=== PATIENT | male | born 1950 | race Caucasian/White ===

== ENCOUNTER 2016-09-03 14:03 | Emergency (ER) | payer MEDICARE, BC ==
[2016-09-03 14:11] VITALS: BP 148/100
--- NOTE | 2016-09-03 16:39 | ED ---
Skin Complaint - HPI Summary HPI Summary: Patient presents with a wound on the lateral aspect of his left ankle that began after he struck the ankle on the part of his other wheelchair. He suffered from cauda equina years ago and since then has had decreased sensation and blood flow to his bilateral extremities, left greater than right. He has a history of unhealing wounds as a result of this, and believes this is contributing to his current situation. He went to the wound clinic the last time this happened. Today he notice some serosanguinous drainage from the wound and thought he should have it looked at before thing got worse. His PCP could not see him for weeks. He denies fever, chills, pus or warmth at the wound. He notices some mild erythema and pain to the touch. - History of Current Complaint Chief Complaint: EDExtreAbbie Stated Complaint: POSSIBLE INFECTION IN LEFT FOOT Hx Obtained From: Patient, Family/Director Social Onset/Duration: Started Days Ago - 2 Timing: Constant Onset Severity: Mild Current Severity: Moderate Pain Intensity: 0 Skin Location: Foot - left lateral ankle Character: Redness - mild, Painful Aggravating Symptom(s): Touch Alleviating Symptom(s): Nothing Associated Signs & Symptoms: Drainage - serosanguinous, Tenderness Related History: Trauma Similar Episode/Dx as: two years ago he had an unhealing wound - Additional Pertinent History Primary Care Physician: MYNOR - Allergy/Home Medications Allergies/Adverse Reactions: Allergies Allergy/AdvReac Type Severity Reaction Status Date / Time Fentanyl AdvReac Intermediate Blisters Verified 09/03/16 14:04 PMH/Surg Hx/FS Hx/Imm Hx Endocrine/Hematology History: Reports: Hx Anticoagulant Therapy, Hx Diabetes, Hx Anemia, Hx Unexplained Bleeding Cardiovascular History: Reports: Hx Coronary Artery Disease, Hx Hypertension, Hx Pacemaker/ICD, Hx Peripheral Vascular Disease, Hx Valvular Heart Disease, Other Cardiovascular Problems/Disorders - Sick sinus syndrome Denies: Hx Angina, Hx Congestive Heart Failure, Hx Hypercholesterolemia, Hx Myocardial Infarction Respiratory History: Reports: Hx Pneumonia, Hx Pulmonary Embolism, Other Respiratory Problems/Disorders - RESP FAILURE Denies: Hx Asthma, Hx Chronic Obstructive Pulmonary Disease (COPD) GI History: Reports: Hx Gastroesophageal Reflux Disease, Hx Gastrointestinal Bleed, Hx Hiatal Hernia, Other GI Disorders - DIARRHEA- SINCE HAS BEEN ON [employer] IF IN SOUND SLEEP History: Reports: Other Problems/Disorders - straight caths Musculoskeletal History: Reports: Hx Arthritis, Hx Back Problems, Other Musculoskeletal History - WHEELCHAIR Sensory History: Reports: Hx Contacts or Glasses - for reading Denies: Hx Hearing Aid Opthamlomology History: Reports: Hx Contacts or Glasses - for reading Neurological History: Reports: Hx Spinal Cord Injury - spinal stenosis, Other Neuro Impairments/Disorders - Cauda equina syndrome Psychiatric History: Denies: Hx Anxiety - Cancer History Cancer Type, Location and Year: Skin cancer left healed. Also left forehead, ear and ruiz Hx Chemotherapy: No Hx Radiation Therapy: No - Surgical History Surgery Procedure, Year, and Place: Inguinal hernia repair. Cervical spine fusion. Lumbar spine fusion. CABG, 11/2013. Pacemaker implantation Hx Anesthesia Reactions: No Infectious Disease History: No Infectious Disease History: Reports: Hx Shingles - Mid 2013 Denies: Hx of Known/Suspected MRSA, Hx Tuberculosis, Traveled Outside the in Last 30 Days - Family History Known Family History: Positive: None Family History: R & n/C - Social History Occupation: Unemployed Lives: With Family Alcohol Use: None Hx Substance Use: No Substance Use Type: Reports: None Hx Tobacco Use: Yes Smoking Status (MU): Former Smoker Type: Cigarettes Amount Used/How Often: 1 PPD X 10 YEARS Length of Time of Smoking/Using Tobacco: 10 years Have You Smoked in the Last Year: No Review of Systems Negative: Fever, Chills Negative: Edema Positive: Other - quarter size wound to lateral left ankle All Other Systems Reviewed And Are Negative: Yes Physical Exam Triage Information Reviewed: Yes Vital Signs On Initial Exam: Initial Vitals Temp Pulse Resp BP Pulse Ox 98.8 F 72 18 148/100 100 09/03/16 14:05 09/03/16 14:05 09/03/16 14:05 09/03/16 14:05 09/03/16 14:05 Vital Signs Reviewed: Yes Appearance: Positive: Well-Appearing, No Pain Distress, Thin Skin: Positive: Warm, Dry. Negative: Skin Color Reflects Adequate Perfusion - chronic venous status appearance in the left lower extremity from the knee distally; quarter size wound with granulation appearance centrally with scant serosanguinous drainage noted. No pus noted. Mild enduration circumfrentially without erythema, edema or warmth. Head/Face: Positive: Normal Head/Face Inspection Eyes: Positive: EOMI, MAURIZIO, Conjunctiva Clear ENT: Positive: Hearing grossly normal Respiratory/Lung Sounds: Positive: Breath Sounds Present Cardiovascular: Positive: RRR Musculoskeletal: Negative: Edema Left Neurological: Positive: Alert, Oriented to Person Place, Time, Unable to Assess Gait Psychiatric: Positive: Affect/Mood Appropriate AVPU Assessment: Alert Diagnostics - Vital Signs Vital Signs Temp Pulse Resp BP Pulse Ox 09/03/16 14:05 98.8 F 72 18 148/100 100 - Laboratory Lab Statement: Any lab studies that have been ordered have been reviewed, and results considered in the medical decision making process. Course/Dx - Course Course Of Treatment: The patient is afebrile and although there is a wound, it appears relatively benign and the wound clinic would best manage this. He will be referred to the clinic and his PCP for close follow-up. - Differential Diagnoses - Skin Complaint Differential Diagnoses: Abscess, Cellulitis, Contact Dermatitis, Eczema, Foreign Body, Local Allergic Reaction, MRSA, Urticaria - Diagnoses Provider Diagnoses: Wound of left ankle Discharge - Discharge Plan Condition: Stable Disposition: HOME Patient Education Materials: Chronic Wound Care (ED) Referrals: Hany Valera DO [Primary Care Provider] - Paramjit Saravia MD [Medical Doctor] - Additional Instructions: Please contact the wound clinic for an appointment for evaluation of your wound. In the mean time keep the area clean and dressed. Follow-up with your primary care provider in 1-3 days for evaluation if you can not get in with the wound clinic. Return to the emergency department if your symptoms worsen.
== END 2016-09-03 17:02 | disposition home or self-care (01) ==
LOC: ED 14:03
DX: S91.002A Unspecified open wound, left ankle, initial encounter (principal); W22.8XXA Striking against or struck by other objects, initial encounter; Y92.9 Unspecified place or not applicable; G83.4 Cauda equina syndrome; Z88.5 Allergy status to narcotic agent; I25.10 Atherosclerotic heart disease of native coronary artery without angina pectoris; Z95.810 Presence of automatic (implantable) cardiac defibrillator; E11.9 Type 2 diabetes mellitus without complications; I10 Essential (primary) hypertension; I73.9 Peripheral vascular disease, unspecified; Z86.711 Personal history of pulmonary embolism; Z79.01 Long term (current) use of anticoagulants; Z87.891 Personal history of nicotine dependence
CPT/HCPCS: 99282

== ENCOUNTER 2016-09-25 18:43 | Inpatient (IN) | payer MEDICARE, BC ==
[2016-09-25] MEDS ORDERED: NS 0.9% 1000 ML* 2,000 ML IV ONE (19:01)
[2016-09-25] MEDS ORDERED: Metoclopramide IV* 5 MG/ML 2 ML VIAL IV ONE (19:25)
--- NOTE | 2016-09-25 19:27 | RAD ---
HISTORY: Weakness, general illness COMPARISONS: March 31, 2016 VIEWS:1: Single frontal portable view of the chest at 7:13 PM FINDINGS: LINES AND TUBES: None. CARDIOMEDIASTINAL SILHOUETTE: The cardiomediastinal silhouette is normal for portable technique. PLEURA: The costophrenic angles are sharp. No pleural abnormalities are noted. LUNG PARENCHYMA: There is confluent alveolar opacification of left lung base ABDOMEN: There is large vernell hernia BONES AND SOFT TISSUES: The patient is status post median sternotomy. The patient is status post spinal fusion. A left-sided pacemaker is noted IMPRESSION: 1. LARGE VERNELL HERNIA. 2. LEFT LOWER LUNG ATELECTASIS VERSUS CONSOLIDATION
[2016-09-25 20:13] LABS: Hematocrit 20 % (42-52); Mean Corpuscular HGB Conc 27 g/dl (31-36); Mean Corpuscular Hemoglobin 19 pg (27-31); Mean Corpuscular Volume 70 fL (80-94); Mean Platelet Volume 8 um3 (7.4-10.4); Red Blood Count 2.78 10^6/ul (4.0-5.4); Red Cell Distribution Width 18 % (10.5-15); White Blood Count 20.3 10^3/ul (3.5-10.8)
[2016-09-25 20:17] LABS: Comments Flag Yes
[2016-09-25 20:18] LABS: Add Diff/Slide Review? Slide Review Added; Hemoglobin 5.2 g/dl (14.0-18.0)
[2016-09-25 20:29] LABS: BUN/Creatinine Ratio 60.2 (8-20); C Reactive Protein 202.24 mg/L (< 5.00); Calcium 8.6 mg/dL (8.6-10.3); EGFR African American 97.8 (>60); EGFR Non-African American 76.1 (>60); Globulin 3.1 g/dL (2-4); Magnesium 1.4 mg/dL (1.9-2.7); Potassium 5.1 mmol/L (3.5-5.0); Total Bilirubin 0.6 mg/dL (0.2-1.0); Total Protein 6.1 g/dL (6.4-8.9)
[2016-09-25 20:36] LABS: Macrocytosis 1+; Microcytosis 1+; Neutrophil % 71 % (38-83); Reactive Lymph % 1 % (0-6)
[2016-09-25 20:38] LABS: Hypochromasia 2+; Polychromasia 1+
[2016-09-25] MEDS ORDERED: Magnesium Sulfate IV* 3 GM in NS 0.9% 100 ML* 100 ML IVPB ONE (20:54)
[2016-09-25 21:12] LABS: Urine Bacteria 3+ (Absent); Urine Bilirubin Negative (Negative); Urine Glucose Negative (Negative); Urine Nitrite Negative (Negative)
[2016-09-25] MEDS ORDERED: Hydrocortisone INJ* 100 MG VIAL IV ONE (21:16)
[2016-09-25] MEDS ORDERED: Cefepime(*) 1 GM in NS 0.9% 50 ML* 50 ML IVPB ONE (21:19)
[2016-09-25] MEDS ORDERED: Al Hydrox/Mg Hydrox/Simet LIQ* 30 ML UDC PO PRN (21:25)
[2016-09-25] MEDS ORDERED: Morphine INJ* 2 MG/ML 1 ML CARPUJECT IV PRN (21:25)
[2016-09-25] MEDS ORDERED: Senna TAB PO PRN (21:25)
[2016-09-25] MEDS ORDERED: Docusate CAP* 100 MG PO PRN (21:25)
[2016-09-25] MEDS ORDERED: Ondansetron INJ* 2 MG/ML VIAL IV PRN (21:25)
[2016-09-25 21:28] LABS: TSH (Thyroid Stimulating Horm) 3.22 mcIU/mL (0.34-5.60)
[2016-09-25] MEDS ORDERED: NS 0.9% 1000 ML* 1,000 ML IV ONE (21:33)
[2016-09-25 22:00] LABS: Troponin I 0.04 ng/mL (<0.04)
--- NOTE | 2016-09-25 22:03 | RAD ---
HISTORY: Abdominal pain COMPARISONS: None relevant VIEWS: Frontal views of the abdomen. FINDINGS: BOWEL: There is a nonspecific bowel gas pattern, with nondilated small bowel gas noted. There is a very large amount of stool throughout the colon CALCULI: There are no abnormal calculi. BONES AND SOFT TISSUES: The patient is status post laminectomy and spinal fusion. Degenerative changes are noted OTHER FINDINGS: The patient is status post median sternotomy. There is no subphrenic gas. IMPRESSION: NONSPECIFIC BOWEL GAS PATTERN. VERY LARGE AMOUNT OF STOOL THROUGHOUT THE COLON.
--- NOTE | 2016-09-25 22:32 | ED ---
Paige Kruse Anna, scribed for Kishore Whitaker MD on 09/25/16 at 1903 . GI/ HPI - HPI Summary HPI Summary: Patient is a 66 y/o male coming to [facility] presenting with nausea that began one week ago. His additionally reports he has had a fever and has experienced weakness. Denies emesis, current pain, CP, SOB. Presents as diaphoretic in the ED with an initial HR of 180. His history is significant for cauda equina syndrome, spinal stenosis, and CAD. Last BM was five days ago. - History of Current Complaint Chief Complaint: EDDysrhythmPalp Hx Obtained From: Patient Onset/Duration: Started Days Ago, Still Present Severity: Moderate Current Severity: Moderate Associated Signs and Symptoms: Positive: Nausea, Fever - Additional Pertinent History Primary Care Physician: MYNOR - Allergy/Home Medications Allergies/Adverse Reactions: Allergies Allergy/AdvReac Type Severity Reaction Status Date / Time Fentanyl AdvReac Intermediate Blisters Verified 09/03/16 14:04 PMH/Surg Hx/FS Hx/Imm Hx Previously Healthy: No Endocrine/Hematology History: Reports: Hx Anticoagulant Therapy, Hx Diabetes, Hx Anemia, Hx Unexplained Bleeding Cardiovascular History: Reports: Hx Coronary Artery Disease, Hx Hypertension, Hx Pacemaker/ICD, Hx Peripheral Vascular Disease, Hx Valvular Heart Disease, Other Cardiovascular Problems/Disorders - Sick sinus syndrome Denies: Hx Angina, Hx Congestive Heart Failure, Hx Hypercholesterolemia, Hx Myocardial Infarction Respiratory History: Reports: Hx Pneumonia, Hx Pulmonary Embolism, Other Respiratory Problems/Disorders - RESP FAILURE Denies: Hx Asthma, Hx Chronic Obstructive Pulmonary Disease (COPD) GI History: Reports: Hx Gastroesophageal Reflux Disease, Hx Gastrointestinal Bleed, Hx Hiatal Hernia, Other GI Disorders - DIARRHEA- SINCE HAS BEEN ON [employer] IF IN SOUND SLEEP History: Reports: Other Problems/Disorders - straight caths Musculoskeletal History: Reports: Hx Arthritis, Hx Back Problems, Other Musculoskeletal History - WHEELCHAIR Sensory History: Reports: Hx Contacts or Glasses - for reading Denies: Hx Hearing Aid Opthamlomology History: Reports: Hx Contacts or Glasses - for reading Neurological History: Reports: Hx Spinal Cord Injury - spinal stenosis, Other Neuro Impairments/Disorders - Cauda equina syndrome Psychiatric History: Denies: Hx Anxiety - Cancer History Cancer Type, Location and Year: Skin cancer left healed. Also left forehead, ear and ruiz Hx Chemotherapy: No Hx Radiation Therapy: No - Surgical History Surgery Procedure, Year, and Place: Inguinal hernia repair. Cervical spine fusion. Lumbar spine fusion. CABG, 11/2013. Pacemaker implantation Hx Anesthesia Reactions: No Infectious Disease History: Unable to Obtain/Confirm Infectious Disease History: Reports: Hx Shingles - Mid 2013 Denies: Hx of Known/Suspected MRSA, Hx Tuberculosis, Traveled Outside the [place] in Last 30 Days - Family History Known Family History: Positive: Cardiac Disease - Social History Occupation: Retired Lives: With Family Alcohol Use: None Hx Substance Use: No Substance Use Type: Reports: None Hx Tobacco Use: Yes Smoking Status (MU): Former Smoker Type: Cigarettes Amount Used/How Often: 1 PPD X 10 YEARS Length of Time of Smoking/Using Tobacco: 10 years Have You Smoked in the Last Year: No Review of Systems Positive: Fever, Skin Diaphoresis Positive: Nausea Positive: Weakness All Other Systems Reviewed And Are Negative: Yes Physical Exam - Summary Physical Exam Summary: VITAL SIGNS: Reviewed. GENERAL: Patient is a weak, fragile male who seems tyred and fatigued. Patient is not in any acute respiratory distress. HEAD AND FACE: No signs of trauma. No ecchymosis, hematomas or skull depressions. EYES: PERRLA, EOMI x 2, EARS: Hearing grossly intact. MOUTH: Dry nasal and oral mucosa NECK: Supple, trachea is midline, no adenopathy, no JVD, CHEST: Symmetric, no tenderness at palpation LUNGS: Clear to auscultation bilaterally. No wheezing or crackles. CVS: Irregular rate and rhythm, S1 and S2 present, no murmurs or gallops appreciated. ABDOMEN: Soft, non-tender. No signs of distention. No rebound no guarding, and no masses palpated. Bowel sounds are normal. EXTREMITIES: no edema, no cyanosis or clubbing. NEURO: Alert and oriented x chroninc paralyses from the waist down. SKIN: Dry and warm Triage Information Reviewed: Yes Vital Signs On Initial Exam: Initial Vitals Temp Pulse Resp BP Pulse Ox 96.4 F 182 34 96/72 96 09/25/16 18:51 09/25/16 18:51 09/25/16 18:51 09/25/16 18:51 09/25/16 18:51 Vital Signs Reviewed: Yes Diagnostics - Vital Signs Vital Signs Temp Pulse Resp BP Pulse Ox 02/07/17 18:51 96.4 F 182 34 96/72 96 - Laboratory Result Diagrams: 09/25/16 20:02 09/25/16 20:02 Lab Statement: Any lab studies that have been ordered have been reviewed, and results considered in the medical decision making process. - Radiology CXR Xray Interpretation: Positive (See Comments) Radiology Interpretation Completed By: Radiologist - IMPRESSION: 1. LARGE VERNELL HERNIA. 2. LEFT LOWER LUNG ATELECTASIS VERSUS CONSOLIDATION Abd XR Xray Interpretation: Positive (See Comments) Radiology Interpretation Completed By: Radiologist - IMPRESSION: NONSPECIFIC BOWEL GAS PATTERN. VERY LARGE AMOUNT OF STOOL THROUGHOUT THE COLON. - EKG 1843 Cardiac Rate: Tachycardia - 147 bpm EKG Rhythm: Atrial Fibrillation EKG Interpretation: RVR GIGU Course/Dx - Course Assessment/Plan: Patient is a 66 y/o male coming to [facility] presenting with nausea that began one week ago. His additionally reports he has had a fever and has experienced weakness. Denies emesis, current pain, CP, SOB. Presents as diaphoretic in the ED with an initial HR of 180. His history is significant for cauda equina syndrome, spinal stenosis, and CAD. Last BM was five days ago. Bloodwork shows WBC of 20.3, Hbg of 5.2, Hct of 20, and Plt count of 472. It also shows potassium of 5.1, carbon dioxide of 13, and BUN of 59. Glucose is 118, Lactic acid is 9.3, troponin is 0.04. BNP is 279. UA is contaminated. CXR shows a large hiatal hernia and left lower lung atelectasis versus consolidation. Abd XR shows nonspecific bowel gas pattern and very large amount of stool throughout the colon. EKG shows a fib with RVR of 147 bpm. However, at this time BP is 70/30. We obtained 3 IV accesses and the pt was given 2 L IV fluids. BP is now 101/63. Will report to Dr. Reyez the low H&H numbers. I did a rectal exam and I did not notice any fresh blood or melena. Still waiting for result of occult stool sample. I also ordered 2 units of blood for transfusion. The pt was also given Cefepmine for possible PNA. I discussed the PE findings with Dr. Reyez, who accepted the pt for admission. At this time, I do not think that the pt needs a central line, since the BP significantly improved only with IV fluids. I believe the pt will improve even further with blood. In re-evaluation, patient is alert and oriented x 3. He is not somnolent. Therefore, the pt is improving. Therefore, at this time the pt will be admitted to the hospitalist services. The patients vital signs are improving; however the pts condition is still guarded. - Diagnoses Provider Diagnoses: Atrial fibrillation, rapid, Symptomatic anemia, Pneumonia, Elevated troponin, Hypotension - Physician Notifications Discussed Care Of Patient With: Dr. Reyez (hospitalist) at 2042. Agrees to accept pt for admission. Discharge - Discharge Plan Condition: Stable Disposition: ADMITTED TO [facility] The documentation as recorded by the Paige garcia Anna accurately reflects the service I personally performed and the decisions made by me, Kishore Whitaker MD.
[2016-09-25] MEDS: Pantoprazole IV* 80 MG in NS 0.9% 250 ML* 250 ML IV SCH (23:25)
[2016-09-25] MEDS ORDERED: Metoprolol Tartrate IV* 1 MG/ML 5 ML VIAL IV ONE (23:55)
[2016-09-25] MEDS ORDERED: Metoprolol Tartrate IV* 1 MG/ML 5 ML VIAL ONE (23:56)
--- NOTE | 2016-09-26 00:34 | HP ---
HISTORY AND PHYSICAL: DATE OF ADMISSION: 09/25/16 PRIMARY CARE PHYSICIAN: Dr. Hany Valera. TIME OF EVALUATION: 2100 hours. CHIEF COMPLAINT: Lethargy and weakness. HISTORY OF PRESENT ILLNESS: This is a 66-year-old male with a complicated past medical history including upper GI bleed in March 2016 on anticoagulation at that time, found to have a large hiatal hernia with Dilan erosions as well as HSV esophagitis. The patient continues to be on prednisone for his rheumatoid arthritis. He denies any anticoagulation. No aspirin or NSAIDs. His noted that he had decreased appetite with a wet cough today and was feeling nauseated. She was concerned, he became more lethargic and brought him to the emergency room for further evaluation. The patient normally does straight cath for himself for his neurogenic bladder every 5 hours and he was so lethargic, he was unable to do this. The patient denies any diarrhea. No vomiting, no abdominal pain, no chest pain, no shortness of breath. Otherwise, he denies any melena, no bright red blood per rectum. According to the , he had a blood work done a week ago and everything was perfect according to her. She did state that he was on iron from his last GI bleed that was started in March , but stopped it about 6 months ago, because it was causing him diarrhea. Otherwise, remaining review of systems is negative. Also, of note, the patient has not had a bowel movement in the past 5 days. In the emergency room, the patient had labs drawn. He was found to have a hemoglobin of 5.2. He was given 2 L of normal saline, 2 units of blood have been ordered, and he was referred to the hospitalist service for further evaluation. PAST MEDICAL HISTORY: 1. Admission in March 2016 for an upper GI bleed secondary to Dilan ulcers from large hiatal hernia. 2. History of HSV esophagitis. 3. Coronary artery disease, status post bypass. 4. Sick sinus syndrome, status post pacemaker. 5. History of atrial fibrillation. 6. Hypertension. 7. Hyperlipidemia. 8. Rheumatoid arthritis, on prednisone. 9. 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 10. Chronic left heel wound with daily dressing changes. 11. Diabetes. 12. History of cauda equina syndrome, complicated by paraplegia with a neurogenic bladder. 13. History of skin cancer, status post excision on his scalp. 14. History of osteomyelitis. 15. History of multiple spinal surgeries. 16. History of foot surgery and skin grafting. MEDICATIONS: We are not aware of what medications he takes at this time. The list has been lost in transit. I do know that he is on chronic prednisone 10 mg daily. ALLERGIES: FENTANYL, blisters. FAMILY HISTORY: His mother from breast cancer. Father from lung cancer. SOCIAL HISTORY: The patient lives at home with his , Becky, who is his healthcare proxy, has been for 43 years. He is wheelchair bound. He has two grown children, one is a nurse at [employer]. He quit smoking 32 years ago. No alcohol use. I did discuss MOLST form with him and he wants to be a do not resuscitate, do not intubate. The MOLST form will be completed this evening. REVIEW OF SYSTEMS: As mentioned in the HPI. PHYSICAL EXAMINATION GENERAL: Pale, ill-appearing male with his sitting at the bedside. VITAL SIGNS: Temp 96.4, pulse rate 154, respiratory rate 23, oxygen saturation 83% on room air, blood pressure 94/68. HEENT: Oropharynx: His mucous membranes are dry. No lesions visualized in his oropharynx. Pupils are equal, reactive, and anicteric. Pale conjunctivae. Head: The patient has scarring and some significant excision on his left scalp. NECK: Supple. No lymphadenopathy. RESPIRATORY: Poor respiratory effort. Rhonchorous breath sounds bilaterally with a wet cough. CARDIAC: Irregularly irregular rate and rhythm, rapid. ABDOMEN: Positive bowel sounds. Soft. Some mild firmness and discomfort in his lower abdomen mainly on the left side. EXTREMITIES: The patient with significant lower extremity atrophy, +1 DPs. NEUROLOGIC: Alert and oriented x3. Mildly somnolent, but awakes easily. Symmetric and equal upper extremity strength. Limited lower extremity movement. DIAGNOSTIC STUDIES/LAB DATA: White count 20.3, hemoglobin 5.2, hematocrit 20, MCV of 70, platelets 472. Sodium 140, potassium 5.1, chloride 107, bicarb 13, BUN 59, creatinine 0.98, glucose 118, lactic acid 9.3, magnesium 1.4. CRP 202. BNP 279. Radiographic data: Chest x-ray shows large hiatal hernia. Left lower lung atelectasis versus consolidation. EKG shows rapid atrial fibrillation. ASSESSMENT AND PLAN: This is a 66-year-old male with a complicated past medical history including history of upper gastrointestinal bleed with large hiatal hernia and Dilan erosions, on chronic prednisone for his rheumatoid arthritis with history of atrial fibrillation, who presents to the emergency room with a cough, nausea, lethargy, found to be profoundly anemic, and hemorrhagic shock. 1. Hemorrhagic shock. Assessment: The patient had a H and H done on September 18 that showed his hemoglobin had been dropping down 7.7. This is likely from his Dilan erosion. He is on prednisone. He has been seen by GI in the past. He is a poor surgical candidate to correct his hernia due to his cardiac history. He does have some abdominal discomfort. I suspect this is secondary to constipation as he has not had a bowel movement in 5 days. Plan: Will admit him to the ICU. I did contact Dr. Landers and Dr. Her regarding his admission. We will get an abdominal flat plate to rule out any significant process. We will start him on stress-dose steroids. He is getting 2 units now in the emergency room. I am starting him on a PPI drip as well and IV fluids and we will follow his H and H closely throughout the evening and we will trend his lactate. 2. Leukocytosis. Assessment: The patient likely with sepsis as well secondary to community- acquired pneumonia, although he is also immunosuppressed. He does have a poor respiratory effort at this time. He does wish to be a DNI/DNR. We will readdress this if he does continue to deteriorate. Plan: We are going to put him on Vapotherm right now and start him on cefepime and obtain blood cultures and continue IV fluids and follow up on his cultures and check a flu swab. 3. Rapid atrial fibrillation. Assessment: The patient with a history of atrial fibrillation, off anticoagulation due to his recurrent gastrointestinal bleeding. Plan: We will continue to fluid resuscitate and hope this will slow his rate down. May give him some digoxin or amiodarone if he persists in his rapid rate. CHRONIC MEDICAL PROBLEMS: 1. I do not have his med rec here as his med list has been lost, so the pharmacy needs to be contacted first thing in the morning to complete his med rec. 2. For his diabetes, we will place him on lispro sliding scale. 3. For his left wound, we will put in for a daily dressing change with fentanyl ointment that he has been using at home. 4. FEN. We will replete his magnesium, IV fluids, and blood. We will keep him n.p.o. on the setting of his lethargy and compromised respiratory state. 5. DVT prophylaxis. The patient scores high risk. We will place him on SCDs. 6. Code status. DNR/DNI has been filled out this evening. PATIENT TIME: Greater than 60 minutes was spent doing the history and physical , more than half the time was spent in direct patient contact plus critical care time with the patient's family, speaking with the ER Dr. Landers and Dr. Her. CC: Dr. Hany Valera* [id number]/CPS #: [id number] MTDD
[2016-09-26] MEDS: NS 0.9% 1000 ML* 1,000 ML IV SCH ×3 (00:46→17:05)
[2016-09-26] MEDS ORDERED: Digoxin IV* 0.5 MG/2 ML AMP (0.25 MG/ML) IV SLOW PU ONE ×2 (01:20→08:00)
[2016-09-26 01:25] LABS: Hematocrit 17 % (42-52)
[2016-09-26 01:33] LABS: Comments Flag Yes
[2016-09-26 01:34] LABS: Hemoglobin 4.8 g/dl (14.0-18.0)
[2016-09-26] MEDS: Insulin REGULAR(*) 1 UNITS UNIT SUBCUT SCH ×5 (04:51→23:28)
[2016-09-26] MEDS: Hydrocortisone INJ* 100 MG VIAL IV SCH ×3 (05:53→22:25)
[2016-09-26 06:53] LABS: Comments Flag Yes; Hematocrit 23 % (42-52); Hemoglobin 7.1 g/dl (14.0-18.0); Mean Corpuscular HGB Conc 31 g/dl (31-36); Mean Corpuscular Hemoglobin 23 pg (27-31); Mean Corpuscular Volume 74 fL (80-94); Mean Platelet Volume 8 um3 (7.4-10.4); Red Blood Count 3.15 10^6/ul (4.0-5.4); Red Cell Distribution Width 22 % (10.5-15); White Blood Count 11.2 10^3/ul (3.5-10.8)
[2016-09-26 06:55] LABS: Albumin 2.5 g/dL (3.2-5.2); BUN/Creatinine Ratio 76.3 (8-20); Calcium 7.3 mg/dL (8.6-10.3); EGFR African American 131.2 (>60); Globulin 2.4 g/dL (2-4); Potassium 4.4 mmol/L (3.5-5.0); Total Bilirubin 0.9 mg/dL (0.2-1.0); Total Protein 4.9 g/dL (6.4-8.9)
[2016-09-26] MEDS ORDERED: Insulin REGULAR(*) 1 UNITS UNIT SUBCUT SCH (08:00)
[2016-09-26] MEDS: Cefepime(*) 1 GM in NS 0.9% 50 ML* 50 ML IVPB SCH ×2 (10:42→23:00)
--- NOTE | 2016-09-26 11:16 | PN ---
Subjective Date of Service: 09/26/16 Interval History: Patient seen and examined at bedside. Pt states that he is feeling better this morning. Denies fever, chills, shortness of breath, chest discomfort, N/V/D. Pt denies signs of bleeding. Awaiting medication list from home. Cardiac Monitoring: Sinus rhythm, A paced. Rate 60-70's. Family History: Unchanged from Admission Social History: Unchanged from Admission Past Medical History: Unchanged from Admission Objective Active Medications: Acetaminophen (Tylenol Tab*) 650 mg PO Q4H PRN Reason: FEVER/PAIN Al Hydrox/Mg Hydrox/Simethicone (Maalox Plus*) 30 ml PO Q6H PRN Reason: INDIGESTION Docusate Sodium (Colace Cap*) 100 mg PO BID PRN Reason: CONSTIPATION Hydrocortisone Sodium Succinate (Solu-Cortef*) 50 mg IV Q8H [facility] Cefepime HCl 1 gm/ Sodium (Chloride) 50 mls @ 100 mls/hr IVPB Q12H [facility] Pantoprazole Sodium 80 mg/ (Sodium Chloride) 250 mls @ 25 mls/hr IV Q10H [facility] Sodium Chloride (Ns 0.9% 1000 Ml*) 1,000 mls @ 125 mls/hr IV PER RATE [facility] Insulin Human Regular (Insulin Regular(*)) 0 units SUBCUT FS Q4 ICU [facility] Morphine Sulfate (Morphine Inj (Syringe)*) 2 mg IV Q4H PRN Reason: PAIN Ondansetron HCl (Zofran Inj*) 4 mg IV Q4H PRN Reason: NAUSEA/VOMITING Senna (Senokot Tab*) 1 tab PO BID PRN Reason: CONSTIPATION Vital Signs 09/25/16 09/25/16 09/25/16 21:26 21:45 22:00 Temperature 98 F Pulse Rate 155 28 Respiratory 25 22 20 Rate Blood Pressure 90/60 112/89 111/63 (mmHg) O2 Sat by Pulse 92 85 Oximetry 09/25/16 09/25/16 09/25/16 22:16 22:30 22:45 Temperature Pulse Rate Respiratory 28 22 20 Rate Blood Pressure 125/92 98/66 129/84 (mmHg) O2 Sat by Pulse Oximetry 09/25/16 09/25/16 09/25/16 23:00 23:07 23:13 Temperature Pulse Rate 82 Respiratory 19 27 24 Rate Blood Pressure 123/87 (mmHg) O2 Sat by Pulse 93 Oximetry 09/25/16 09/25/16 09/25/16 23:15 23:17 23:24 Temperature 99.8 F Pulse Rate 166 Respiratory 17 21 Rate Blood Pressure 137/119 116/83 144/114 (mmHg) O2 Sat by Pulse 94 Oximetry 09/25/16 09/25/16 09/26/16 23:30 23:45 00:00 Temperature 97.4 F Pulse Rate 153 185 155 Respiratory 20 20 21 Rate Blood Pressure 158/141 116/83 122/89 (mmHg) O2 Sat by Pulse 92 94 100 Oximetry 09/26/16 09/26/16 09/26/16 00:15 00:29 00:33 Temperature 90.3 F Pulse Rate 161 Respiratory 21 17 Rate Blood Pressure 122/89 116/90 (mmHg) O2 Sat by Pulse 86 Oximetry 09/26/16 09/26/16 09/26/16 01:00 01:17 01:30 Temperature 99.8 F 100.1 F 100.1 F Pulse Rate 148 141 Respiratory 19 16 19 Rate Blood Pressure 97/70 100/80 (mmHg) O2 Sat by Pulse 100 100 Oximetry 09/26/16 09/26/16 09/26/16 01:37 01:45 01:57 Temperature 100.2 F 100.3 F Pulse Rate 148 147 141 Respiratory 22 27 Rate Blood Pressure 120/100 126/88 (mmHg) O2 Sat by Pulse 100 98 Oximetry 09/26/16 09/26/16 09/26/16 02:00 02:15 02:30 Temperature 100.3 F 100.3 F Pulse Rate 139 134 Respiratory 22 18 Rate Blood Pressure 137/94 127/91 139/84 (mmHg) O2 Sat by Pulse 92 100 Oximetry 09/26/16 09/26/16 09/26/16 03:00 03:05 03:15 Temperature 100.4 F Pulse Rate 123 Respiratory 19 17 20 Rate Blood Pressure 139/100 131/85 (mmHg) O2 Sat by Pulse 100 Oximetry 09/26/16 09/26/16 09/26/16 03:30 03:38 03:45 Temperature 100.4 F 100.4 F 100.2 F Pulse Rate 119 122 124 Respiratory 21 21 20 Rate Blood Pressure 151/105 150/86 155/103 (mmHg) O2 Sat by Pulse 100 100 100 Oximetry 09/26/16 09/26/16 09/26/16 03:46 04:00 04:15 Temperature 100.2 F 100.1 F 100.1 F Pulse Rate 124 120 122 Respiratory 20 20 21 Rate Blood Pressure 154/94 136/81 138/97 (mmHg) O2 Sat by Pulse 100 100 100 Oximetry 09/26/16 09/26/16 09/26/16 04:30 04:45 04:51 Temperature 100.0 F 99.8 F 99.7 F Pulse Rate 71 68 67 Respiratory 21 19 20 Rate Blood Pressure 147/78 132/73 142/76 (mmHg) O2 Sat by Pulse 100 100 100 Oximetry 09/26/16 09/26/16 09/26/16 05:00 05:15 05:30 Temperature 99.6 F 99.5 F 99.5 F Pulse Rate 69 70 69 Respiratory 19 21 20 Rate Blood Pressure 138/82 140/79 137/73 (mmHg) O2 Sat by Pulse 100 100 100 Oximetry 09/26/16 09/26/16 09/26/16 05:45 06:00 06:15 Temperature 99.5 F 99.5 F 95.8 F Pulse Rate 70 68 67 Respiratory 17 20 19 Rate Blood Pressure 142/74 137/71 139/64 (mmHg) O2 Sat by Pulse 100 100 100 Oximetry 09/26/16 09/26/16 09/26/16 06:30 06:34 06:45 Temperature 68.2 F Pulse Rate 68 Respiratory 16 19 Rate Blood Pressure 132/69 129/72 (mmHg) O2 Sat by Pulse 100 Oximetry 09/26/16 09/26/16 09/26/16 07:00 07:15 07:30 Temperature 94.7 F 98.9 F Pulse Rate 67 65 Respiratory 19 19 Rate Blood Pressure 126/64 119/65 136/67 (mmHg) O2 Sat by Pulse 100 100 Oximetry 09/26/16 09/26/16 09/26/16 07:45 08:00 08:15 Temperature 99.1 F 99.1 F 99.1 F Pulse Rate 65 65 67 Respiratory 20 21 21 Rate Blood Pressure 120/58 133/62 119/72 (mmHg) O2 Sat by Pulse 100 100 100 Oximetry 09/26/16 09/26/16 08:36 09:00 Temperature 94.1 F Pulse Rate 68 67 Respiratory 20 Rate Blood Pressure 127/61 (mmHg) O2 Sat by Pulse 100 Oximetry Oxygen Devices in Use Now: Nasal Cannula Appearance: NAD, laying in bed. Eyes: No Scleral Icterus, PERRLA Ears/Nose/Mouth/Throat: NL Teeth, Lips, Gums, Mucous Membranes Moist Neck: NL Appearance and Movements; NL JVP, Trachea Midline Respiratory: Symmetrical Chest Expansion and Respiratory Effort, - - Lung sounds clear but diminished with few rhonchi Cardiovascular: NL Sounds; No Murmurs; No JVD, RRR Abdominal: NL Sounds; No Tenderness; No Distention - Bowel sounds present Skin: - - Multiples dressing clean, dry and intact. +1 bilateral LE edema Neurological: Alert and Oriented x 3, NL Muscle Strength and Tone Lines/Tubes/Other Access: Clean, Dry and Intact Beckman - patent, draining clear urine, Clean, Dry and Intact Peripheral IV - site benign Result Diagrams: 09/26/16 19:20 09/26/16 05:47 Microbiology and Other Data: Microbiology 09/26/16 00:10 Nasal Screen MRSA (PCR)([facility]) - Final Nasal Mrsa Negative 09/26/16 00:10 Influenza Types A,B Antigen ([facility]) - Final Nasal Specimen received for Influenza A/B Molecular testing Assess/Plan/Problems-Billing Assessment: Mr. Rangel is a 66 yo male with PMH significant for upper GI bleed, Dilan erosions, RA on chronic prednisone, and afib who presented to the emergency room with cough, nausea, lethargy, found to have profound anemia and hemorrhagic shock. - Patient Problems (1) Hemorrhagic shock Code(s): ANR5591 - SNOMED Code(s): 119662 Comment: - Resolved - H/H stable, no additional bleeding - Will continue to monitor HH (2) GI bleed Code(s): K92.2 - GASTROINTESTINAL HEMORRHAGE, UNSPECIFIED SNOMED Code(s): 61864417 Comment: - BUN elevated from baseline - Pt is on prednisone chronically - GI consult pending - Continue PPI (3) Leukocytosis Code(s): D72.829 - ELEVATED WHITE BLOOD CELL COUNT, UNSPECIFIED SNOMED Code(s) : 292649009 Comment: - ? community aquired PNA, Pt is immunosuppressed - Flu swab negative - Low grade fevers - Continue cefepime for now (4) Afib Code(s): I48.91 - UNSPECIFIED ATRIAL FIBRILLATION SNOMED Code(s): 16884091 Comment: - Now rate controlled - Pt received IV digoxin and lopressor overnight - Will resume home medications, once medication list is confirmed (5) Diabetes Code(s): E11.9 - TYPE 2 DIABETES MELLITUS WITHOUT COMPLICATIONS SNOMED Code(s) : 38632196 Comment: - Glucose 170-230's - Hold metformin. - Continue FS and cover with Lispro SS. (6) Chronic wound of extremity Code(s): QLA5999 - SNOMED Code(s): 520454662 Comment: - Pt follow with the wound clinic - Continue santyl daily dressing changes (7) DVT prophylaxis Code(s): QVG0340 - SNOMED Code(s): 179390899 Comment: SCDs (8) DNR (do not resuscitate) Status and Disposition: Inpatient. Estimated LOS > 2 days. Discharge to home when medically stable.
[2016-09-26 12:00] LABS: Hematocrit 22 % (42-52)
[2016-09-26 12:08] LABS: Comments Flag Yes
[2016-09-26] MEDS: Pantoprazole IV* 80 MG in NS 0.9% 250 ML* 250 ML IV SCH ×3 (13:04→22:25)
[2016-09-26 19:52] LABS: Comments Flag Yes; Hematocrit 20 % (42-52)
[2016-09-26 19:53] LABS: Hemoglobin 6.3 g/dl (14.0-18.0)
--- NOTE | 2016-09-26 21:09 | CONS ---
CONSULTATION: DATE OF CONSULT: 09/26/16 REASON FOR CONSULTATION: Anemia, probable recurrent GI bleeding from Dilan erosions. NARRATIVE: Mr. Rangel is a pamela 66-year-old gentleman who has a history of coronary artery disease, atrial fibrillation, rheumatoid arthritis, cauda equina syndrome, and paraplegia. He was hospitalized twice in 2016 for GI bleeding, at which time upper endoscopy demonstrated a large hiatal hernia with Dilan erosions. Additionally, at one point, he had herpetic esophagitis, which was treated. He was placed on a proton pump inhibitor and given oral iron , but unfortunately, he has been unable to tolerate the iron due to diarrhea. He is therefore not been on any iron in the last few months. His believes he had blood work done including a blood count a few weeks ago and everything was reported as normal, although we are not in possession of those records. 24 hours prior to admission, the patient described a sense of weakness and a sense of nausea. He was short of breath and therefore came to the emergency room where he was found to have a hemoglobin of 5.2. Additional data include a stool Hemoccult, which was positive. The patient denies any report of rectal bleeding or melena. He has been transfused and feels significantly better today. PAST MEDICAL HISTORY: Again includes Dilan erosions with large hiatal hernia diagnosed last year at the time of an upper endoscopy, history of coronary artery disease, sick sinus syndrome with pacemaker, atrial fibrillation, rheumatoid arthritis, history of PE and DVT with IVC filter, cauda equina syndrome. MEDICATIONS: His outpatient medicines, we believe and we are waiting verifications include: 1. Methotrexate. 2. OxyContin as needed. 3. Lipitor. 4. Vitamin D. 5. Plaquenil. 6. Zestril. 7. Omeprazole. 8. Metformin. 9. Betapace. 10. Prednisone. REVIEW OF SYSTEMS: He has had problems with diarrhea in the past, he believes related to iron supplementation. He more recently has had issues with constipation, but it is found that with fiber supplementation this has improved. He does describe occasional heartburn. PHYSICAL EXAM: He is a very pleasant, somewhat pale gentleman in the ICU, appearing comfortable in no acute distress. Blood pressure is 128/55, heart rate is 73 and irregular. Lungs are generally clear. Cardiac exam reveals an irregular rhythm. Abdomen is soft without distention or tenderness and bowel sounds are normoactive. There is no organomegaly. DIAGNOSTIC STUDIES/LAB DATA: Data include an admission hemoglobin of 5.2 which after 2 units has gone to 7. Platelet count of 271,000. BUN of 58, creatinine of 0.76. IMPRESSION: A 66-year-old gentleman with known GI bleeding from Dilan erosions presenting with evidence of anemia and guaiac-positive stools. This is almost certainly from recurrence of the Dilan erosions. Certainly, definitive therapy would require surgical repair, although given his other comorbidity, I think that would be quite risky and I will discuss with the family. I think our best option would be to stay on top of the anemia, follow CBC closely, and reinstitute iron. It might be best to use intravenous iron and that was discussed with the family due to his inability to handle oral iron. At this point, I would also continue PPI therapy twice a day. I do not see the need for repeat endoscopy at this time. I will certainly follow the patient during this admission stay. CC: Dr. Hany Valera* [id number]/[facility] #: [id number] LEA
[2016-09-26] MEDS: oxyCODONE TAB* 5 MG TAB PO PRN (22:22)
[2016-09-26] MEDS: Acetaminophen TAB* 325 MG PO PRN (22:23)
[2016-09-26] MEDS: Sotalol TAB* 80 MG PO SCH (22:23)
[2016-09-26 23:50] LABS: Hematocrit 22 % (42-52); Hemoglobin 7.1 g/dl (14.0-18.0)
[2016-09-26 23:51] LABS: Comments Flag Yes
[2016-09-27] MEDS: Pantoprazole IV* 80 MG in NS 0.9% 250 ML* 250 ML IV SCH ×3 (04:02→13:31)
[2016-09-27] MEDS: Hydrocortisone INJ* 100 MG VIAL IV SCH ×3 (05:46→22:22)
[2016-09-27] MEDS: oxyCODONE TAB* 5 MG TAB PO PRN ×3 (05:47→22:22)
[2016-09-27] MEDS: Acetaminophen TAB* 325 MG PO PRN (05:47)
[2016-09-27 05:54] LABS: Add Diff/Slide Review? Slide Review Added; Comments Flag Yes; Hematocrit 22 % (42-52); Mean Corpuscular HGB Conc 32 g/dl (31-36); Mean Corpuscular Hemoglobin 24 pg (27-31); Mean Corpuscular Volume 74 fL (80-94); Mean Platelet Volume 7 um3 (7.4-10.4); Red Blood Count 2.95 10^6/ul (4.0-5.4); Red Cell Distribution Width 21 % (10.5-15); White Blood Count 8.4 10^3/ul (3.5-10.8)
[2016-09-27 06:12] LABS: BUN/Creatinine Ratio 47.7 (8-20); Calcium 7.7 mg/dL (8.6-10.3); EGFR African American 157.1 (>60); EGFR Non-African American 122.2 (>60); Potassium 3.2 mmol/L (3.5-5.0)
[2016-09-27] MEDS: Insulin REGULAR(*) 1 UNITS UNIT SUBCUT SCH ×3 (07:09→16:34)
[2016-09-27 07:41] LABS: Magnesium 1.6 mg/dL (1.9-2.7)
[2016-09-27] MEDS: Sotalol TAB* 80 MG PO SCH ×2 (07:51→20:39)
[2016-09-27] MEDS ORDERED: Iron Sucrose* 200 MG in NS 0.9% 250 ML* 250 ML IVPB ONE (08:00)
[2016-09-27] MEDS: KCL 20 MEQ/100 ML IVPREMIX* 20 MEQ/100 ML BAG IV SCH ×2 (08:06→10:02)
[2016-09-27] MEDS ORDERED: Magnesium Sulfate IV* 3 GM in NS 0.9% 100 ML* 100 ML IVPB ONE (08:38)
[2016-09-27] MEDS ORDERED: Influenza VAC *QUAD* 2016-17* 0.5 ML SYRINGE IM ONE (09:00)
[2016-09-27] MEDS ORDERED: Pneumococcal *Vac Polyvalent 0.5 ML VIAL IM ONE (09:00)
[2016-09-27] MEDS: Potassium Chloride LIQUID* 20 MEQ PACKET PO SCH ×2 (09:43→11:59)
--- NOTE | 2016-09-27 10:29 | PN ---
Subjective Date of Service: 09/27/16 Interval History: Patient seen and examined at bedside. Pt states that he is feeling better. Denies fever, chills, shortness of breath, chest discomfort, N/V/D or urinary symptoms. Pt states that he straight caths multiple times a day at home, he would like to keep an indwelling Beckman. Pt reports an occasional productive cough and that he brings up sputum, but has not seen it as he swallows it. 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 Rate 60's. Family History: Unchanged from Admission Social History: Unchanged from Admission Past Medical History: Unchanged from Admission Objective Active Medications: Acetaminophen (Tylenol Tab*) 650 mg PO Q4H PRN Reason: FEVER/PAIN Al Hydrox/Mg Hydrox/Simethicone (Maalox Plus*) 30 ml PO Q6H PRN Reason: INDIGESTION Collagenase (Santyl 250 Mg/Gm Oint*) 1 applic TOPICAL DAILY ARGENIS Docusate Sodium (Colace Cap*) 100 mg PO BID PRN Reason: CONSTIPATION Hydrocortisone Sodium Succinate (Solu-Cortef*) 50 mg IV Q8H [facility]GENIS Cefepime HCl 1 gm/ Sodium (Chloride) 50 mls @ 100 mls/hr IVPB Q12H [facility] Pantoprazole Sodium 80 mg/ (Sodium Chloride) 250 mls @ 25 mls/hr IV Q10H [facility] Sodium Chloride (Ns 0.9% 1000 Ml*) 1,000 mls @ 100 mls/hr IV PER RATE [facility] Potassium Chloride (Potassium Chloride 20 Meq/100 Ml Ivpremix*) 20 meq in 100 mls @ 50 mls/hr IV Q2H [facility] Stop: 09/27/16 11:59 Magnesium Sulfate 3 gm/ Sodium (Chloride) 106 mls @ 53 mls/hr IVPB ONCE ONE Stop: 09/27/16 10:37 Insulin Human Regular (Insulin Regular(*)) 0 units SUBCUT AC ARGENIS Morphine Sulfate (Morphine Inj (Syringe)*) 2 mg IV Q4H PRN Reason: PAIN Ondansetron HCl (Zofran Inj*) 4 mg IV Q4H PRN Reason: NAUSEA/VOMITING Oxycodone HCl (Roxycodone Tab*) 5 mg PO Q4H PRN Reason: PAIN Potassium Chloride (Klor-Con Liquid*) 20 meq PO Q4H [facility] Stop: 09/27/16 12:01 Senna (Senokot Tab*) 1 tab PO BID PRN Reason: CONSTIPATION Sotalol HCl (Betapace Tab*) 80 mg PO BID ARGENIS Vital Signs 09/26/16 09/26/16 09/26/16 11:00 12:00 13:00 Temperature 98.9 F 99.1 F 98.9 F Pulse Rate 70 68 74 Respiratory 19 15 17 Rate Blood Pressure 130/57 (mmHg) O2 Sat by Pulse 94 100 95 Oximetry 09/26/16 09/26/16 09/26/16 14:00 15:00 16:00 Temperature 99.0 F 99.4 F 99.4 F Pulse Rate 69 69 69 Respiratory 17 21 20 Rate Blood Pressure 128/55 132/62 139/63 (mmHg) O2 Sat by Pulse 96 96 98 Oximetry 09/26/16 09/26/16 09/26/16 17:00 18:00 19:00 Temperature 99.4 F 99.5 F 99.6 F Pulse Rate 68 71 71 Respiratory 19 21 19 Rate Blood Pressure 135/68 142/115 133/62 (mmHg) O2 Sat by Pulse 98 99 99 Oximetry 09/26/16 09/26/16 09/26/16 19:49 20:00 20:57 Temperature 99.3 F 99.3 F 99.3 F Pulse Rate Respiratory 22 21 Rate Blood Pressure 125/58 120/55 (mmHg) O2 Sat by Pulse 99 97 Oximetry 09/26/16 09/26/16 09/26/16 21:00 22:00 22:20 Temperature 99.3 F 99.4 F Pulse Rate Respiratory 20 24 17 Rate Blood Pressure 124/53 134/63 (mmHg) O2 Sat by Pulse 97 98 Oximetry 09/26/16 09/26/16 09/26/16 22:30 23:00 23:21 Temperature 99.3 F 99.2 F 99.1 F Pulse Rate 65 Respiratory 23 22 22 Rate Blood Pressure 135/66 134/64 (mmHg) O2 Sat by Pulse 98 98 98 Oximetry 09/26/16 09/27/16 09/27/16 23:44 00:00 00:01 Temperature 98.9 F 98.9 F 98.9 F Pulse Rate Respiratory 19 21 Rate Blood Pressure 132/68 (mmHg) O2 Sat by Pulse 96 96 Oximetry 09/27/16 09/27/16 09/27/16 01:00 02:00 02:42 Temperature 98.6 F 98.3 F Pulse Rate Respiratory 21 20 22 Rate Blood Pressure 136/65 138/66 (mmHg) O2 Sat by Pulse 96 97 Oximetry 09/27/16 09/27/16 09/27/16 03:00 04:00 05:00 Temperature 97.9 F 97.6 F 97.5 F Pulse Rate Respiratory 21 22 17 Rate Blood Pressure 144/73 148/72 139/74 (mmHg) O2 Sat by Pulse 97 97 97 Oximetry 09/27/16 09/27/16 09/27/16 05:52 06:00 07:00 Temperature 97.5 F 97.5 F Pulse Rate 65 Respiratory 19 18 18 Rate Blood Pressure 146/75 157/77 (mmHg) O2 Sat by Pulse 97 98 Oximetry 09/27/16 09/27/16 09/27/16 07:08 08:00 09:00 Temperature 97.6 F 97.5 F Pulse Rate 66 65 Respiratory 20 15 20 Rate Blood Pressure 146/74 144/66 (mmHg) O2 Sat by Pulse 98 97 Oximetry 09/27/16 09/27/16 09/27/16 09:32 10:00 10:08 Temperature 97.9 F Pulse Rate 65 Respiratory 21 18 22 Rate Blood Pressure 125/73 (mmHg) O2 Sat by Pulse 98 Oximetry Oxygen Devices in Use Now: None Appearance: NAD, sitting up in bed. Eyes: No Scleral Icterus, PERRLA Ears/Nose/Mouth/Throat: NL Teeth, Lips, Gums, Mucous Membranes Moist Neck: NL Appearance and Movements; NL JVP, Trachea Midline Respiratory: Symmetrical Chest Expansion and Respiratory Effort, Clear to Auscultation - diminished Cardiovascular: NL Sounds; No Murmurs; No JVD, RRR Abdominal: NL Sounds; No Tenderness; No Distention - Bowel sounds present Extremities: - - Trace edema to bilateral LE Skin: - - Dressings to lower extremity chronic wounds Neurological: Alert and Oriented x 3 Lines/Tubes/Other Access: Clean, Dry and Intact PICC Line - site benign Nutrition: Taking PO's Result Diagrams: 09/27/16 05:45 09/27/16 05:45 Microbiology and Other Data: Microbiology 09/26/16 00:10 Nasal Screen MRSA (PCR)([facility]) - Final Nasal Mrsa Negative 02/08/17 00:10 Influenza Types A,B Antigen ([facility]) - Final Nasal Specimen received for Influenza A/B Molecular testing Assess/Plan/Problems-Billing Assessment: Mr. Rangel is a 66 yo male with PMH significant for upper GI bleed, Dilan erosions, RA on chronic prednisone, and afib who presented to the emergency room with cough, nausea, lethargy, found to have profound anemia and hemorrhagic shock. - Patient Problems (1) Hemorrhagic shock Code(s): NCC8840 - SNOMED Code(s): 403585 Comment: - Resolved - Pt with drop in HH last evening and received 1 unit RBCs, no additional bleeding noted - Will continue to monitor HH (2) GI bleed Code(s): K92.2 - GASTROINTESTINAL HEMORRHAGE, UNSPECIFIED SNOMED Code(s): 05343792 Comment: - BUN elevated from baseline - Pt is on prednisone chronically - GI consult, feel that this is caused by Dilan erosions. Would like to avoid EGD if possible, Pt would need surgery for treatment, but is not a surgical candidate - Continue PPI (3) Leukocytosis Code(s): D72.829 - ELEVATED WHITE BLOOD CELL COUNT, UNSPECIFIED SNOMED Code(s) : 207926133 Comment: - Resolved - ? community aquired PNA vs UTI, Pt is immunosuppressed. Supect this is UTI - Flu swab negative - Afebrile - Continue cefepime for now (4) Urinary tract infection Comment: - Neurogenic bladder, straight caths at home - Klebsiella Pneumoniae - Continue Cefepime (5) Electrolyte abnormality Code(s): E87.8 - OTH DISORDERS OF ELECTROLYTE AND FLUID BALANCE, NEC SNOMED Code(s): 518890840 Comment: - Hypokalemia and Hypomagnesium - Will give replacement today and recheck labs in the AM (6) Afib Code(s): I48.91 - UNSPECIFIED ATRIAL FIBRILLATION SNOMED Code(s): 99868358 Comment: - Now rate controlled - Continue Sotalol (7) Diabetes Code(s): E11.9 - TYPE 2 DIABETES MELLITUS WITHOUT COMPLICATIONS SNOMED Code(s) : 37408960 Comment: - Glucose 130-190's - Hold metformin. - Continue FS and cover with Lispro SS. (8) Chronic wound of extremity Code(s): WNY0685 - SNOMED Code(s): 942487792 Comment: - Pt follows with the wound clinic - Continue santyl daily dressing changes (9) DVT prophylaxis Code(s): IXQ1308 - SNOMED Code(s): 580018120 Comment: SCDs (10) DNR (do not resuscitate) Status and Disposition: Inpatient. Estimated LOS > 2 days. Discharge to home when medically stable.
[2016-09-27] MEDS: Cefepime(*) 1 GM in NS 0.9% 50 ML* 50 ML IVPB SCH ×2 (11:38→22:22)
[2016-09-27] MEDS: Collagenase 250 MG/GM OINT* 30 GM TOPICAL SCH (11:50)
[2016-09-27 12:00] LABS: Hematocrit 21 % (42-52); Hemoglobin 6.6 g/dl (14.0-18.0)
[2016-09-27 12:02] LABS: Comments Flag Yes
[2016-09-27] MEDS: NS 0.9% 1000 ML* 1,000 ML IV SCH (13:46)
[2016-09-27] MEDS ORDERED: NS 0.9% 1000 ML* 1,000 ML IV SCH (16:27)
[2016-09-27] MEDS: oxyCODONE/Acetamin 5/325 MG* TAB PO PRN ×2 (17:12→22:23)
[2016-09-27 17:50] LABS: Hematocrit 26 % (42-52); Hemoglobin 8.3 g/dl (14.0-18.0)
[2016-09-27 17:52] LABS: Comments Flag Yes
[2016-09-27] MEDS: Pantoprazole IV* 40 MG IV SCH (20:39)
[2016-09-28 01:43] LABS: Hematocrit 27 % (42-52); Hemoglobin 8.4 g/dl (14.0-18.0)
[2016-09-28 01:44] LABS: Comments Flag Yes
[2016-09-28] MEDS: oxyCODONE/Acetamin 5/325 MG* TAB PO PRN ×5 (02:35→22:59)
[2016-09-28] MEDS: oxyCODONE TAB* 5 MG TAB PO PRN ×5 (02:35→23:00)
[2016-09-28] MEDS: Hydrocortisone INJ* 100 MG VIAL IV SCH ×3 (05:52→22:04)
[2016-09-28 06:23] LABS: Hematocrit 26 % (42-52); Hemoglobin 8.3 g/dl (14.0-18.0)
[2016-09-28 06:24] LABS: Comments Flag Yes
[2016-09-28 06:34] LABS: BUN/Creatinine Ratio 25.7 (8-20); Calcium 7.8 mg/dL (8.6-10.3); EGFR African American 144.2 (>60); EGFR Non-African American 112.1 (>60); Magnesium 1.7 mg/dL (1.9-2.7); Potassium 3.6 mmol/L (3.5-5.0)
[2016-09-28] MEDS ORDERED: Potassium Chlor TAB* 20 MEQ TAB.ER PO ONE (07:39)
[2016-09-28] MEDS ORDERED: Magnesium Sulfate IV* 3 GM in NS 0.9% 100 ML* 100 ML IVPB ONE (08:00)
[2016-09-28] MEDS ORDERED: NS 0.9% 100 ML* 100 ML ONE (08:14)
[2016-09-28] MEDS: Insulin REGULAR(*) 1 UNITS UNIT SUBCUT SCH ×3 (08:47→17:41)
[2016-09-28] MEDS: Sotalol TAB* 80 MG PO SCH ×2 (08:47→22:04)
[2016-09-28] MEDS: Pantoprazole IV* 40 MG IV SCH ×2 (08:47→22:04)
[2016-09-28] MEDS: Collagenase 250 MG/GM OINT* 30 GM TOPICAL SCH (10:11)
[2016-09-28] MEDS: Cefepime(*) 1 GM in NS 0.9% 50 ML* 50 ML IVPB SCH ×2 (11:40→22:04)
--- NOTE | 2016-09-28 14:47 | PN ---
Subjective Date of Service: 09/28/16 Interval History: Patient seen and examined at bedside. Pt denies fever, chills, shortness of breath, chest discomfort, N/V/D, signs of bleeding. Pt concerned that he has a UTI when he st caths at home using sterile technique. Pt is requesting to be discharged to home with a urinary catheter, he feels that having to st. cath himself is affecting his quality of life. Discussed this issue with Pt's Urologist and he is ok with Pt being discharged to home with an indwelling urinary catheter. Pt will need to follow-up with Urology in 1 month for a catheter exchange. Family History: Unchanged from Admission Social History: Unchanged from Admission Past Medical History: Unchanged from Admission Objective Active Medications: Acetaminophen (Tylenol Tab*) 650 mg PO Q4H PRN Reason: FEVER/PAIN Al Hydrox/Mg Hydrox/Simethicone (Maalox Plus*) 30 ml PO Q6H PRN Reason: INDIGESTION Collagenase (Santyl 250 Mg/Gm Oint*) 1 applic TOPICAL DAILY [facility] Docusate Sodium (Colace Cap*) 100 mg PO BID PRN Reason: CONSTIPATION Hydrocortisone Sodium Succinate (Solu-Cortef*) 50 mg IV Q8H [facility] Cefepime HCl 1 gm/ Sodium (Chloride) 50 mls @ 100 mls/hr IVPB Q12H [facility] Sodium Chloride (Ns 0.9% 1000 Ml*) 1,000 mls @ 50 mls/hr IV PER RATE [facility] Insulin Human Regular (Insulin Regular(*)) 0 units SUBCUT AC [facility] Reason: Protocol Morphine Sulfate (Morphine Inj (Syringe)*) 2 mg IV Q4H PRN Reason: PAIN Ondansetron HCl (Zofran Inj*) 4 mg IV Q4H PRN Reason: NAUSEA/VOMITING Oxycodone HCl (Roxycodone Tab*) 5 mg PO Q4H PRN Reason: PAIN Oxycodone/Acetaminophen (Percocet 5/325 Tab*) 1 tab PO Q4H PRN Reason: PAIN Pantoprazole Sodium (Protonix Iv*) 40 mg IV Q12HR [facility] Senna (Senokot Tab*) 1 tab PO BID PRN Reason: CONSTIPATION Sotalol HCl (Betapace Tab*) 80 mg PO BID [facility] Vital Signs 09/27/16 09/27/16 09/27/16 14:48 14:58 15:00 Temperature 98.2 F 98.2 F Pulse Rate 65 65 Respiratory 25 20 17 Rate Blood Pressure 161/77 152/82 (mmHg) O2 Sat by Pulse 98 98 Oximetry 09/27/16 09/27/16 09/27/16 16:00 16:26 17:00 Temperature 98.3 F 98.4 F Pulse Rate 65 65 Respiratory 20 20 21 Rate Blood Pressure 157/80 (mmHg) O2 Sat by Pulse 98 96 Oximetry 09/27/16 09/27/16 09/27/16 17:13 17:24 17:42 Temperature 98.5 F Pulse Rate 65 Respiratory 19 23 17 Rate Blood Pressure 166/83 (mmHg) O2 Sat by Pulse 96 Oximetry 09/27/16 09/27/16 09/27/16 18:00 18:17 19:00 Temperature 98.5 F 98.6 F Pulse Rate 65 65 Respiratory 23 14 19 Rate Blood Pressure 171/82 143/77 (mmHg) O2 Sat by Pulse 96 97 Oximetry 09/27/16 09/27/16 09/27/16 19:06 19:48 20:00 Temperature 98.5 F Pulse Rate 65 Respiratory 20 22 21 Rate Blood Pressure 134/73 (mmHg) O2 Sat by Pulse 97 Oximetry 09/27/16 09/27/16 09/27/16 21:00 22:08 23:34 Temperature 98.3 F 98.2 F 98.1 F Pulse Rate 65 65 65 Respiratory 21 18 16 Rate Blood Pressure 138/68 145/79 152/82 (mmHg) O2 Sat by Pulse 98 99 98 Oximetry 09/28/16 09/28/16 09/28/16 05:09 07:25 08:00 Temperature 97.7 F 97.9 F Pulse Rate 67 65 Respiratory 16 16 16 Rate Blood Pressure 154/83 188/96 (mmHg) O2 Sat by Pulse 98 98 Oximetry 09/28/16 09/28/16 12:09 12:23 Temperature 97.3 F Pulse Rate 63 Respiratory 14 16 Rate Blood Pressure 147/75 (mmHg) O2 Sat by Pulse 97 Oximetry Oxygen Devices in Use Now: None Appearance: NAD, laying in bed Eyes: No Scleral Icterus, PERRLA Ears/Nose/Mouth/Throat: NL Teeth, Lips, Gums, Mucous Membranes Moist Neck: NL Appearance and Movements; NL JVP, Trachea Midline Respiratory: Symmetrical Chest Expansion and Respiratory Effort, Clear to Auscultation Cardiovascular: NL Sounds; No Murmurs; No JVD, RRR Abdominal: NL Sounds; No Tenderness; No Distention - Bowel sounds present Extremities: - - Trace to 1+ bilateral LE edema Neurological: Alert and Oriented x 3 Lines/Tubes/Other Access: Clean, Dry and Intact PICC Line - Midline, site benign , Clean, Dry and Intact Other Access - EJ left neck, site benign Nutrition: Taking PO's Result Diagrams: 09/28/16 05:59 09/28/16 05:59 Microbiology and Other Data: Microbiology 09/26/16 00:10 Nasal Screen MRSA (PCR)([facility]) - Final Nasal Mrsa Negative 09/26/16 00:10 Influenza Types A,B Antigen ([facility]) - Final Nasal Specimen received for Influenza A/B Molecular testing Microbiology 09/25/16 20:25 Urine Urine Culture - Final Klebsiella Pneumoniae Assess/Plan/Problems-Billing Assessment: Mr. Rangel is a 66 yo male with PMH significant for upper GI bleed, Dilan erosions, RA on chronic prednisone, and afib who presented to the emergency room with cough, nausea, lethargy, found to have profound anemia and hemorrhagic shock. - Patient Problems (1) Hemorrhagic shock Code(s): CHC1406 - SNOMED Code(s): 104760 Comment: - Resolved (2) GI bleed Code(s): K92.2 - GASTROINTESTINAL HEMORRHAGE, UNSPECIFIED SNOMED Code(s): 58636996 Comment: - BUN at baseline - Pt is on prednisone chronically, will resume home steroid dose (has been on stress dose) - GI consult, feel that this is caused by Dilan erosions. Would like to avoid EGD if possible, Pt would need surgery for treatment, but is not a surgical candidate - Continue PPI, will consider changing to PO in the AM, if HH remains stable - Tolerating a regular diet (3) Leukocytosis Code(s): D72.829 - ELEVATED WHITE BLOOD CELL COUNT, UNSPECIFIED SNOMED Code(s) : 664063668 Comment: - Resolved - Pt meeting sepsis criteria on admission, this is now resolved - ? community aquired PNA vs UTI, Pt is immunosuppressed. Supect this is related to a UTI - Flu swab negative - Afebrile - Continue cefepime for now (4) Urinary tract infection Comment: - Neurogenic bladder, straight caths at home - UTI doesn't appear to be device related, Pt uses sterile technique to st. cath - Klebsiella Pneumoniae - Continue Cefepime (5) Electrolyte abnormality Code(s): E87.8 - OTH DISORDERS OF ELECTROLYTE AND FLUID BALANCE, NEC SNOMED Code(s): 475197842 Comment: - Hypokalemia resolved - Hypomagnesium, will give replacement today and recheck labs in the AM (6) Afib Code(s): I48.91 - UNSPECIFIED ATRIAL FIBRILLATION SNOMED Code(s): 13138206 Comment: - Now rate controlled - Continue Sotalol (7) Diabetes Code(s): E11.9 - TYPE 2 DIABETES MELLITUS WITHOUT COMPLICATIONS SNOMED Code(s) : 43127606 Comment: - Glucose 170-240's - Hold metformin. - Continue FS and cover with Lispro SS. (8) Chronic wound of extremity Code(s): YPX8207 - SNOMED Code(s): 799914076 Comment: - Pt follows with the wound clinic - Continue santyl daily dressing changes (9) DVT prophylaxis Code(s): DOZ1586 - SNOMED Code(s): 686903814 Comment: SCDs (10) DNR (do not resuscitate) Status and Disposition: Inpatient. Estimated LOS > 2 days. Discharge to home when medically stable.
[2016-09-29] MEDS: oxyCODONE TAB* 5 MG TAB PO PRN ×2 (04:06→10:22)
[2016-09-29] MEDS: oxyCODONE/Acetamin 5/325 MG* TAB PO PRN ×2 (04:07→10:21)
[2016-09-29 07:02] LABS: Hematocrit 28 % (42-52); Hemoglobin 8.9 g/dl (14.0-18.0); Mean Corpuscular HGB Conc 32 g/dl (31-36); Mean Corpuscular Hemoglobin 25 pg (27-31); Mean Corpuscular Volume 78 fL (80-94); Mean Platelet Volume 7 um3 (7.4-10.4); Red Blood Count 3.58 10^6/ul (4.0-5.4); Red Cell Distribution Width 23 % (10.5-15); White Blood Count 8.3 10^3/ul (3.5-10.8)
[2016-09-29 07:13] LABS: Add Diff/Slide Review? Slide Review Added; Comments Flag Yes
[2016-09-29 07:16] LABS: BUN/Creatinine Ratio 19.7 (8-20); Calcium 8.1 mg/dL (8.6-10.3); EGFR African American 141.9 (>60); EGFR Non-African American 110.3 (>60); Magnesium 1.9 mg/dL (1.9-2.7); Potassium 3.2 mmol/L (3.5-5.0)
[2016-09-29 07:51] VITALS: BP 154/82
[2016-09-29] MEDS: Pantoprazole IV* 40 MG IV SCH (08:07)
[2016-09-29] MEDS: Sotalol TAB* 80 MG PO SCH (08:07)
[2016-09-29] MEDS: Insulin REGULAR(*) 1 UNITS UNIT SUBCUT SCH ×2 (08:07→11:12)
[2016-09-29] MEDS: Cefepime(*) 1 GM in NS 0.9% 50 ML* 50 ML IVPB SCH (11:10)
[2016-09-29] MEDS ORDERED: Potassium Chlor TAB* 20 MEQ TAB.ER PO ONE (12:10)
--- NOTE | 2016-09-29 13:32 | DCNOTE ---
Subjective Date of Service: 09/29/16 Interval History: patient reports he is at his baseline and would like to go home. He feels much better than when he presented to the hospital stating all of his symptoms have resolved after the blood transfusions. Denies SOB or CP. No abdominal pain. No dizziness. Family History: Unchanged from Admission Social History: Unchanged from Admission Past Medical History: Unchanged from Admission Objective Active Medications: Acetaminophen (Tylenol Tab*) 650 mg PO Q4H PRN PRN Reason: FEVER/PAIN Last Admin: 09/27/16 05:47 Dose: 650 mg Al Hydrox/Mg Hydrox/Simethicone (Maalox Plus*) 30 ml PO Q6H PRN PRN Reason: INDIGESTION Collagenase (Santyl 250 Mg/Gm Oint*) 1 applic TOPICAL DAILY [facility] Last Admin: 09/28/16 10:11 Dose: 1 applic Docusate Sodium (Colace Cap*) 100 mg PO BID PRN PRN Reason: CONSTIPATION Cefepime HCl 1 gm/ Sodium (Chloride) 50 mls @ 100 mls/hr IVPB Q12H [facility] Last Admin: 09/29/16 11:10 Dose: 100 mls/hr Insulin Human Regular (Insulin Regular(*)) 0 units SUBCUT AC [facility] PRN Reason: Protocol Last Admin: 09/29/16 11:12 Dose: Not Given Morphine Sulfate (Morphine Inj (Syringe)*) 2 mg IV Q4H PRN PRN Reason: PAIN Last Admin: 09/26/16 00:29 Dose: 2 mg Ondansetron HCl (Zofran Inj*) 4 mg IV Q4H PRN PRN Reason: NAUSEA/VOMITING Oxycodone HCl (Roxycodone Tab*) 5 mg PO Q4H PRN PRN Reason: PAIN Last Admin: 09/29/16 10:22 Dose: 5 mg Oxycodone/Acetaminophen (Percocet 5/325 Tab*) 1 tab PO Q4H PRN PRN Reason: PAIN Last Admin: 09/29/16 10:21 Dose: 1 tab Pantoprazole Sodium (Protonix Iv*) 40 mg IV Q12HR [facility] Last Admin: 09/29/16 08:07 Dose: 40 mg Prednisone (Deltasone Tab*) 10 mg PO BEDTIME [facility] Senna (Senokot Tab*) 1 tab PO BID PRN PRN Reason: CONSTIPATION Sotalol HCl (Betapace Tab*) 80 mg PO BID [facility] Last Admin: 09/29/16 08:07 Dose: 80 mg Vital Signs 09/28/16 09/28/16 09/28/16 15:49 18:54 18:55 Temperature 97.6 F Pulse Rate 65 Respiratory 20 14 14 Rate Blood Pressure 143/73 (mmHg) O2 Sat by Pulse 98 Oximetry 09/28/16 09/28/16 09/28/16 20:00 20:19 20:54 Temperature 97.5 F Pulse Rate 65 Respiratory 18 20 18 Rate Blood Pressure 147/73 (mmHg) O2 Sat by Pulse 97 Oximetry 09/28/16 09/28/16 09/28/16 20:55 22:59 23:00 Temperature Pulse Rate Respiratory 18 16 16 Rate Blood Pressure (mmHg) O2 Sat by Pulse Oximetry 09/29/16 09/29/16 09/29/16 00:59 01:00 04:06 Temperature Pulse Rate Respiratory 16 16 16 Rate Blood Pressure (mmHg) O2 Sat by Pulse Oximetry 09/29/16 09/29/16 09/29/16 04:07 06:06 06:07 Temperature Pulse Rate Respiratory 16 16 16 Rate Blood Pressure (mmHg) O2 Sat by Pulse Oximetry 09/29/16 09/29/16 09/29/16 07:44 07:52 10:21 Temperature 97.9 F Pulse Rate 62 Respiratory 17 16 Rate Blood Pressure 154/82 (mmHg) O2 Sat by Pulse 99 Oximetry 09/29/16 09/29/16 09/29/16 10:22 12:21 12:22 Temperature Pulse Rate Respiratory 16 14 14 Rate Blood Pressure (mmHg) O2 Sat by Pulse Oximetry Oxygen Devices in Use Now: None Appearance: 66 yo chronically ill appearing male laying in bed in [facility]. A+O x3 Eyes: No Scleral Icterus, PERRLA Ears/Nose/Mouth/Throat: NL Teeth, Lips, Gums, Mucous Membranes Moist Neck: NL Appearance and Movements; NL JVP Respiratory: Symmetrical Chest Expansion and Respiratory Effort, Clear to Auscultation Cardiovascular: NL Sounds; No Murmurs; No JVD, RRR, No Edema Abdominal: NL Sounds; No Tenderness; No Distention Extremities: No Edema Skin: No Rash or Ulcers Neurological: Alert and Oriented x 3, NL Sensation, - Lines/Tubes/Other Access: Clean, Dry and Intact Peripheral IV Nutrition: Taking PO's Result Diagrams: 09/29/16 06:29 09/29/16 06:29 Microbiology and Other Data: Microbiology 09/26/16 00:10 Nasal Screen MRSA (PCR)([facility]) - Final Nasal Mrsa Negative 09/26/16 00:10 Influenza Types A,B Antigen ([facility]) - Final Nasal Specimen received for Influenza A/B Molecular testing Microbiology 09/25/16 20:25 Urine Urine Culture - Final Klebsiella Pneumoniae Assess/Plan/Problems-Billing Assessment: Mr. Rangel is a 66 yo male with PMH significant for upper GI bleed, Dilan erosions, RA on chronic prednisone, and afib who presented to the emergency room with cough, nausea, lethargy, found to have profound anemia and hemorrhagic shock. - Patient Problems (1) GI bleed Comment: - HH stable after blood transfusions and IV Iron. - Pt is on prednisone chronically, will resume home steroid dose (has been on stress dose) - GI consult, feel that this is caused by "oozing" Dilan erosions. Would like to avoid EGD if possible, he has had 2 endoscopys within the last year. Pt would need surgery for treatment of hernia, but is not a surgical candidate - Continue PPI - Tolerating a regular diet, symptoms resoved. - Plan to have pt f/u closely with pcp, will need CBC and iron monitored closely and possible outpt iron infusions. (2) Hemorrhagic shock Comment: - Resolved (3) Urinary tract infection Comment: - Neurogenic bladder, straight caths at home - UTI doesn't appear to be device related, Pt uses sterile technique to st. cath - Plan to DC patient home with idwelling catheter; it was cleard by pts urologist - pt will danny to f/u with urologist Dr. Zhou in one month for exchange. - urine cx grew - Klebsiella Pneumoniae - Continue Cefepime switch to oral cipro at DC (4) Electrolyte abnormality Comment: - will give replacement of K+ today and recheck labs as outpt (5) Afib Comment: - Now rate controlled - Continue Sotalol (6) GERD (gastroesophageal reflux disease) (7) Rheumatoid arthritis Comment: Patient encouraged to see a synchro assembler again. Meanwhile no change prednisone 10 mg daily suggested. (8) Chronic wound of extremity Comment: - Pt follows with the wound clinic - Continue santyl daily dressing changes (9) Diabetes Comment: - Glucose improving - restart metformin on DC (10) DVT prophylaxis Comment: SCDs (11) DNR (do not resuscitate) Status and Disposition: Inpatient. Discharge to home today
[2016-09-29] MEDS: Collagenase 250 MG/GM OINT* 30 GM TOPICAL SCH (16:00)
[2016-09-29] MEDS ORDERED: predniSONE TAB* 10 MG PO SCH (21:00)
--- NOTE | 2016-09-30 07:39 | DS ---
DISCHARGE SUMMARY: DATE OF ADMISSION: 09/25/16 DATE OF DISCHARGE: 09/29/16 PROVIDER: Yakelin Mata NP. ATTENDING PHYSICIAN: Dr. Tunde Ortiz *(report dictated by Yakelin Mata NP). PRIMARY CARE PROVIDER: Dr. Hany Valera. PRIMARY DIAGNOSES: 1. Hemorrhagic shock secondary to upper gastrointestinal bleed thought to be secondary to Dilan lesions. 2. Urinary tract infection, Klebsiella pneumoniae. 3. Electrolyte abnormality. 4 Neurogenic bladder, now status post indwelling Beckman catheter placed 09/25/16. SECONDARY DIAGNOSES: 1. History of HSV esophagitis. 2. Coronary artery disease, status post bypass. 3. Sick sinus syndrome, status post pacemaker. 4. History of atrial fibrillation. 5. Hypertension. 6. Hyperlipidemia. 7. Rheumatoid arthritis. 8. History of pulmonary embolism and deep venous thrombosis with IVC filter. 9. Chronic left heel wound. 10. Type 2 diabetes. 11. History of cauda equina syndrome complicated by paraplegia with neurogenic bladder. 12. History of skin cancer, status post excision of the scalp. 13. History of osteomyelitis. 14. Multiple spinal surgeries. 15. History of foot surgery with skin grafting. DISCHARGE MEDICATIONS: 1. Metformin 1500 mg p.o. q.a.m. 2. Metformin 2000 mg p.o. at bedtime. 3. Centrum Silver one tab p.o. daily. 4. Calcium 600 mg p.o. daily. 5. Santyl 250 mg/g ointment one application topical daily. 6. Plaquenil 200 mg p.o. b.i.d. 7. Vitamin D 6000 units p.o. weekly. 8. Prilosec 40 mg p.o. daily. 9. Sotalol 80 mg p.o. b.i.d. 10. Valium 5 mg p.o. at bedtime. 11. Percocet 10/325 two tab p.o. q.6 hours p.r.n. 12. Prednisone 10 mg p.o. at bedtime. 13. Cefpodoxime 200 mg p.o. q.12 hours times 4 to 5 days for urinary tract infection. HISTORY OF PRESENT ILLNESS AND HOSPITAL COURSE: Please see history and physical by Dr. Imani Reyez for full admission details, but in summary, this is a 66-year-old male with complicated past medical history, which includes an upper GI bleed in March 2016 and anticoagulation, at that time found to have a large hiatal hernia with Dilan lesions as well as HSV esophagitis as well as continues to be on prednisone for his rheumatoid arthritis, who presented to the emergency department with lethargy and weakness on 09/25/16, found to have hemoglobin of 5.2. His noted he had a decreased appetite with wet cough, on the day of admission was feeling nauseated and became more lethargic and brought him to the emergency department for further evaluation. The patient normally straight caths himself for neurogenic bladder every 5 hours and was so lethargic, he was unable to do this. He denied any melena or bright red blood per rectum. He was noted to have a positive Hemoccult stool. Blood was initiated in the emergency department. On admission, he was noted to be in hemorrhagic shock with tachycardia in the 150s to 180s with systolic pressures in the 80s to 90s. The patient was initiated on blood and IV fluids and was admitted to the ICU under the hospitalist service. The patient was initiated on stress dose steroids as well as a Protonix drip. The patient was gram- positive for sepsis thought initially due to community-acquired pneumonia, although later in this hospitalization, this was thought to be secondary to urinary tract infection. His chest x-ray on admission did show left lower lobe atelectasis versus consolidation. However, the patient's respiratory symptoms resolved quickly and the next day after admission was on room air back to his baseline. He was given a total of 6 units of packed red blood cells. He was seen in consultation by Dr. Strickland, who believes that he most likely has been oozing over the Dilan erosions. Per Dr. Strickland' note, he reports "certainly definitive therapy would require surgical repair, although given his other comorbidities, I think it would be quite risky." I spoke to Dr. Strickland myself who does not recommend surgery for this patient and recommends following the patient's CBC and iron levels closely as an outpatient. The patient cannot tolerate oral iron and stopped this at home recently. The patient was given IV iron during his hospitalization. Today, the patient has done well throughout his hospitalization. Today on discharge, his hemoglobin is 8.9 and 28. The patient reports that he feels that he is back to baseline and would like to go home. The patient's is at the bedside and also reports the patient is at his baseline and feels that she is ready to go home. The patient's urine culture grew Klebsiella pneumoniae. Negative for Influenza A and B. The patient had potassium and magnesium replacement throughout hospitalization and is recommended to have an outpatient followup this week of magnesium and potassium. The patient had a Beckman catheter placed on admission and prior nurse practitioner, who was caring for the patient, Kenna Wick, did speak to the patient's primary care urologist who said due to his history of neurogenic bladder it is okay to leave the indwelling Beckman catheter in as per request of patient. The patient is to follow up with the urologist in one month for Beckman exchange. DISCHARGE PLAN: The patient was instructed to follow up with Dr. Marbin Valera within 5 days. Follow up with Dr. Rasheed in one month for Beckman exchange. Follow up CBC and BMP in 2 to 3 days with the results to Dr. Valera. Recommendation to follow CBC and iron levels every 2 weeks initially and schedule the patient for outpatient IV iron infusions as recommended by Dr. Strickland. CONDITION ON DISCHARGE: Stable. TIME SPENT: Approximately 60 minutes was spent on this discharge. YAKELIN MATA NP CC: Dr. Hany Valera* [id number]/CPS #: [id number] MTDD
--- NOTE | 2016-10-01 10:56 | PN ---
Hospitalist Progress Note 10/01/2016 - Call Dr. Valera office and he nows has a f/u appointment for SaturdayOct 05 at 10 am in [place]. The patient was called and notified.
== END 2016-09-29 16:50 | disposition home or self-care (01) | DRG 377 ==
LOC: ED 18:43 → ICU 21:25 → MED 09-27 21:45
PROVIDERS: ADMIT Pediatrics; ATTEND Internal Medicine
PROC: 30233N1 Transfusion of Nonautologous Red Blood Cells into Peripheral Vein, Percutaneous Approach (ICD-10-PCS; principal; 2016-09-25)
PROC: 02HV33Z Insertion of Infusion Device into Superior Vena Cava, Percutaneous Approach (ICD-10-PCS; 2016-09-26)
DX: K25.0 Acute gastric ulcer with hemorrhage (principal); A41.89 Other specified sepsis; R57.1 Hypovolemic shock; G82.20 Paraplegia, unspecified; E11.621 Type 2 diabetes mellitus with foot ulcer; I11.9 Hypertensive heart disease without heart failure; I48.91 Unspecified atrial fibrillation; L97.429 Non-pressure chronic ulcer of left heel and midfoot with unspecified severity; I49.5 Sick sinus syndrome; G83.4 Cauda equina syndrome; D62 Acute posthemorrhagic anemia; N39.0 Urinary tract infection, site not specified; I25.810 Atherosclerosis of coronary artery bypass graft(s) without angina pectoris; K44.9 Diaphragmatic hernia without obstruction or gangrene; B96.1 Klebsiella pneumoniae [K. pneumoniae] as the cause of diseases classified elsewhere; M06.9 Rheumatoid arthritis, unspecified; Z66 Do not resuscitate; E78.5 Hyperlipidemia, unspecified; Z85.828 Personal history of other malignant neoplasm of skin; Z79.52 Long term (current) use of systemic steroids; Z88.8 Allergy status to other drugs, medicaments and biological substances; Z80.3 Family history of malignant neoplasm of breast; Z80.1 Family history of malignant neoplasm of trachea, bronchus and lung; Z95.1 Presence of aortocoronary bypass graft; Z99.3 Dependence on wheelchair; Z87.891 Personal history of nicotine dependence; Z79.891 Long term (current) use of opiate analgesic; Z79.899 Other long term (current) drug therapy; Z95.810 Presence of automatic (implantable) cardiac defibrillator
CPT/HCPCS: 36415; 71010; 74000; 80048; 80053; 81003; 81015; 82150; 82272; 82330; 82550; 83605; 83690; 83735; 83880; 84443; 84484; 85014; 85018; 85025; 85730; 86140; 86850; 86900; 86901; 86922; 87077; 87086; 87186; 87502; 87641; 90686; 93005; A9270-GY; J0692; J1160; J1720; J1756; J2270; J2765; J3475; J3480; J3490; P9016; P9040

== ENCOUNTER 2017-01-06 11:00 | Inpatient (IN) | payer MEDICARE, BC ==
[2017-01-06] MEDS ORDERED: NS 0.9% 1000 ML* 1,000 ML IV ONE (11:07)
[2017-01-06] MEDS ORDERED: Acetaminophen SUPP* 650 MG SUPP PR ONE (11:48)
--- NOTE | 2017-01-06 11:49 | RAD ---
INDICATION: Altered mental status COMPARISON: September 25, 2016 TECHNIQUE: An AP portable view obtained at 1125 hours is submitted. FINDINGS: Bones/Soft Tissues: There are no acute bony findings. There is kyphosis. There are sternotomy and there is left-sided cardiac pacemaker Cardiomediastinal: The heart is normal in size. Lungs: There are coarse interstitial changes perhaps with a small amount of interstitial edema. Pleura: Small bilateral effusions. Other: None IMPRESSION: CHRONIC LUNG FINDINGS WITH SUSPECTED SUPERIMPOSED MILD INTERSTITIAL CONGESTION.
[2017-01-06 11:55] LABS: Hematocrit 29 % (42-52); Hemoglobin 8.8 g/dl (14.0-18.0); Mean Corpuscular HGB Conc 30 g/dl (31-36); Mean Corpuscular Hemoglobin 22 pg (27-31); Mean Platelet Volume 7 um3 (7.4-10.4); Red Blood Count 3.97 10^6/ul (4.0-5.4); Red Cell Distribution Width 16 % (10.5-15); White Blood Count 14.1 10^3/ul (3.5-10.8)
[2017-01-06 12:08] LABS: Comments Flag Yes; Mean Corpuscular Volume 73 fL (80-94)
[2017-01-06 12:10] LABS: Albumin 2.9 g/dL (3.2-5.2); BUN/Creatinine Ratio 19.7 (8-20); C Reactive Protein 123.27 mg/L (< 5.00); Calcium 8.3 mg/dL (8.6-10.3); EGFR African American 141.9 (>60); EGFR Non-African American 110.3 (>60); Globulin 3.4 g/dL (2-4); Potassium 3.6 mmol/L (3.5-5.0); Total Bilirubin 0.4 mg/dL (0.2-1.0); Total Protein 6.3 g/dL (6.4-8.9)
[2017-01-06 12:21] LABS: Troponin I 9.86 ng/mL (<0.04)
[2017-01-06] MEDS ORDERED: Aspirin SUPP* 300 MG PR ONE (12:35)
--- NOTE | 2017-01-06 12:56 | RAD ---
INDICATION: Unresponsive COMPARISON: None TECHNIQUE: Noncontrast axial source images were acquired from the skull base to the vertex. FINDINGS: Ventricles/sulci: There is cortical atrophy with compensatory dilatation of the CSF spaces. Brain parenchyma: There is no focal parenchymal finding, evidence of intracranial mass, or intracranial mass effect. Intracranial hemorrhage:None. Extra-axial spaces: There are no abnormal extra axial fluid collections or evidence of extra-axial mass. Calvarium: There is no calvarial fracture or other calvarial abnormality. Scalp: There is no evidence of scalp or extracalvarial soft tissue abnormality. Paranasal sinuses/mastoid: The paranasal sinuses and mastoid air cells are clear. Other: None. IMPRESSION: No acute intracranial findings
[2017-01-06 13:06] LABS: Erythrocyte Sed Rate 54 mm/Hr (0-40)
[2017-01-06] MEDS ORDERED: NS 0.9% 1000 ML* 1,000 ML IV SCH (14:15)
[2017-01-06] MEDS: Acyclovir IV(*) 750 MG in NS 0.9% 250 ML* 250 ML IVPB SCH ×3 (15:30→23:33)
[2017-01-06] MEDS ORDERED: Vancomycin(*) 1,500 MG in NS 0.9% 250 ML* 250 ML IVPB ONE (15:30)
[2017-01-06] MEDS: Metoprolol Tartrate IV* 1 MG/ML 5 ML VIAL IV SCH ×2 (15:48→21:15)
--- NOTE | 2017-01-06 16:13 | ED ---
Doroteo Kruse Billy, scribed for Kishore Whitaker MD on 01/06/17 at 1217 . Altered Mental Status - HPI Summary HPI Summary: Patient is a 66 year-old male BIBA to [facility] for evaluation of decreased responsiveness today. Per EMS, he complained of abdominal pain, but was otherwise in his normal state of health. EMS states that he will not follow commands and is frequently yawning. Full history not obtainable from the patient. - History Of Current Complaint Chief Complaint: EDAltMentalStatus Stated Complaint: UNRESPONSIVE Time Seen by Provider: 01/06/17 11:07 Hx Obtained From: Patient Hx From Patient Unobtainable Due To: Altered Mental Status Timing: Constant Severity Initially: Severe Severity Currently: Severe Character: Responsiveness Aggravating Factor(s): Unknown Alleviating Factor(s): Unknown - Allergies/Home Medications Allergies/Adverse Reactions: Allergies Allergy/AdvReac Type Severity Reaction Status Date / Time Fentanyl AdvReac Intermediate Blisters Verified 09/03/16 14:04 Home Medications: Home Medications Diazepam TAB(*) [Valium TAB(*)] 5 mg PO TID PRN 01/06/17 [History Confirmed ] Iron Polysaccharide Complex- [Poly-Iron 150 Forte 150-25-1 mg-Mcg-mg] 1 tab PO DAILY 01/06/17 [History Confirmed 01/06/17] PMH/Surg Hx/FS Hx/Imm Hx Endocrine/Hematology History: Reports: Hx Blood Transfusions, Hx Diabetes, Hx Anemia, Hx Unexplained Bleeding Denies: Hx Anticoagulant Therapy, Hx Bone Marrow Disease, Hx Systemic Lupus Erythematosus, Hx Sickle Cell Disease, Hx Thyroid Disease, Other Endocrine/ Hematological Disorders Cardiovascular History: Reports: Hx Coronary Artery Disease, Hx Hypertension, Hx Pacemaker/ICD, Hx Peripheral Vascular Disease, Hx Valvular Heart Disease, Other Cardiovascular Problems/Disorders - Sick sinus syndrome Denies: Hx Angina, Hx Congestive Heart Failure, Hx Hypercholesterolemia, Hx Myocardial Infarction Respiratory History: Reports: Hx Pneumonia, Hx Pulmonary Embolism, Other Respiratory Problems/Disorders - RESP FAILURE Denies: Hx Asthma, Hx Chronic Obstructive Pulmonary Disease (COPD) GI History: Reports: Hx Gastroesophageal Reflux Disease, Hx Gastrointestinal Bleed, Hx Hiatal Hernia, Other GI Disorders - DIARRHEA- SINCE HAS BEEN ON [employer] IF IN SOUND SLEEP History: Reports: Other Problems/Disorders - straight caths Denies: Hx Acute Renal Failure, Hx Benign Prostatic Hyperplasia, Hx Chronic Renal Failure, Hx Dialysis, Hx Kidney Infection, Hx Kidney Stones Musculoskeletal History: Reports: Hx Arthritis, Hx Back Problems, Other Musculoskeletal History - WHEELCHAIR Sensory History: Reports: Hx Contacts or Glasses - for reading Denies: Hx Hearing Aid Opthamlomology History: Reports: Hx Contacts or Glasses - for reading Neurological History: Reports: Hx Spinal Cord Injury - spinal stenosis, Other Neuro Impairments/Disorders - Cauda equina syndrome Psychiatric History: Denies: Hx Anxiety - Cancer History Cancer Type, Location and Year: Skin cancer left healed. Also left forehead, ear and ruiz Hx Chemotherapy: No Hx Radiation Therapy: No - Surgical History Surgery Procedure, Year, and Place: Inguinal hernia repair. Cervical spine fusion. Lumbar spine fusion. CABG, 11/2013. Pacemaker implantation Hx Anesthesia Reactions: No Infectious Disease History: No Infectious Disease History: Reports: Hx Shingles - Mid 2013 Denies: Hx of Known/Suspected MRSA, Hx Tuberculosis, Traveled Outside the [place] in Last 30 Days - Family History Known Family History: Positive: Cardiac Disease - Social History Alcohol Use: None Hx Substance Use: No Substance Use Type: Reports: None Hx Tobacco Use: Yes Smoking Status (MU): Former Smoker Type: Cigarettes Amount Used/How Often: 1 PPD X 10 YEARS Length of Time of Smoking/Using Tobacco: 10 years Have You Smoked in the Last Year: No Review of Systems Positive: Abdominal Pain - last night Neurological: Other - AMS All Other Systems Reviewed And Are Negative: No - Comments Additional Review of Systems Comments: Patient is unresponsive and not able to provide a full ROS at this time. Physical Exam - Summary Physical Exam Summary: VITAL SIGNS: Reviewed. GENERAL: Patient is a elderly obtunded male who is lying comfortable in the stretcher. Patient is not in any acute respiratory distress. HEAD AND FACE: No signs of trauma. No ecchymosis, hematomas or skull depressions. EYES: PERRLA MOUTH: DRy nasal and oral mucosa NECK: Supple, trachea is midline, no adenopathy, no JVD, no carotid bruit CHEST: Symmetric LUNGS: Clear to auscultation bilaterally. No wheezing or crackles. CVS: Irregular rate and rhythm, S1 and S2 present, no murmurs or gallops appreciated. ABDOMEN: Soft, no distation, Bowel sounds are decreased. EXTREMITIES: No edema. NEURO: Obtunded. SKIN: Dry and warm, Rash in his right leg. Triage Information Reviewed: Yes Vital Signs On Initial Exam: Initial Vitals Temp Pulse Resp BP Pulse Ox 100.5 F 78 30 99/58 95 01/06/17 11:00 01/06/17 11:00 01/06/17 11:00 01/06/17 11:00 01/06/17 11:00 Vital Signs Reviewed: Yes Completion Of Physical Exam Limited Due To: Altered Mental Status Diagnostics - Vital Signs Vital Signs Temp Pulse Resp BP Pulse Ox 01/06/17 12:04 95 01/06/17 11:00 100.5 F 78 30 99/58 95 - Laboratory Lab Results: Lab Results 01/06/17 01/06/17 01/06/17 Range/Units 11:46 11:46 11:46 WBC 14.1 H (3.5-10.8) 10^3/ul RBC 3.97 L (4.0-5.4) 10^6/ul Hgb 8.8 L (14.0-18.0) g/dl Hct 29 L (42-52) % MCV 73 L (80-94) fL MCH 22 L (27-31) pg MCHC 30 L (31-36) g/dl RDW 16 H (10.5-15) % Plt Count 371 (150-450) 10^3/ul MPV 7 L (7.4-10.4) um3 Neut % (Auto) 80.7 (38-83) % Lymph % (Auto) 10.8 L (25-47) % [place] % (Auto) 7.0 (1-9) % Eos % (Auto) 0.8 (0-6) % Baso % (Auto) 0.7 (0-2) % Absolute Neuts (auto) 11.4 H (1.5-7.7) 10^3/ul Absolute Lymphs (auto) 1.5 (1.0-4.8) 10^3/ul Absolute Monos (auto) 1.0 H (0-0.8) 10^3/ul Absolute Eos (auto) 0.1 (0-0.6) 10^3/ul Absolute Basos (auto) 0.1 (0-0.2) 10^3/ul Absolute Nucleated RBC 0.01 10^3/ul Nucleated RBC % 0 ESR Pending Sodium 134 (133-145) mmol/L Potassium 3.6 (3.5-5.0) mmol/L Chloride 101 (101-111) mmol/L Carbon Dioxide 24 (22-32) mmol/L Anion Gap 9 (2-11) mmol/L BUN 14 (6-24) mg/dL Creatinine 0.71 (0.67-1.17) mg/dL Est GFR ( Amer) 141.9 (>60) Est GFR (Non-Af Amer) 110.3 (>60) BUN/Creatinine Ratio 19.7 (8-20) Glucose 115 H (70-100) mg/dL Lactic Acid 1.4 (0.5-2.0) mmol/L Calcium 8.3 L (8.6-10.3) mg/dL Total Bilirubin 0.40 (0.2-1.0) mg/dL AST 54 H (13-39) U/L ALT 14 (7-52) U/L Alkaline Phosphatase 54 (34-104) U/L Total Creatine Kinase 263 H (10-223) U/L Troponin I Pending C-Reactive Protein 123.27 H (< 5.00) mg/L Total Protein 6.3 L (6.4-8.9) g/dL Albumin 2.9 L (3.2-5.2) g/dL Globulin 3.4 (2-4) g/dL Albumin/Globulin Ratio 0.9 L (1-3) Result Diagrams: 01/06/17 11:46 01/06/17 11:46 Lab Statement: Any lab studies that have been ordered have been reviewed, and results considered in the medical decision making process. - Radiology CXR Radiology Interpretation Completed By: Radiologist - Chronic lung findings with suspected superimposed mild interstitial congestion. - CT Brain CT Interpretation: No Acute Changes CT Interpretation Completed By: Radiologist - EKG 1203 EKG Interpretation: afib 80 bpm, no STEMI, ST depression in V4 V5 V6 Altered Mental Statu Course/Dx - Course Assessment/Plan: Patient is a 66 year-old male BIBA to [facility] for evaluation of decreased responsiveness today. Per EMS, he complained of abdominal pain, but was otherwise in his normal state of health. EMS states that he will not follow commands and is frequently yawning. Full history not obtainable from the patient. Test results show WBC of 14.1, acute on chronic anemia, fibrinogen 471 , glucose 115, total creatinine kinase of 263, troponin of 9.86, CRP of 123 and BNP of 480. EKG shows no STEMI. CT brain shows no acute intracranial pathology. CXR shows no acute intrathoracic pathology. In the ED course, he had a low grade fever, so he was given Tylenol per rectum, and since the patient had an increased troponin, I gave the patient ASA per rectum. The patient continues to be obtunded, however the patient is DNR/DNI, therefore I will not intubate this patient. The patient is keeping his airway patent and saturation is 96-98% on room air. The patient is unable to state that he is in any pain, so therefore I do not know if he is having any chest pain. I discussed the case with Dr. Melo (cardiology) and he will consult for this patient. He recommends at this point medical management. I also discussed the case with Dr. Dunham who accepted the patient for admission. The patient is critical and obtunded. - Diagnoses Differential Diagnosis/HQI/PQRI: CVA, Sepsis, Seizure, TIA Discharge Diagnoses: NSTEMI (non-ST elevated myocardial infarction), Mental status alteration - Provider Notifications Discussed Care Of Patient With: Dr. Dunham (hospitalist) at 1300: accepts admission, recommends cardiology consult. Dr. Melo (cardiology) at 1305: medical management. Discharge - Discharge Plan Condition: Critical Disposition: ADMITTED TO [facility] The documentation as recorded by the Doroteo garcia Billy accurately reflects the service I personally performed and the decisions made by me, Kishore Whitaker MD.
--- NOTE | 2017-01-06 16:43 | HP ---
HISTORY AND PHYSICAL: DATE OF ADMISSION: 01/06/17 PRIMARY CARE PHYSICIAN: Dr. Hayn Valera. CHIEF COMPLAINT: Unresponsiveness. HISTORY OF PRESENT ILLNESS: Mr. Rangel is a 66-year-old male with significant medical history including hypertension, hyperlipidemia, CAD, status post CABG, sick sinus syndrome, status post pacemaker placement, AFib, history of PE and DVT, status post IVC filter with numerous GI bleeds while on anticoagulation, rheumatoid arthritis, on prednisone, paraplegia secondary to cauda equina syndrome with subsequent neurogenic bladder and chronic Connelly placement, HSV esophagitis, and iron deficiency anemia and recent admission in September of this year for hemorrhagic shock secondary to GI bleed, who presents to the hospital with an unresponsive episode this morning. History is obtained from the medical chart and the patient's family, including his who is at the bedside. She states that the patient was in his usual state of health until yesterday. She states he was more fatigued towards the end of the day and last night was complaining of some abdominal pain and some neck pain. The abdominal pain started after dinner. The patient went to sleep early; however, that is not unusual for him. This morning the patient's woke and heard her moaning, she went to check on him and she could not get him to respond. He is usually alert and oriented x3, very talkative. He gets around in the power chair at home and they recently went to the movies together. She called EMS and he was brought to the hospital for further evaluation. She reports he has not been complaining of any chest pain or shortness of breath recently. No nausea or vomiting. He has had good p.o. intake. Occasionally he has bouts of diarrhea and constipation. No fever or chills reported prior to admission. She did note a new rash on his right lower extremity that she just noticed today and she checks his legs daily. PAST MEDICAL HISTORY: Hypertension, hyperlipidemia, rheumatoid arthritis, on prednisone and Plaquenil, history of PE and DVT, status post IVC filter, chronic left lower extremity wound seen in the wound clinic, diabetes, cauda equina syndrome with resolving paraplegia and neurogenic bladder with chronic Connelly placement, CAD, status post CABG, sick sinus syndrome, status post pacemaker placement, AFib, iron deficiency anemia, HSV esophagitis, and recent GI bleed secondary to Dilan lesions. PAST SURGICAL HISTORY: CABG, skin cancer excision on the scalp, spinal surgeries including a lumbar fusion, foot surgery, cervical spine surgery. HOME MEDICATIONS: 1. Metformin 1000 mg by mouth daily and 1500 mg by mouth at bedtime. 2. Sotalol 80 mg by mouth 3 times daily. 3. Omeprazole 40 by mouth daily. 4. Prednisone 10 mg by mouth at bedtime. 5. Valium 5 mg by mouth 3 times daily as needed for anxiety. 6. Percocet 10/325 one to two tablets by mouth every 6 hours as needed for pain. 7. Calcium 600 mg by mouth daily. 8. Centrum Silver one tablet by mouth daily. 9. Vitamin D3 10,000 units by mouth weekly. 10. Plaquenil 200 mg by mouth two times daily. 11. Iron polysaccharide complex one tablet by mouth daily. ALLERGIES: To FENTANYL. FAMILY HISTORY: Significant for mother with breast cancer and father with lung cancer. SOCIAL HISTORY: The patient is a former smoker, quit at 30 years of age. Denies any alcohol or illicit drug use. The patient lives at home with his . As noted above, he gets around with a power chair. He is alert and oriented x3 at baseline. REVIEW OF SYSTEMS: A 12-point review of systems reviewed with the , unable to obtain from the patient. PHYSICAL EXAMINATION GENERAL: The patient is an elderly, frail, chronically ill-appearing man appears much older than stated age, lying in bed in no apparent distress. VITAL SIGNS: On admission, temperature 100.5, respiratory rate of 30, heart rate of 78, O2 saturation 95% on room air, blood pressure 99/58. HEENT: Head is normocephalic. The patient with significant scars and lesions on the scalp. Eyes: Pupils are equal, round, and reactive to light and accommodation. Anicteric sclerae. ENT: The patient unable to follow directions to open his mouth. Mucous membranes appear dry. LUNGS: With diffuse coarse breath sounds throughout in anterior and lateral squires, seem likely transmitted from the upper airways. CARDIOVASCULAR: Regular rate and rhythm. S1 and S2 present. No murmurs, gallops, or rubs. ABDOMEN: Soft, nontender, and nondistended. Bowel sounds are positive. EXTREMITIES: The patient with mild pitting edema in bilateral lower extremities at mid shins. NEUROLOGIC: The patient is lethargic, moaning in bed. Eyes are open; however, he is not tracking. He does respond somewhat to pain stimulus. He seems to be protecting his airway and coughing intermittently. Did not appreciate any focal neurological deficits. SKIN: The patient has a vesicular rash on the medial aspect of his right thigh that tracks down inferiorly. The patient has chronic necrotic wounds on the left lower extremity on the lateral aspect that did not appear acutely infected. L thigh with scar from skin graft LABS AND DIAGNOSTICS: White blood cell count of 14.1, hemoglobin of 8.8, platelets of 371, ESR 54, INR 1.09, fibrinogen of 471. Sodium 134, potassium 3.6, chloride 101, CO2 24, BUN 14, creatinine 0.71, glucose of 115. Lactic acid of 1.4, calcium 8.3, AST of 54, ALT of 14, CK of 263. Troponin of 9.86. CRP of 123. B- natriuretic peptide of 480. CT of the head done shows no acute disease. I noticed a bright area on the CT scan. I spoke with the radiologist, who felt this is just a calcification in the brainstem. Chest x-ray personally reviewed shows no significant consolidations. EKG personally reviewed shows atrial paced rhythm, occasional PVCs, no acute ST changes. ASSESSMENT AND PLAN: Fever, lethargy, concerning for possible MACHINE LACER infection, NSTEMI in a 66-year-old man with a past medical history of hypertension, hyperlipidemia, CAD, status post CABG, sick sinus syndrome, status post pacemaker, RA, on prednisone and Plaquenil, history of PE and DVT, status post IVC filter, diabetes, paraplegia secondary to cauda equina syndrome with chronic Connelly, HSV esophagitis, and numerous GI bleeds. 1. Fever and altered mental status. It is certainly concerning for possible MACHINE LACER infection such as meningitis or encephalitis especially with the patient's vesicular rash which seems new. He also has a history of HSV esophagitis. Unfortunately, due to the patient's spinal fusion surgery, I do not feel comfortable attempting an LP at this time. Tomorrow could consider contacting anesthesia to possibly do an LP under fluoroscopy. For now, we will treat the patient broadly with acyclovir for possible HSV encephalitis as well as with vancomycin, ceftriaxone, and ampicillin to cover for bacterial meningitis. We will place the patient in the ICU for close monitoring. He seems to be protecting his airway at this time. The patient is DNR/DNI. He does still have urine pending, which could alternatively be the source of his infection. Blood pressures seem to be stable at the time. He will be n.p.o. If he becomes hypotensive, we can consider stress dose steroids as he has been on chronic prednisone, albeit at a relatively low dose. 2. Non-ST elevation myocardial infarction. The patient's troponin was 9.86 on admission. There was no report of chest pain prior to coming to the hospital. May be demand-mediated from infection. No significant EKG changes concerning for an ST elevation OR. Dr. Melo was contacted and will evaluate the patient either later today or tomorrow. For now, we will continue to trend troponins and order an echocardiogram. Patient received 300 mg ASA SD in ED, would discuss further with cardiology tomorrow whether to continue with daily ASA with patient's GIB history, he has never been on ASA before as per and has had 3 episodes of hemorrhagic shock from GIB. 3. Hypertension. Holding home medications. 4. Atrial fibrillation. The patient's rate is controlled currently. We will continue the patient on scheduled IV metoprolol with holding parameters. To monitor on telemetry. 5. Rheumatoid arthritis. Holding prednisone and Plaquenil with possible infection and while keeping the patient n.p.o. 6. Diabetes. Regular insulin sliding scale while the patient is n.p.o. Check BGs every 6 hours. Holding home metformin. 7. Iron deficiency anemia. Holding home iron supplement for now. 8. Cauda equina s/p paraplegia with urinary retention and chronic connelly 9. DVT prophylaxis. SCDs. 10. Code status. The patient is DNR/DNI. Confirm with the family. TIME SPENT: Total time spent on this admission, 65 minutes, with over half the time spent [id number] with the patient in counseling and coordinating care. CC: Dr. Hany Valera * [id number]/[facility] #: [id number] LEA
[2017-01-06] MEDS ORDERED: Vancomycin per Pharmacy* NOTE FOLLOW UP PRN (17:01)
[2017-01-06 17:02] LABS: Urine Bacteria 3+ (Absent); Urine Bilirubin Negative (Negative); Urine Glucose Negative (Negative); Urine Nitrite Negative (Negative)
[2017-01-06] MEDS: Insulin REGULAR(*) 1 UNITS UNIT SUBCUT SCH (18:29)
--- NOTE | 2017-01-06 21:28 | PN ---
Progress Note - Progress Note Note: Follow up troponin up to 10.86. Will start heparin drip while awaiting cardiology recommendations. If any signs of bleeding this can be discontinued. Will get follow up trop and EKG at 2345.
[2017-01-06] MEDS ORDERED: Heparin DRIP 25,000 UNITS(*) 25,000 UNITS/500 ML BAG IV SCH (21:30)
[2017-01-06 21:57] LABS: Hematocrit 27 % (42-52); Hemoglobin 8.2 g/dl (14.0-18.0); Mean Corpuscular HGB Conc 31 g/dl (31-36); Mean Corpuscular Hemoglobin 22 pg (27-31); Mean Platelet Volume 7 um3 (7.4-10.4); Red Blood Count 3.65 10^6/ul (4.0-5.4); Red Cell Distribution Width 16 % (10.5-15); White Blood Count 13.1 10^3/ul (3.5-10.8)
[2017-01-06] MEDS ORDERED: Heparin VIAL(*) 5000 UNITS/ML VIAL (FIVE THOUSAND) IV SCH (22:00)
[2017-01-06 22:03] LABS: Comments Flag Yes; Mean Corpuscular Volume 73 fL (80-94)
[2017-01-07] MEDS: Insulin REGULAR(*) 1 UNITS UNIT SUBCUT SCH ×3 (00:04→10:47)
[2017-01-07] MEDS: Vancomycin(*) 1,000 MG in NS 0.9% 250 ML* 250 ML IVPB SCH ×2 (01:51→09:37)
[2017-01-07] MEDS: Metoprolol Tartrate IV* 1 MG/ML 5 ML VIAL IV SCH ×2 (03:44→09:37)
[2017-01-07 04:52] LABS: BUN/Creatinine Ratio 20.9 (8-20); Calcium 7.6 mg/dL (8.6-10.3); EGFR African American 151.7 (>60); Hematocrit 24 % (42-52); Hemoglobin 7.2 g/dl (14.0-18.0); Mean Corpuscular HGB Conc 30 g/dl (31-36); Mean Corpuscular Hemoglobin 22 pg (27-31); Mean Platelet Volume 7 um3 (7.4-10.4); Potassium 3.6 mmol/L (3.5-5.0); Red Blood Count 3.26 10^6/ul (4.0-5.4); Red Cell Distribution Width 17 % (10.5-15); White Blood Count 13.6 10^3/ul (3.5-10.8)
[2017-01-07 04:53] LABS: Comments Flag Yes; Mean Corpuscular Volume 73 fL (80-94)
[2017-01-07 05:09] LABS: Troponin I 11.1 ng/mL (<0.04)
[2017-01-07] MEDS: Acyclovir IV(*) 750 MG in NS 0.9% 250 ML* 250 ML IVPB SCH ×2 (08:13→19:39)
[2017-01-07] MEDS ORDERED: Diazepam TAB(*) 5 MG PO PRN (10:15)
[2017-01-07] MEDS ORDERED: oxyCODONE/Acetamin 10/325(NF) TAB PO PRN (10:15)
[2017-01-07] MEDS ORDERED: Dextrose 50% Syringe 50 ML* 25 GM/50 ML SYRINGE IV PUSH PRN (10:18)
--- NOTE | 2017-01-07 10:32 | ECHO ---
Patient: SUZANNE SERRA Rec#: [id number] : 1950 Date: 01/07/2017 Age: 66y Height: 177.8 cm / 70.0 in Weight: 74.84 kg / 164.9 lbs Sex: M BSA: 1.92 Room#: ICU 11 Admit Date#: 01/06/2017 Type: Inpatient Referring: JEROMY LEVI MD Reading: Everett Melo MD Ink Grinder: Fina Allen,RDCS,RDMS CC: Hany Valera DO Transthoracic Echocardiogram Indication: Fever BP: 113/60 HR: 73 Rhythm: NSR with PACs Indications Fever Findings History: CAD, CABG, SSS, pacemaker, HTN, HLD, PE, DVT, DM, AFIB Technical Comments: The study quality is good. Completed 0955 Left Ventricle: The left ventricular chamber size is normal. Mild to moderate concentric left ventricular hypertrophy is observed. Left ventricular systolic function is at the lower limits of normal. The estimated ejection fraction is 55-60%. There is abnormal ventricular septal wall motion consistent with right ventricular pacemaker. There is no consistent Doppler evidence of clinically significant diastolic dysfunction. The basal inferior, and mid inferior wall segments are hypokinetic (score 2). Overall wallmotion score index is 2.00 Left Atrium: The left atrium is mild to moderately dilated. Right Ventricle: The right ventricle is mildly dilated. The right ventricular global systolic function is normal. Right Atrium: The right atrium is slightly dilated. Aortic Valve: The aortic valve is trileaflet. There is a trace of aortic regurgitation. There is no evidence of aortic stenosis. Mitral Valve: The mitral valve leaflets appear normal. There is a trace of mitral regurgitation. There is no evidence of mitral stenosis. Tricuspid Valve: The tricuspid valve leaflets are normal. There is trace to mild tricuspid regurgitation. No pulmonary hypertension is noted. Pulmonic Valve: The pulmonic valve appears normal. There is a trace pulmonic regurgitation. Pericardium: There is no significant pericardial effusion. A left pleural effusion is present. Aorta: There is mild dilatation of the ascending aorta.3.8 cm There is mild dilatation of the aortic arch. There is mild dilatation of the aortic root. Pulmonary Artery: The main pulmonary artery appears normal. Venous: The inferior vena cava is not visualized. Conclusions Mild to moderate concentric left ventricular hypertrophy is observed. The estimated ejection fraction is 55-60%. Left ventricular systolic function is at the lower limits of normal. There is abnormal ventricular septal wall motion consistent with right ventricular pacemaker. The basal inferior, and mid inferior wall segments are hypokinetic (score 2). The right ventricular global systolic function is normal. There is a trace of aortic regurgitation. There is a trace of mitral regurgitation. There is trace to mild tricuspid regurgitation. No pulmonary hypertension is noted. There is no significant pericardial effusion. There is mild dilatation of the ascending aorta.3.8 cm Compared to study of 07/05/16, The LV function is the same. The wallmotion abnormalities are new Measurements Name Value Normal Range RVIDd (AP) 2D 3.2 cm (0.9 - 2.6) RVDdMajor (2D) 5.2 cm (2.2 - 4.4) RAd ISD 4CH 4.9 cm (3.4 - 4.9) RA (A4C)W 5.3 cm (2.9 - 4.6) IVSd (2D) 1.4 cm (0.6 - 1) LVPWd (2D) 1.4 cm (0.6 - 1) LVIDd (2D) 3.8 cm (3.6 - 5.4) LVIDs (2D) 3.1 cm - LV FS (2D) 18 % (25 - 45) Aortic Annulus 2.2 cm (1.4 - 2.6) Ao root diameter (2D) 3.6 cm (2.1 - 3.5) Ascending Ao 3.8 cm (2.1 - 3.4) Aortic arch 3.5 cm (1.8 - 3.4) LA dimension (AP) 2D 3.4 cm (2.3 - 3.8) LAd ISD 4CH 5.7 cm (2.9 - 5.3) LA ISD 4CH W 4.5 cm (2.5 - 4.5) Name Value Normal Range LA ESV SP 4CH (A/L) 108.46 ml - LA ESV SP 2CH (A/L) 59.78 ml - LA ESV BP (A/L) 84.78 ml - LA ESV BP (A/L) index 44 ml/m2 - LA ESV SP 4CH (MOD) 100.37 ml - LA ESV SP 2CH (MOD) 56.12 ml - Name Value Normal Range MV E-wave Vmax 0.7 m/sec - MV deceleration time 265 msec - MV A-wave Vmax 0.5 m/sec - MV E:A ratio 1.4 ratio - P. vein S-wave Vmax 0.7 m/sec - P. vein D-wave Vmax 0.4 m/sec - P. vein S:D Vmax ratio 1.5 ratio - P. vein A-wave duration 104 msec - LV septal e' Vmax 0.05 m/sec - LV lateral e' Vmax 0.06 m/sec - LV E:e' septal ratio 14 ratio - LV E:e' lateral ratio 11.7 ratio - Name Value Normal Range AV Vmax 1.4 m/sec - AV VTI 21.7 cm - AV peak gradient 8 mmHg - AV mean gradient 4.3 mmHg - LVOT Vmax 1.2 m/sec - LVOT VTI 20.3 cm - LVOT peak gradient 6 mmHg - LVOT mean gradient 2.4 mmHg - SURY Vmax 0.8 m/sec - Name Value Normal Range TR Vmax 2.3 m/sec - TR peak gradient 21 mmHg - RAP 8 mmHg - RVSP 29 mmHg - Name Value Normal Range PV Vmax 0.9 m/sec - PV peak gradient 3.2 mmHg - Wallmotion BAS Not Seen BA Not Seen BAL Not Seen JENNIFFER Not Seen BI Hypokinetic BIS Not Seen MAS Not Seen MA Not Seen MAL Not Seen MIL Not Seen AZ Hypokinetic MIS Not Seen Not Seen AA Not Seen AL Not Seen AI Not Seen APEX Not Seen
--- NOTE | 2017-01-07 10:35 | PN ---
Subjective Date of Service: 01/07/17 Interval History: This is a 66 yo gentleman with a very complicated medical history including h/o hemorrhagic shock secondary to GI bleeds who was admitted yesterday unresponsive with a fever and elevated troponin. Initial concern for encephalitis/meningitis. Patient also has a new rash noted on his R leg which his reported was new. Patient is alert now this am and denies FULLER or neck pain/stiffness. He denies CP , but does recall that he may have had chest pain yesterday or the day prior. Denies SOB. He does have a semi-productive cough, initial CXR was suggestive of some interstitial edema but no focal infiltrate. UA positive for 3+ LE and 3 + WBC with a chronic indwelling Beckman catheter. Patient quite clearly refuses continuation of his heparin drip. He is able to verbalize the consequences of refusing anticoagulation in the setting of ACS including . He states, "he would rather than feel terrible", as he has with prior GI bleeds. He also refuses a lumbar puncture. He would consider cardiac cath if indicated, but would need to discuss it with his . Objective Active Medications: Aspirin (Aspirin Ec Low Dose*) 81 mg PO DAILY [facility] Atorvastatin Calcium (Lipitor*) 40 mg PO 2100 [facility] Dextrose (D50w Syringe 50 Ml*) 12.5 gm IV PUSH .FOR FS < 60 - SS PRN PRN Reason: FS < 60 Diazepam (Valium Tab(*)) 5 mg PO TID PRN PRN Reason: ANXIETY Heparin Sodium (Porcine) (Heparin Vial(*)) 0 units IV .PER PROTOCOL [facility] PRN Reason: Protocol Ampicillin Sodium 2 gm/ Sodium (Chloride) 100 mls @ 200 mls/hr IVPB Q4H [facility] Last Admin: 01/07/17 04:23 Dose: 200 mls/hr Ceftriaxone Sodium 2 gm/ (Sodium Chloride) 100 mls @ 200 mls/hr IVPB Q12H [facility] Last Admin: 01/07/17 03:44 Dose: 200 mls/hr Acyclovir Sodium 750 mg/ (Sodium Chloride) 265 mls @ 250 mls/hr IVPB Q8H [facility] Last Admin: 01/07/17 08:13 Dose: 250 mls/hr Vancomycin HCl 1,000 mg/ (Sodium Chloride) 250 mls @ 166.667 mls/hr IVPB Q8H [facility] Last Admin: 01/07/17 09:37 Dose: 166.667 mls/hr Insulin Human Lispro (Humalog*) 0 units SUBCUT ACHS [facility] PRN Reason: Protocol Insulin Human Regular (Insulin Regular(*)) 0 - 5 units SUBCUT Q6HR [facility] PRN Reason: Protocol Last Admin: 01/07/17 06:24 Dose: Not Given Metoprolol Tartrate (Lopressor Iv*) 5 mg IV Q6H [facility] Last Admin: 01/07/17 09:37 Dose: 5 mg Omeprazole (Prilosec Cap*) 40 mg PO DAILY [facility] Oxycodone/Acetaminophen (Percocet 10/325 (Nf)) 1 tab PO Q6H PRN PRN Reason: PAIN Pharmacy Consult (Vancomycin Per Pharmacy*) 1 note FOLLOW UP . PRN PRN Reason: PER PROTOCOL Pharmacy Profile Note (Vancomycin Trough Check) 1 note FOLLOW UP .ENTER TIME ONE Stop: 01/07/17 17:01 Prednisone (Deltasone Tab*) 10 mg PO BEDTIME [facility] Sotalol HCl (Betapace Tab*) 80 mg PO BID [facility] Vital Signs: Temp Pulse Resp BP Pulse Ox 98.6 F 82 25 122/64 93 01/07/17 07:32 01/07/17 09:00 01/07/17 09:00 01/07/17 09:00 01/07/17 09:00 Appearance: Patient is easily awakened upon entering the room, appears lethargic otherwise Neck: NL Appearance and Movements; NL JVP Respiratory: - - occ productive cough, some course crackles appreciated Cardiovascular: NL Sounds; No Murmurs; No JVD, RRR Extremities: - - trace - 1+ edema bilaterally at the foot/ankles Skin: - - patient has multiple healed ulcers and old skin graft site at L prox thigh with some flaking skin, R proximal leg has a erythematous vesicular rash in a linear pattern extending the length of his thigh, limited to the anterior aspect Neurological: Alert and Oriented x 3 Result Diagrams: 01/07/17 04:26 01/07/17 04:26 Additional Lab and Data: Vital Signs: Temp Pulse Resp BP Pulse Ox 98.6 F 82 25 122/64 93 01/07/17 07:32 01/07/17 09:00 01/07/17 09:00 01/07/17 09:00 01/07/17 09:00 Microbiology and Other Data: Microbiology 01/06/17 18:30 Nasal Screen MRSA (PCR)([facility]) - Final Nasal Mrsa Negative Diagnostic Imaging: CT brain - NAD CXR - mild interstitial edema EKG - sinus, no ST seg changes Echo - pend Assess/Plan/Problems-Billing Assessment: This is a 66 yo male with a complicated medical history including CAD s/p CABG, HTN, HLD, sick sinus syndrome with pacer in place, paroxysmal afib, 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 - Patient Problems (1) Encephalopathy Comment: Resolved Patient now alert Likely related to sepsis Initial concern for encephalitis/meningitis but initial LP was deferred due to technical difficulty with h/o prior lumbar fusion Patient now refuses LP No meningeal signs including c/o FULLER, neck pain or stiffness, making [employer] infection less likely (2) Sepsis Comment: Likely a urinary origin, but c/o cough, initial CXR of poor quality with repeat pending Encephalopathy is clearing Blood/urine cultures are pending Cont broad spectrum coverage with Zosyn for respiratory/urinary coverage Stop ampicillin and vanco at this time (3) NSTEMI (non-ST elevated myocardial infarction) Comment: No complaints of CP at this time ?Demand related secondary to sepsis Patient clearly refuses heparin drip or alternate anticoagulation Troponin appears to have reached peak at ~12 Will treat with ASA, BB, statin Echo pending Appreciate cardiology input (4) Shingles rash Comment: Rash on R thigh is concerning for herpes zoster infection Will unroof vesicle to perform HSV PCR for confirmation Will cont IV acyclovir as he is immunocompromised (5) Rheumatoid arthritis Comment: On chronic steroid therapy of 10mg prednisone daily No stress dose given No hemodynamic compromise Cont home steroid dose (6) Neurogenic bladder Comment: With chronic indwelling Beckman catheter (7) Anemia Comment: Chronic Fe deficiency H/o GI bleed Briefly anticoagulated with Heparin overnight which patient is now receiving Note H/H drifting down this am Cont q4h monitoring to ensure stability, no indication for transfusion at this time Check stool for occult blood Cont oral PPI at this time (8) Afib Comment: Sinus at admission Resume sotalol now that he is alert Not anticoagulated d/t h/o severe GI bleeding (9) HTN (hypertension) Comment: Currently normotensive (10) Non-insulin dependent type 2 diabetes mellitus Comment: Metformin held Cover with SS Humalog now that he is alert and eating (11) S/P CABG x 2 Comment: Followed by Dr. Wren. (12) Sick sinus syndrome Comment: With pacer in place (13) Paraplegia Comment: Secondary to h/o cauda equina Evidence of old ulcers, all of which appear healed (14) GERD (gastroesophageal reflux disease) Comment: Cont PPI (15) HLD (hyperlipidemia) (16) DVT prophylaxis Comment: SCDs (17) DNR (do not resuscitate) Comment: Confirmed with patient and family at admission Status and Disposition: Inpatient, continue ICU level care Counseling and/or Coordination of Care Minutes: 75 min
[2017-01-07] MEDS: Insulin LISPRO* 1 UNITS UNIT SUBCUT SCH ×3 (10:46→21:55)
[2017-01-07] MEDS: Aspirin EC Low Dose* 81 MG TAB.EC PO SCH (10:47)
--- NOTE | 2017-01-07 10:50 | RAD ---
HISTORY: Altered mental status, question pneumonia COMPARISONS: January 06, 2017 at 10:31 AM, September 25, 2016 VIEWS:1: Single frontal portable view of the chest at 10:20 AM FINDINGS: LINES AND TUBES: A left-sided pacemaker is noted CARDIOMEDIASTINAL SILHOUETTE: The cardiomediastinal silhouette is normal for portable technique. PLEURA: The costophrenic angles are sharp. No pleural abnormalities are noted. LUNG PARENCHYMA: The lungs are clear. ABDOMEN: The large hiatal hernia is noted BONES AND SOFT TISSUES: There is post surgical change to the spine IMPRESSION: HIATAL HERNIA. NO ACTIVE CARDIOPULMONARY DISEASE.
[2017-01-07 10:52] LABS: HDL Cholesterol 23.7 mg/dL
[2017-01-07] MEDS ORDERED: Piperac/Tazob 3.375 gm in NS* 3.375 GM/100 ML BAG IVPB ONE (11:00)
[2017-01-07 11:10] LABS: Hematocrit 24 % (42-52); Hemoglobin 7.2 g/dl (14.0-18.0)
[2017-01-07 11:17] LABS: Comments Flag Yes
[2017-01-07] MEDS: Metoprolol Succinate XL TAB* 25 MG PO SCH ×2 (11:49→19:49)
[2017-01-07] MEDS: Acetaminophen TAB* 325 MG PO PRN (13:09)
[2017-01-07] MEDS: oxyCODONE TAB* 5 MG TAB PO PRN ×2 (13:09→20:00)
--- NOTE | 2017-01-07 13:20 | CONS ---
CARDIOLOGY CONSULTATION: DATE OF CONSULT: 01/07/17 INDICATION FOR CONSULTATION: Coronary artery disease, acute coronary syndrome. HISTORY OF PRESENT ILLNESS: The patient is a 66-year-old gentleman with multiple medical problems, who was brought to the emergency room because of change in mental status. The patient was recently in the hospital for a GI bleed and was discharged home without any anticoagulation. The patient was brought back to the emergency room because his found him unresponsive. The patient states he has been fatigued for the past couple of days. The patient did have abdominal pain starting with dinner last night. The patient's saw him in the morning and was difficult to arouse. The patient was brought to the emergency room via ambulance. On arrival of the ambulance, the patient was somnolent, but had no specific complaints. The patient's troponin level was found to be elevated at 9. The patient's hemoglobin and hematocrit were also found to be low. The patient was admitted to the hospital overnight. Overnight, the patient became slightly more aware of his surroundings. He denied any chest pain. He denied any shortness of breath. He denied any orthopnea. PAST MEDICAL HISTORY: Significant for hypertension; rheumatoid arthritis, on chronic steroids, he is on Plaquenil; history of coronary artery disease; coronary artery bypass surgery; history of paroxysmal atrial fibrillation; history of pacemaker implantation; HSV esophagitis. PAST SURGICAL HISTORY: Coronary artery bypass surgery, permanent pacemaker implantation in 2007, multiple spinal fusions. OUTPATIENT MEDICATIONS: 1. Omeprazole 40 mg a day. 2. Plaquenil 200 mg b.i.d. 3. Prednisone as directed. 4. Sotalol 80 mg b.i.d. 5. Metformin 500 mg 2 tablets in the morning, 3 tablets in the evening. 6. Valium as directed. 7. Percocet as needed. 8. Multivitamin a day. ALLERGIES: To FENTANYL and CODEINE. SOCIAL HISTORY: He is . He lives with his . He is currently disabled. He is a previous smoker, but currently denies tobacco. No alcohol use. Does not exercise regularly because of his disabilities. FAMILY HISTORY: No family history of early coronary artery disease or cardiac arrhythmias. PHYSICAL EXAM: Height is 5 feet 10 inches, weight is 158 pounds, temperature 100, blood pressure 124/69, respiratory rate is 22, heart rate is 75, oxygen saturation 98% on 2 L. Sclerae anicteric. Oropharynx is pink without erythema. Carotids are 2+ without bruits. JVD is normal. Thyroid is normal. Cardiac Exam: S1, S2 without any murmurs, rubs, or gallops. Abdomen: Soft, nontender, nondistended, with normoactive bowel sounds. Extremities: Showed no edema. He has 2+ pulses throughout. The patient is awake, is difficult to assess his orientation. LABORATORY DATA: White count 13.6, hemoglobin 12, hematocrit 24, platelet count 344. His baseline hemoglobin back in March 2016 was 10.5. Chemistries within normal limits. BUN 14, creatinine 0.67. Peak troponin level of 12. Total cholesterol 109. HDL of 23, LDL of 60. EKG demonstrates normal sinus rhythm, occasionally atrial paced with PACs. His corrected QT interval is 480. IMPRESSION: This is a 66-year-old gentleman who was brought to the hospital because of change in mental status and confusion. The patient was admitted to the intensive care unit because of an elevated troponin level this morning. The patient is awake but is not oriented. He denies any chest pain or shortness of breath. The patient did have an echocardiogram today, which showed normal LV size and systolic function. He does have some mild inferior wall hyperkinesis. He also has septal asynchrony secondary to his paced rhythm. This is a 66-year-old gentleman with a history of coronary artery disease, rheumatoid arthritis, on chronic steroids, who was admitted to the hospital with change in mental status. The patient was found to have a troponin level of 9, which is consistent with acute coronary syndrome with new focal wall motion abnormalities to his inferior wall. The patient is currently not have any chest pain. Because of the patient's recent GI bleed and low hemoglobin and hematocrit, I do not think an invasive strategy is appropriate. The patient will be continued on aspirin. His heparin will be stopped. The patient is on sotalol for suppression of his atrial fibrillation; however, given his recent ischemia, I think it is dangerous to continue on sotalol. Sotalol will be stopped, beta-blockers will be initiated. Further recommendations pending this hospital course. CC: Dr. Wren; Dr. Hany Valera, [facility]* [id number]/[facility] #: [id number] [facility]
[2017-01-07 13:34] LABS: Hematocrit 24 % (42-52); Hemoglobin 7.4 g/dl (14.0-18.0)
[2017-01-07 13:43] LABS: Comments Flag Yes
[2017-01-07] MEDS: Piperac/Tazob 3.375 gm in NS* 3.375 GM/100 ML BAG IVPB SCH ×2 (15:52→22:38)
[2017-01-07 16:51] LABS: Hematocrit 22 % (42-52); Hemoglobin 6.7 g/dl (14.0-18.0)
[2017-01-07 16:59] LABS: Comments Flag Yes
[2017-01-07] MEDS ORDERED: Vancomycin Trough Check NOTE FOLLOW UP ONE (17:00)
[2017-01-07] MEDS ORDERED: Hydrocortisone INJ* 100 MG VIAL IV ONE (17:10)
[2017-01-07] MEDS: Pantoprazole IV* 40 MG IV SCH (17:47)
--- NOTE | 2017-01-07 17:48 | PN ---
Hospitalist Progress Note Hgb dropped to 6.7 g/dl and sBP hovered in the mid 90s for several hours. Will transfuse 2U PRBCs and empirically treat for GI bleed with IV Protonix. Will also stress dose steroids with 100 mg hydrocortisone.
[2017-01-07] MEDS: Atorvastatin* 40 MG TAB PO SCH (20:00)
[2017-01-07] MEDS: predniSONE TAB* 10 MG PO SCH (20:00)
[2017-01-07] MEDS ORDERED: Sotalol TAB* 80 MG PO SCH (21:00)
[2017-01-08] MEDS: Acyclovir IV(*) 750 MG in NS 0.9% 250 ML* 250 ML IVPB SCH ×3 (02:53→19:25)
[2017-01-08 03:21] LABS: Hematocrit 27 % (42-52); Hemoglobin 8.7 g/dl (14.0-18.0); Mean Corpuscular HGB Conc 32 g/dl (31-36); Mean Corpuscular Hemoglobin 24 pg (27-31); Mean Corpuscular Volume 76 fL (80-94); Mean Platelet Volume 7 um3 (7.4-10.4); Red Cell Distribution Width 18 % (10.5-15); White Blood Count 9.4 10^3/ul (3.5-10.8)
[2017-01-08] MEDS: Piperac/Tazob 3.375 gm in NS* 3.375 GM/100 ML BAG IVPB SCH (06:28)
[2017-01-08] MEDS: Insulin LISPRO* 1 UNITS UNIT SUBCUT SCH ×4 (07:57→22:26)
[2017-01-08 08:43] LABS: BUN/Creatinine Ratio 18.3 (8-20); Calcium 7.2 mg/dL (8.6-10.3); EGFR African American 141.9 (>60); EGFR Non-African American 110.3 (>60); Potassium 3.5 mmol/L (3.5-5.0)
[2017-01-08] MEDS ORDERED: Omeprazole CAP* 20 MG PO SCH (09:00)
[2017-01-08] MEDS: Pantoprazole IV* 40 MG IV SCH (09:53)
[2017-01-08] MEDS: Aspirin EC Low Dose* 81 MG TAB.EC PO SCH (09:53)
[2017-01-08] MEDS: Metoprolol Succinate XL TAB* 25 MG PO SCH ×2 (09:53→22:25)
--- NOTE | 2017-01-08 10:54 | PN ---
Subjective Date of Service: 01/08/17 Interval History: Patient reports feeling quite well this am. He is having trouble recalling details of yesterday. Denies CP, SOB, abd pain, n/v. No FULLER or neck stiffness. Objective Active Medications: Acetaminophen (Tylenol Tab*) 650 mg PO Q6H PRN PRN Reason: pain/fever Last Admin: 01/07/17 13:09 Dose: 650 mg Aspirin (Aspirin Ec Low Dose*) 81 mg PO DAILY [facility] Last Admin: 01/08/17 09:53 Dose: Not Given Atorvastatin Calcium (Lipitor*) 40 mg PO 2100 [facility] Last Admin: 01/07/17 20:00 Dose: 40 mg Dextrose (D50w Syringe 50 Ml*) 12.5 gm IV PUSH .FOR FS < 60 - SS PRN PRN Reason: FS < 60 Diazepam (Valium Tab(*)) 5 mg PO TID PRN PRN Reason: ANXIETY Heparin Sodium (Porcine) (Heparin Vial(*)) 0 units IV .PER PROTOCOL [facility] PRN Reason: Protocol Piperacillin Sod/Tazobactam Sod (Zosyn 3.375 Gm In Ns Premix*) 3.375 gm in 100 mls @ 25 mls/hr IVPB Q8H [facility] Last Admin: 01/08/17 06:28 Dose: 25 mls/hr Acyclovir Sodium 750 mg/ (Sodium Chloride) 265 mls @ 100 mls/hr IVPB Q8H [facility] Last Admin: 01/08/17 02:53 Dose: 100 mls/hr Insulin Human Lispro (Humalog*) 0 units SUBCUT ACHS [facility] PRN Reason: Protocol Last Admin: 01/08/17 07:57 Dose: 2 units Metoprolol Succinate (Toprol Xl Tab*) 25 mg PO BID [facility] Last Admin: 01/08/17 09:53 Dose: 25 mg Oxycodone HCl (Roxycodone Tab*) 10 mg PO Q6H PRN PRN Reason: PAIN Last Admin: 01/07/17 20:00 Dose: 10 mg Pantoprazole Sodium (Protonix Iv*) 40 mg IV DAILY [facility] Last Admin: 01/08/17 09:53 Dose: 40 mg Prednisone (Deltasone Tab*) 10 mg PO BEDTIME [facility] Last Admin: 01/07/17 20:00 Dose: 10 mg Vital Signs: Temp Pulse Resp BP Pulse Ox 97.2 F 64 26 119/99 97 01/08/17 08:00 01/08/17 09:00 01/08/17 09:00 01/08/17 09:00 01/08/17 09:00 Appearance: Well appearing elderly gentleman in NAD Respiratory: Symmetrical Chest Expansion and Respiratory Effort, Clear to Auscultation Cardiovascular: NL Sounds; No Murmurs; No JVD, RRR Abdominal: NL Sounds; No Tenderness; No Distention Extremities: - - trace-1+ LE edema at the feet bilaterally Skin: - - erythematous vesicular rash along anterior R thigh Neurological: Alert and Oriented x 3 Result Diagrams: 01/08/17 03:00 01/08/17 08:00 Additional Lab and Data: Vital Signs: Temp Pulse Resp BP Pulse Ox 98.6 F 82 25 122/64 93 01/07/17 07:32 01/07/17 09:00 01/07/17 09:00 01/07/17 09:00 01/07/17 09:00 Microbiology and Other Data: Microbiology 01/06/17 18:30 Nasal Screen MRSA (PCR)([facility]) - Final Nasal Mrsa Negative Diagnostic Imaging: CT brain - NAD CXR - mild interstitial edema EKG - sinus, no ST seg changes Echo - pend Assess/Plan/Problems-Billing Assessment: This is a 66 yo male with a complicated medical history including CAD s/p CABG, HTN, HLD, sick sinus syndrome with pacer in place, paroxysmal afib, 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 - Patient Problems (1) Encephalopathy Comment: Resolved Patient now alert and oriented Likely related to sepsis Initial concern for encephalitis/meningitis but initial LP was deferred due to technical difficulty with h/o prior lumbar fusion Patient now refuses LP No meningeal signs including c/o FULLER, neck pain or stiffness, making [employer] infection less likely (2) Sepsis Comment: Likely a urinary origin Urine culture reported as mixed leighann, likely due to contamination, can submit another sample, but unlikely to yield a pathogen after nearly 48 hrs of IV abx Blood cultures are negative at 24 hours Cont broad spectrum coverage with Zosyn (3) NSTEMI (non-ST elevated myocardial infarction) Comment: No complaints of CP ?Demand related secondary to sepsis Echo demonstrates inferior wall motion changes, but EF remains intact Decision was made to manage without intervention due to concern for GI bleeding Troponin appears to have reached peak at ~12 Will treat with ASA, BB, statin Appreciate cardiology input (4) GI bleed Comment: With chronic Fe def anemia Transfused 2U PRBCs H/H appears stable Likely due to heparin use, he has a h/o of multiple GI bleeds with anticoagulation No plan for EGD as long as bleeding appears to have stopped Cont IV Protonix (5) Shingles rash Comment: Rash on R thigh is concerning for herpes zoster infection HSV PCR for confirmation is pending Will cont IV acyclovir as he is immunocompromised (6) Rheumatoid arthritis Comment: On chronic steroid therapy of 10mg prednisone daily Stress dose of hydrocortisone given last night Cont home steroid dose (7) Neurogenic bladder Comment: With chronic indwelling Beckman catheter (8) Afib Comment: Sinus at admission Sotalol replaced by metoprolol due to recent ischemia and prevalence for dysrhythmia Not anticoagulated d/t h/o severe GI bleeding (9) HTN (hypertension) Comment: Currently normotensive (10) Non-insulin dependent type 2 diabetes mellitus Comment: Metformin held Cover with SS Humalog now that he is alert and eating (11) S/P CABG x 2 Comment: Followed by Dr. Wren. (12) Sick sinus syndrome Comment: With pacer in place (13) Paraplegia Comment: Secondary to h/o cauda equina Evidence of old ulcers, all of which appear healed (14) GERD (gastroesophageal reflux disease) Comment: Cont PPI (15) HLD (hyperlipidemia) (16) DVT prophylaxis Comment: SCDs (17) DNR (do not resuscitate) Comment: Confirmed with patient and family at admission Status and Disposition: Inpatient. Transfer to floor
[2017-01-08 12:31] LABS: Hematocrit 29 % (42-52); Hemoglobin 9.2 g/dl (14.0-18.0)
[2017-01-08] MEDS: cefTRIAXone VIAL(*) 1,000 MG in NS 0.9% 50 ML* 50 ML IVPB SCH (15:23)
[2017-01-08] MEDS: oxyCODONE TAB* 5 MG TAB PO PRN (16:39)
[2017-01-08] MEDS: predniSONE TAB* 10 MG PO SCH (22:25)
[2017-01-08] MEDS: Atorvastatin* 40 MG TAB PO SCH (22:26)
[2017-01-09 00:57] LABS: HS/VZ Source RIGHT LEG RASH; Varicella Zoster Result Positive (Negative); Varicella Zoster Source RIGHT LEG RASH
[2017-01-09] MEDS: Acyclovir IV(*) 750 MG in NS 0.9% 250 ML* 250 ML IVPB SCH ×3 (04:04→21:08)
[2017-01-09 05:35] LABS: Hematocrit 28 % (42-52); Hemoglobin 8.9 g/dl (14.0-18.0); Mean Corpuscular HGB Conc 32 g/dl (31-36); Mean Corpuscular Hemoglobin 24 pg (27-31); Mean Corpuscular Volume 77 fL (80-94); Mean Platelet Volume 7 um3 (7.4-10.4); Red Blood Count 3.69 10^6/ul (4.0-5.4); Red Cell Distribution Width 18 % (10.5-15)
[2017-01-09 05:46] LABS: BUN/Creatinine Ratio 18.5 (8-20); Calcium 7.7 mg/dL (8.6-10.3); EGFR African American 157.1 (>60); EGFR Non-African American 122.2 (>60); Potassium 3.2 mmol/L (3.5-5.0)
[2017-01-09 08:14] LABS: Magnesium 1.1 mg/dL (1.9-2.7)
[2017-01-09] MEDS ORDERED: Magnesium Sulf 4 GM/100 ML IV* 4,000 MG/100 ML BAG IVPB ONE (08:20)
[2017-01-09] MEDS ORDERED: NS 0.9% 250 ML* 500 ML ONE (09:18)
[2017-01-09] MEDS: Potassium Chlor TAB* 20 MEQ TAB.ER PO SCH ×2 (09:39→21:09)
[2017-01-09] MEDS: Insulin LISPRO* 1 UNITS UNIT SUBCUT SCH ×4 (09:39→21:14)
[2017-01-09] MEDS: Metoprolol Succinate XL TAB* 25 MG PO SCH ×2 (09:39→21:10)
[2017-01-09] MEDS: Aspirin EC Low Dose* 81 MG TAB.EC PO SCH (09:39)
[2017-01-09] MEDS: Pantoprazole IV* 40 MG IV SCH (12:25)
[2017-01-09] MEDS: Omeprazole CAP* 20 MG PO SCH ×2 (12:40→21:10)
[2017-01-09] MEDS: Acetaminophen TAB* 325 MG PO PRN (13:35)
[2017-01-09] MEDS: oxyCODONE TAB* 5 MG TAB PO PRN ×2 (13:35→18:22)
[2017-01-09] MEDS ORDERED: oxyCODONE TAB* 5 MG TAB PO PRN (13:53)
--- NOTE | 2017-01-09 14:02 | PN ---
Subjective Date of Service: 01/09/17 Interval History: Patient reports he is struggling with pain control in his back today. Back pain is a chronic complaint and he takes Percocet on a scheduled basis at home and has not been receiving it as regularly here. Apart from his back pain he offers no additional complaints today Objective Active Medications: Acetaminophen (Tylenol Tab*) 650 mg PO Q6H PRN PRN Reason: pain/fever Last Admin: 01/09/17 13:35 Dose: 650 mg Acetaminophen (Tylenol Tab*) 650 mg PO 0700,1100,1500,1900 [facility] Aspirin (Aspirin Ec Low Dose*) 81 mg PO DAILY [facility] Last Admin: 01/09/17 09:39 Dose: 81 mg Atorvastatin Calcium (Lipitor*) 40 mg PO 2100 [facility] Last Admin: 01/08/17 22:26 Dose: 40 mg Dextrose (D50w Syringe 50 Ml*) 12.5 gm IV PUSH .FOR FS < 60 - SS PRN PRN Reason: FS < 60 Diazepam (Valium Tab(*)) 5 mg PO TID PRN PRN Reason: ANXIETY Acyclovir Sodium 750 mg/ (Sodium Chloride) 265 mls @ 100 mls/hr IVPB Q8H [facility] Last Admin: 01/09/17 11:03 Dose: 100 mls/hr Ceftriaxone Sodium 1,000 mg/ (Sodium Chloride) 50 mls @ 200 mls/hr IVPB Q24H [facility] Last Admin: 01/08/17 15:23 Dose: 200 mls/hr Insulin Human Lispro (Humalog*) 0 units SUBCUT ACHS [facility] PRN Reason: Protocol Last Admin: 01/09/17 13:34 Dose: Not Given Metoprolol Succinate (Toprol Xl Tab*) 25 mg PO BID [facility] Last Admin: 01/09/17 09:39 Dose: 25 mg Omeprazole (Prilosec Cap*) 40 mg PO BID [facility] Last Admin: 01/09/17 12:40 Dose: 40 mg Oxycodone HCl (Roxycodone Tab*) 10 mg PO 0700,1100,1500,1900 PRN PRN Reason: PAIN Oxycodone HCl (Roxycodone Tab*) 10 mg PO Q6H PRN PRN Reason: PAIN Potassium Chloride (Klor Con Er Tab*) 20 meq PO BID [facility] Stop: 01/09/17 21:01 Last Admin: 01/09/17 09:39 Dose: 20 meq Prednisone (Deltasone Tab*) 10 mg PO BEDTIME ARGENIS Last Admin: 01/08/17 22:25 Dose: 10 mg Vital Signs: Temp Pulse Resp BP Pulse Ox 98.4 F 68 16 134/73 94 01/09/17 07:32 01/09/17 07:32 01/09/17 13:35 01/09/17 07:32 01/09/17 07:32 Appearance: Well appearing elderly gentleman accompanied by his in NAD Neck: NL Appearance and Movements; NL JVP Respiratory: Symmetrical Chest Expansion and Respiratory Effort, Clear to Auscultation Cardiovascular: NL Sounds; No Murmurs; No JVD, RRR Abdominal: NL Sounds; No Tenderness; No Distention Extremities: - - trace LE edema Skin: No Rash or Ulcers Neurological: Alert and Oriented x 3 Result Diagrams: 01/09/17 04:54 01/09/17 04:54 Additional Lab and Data: Vital Signs: Temp Pulse Resp BP Pulse Ox 98.6 F 82 25 122/64 93 01/07/17 07:32 01/07/17 09:00 01/07/17 09:00 01/07/17 09:00 01/07/17 09:00 Microbiology and Other Data: Microbiology 01/06/17 18:30 Nasal Screen MRSA (PCR)(ALEKSEY) - Final Nasal Mrsa Negative Diagnostic Imaging: CT brain - NAD CXR - mild interstitial edema EKG - sinus, no ST seg changes Echo - pend Assess/Plan/Problems-Billing Assessment: This is a 66 yo male with a complicated medical history including CAD s/p CABG, HTN, HLD, sick sinus syndrome with pacer in place, paroxysmal afib, 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 (2) Sepsis Comment: Likely a urinary origin Urine culture reported as mixed leighann, likely due to contamination, can submit another sample, but unlikely to yield a pathogen after nearly 48 hrs of IV abx Blood cultures are negative at 48 hours Narrowed abx coverage to Ceftriaxone (3) NSTEMI (non-ST elevated myocardial infarction) Comment: No complaints of CP ?Demand related secondary to sepsis Echo demonstrates inferior wall motion changes, but EF remains intact Decision was made to manage without intervention due to concern for GI bleeding Troponin appears to have reached peak at ~12 Will treat with ASA, BB, statin Appreciate cardiology input (4) GI bleed Comment: With chronic Fe def anemia Transfused 2U PRBCs H/H appears stable Likely due to heparin use, he has a h/o of multiple GI bleeds with anticoagulation No plan for EGD as long as bleeding appears to have stopped Transition to oral PPI (5) Shingles rash Comment: Rash on R thigh appears consistent with herpes zoster infection HSV PCR is positive Will cont IV acyclovir as he is immunocompromised (6) Rheumatoid arthritis Comment: On chronic steroid therapy of 10mg prednisone daily Stress dose of hydrocortisone given Cont home steroid dose (7) Neurogenic bladder Comment: With chronic indwelling Beckman catheter, changed at admission (8) Afib Comment: Sinus at admission Sotalol replaced by metoprolol due to recent ischemia and prevalence for dysrhythmia Not anticoagulated d/t h/o severe GI bleeding (9) HTN (hypertension) Comment: Currently normotensive (10) Non-insulin dependent type 2 diabetes mellitus Comment: Metformin held Cover with SS Humalog now that he is alert and eating (11) S/P CABG x 2 Comment: Followed by Dr. Wren. (12) Sick sinus syndrome Comment: With pacer in place (13) Paraplegia Comment: Secondary to h/o cauda equina Evidence of old pressure ulcers, all of which appear healed (14) GERD (gastroesophageal reflux disease) Comment: Cont PPI (15) HLD (hyperlipidemia) (16) DVT prophylaxis Comment: SCDs (17) DNR (do not resuscitate) Comment: Confirmed with patient and family at admission Status and Disposition: Inpatient. Possible discharge tomorrow
[2017-01-09] MEDS: cefTRIAXone VIAL(*) 1,000 MG in NS 0.9% 50 ML* 50 ML IVPB SCH (16:10)
[2017-01-09 17:13] LABS: Hematocrit 28 % (42-52)
[2017-01-09] MEDS: Acetaminophen TAB* 325 MG PO SCH ×2 (18:20→18:22)
[2017-01-09] MEDS ORDERED: Senna TAB PO SCH (21:00)
[2017-01-09] MEDS: predniSONE TAB* 10 MG PO SCH (21:09)
[2017-01-09] MEDS: Atorvastatin* 40 MG TAB PO SCH (21:09)
[2017-01-09] MEDS: Docusate CAP* 100 MG PO SCH (21:14)
[2017-01-09 21:51] LABS: Hematocrit 32 % (42-52); Mean Corpuscular HGB Conc 31 g/dl (31-36); Mean Corpuscular Hemoglobin 24 pg (27-31); Mean Corpuscular Volume 76 fL (80-94); Mean Platelet Volume 7 um3 (7.4-10.4); Red Blood Count 4.23 10^6/ul (4.0-5.4); Red Cell Distribution Width 18 % (10.5-15); White Blood Count 8.9 10^3/ul (3.5-10.8)
[2017-01-10] MEDS ORDERED: oxyCODONE TAB* 5 MG TAB PO PRN (01:30)
[2017-01-10] MEDS: guaiFENesin ER TAB 600 MG PO SCH ×2 (02:00→08:32)
[2017-01-10] MEDS: Acyclovir IV(*) 750 MG in NS 0.9% 250 ML* 250 ML IVPB SCH ×2 (03:00→11:30)
[2017-01-10 06:18] LABS: BUN/Creatinine Ratio 11.5 (8-20); Calcium 7.4 mg/dL (8.6-10.3); EGFR African American 169.1 (>60); EGFR Non-African American 131.5 (>60); Magnesium 1.6 mg/dL (1.9-2.7)
[2017-01-10] MEDS: Aspirin EC Low Dose* 81 MG TAB.EC PO SCH (08:31)
[2017-01-10] MEDS: Insulin LISPRO* 1 UNITS UNIT SUBCUT SCH ×2 (08:31→12:39)
[2017-01-10] MEDS: Acetaminophen TAB* 325 MG PO SCH ×2 (08:31→12:39)
[2017-01-10] MEDS: Metoprolol Succinate XL TAB* 25 MG PO SCH (08:32)
[2017-01-10] MEDS: Omeprazole CAP* 20 MG PO SCH (08:32)
[2017-01-10] MEDS: oxyCODONE TAB* 5 MG TAB PO PRN ×2 (08:32→12:39)
[2017-01-10] MEDS: Docusate CAP* 100 MG PO SCH (08:32)
[2017-01-10] MEDS ORDERED: Magnesium Sulf 4 GM/100 ML IV* 4,000 MG/100 ML BAG IVPB ONE (08:38)
[2017-01-10 15:50] VITALS: BP 131/81
--- NOTE | 2017-01-10 23:49 | DS ---
DISCHARGE SUMMARY: DATE OF ADMISSION: 01/06/17 DATE OF DISCHARGE: 01/10/17 PRIMARY CARE PROVIDER: Dr. Hany Valera. CONSULTING ADZING AND BORING MACHINE HELPER: Everett Melo MD. PRIMARY ADZING AND BORING MACHINE HELPER: Dr. Wren. DISCHARGING PROVIDER: KRISTI Donis. SUPERVISING PHYSICIAN: Quynh Copeland MD* (dictated by KRISTI Donis). PRIMARY DISCHARGE DIAGNOSES: 1. Encephalopathy secondary to sepsis - resolved. 2. Sepsis of a urinary origin. 3. Non-ST elevation myocardial infarction. 4. Gastrointestinal bleed. 5. Herpes zoster affecting his right proximal leg. SECONDARY DISCHARGE DIAGNOSES: 1. Rheumatoid arthritis, on chronic steroid therapy. 2. Neurogenic bladder with chronic indwelling Beckman catheter changed at admission. 3. Atrial fibrillation, not anticoagulated due to history of severe gastrointestinal bleeding. 4. Hypertension. 5. Non-insulin dependent diabetes. 6. History of CABG, followed by Dr. Wren for cardiology care. 7. Paraplegia secondary to cauda equina syndrome. 8. Sick sinus syndrome with pacemaker in place. 9. Gastroesophageal reflux disease. 10. Hyperlipidemia. DISCHARGE MEDICATIONS: 1. Aspirin 81 mg p.o. daily. 2. Atorvastatin 40 mg p.o. daily. 3. Cefdinir 300 mg p.o. twice daily. 4. Vitamin D3 10,000 units p.o. weekly. 5. Valium 5 mg p.o. t.i.d. as needed. 6. Plaquenil 200 mg p.o. twice daily. 7. Iron polysaccharide complex 1 tablet p.o. daily. 8. Metformin 1500 mg p.o. at bedtime. 9. Metoprolol tartrate 25 mg p.o. twice daily. 10. Omeprazole 40 mg p.o. daily. 11. Percocet 10/325 mg 1 to 2 tablets p.o. q.6 hours as needed for pain. 12. Prednisone 10 mg p.o. daily. MEDICATION CHANGES: 1. Cefdinir x5 days. 2. Stop sotalol. 3. Start aspirin. 4. Start atorvastatin. 5. Start metoprolol. HOSPITAL IMAGIN. CT of the brain shows no acute findings. 2. Chest x-ray, 01/06/17, demonstrates some chronic lung disease with superimposed mild interstitial congestion. 3. Chest x-ray, 01/07/17, shows a hiatal hernia without active disease. 4. EKG demonstrates sinus rhythm with occasional PVCs. 5. Transthoracic echocardiogram demonstrates [id number] LVH with estimated EF of 55% to 60% with basilar inferior and mild inferior wall segments , which are hypokinetic, normal right ventricular function and no significant valvular disease. HOSPITAL COURSE: This is a 66-year-old gentleman with an extensive medical history including paraplegia secondary to cauda equina syndrome, coronary artery disease status post CABG, atrial fibrillation, history of PEs and DVTs with history of multiple severe GI bleeds as well as rheumatoid arthritis on chronic steroid therapy, hypertension, hyperlipidemia, chronic indwelling Beckman catheter due to neurogenic bladder as well as sick sinus syndrome with a pacemaker in place, who presented to the emergency department unresponsive. The patient's states that he was in his usual state of health the day prior to admission and then that morning, his was unable to wake him. He subsequently was transferred to the emergency department via ambulance. He was initially febrile and unresponsive in the emergency department with white blood cell count of 14,000 with an elevated CRP to 123 and elevated sed rate. His electrolytes were within normal limits, but his troponin was significantly elevated at 9.8. With his initial presentation being fever and altered mental status, there was initial concern for meningitis or encephalitis. He does have a history of cauda equina syndrome and subsequent decompressive surgery complicating a lumbar puncture, so initial lumbar puncture was deferred, but the patient was empirically treated with ampicillin, ceftriaxone, and acyclovir. The following morning, the patient's mental status began to improve. He remained somewhat confused, but his level of alertness improved significantly. The patient's troponin increased from 9.8 on admission, peaking at 12.8. The patient was unable to provide a history of chest pain and he was empirically started on a heparin drip. The patient does have a history of severe GI hemorrhage and when his level of alertness allowed him to participate in his care, he adamantly refused continuation of his heparin drip due to his prior history of hemorrhage. He clearly stated that he would rather than feel as poorly as he has with his prior GI bleeds. The patient was evaluated by Dr. Melo, instructor physical, underwent echocardiogram, which did demonstrate inferior wall hypokinesis consistent with a non-ST elevation [place]. He had no ischemic changes appreciated on EKG and the patient never complained of chest pain. The patient was previously treated with sotalol as an antiarrhythmic with his history of atrial fibrillation, which was discontinued in the setting of ischemia to decrease his risk of significant dysrhythmia and he was instead started on metoprolol. Aspirin and statin therapy were also initiated. Blood cultures remains negative and his initial urine culture grew mixed leighann likely representing contamination. This was resulted after he had been on 48 hours of antibiotics, so a pathogen was not specifically isolated. The patient' s antibiotic therapy was eventually narrowed to ceftriaxone and he continued to improve being afebrile and his mental status returning back to baseline. The patient is anemic at baseline with an iron-deficiency anemia. His hemoglobin began to drift down after he had a brief period of anticoagulation with heparin. Hemoglobin reached as low as 6.7 and in combination with his recent cardiac event, decision was made to transfuse 2 units of packed red blood cells and his hemoglobin is 10 at the time of discharge. Of note, the patient did refuse lumbar puncture and did not demonstrate any meningeal signs after his mental status began to improve. DISPOSITION AND FOLLOWUP PLAN: The patient is being discharged to home, where he lives with his . He requires followup with his instructor physical as well as his primary care provider. Recommend medication changes as outlined above. Specifically he requires an additional 5 days of antibiotics and his sotalol has been discontinued and he has been started on metoprolol in addition to aspirin or Lipitor. KRISTI DONIS CC: Dr. Hany Valera; Dr. Wren* [id number]/[facility] #: [id number] [facility]
== END 2017-01-10 16:18 | disposition home or self-care (01) | DRG 871 ==
LOC: ED 11:00 → ICU 13:48 → MEDTELE 01-08 14:05
PROVIDERS: ADMIT Hospitalist; ATTEND Internal Medicine
PROC: 0T2BX0Z Change Drainage Device in Bladder, External Approach (ICD-10-PCS; 2017-01-06)
PROC: 30233N1 Transfusion of Nonautologous Red Blood Cells into Peripheral Vein, Percutaneous Approach (ICD-10-PCS; principal; 2017-01-10)
DX: A41.9 Sepsis, unspecified organism (principal); G93.40 Encephalopathy, unspecified; I21.4 Non-ST elevation (NSTEMI) myocardial infarction; G82.20 Paraplegia, unspecified; I48.0 Paroxysmal atrial fibrillation; E11.51 Type 2 diabetes mellitus with diabetic peripheral angiopathy without gangrene; N31.9 Neuromuscular dysfunction of bladder, unspecified; K92.2 Gastrointestinal hemorrhage, unspecified; I10 Essential (primary) hypertension; G83.4 Cauda equina syndrome; I25.10 Atherosclerotic heart disease of native coronary artery without angina pectoris; Z95.0 Presence of cardiac pacemaker; Z87.01 Personal history of pneumonia (recurrent); Z86.711 Personal history of pulmonary embolism; K21.9 Gastro-esophageal reflux disease without esophagitis; M19.90 Unspecified osteoarthritis, unspecified site; Z85.828 Personal history of other malignant neoplasm of skin; Z98.1 Arthrodesis status; Z95.1 Presence of aortocoronary bypass graft; Z82.49 Family history of ischemic heart disease and other diseases of the circulatory system; Z87.891 Personal history of nicotine dependence; Z66 Do not resuscitate; E78.5 Hyperlipidemia, unspecified; Z86.718 Personal history of other venous thrombosis and embolism; M06.9 Rheumatoid arthritis, unspecified; Z88.8 Allergy status to other drugs, medicaments and biological substances; Z80.3 Family history of malignant neoplasm of breast; Z80.1 Family history of malignant neoplasm of trachea, bronchus and lung; R54 Age-related physical debility; R33.9 Retention of urine, unspecified; B02.9 Zoster without complications; D50.8 Other iron deficiency anemias; Z88.5 Allergy status to narcotic agent; Z79.82 Long term (current) use of aspirin; Z79.84 Long term (current) use of oral hypoglycemic drugs; Z79.52 Long term (current) use of systemic steroids; J98.4 Other disorders of lung; K44.9 Diaphragmatic hernia without obstruction or gangrene
CPT/HCPCS: 36415; 70450; 71010; 80048; 80053; 80061; 81003; 81015; 82550; 83605; 83735; 83880; 84145; 84484; 84520; 85014; 85018; 85025; 85384; 85610; 85652; 85730; 86140; 86850; 86900; 86901; 86922; 87040; 87086; 87529; 87641; 87798; 93005; 93306; 94760; A9270-GY; J0133; J0290; J0696; J1720; J2543; J3370; J7512; P9016

== ENCOUNTER 2017-03-07 12:12 | Emergency (ER) | payer MEDICARE, BC ==
--- NOTE | 2017-03-07 13:32 | ED ---
Skin Complaint - HPI Summary HPI Summary: 67 male presents with complaints of a wound that has been going on for the past week and worsened/opened up over the past 3 days. Patient states he follows up at the wound clinic for these wounds however they were unable to get him in until next week. Patient states the wound has been worsening and opened up a few days ago. Was given medication topically to apply however it did not seem to be helping anymore. Patient has had cauda equina syndrome also history of osteomyelitis. Sees Dr Saravia. Denies lethargy, nausea, vomiting, fever or feeling ill. Wound has been draining. No other wounds or complaints at this time. - History of Current Complaint Chief Complaint: EDRashSkinAbscess Time Seen by Provider: 03/07/17 12:38 Stated Complaint: LT LEG WOUND Hx Obtained From: Patient, Family/Shingles Roofer - Onset/Duration: Started Weeks Ago - 1 Pain Intensity: 5 - Additional Pertinent History Primary Care Physician: MYNOR - Allergy/Home Medications Allergies/Adverse Reactions: Allergies Allergy/AdvReac Type Severity Reaction Status Date / Time Fentanyl AdvReac Intermediate Blisters Verified 09/03/16 14:04 Home Medications: Home Medications Calcium Carbonate [Calcium 600] 600 mg PO DAILY 03/07/17 [History Confirmed ] Cholecalciferol [Vitamin D3] 50,000 unit PO WEEKLY 03/07/17 [History Confirmed 03/07/17] Cyanocobalamin TAB* [Vitamin B12 TAB*] 1,000 mcg PO DAILY 03/07/17 [History Confirmed 03/07/17] Multiple Vitamins W/ Minerals [Centrum Silver 50+Men] 1 tab PO DAILY 03/07/17 [ History Confirmed 03/07/17] metFORMIN* [Glucophage 1000 MG TAB *] 1,000 mg PO QAM 03/07/17 [History Confirmed 03/07/17] metFORMIN* [Glucophage 1000 MG TAB *] 1,500 mg PO BEDTIME 03/07/17 [History Confirmed 03/07/17] PMH/Surg Hx/FS Hx/Imm Hx Endocrine/Hematology History: Reports: Hx Blood Transfusions, Hx Diabetes, Hx Anemia, Hx Unexplained Bleeding Denies: Hx Anticoagulant Therapy, Hx Bone Marrow Disease, Hx Systemic Lupus Erythematosus, Hx Sickle Cell Disease, Hx Thyroid Disease, Other Endocrine/ Hematological Disorders Cardiovascular History: Reports: Hx Coronary Artery Disease, Hx Hypertension, Hx Pacemaker/ICD, Hx Peripheral Vascular Disease, Hx Valvular Heart Disease, Other Cardiovascular Problems/Disorders - Sick sinus syndrome Denies: Hx Angina, Hx Congestive Heart Failure, Hx Hypercholesterolemia, Hx Myocardial Infarction Respiratory History: Reports: Hx Pneumonia, Hx Pulmonary Embolism, Other Respiratory Problems/Disorders - RESP FAILURE Denies: Hx Asthma, Hx Chronic Obstructive Pulmonary Disease (COPD) GI History: Reports: Hx Gastroesophageal Reflux Disease, Hx Gastrointestinal Bleed, Hx Hiatal Hernia, Other GI Disorders - DIARRHEA- SINCE HAS BEEN ON [employer] IF IN SOUND SLEEP History: Reports: Other Problems/Disorders - straight caths Denies: Hx Acute Renal Failure, Hx Benign Prostatic Hyperplasia, Hx Chronic Renal Failure, Hx Dialysis, Hx Kidney Infection, Hx Kidney Stones Musculoskeletal History: Reports: Hx Arthritis, Hx Back Problems, Other Musculoskeletal History - WHEELCHAIR Sensory History: Reports: Hx Contacts or Glasses - for reading Denies: Hx Hearing Aid Opthamlomology History: Reports: Hx Contacts or Glasses - for reading Neurological History: Reports: Hx Spinal Cord Injury - spinal stenosis, Other Neuro Impairments/Disorders - Cauda equina syndrome Psychiatric History: Denies: Hx Anxiety - Cancer History Cancer Type, Location and Year: Skin cancer left healed. Also left forehead, ear and ruiz Hx Chemotherapy: No Hx Radiation Therapy: No - Surgical History Surgery Procedure, Year, and Place: Inguinal hernia repair. Cervical spine fusion. Lumbar spine fusion. CABG, 11/2013. Pacemaker implantation Hx Anesthesia Reactions: No - Immunization History Immunizations Up to Date: Yes Infectious Disease History: No Infectious Disease History: Reports: Hx Shingles - Mid 2013 Denies: Hx Clostridium Difficile, Hx Hepatitis, Hx Human Immunodeficiency Virus (HIV), Hx of Known/Suspected MRSA, Hx Tuberculosis, Traveled Outside the [place] in Last 30 Days - Family History Known Family History: Positive: None, Cardiac Disease Family History: R & n/C - Social History Alcohol Use: None Hx Substance Use: No Substance Use Type: Reports: Prescribed Hx Tobacco Use: Yes Smoking Status (MU): Former Smoker Type: Cigarettes Amount Used/How Often: 1 PPD X 10 YEARS Length of Time of Smoking/Using Tobacco: 10 years Have You Smoked in the Last Year: No Review of Systems Constitutional: Negative Cardiovascular: Negative Respiratory: Negative Gastrointestinal: Negative Positive: Other - wound/ulcer left LE All Other Systems Reviewed And Are Negative: Yes Physical Exam Triage Information Reviewed: Yes Vital Signs On Initial Exam: Initial Vitals Temp Pulse Resp BP Pulse Ox 99.1 F 70 20 143/89 98 03/07/17 12:13 03/07/17 12:13 03/07/17 12:13 03/07/17 12:13 03/07/17 12:13 Vital Signs Reviewed: Yes Appearance: Positive: Well-Appearing, No Pain Distress, Well-Nourished Skin: Positive: Warm, Skin Color Reflects Adequate Perfusion, Dry, Weeping Skin/ Lesions - ulcer approximately 2.5 cm in size and 1.5cm in width noted on back of calf/LE with on surrounding cellulitis or necrosis noted. no purulent drainage. does have an odor. superficial layers. patient has chronic wounds due to lack of blood flow from cauda equina and previous osteomyelitis.. Negative: Numb, Diaphoretic Head/Face: Positive: Normal Head/Face Inspection Eyes: Positive: Normal, Conjunctiva Clear ENT: Positive: Hearing grossly normal Neck: Positive: Supple, Nontender, No Lymphadenopathy Respiratory/Lung Sounds: Positive: Clear to Auscultation, Breath Sounds Present. Negative: Rales, Rhonchi, Wheezes Cardiovascular: Positive: Normal, RRR - pacemaker present, Pulses are Symmetrical in both Upper and Lower Extremities. Negative: Murmur, Rub Bowel Sounds: Positive: Present Neurological: Positive: Normal, Sensory/Motor Intact - for his norm- has cauda equina deficits, nothing new. limited sensation and motor skills of b/l LE, Alert, Oriented to Person Place, Time, Abnormal Gait - wheelchair bound Psychiatric: Positive: Affect/Mood Appropriate AVPU Assessment: Alert - [place] Coma Scale Coma Scale Total: 15 Diagnostics - Vital Signs Vital Signs Temp Pulse Resp BP Pulse Ox 03/07/17 12:34 99.1 F 70 20 143/89 98 03/07/17 12:13 99.1 F 70 20 143/89 98 - Laboratory Result Diagrams: 03/07/17 13:43 03/07/17 13:43 Lab Statement: Any lab studies that have been ordered have been reviewed, and results considered in the medical decision making process. Course/Dx - Course Course Of Treatment: CBC CMP ordered just to ensure it was not sepsis or severe infection. Patient's WBC was elevated but nothing of concern. H&H is low however that is patient's normal range per patient and . No concern for sepsis or worsening infection requiring admission at this time due to PE findings, lab work and normal vitals. Spoke with Dr Glass and wound clinic who stated to follow up in wound clinic office tomorrow at 8am. Wound was dressed. Aware of worsening signs and symptoms. Follow up. - Differential Diagnoses - Skin Complaint Differential Diagnoses: Allergic Reaction, Contact Dermatitis, Local Allergic Reaction, Other - ulcer, wound - Diagnoses Provider Diagnoses: Ulcer of lower extremity, Wound of left lower extremity - Physician Notifications Discussed Care Of Patient With: Dr Glass and [facility] wound clinic Time Discussed With Above Provider: 13:10 Instructed by Provider To: Have Pt Call For Appt. - tomorrow 03/08/17 at 8:00am Discharge - Discharge Plan Condition: Stable Disposition: HOME Patient Education Materials: Acute Wounds (ED) Referrals: Hany Valera DO [Primary Care Provider] - Additional Instructions: Please make sure you go to your appointment on tomorrow at 8:00am. IF you develop worsening signs and symptoms such as lethargy, weakness, fever/ chills, worsening discharge, cellulitis or pain please return to ED>=.
[2017-03-07 13:56] LABS: Hematocrit 34 % (42-52); Hemoglobin 10.5 g/dl (14.0-18.0); Mean Corpuscular HGB Conc 31 g/dl (31-36); Mean Corpuscular Hemoglobin 24 pg (27-31); Mean Corpuscular Volume 79 fL (80-94); Mean Platelet Volume 8 um3 (7.4-10.4); Red Blood Count 4.31 10^6/ul (4.0-5.4); Red Cell Distribution Width 21 % (10.5-15); White Blood Count 11.9 10^3/ul (3.5-10.8)
[2017-03-07 14:13] VITALS: BP 139/76
[2017-03-07 14:32] LABS: Albumin 3.2 g/dL (3.2-5.2); BUN/Creatinine Ratio 18.2 (8-20); Calcium 8.7 mg/dL (8.6-10.3); EGFR African American 153.9 (>60); EGFR Non-African American 119.7 (>60); Globulin 3.5 g/dL (2-4); Potassium 4.1 mmol/L (3.5-5.0); Total Bilirubin 0.3 mg/dL (0.2-1.0); Total Protein 6.7 g/dL (6.4-8.9)
== END 2017-03-07 14:12 | disposition home or self-care (01) ==
LOC: ED 12:12
DX: L97.929 Non-pressure chronic ulcer of unspecified part of left lower leg with unspecified severity (principal); Z87.891 Personal history of nicotine dependence; E11.9 Type 2 diabetes mellitus without complications; D64.9 Anemia, unspecified; K21.9 Gastro-esophageal reflux disease without esophagitis; Z95.0 Presence of cardiac pacemaker
CPT/HCPCS: 36415; 80053; 85025; 99282

== ENCOUNTER 2017-07-25 16:21 | Inpatient (IN) | payer MEDICARE, BC ==
[2017-07-25] MEDS ORDERED: NS 0.9% 1000 ML* 2,000 ML IV ONE (17:10)
[2017-07-25] MEDS ORDERED: Diltiazem IV* 5 MG/ML 5 ML VIAL (for loading dose/IV Push) (25 MG) IV SLOW PU ONE (17:15)
[2017-07-25 17:31] LABS: Hematocrit 32 % (42-52); Hemoglobin 9.7 g/dl (14.0-18.0); Mean Corpuscular HGB Conc 31 g/dl (31-36); Mean Corpuscular Hemoglobin 22 pg (27-31); Mean Platelet Volume 7 um3 (7.4-10.4); Red Cell Distribution Width 18 % (10.5-15); White Blood Count 16.9 10^3/ul (3.5-10.8)
[2017-07-25 17:32] LABS: Comments Flag Yes
[2017-07-25 17:33] LABS: Mean Corpuscular Volume 72 fL (80-94)
[2017-07-25 17:36] LABS: Troponin I 0.02 ng/mL (<0.04)
[2017-07-25 17:38] LABS: BUN/Creatinine Ratio 19.1 (8-20); C Reactive Protein 80.07 mg/L (< 5.00); Calcium 9.2 mg/dL (8.6-10.3); EGFR Non-African American 84.8 (>60); Globulin 3.9 g/dL (2-4); Magnesium 1.1 mg/dL (1.9-2.7); Potassium 4.1 mmol/L (3.5-5.0); Total Bilirubin 0.4 mg/dL (0.2-1.0); Total Protein 6.9 g/dL (6.4-8.9)
[2017-07-25] MEDS ORDERED: Magnesium Sulfate 2 GM IV* 2 GM/50 ML BAG IVPB ONE ×3 (17:41→19:40)
[2017-07-25] MEDS ORDERED: Diltiazem DRIP* 100 MG/100 ML ADDV.BAG IVPB ONE (17:57)
[2017-07-25] MEDS ORDERED: Azithromycin IV(*) 500 MG in NS 0.9% 250 ML* 250 ML IVPB ONE (17:58)
[2017-07-25] MEDS ORDERED: cefTRIAXone(*) 1 GM in NS 0.9% 50 ML* 50 ML IVPB ONE (17:58)
--- NOTE | 2017-07-25 17:59 | RAD ---
Indication: Shortness of breath, tachycardia. Single frontal view of the chest performed at 1738 hours was reviewed. Comparison is made with previous exam dated January 07, 2017. Increasing left pleural effusion is noted. Mild interstitial edema is noted. Patient is status post tracer thoracotomy. Pacemaker leads are in place. IMPRESSION: Increasing left pleural effusion.
[2017-07-25 18:10] LABS: TSH (Thyroid Stimulating Horm) 2.62 mcIU/mL (0.34-5.60)
[2017-07-25] MEDS ORDERED: Iodixanol* (CONTRAST) 320 MG/ML 100 ML SDV IV ONE (18:37)
[2017-07-25] MEDS: Diltiazem DRIP* 100 MG/100 ML ADDV.BAG IVPB SCH (19:15)
[2017-07-25] MEDS ORDERED: Digoxin IV* 0.5 MG/2 ML AMP (0.25 MG/ML) IV SLOW PU ONE (19:26)
[2017-07-25] MEDS ORDERED: Acetaminophen TAB* 325 MG PO PRN (19:26)
[2017-07-25] MEDS ORDERED: Ondansetron INJ* 2 MG/ML VIAL IV PRN (19:26)
[2017-07-25] MEDS ORDERED: Diazepam TAB(*) 5 MG PO PRN (19:33)
[2017-07-25] MEDS ORDERED: Dextrose 50% Syringe 50 ML* 25 GM/50 ML SYRINGE IV PUSH PRN (19:35)
[2017-07-25] MEDS: oxyCODONE/Acetamin 5/325 MG* TAB PO PRN (19:51)
--- NOTE | 2017-07-25 19:59 | RAD ---
Indication: Shortness of breath, positive d-dimer. Contrast: Administered 72.1 ml of Contrast -- mg/ml CTA of the chest was performed after IV contrast administration. Coronal and sagittal reconstructed images were obtained. Pulmonary arterial tree is well opacified. No definite filling defects are present to suggest pulmonary embolus. The aorta demonstrates no evidence of aneurysmal dilatation or aortic dissection. There is a large left pleural effusion with complete atelectasis of left lower lobe. Compressive atelectasis of the lingula is also present. Moderate right-sided pleural effusions are noted. Pretracheal lymph nodes are noted measuring up to 12 mm, AP window lymph nodes are measuring up to 10 mm. Right hilar adenopathy measuring up to 11 mm is noted. Subcarinal lymph node measures up to 15 mm. A central left hilar mass is not excluded causing the left lower lobe atelectasis. A large hiatal hernia is noted. The heart demonstrates no pericardial effusion. The visualized abdominal organs are otherwise unremarkable. IMPRESSION: Moderate-sized mediastinal adenopathy is noted. There is a large left pleural effusion with complete atelectasis of left lower lobe and compressive atelectasis of the lingula. Moderate-sized right pleural effusion is present. Large hiatal hernia is noted.
[2017-07-25 20:41] LABS: EGFR African American 123.3 (>60); EGFR Non-African American 95.8 (>60)
[2017-07-25] MEDS ORDERED: Metoprolol Tartrate TAB* 25 MG PO SCH (21:00)
--- NOTE | 2017-07-25 21:02 | ED ---
Stephane Kruse Gabriel, scribed for Nacho Dee MD on 07/25/17 at 1715 . Palpitations / Dysrhythmia - HPI Summary HPI Summary: This patient is a 67 year old M presenting to [facility] accompanied by with a chief complaint of palpitations since earlier today. Patient reports fatigue and productive cough for 11 days. Patient denies fever. Patient says all his vitals were normal yesterday and that a recent CXR showed fluid in his lungs. - History of Current Complaint Chief Complaint: EDDysrhythmPalp Time Seen by Provider: 07/25/17 16:52 Hx Obtained From: Patient Onset/Duration: Sudden Onset, Still Present Timing: Constant Severity Initially: Moderate - Allergy/Home Medications Allergies/Adverse Reactions: Allergies Allergy/AdvReac Type Severity Reaction Status Date / Time Fentanyl AdvReac Intermediate Blisters Verified 07/25/17 10:47 PMH/Surg Hx/FS Hx/Imm Hx Previously Healthy: No Endocrine/Hematology History: Reports: Hx Blood Transfusions, Hx Diabetes, Hx Anemia, Hx Unexplained Bleeding Denies: Hx Anticoagulant Therapy, Hx Bone Marrow Disease, Hx Systemic Lupus Erythematosus, Hx Sickle Cell Disease, Hx Thyroid Disease, Other Endocrine/ Hematological Disorders Cardiovascular History: Reports: Hx Coronary Artery Disease, Hx Hypertension, Hx Pacemaker/ICD, Hx Peripheral Vascular Disease, Hx Valvular Heart Disease, Other Cardiovascular Problems/Disorders - Sick sinus syndrome Denies: Hx Angina, Hx Congestive Heart Failure, Hx Hypercholesterolemia, Hx Myocardial Infarction Respiratory History: Reports: Hx Pneumonia, Hx Pulmonary Embolism, Other Respiratory Problems/Disorders - RESP FAILURE Denies: Hx Asthma, Hx Chronic Obstructive Pulmonary Disease (COPD) GI History: Reports: Hx Gastroesophageal Reflux Disease, Hx Gastrointestinal Bleed, Hx Hiatal Hernia, Other GI Disorders - DIARRHEA- SINCE HAS BEEN ON [employer] IF IN SOUND SLEEP History: Reports: Other Problems/Disorders - straight caths Denies: Hx Acute Renal Failure, Hx Benign Prostatic Hyperplasia, Hx Chronic Renal Failure, Hx Dialysis, Hx Kidney Infection, Hx Kidney Stones, Hx Renal Disease Musculoskeletal History: Reports: Hx Arthritis, Hx Back Problems, Other Musculoskeletal History - WHEELCHAIR Sensory History: Reports: Hx Contacts or Glasses - for reading Denies: Hx Hearing Aid Opthamlomology History: Reports: Hx Contacts or Glasses - for reading Neurological History: Reports: Hx Spinal Cord Injury - spinal stenosis, Other Neuro Impairments/Disorders - Cauda equina syndrome Psychiatric History: Denies: Hx Anxiety - Cancer History Cancer Type, Location and Year: Skin cancer left healed. Also left forehead, ear and ruiz Hx Chemotherapy: No Hx Radiation Therapy: No - Surgical History Surgery Procedure, Year, and Place: Inguinal hernia repair. Cervical spine fusion. Lumbar spine fusion. CABG, 11/2013. Pacemaker implantation Hx Anesthesia Reactions: No Infectious Disease History: No Infectious Disease History: Reports: Hx Shingles - Mid 2013 Denies: Hx Clostridium Difficile, Hx Hepatitis, Hx Human Immunodeficiency Virus (HIV), Hx of Known/Suspected MRSA, Hx Tuberculosis, Traveled Outside the [place] in Last 30 Days - Family History Known Family History: Positive: Cardiac Disease Family History: R & n/C - Social History Lives: With Family Alcohol Use: None Hx Substance Use: No Substance Use Type: Reports: Prescribed Hx Tobacco Use: Yes Smoking Status (MU): Former Smoker Type: Cigarettes Amount Used/How Often: 1 PPD X 10 YEARS Length of Time of Smoking/Using Tobacco: 10 years Have You Smoked in the Last Year: No Review of Systems Positive: Fatigue. Negative: Fever Positive: Palpitations Positive: Cough All Other Systems Reviewed And Are Negative: Yes Physical Exam - Summary Physical Exam Summary: General: patient appears pale, no pain distress Skin: warm, color reflects adequate perfusion, dry Head: normal Eyes: EOMI, MAURIZIO ENT: normal Neck: supple, nontender Respiratory: CTA, breath sounds present Cardiovascular: tachycardia, irregularly regular rate Abdomen: soft, nontender Bowel: present Musculoskeletal: normal, strength/ROM intact, no pedal edema Neurological: normal, sensory/motor intact, A&O x3 Psychological: affect/mood appropriate Triage Information Reviewed: Yes Vital Signs On Initial Exam: Initial Vitals Temp Pulse Resp BP Pulse Ox 97.6 F 111 18 87/68 90 07/25/17 16:36 07/25/17 16:36 07/25/17 16:36 07/25/17 16:36 07/25/17 16:36 Vital Signs Reviewed: Yes Diagnostics - Vital Signs Vital Signs Temp Pulse Resp BP Pulse Ox 07/25/17 17:13 92 07/25/17 17:01 112 27 93 07/25/17 17:00 117/90 07/25/17 16:58 111/66 07/25/17 16:36 97.6 F 111 18 87/68 90 - Laboratory Lab Results: Lab Results 07/25/17 07/25/17 07/25/17 Range/Units 17:08 17:08 17:08 WBC 16.9 H (3.5-10.8) 10^3/ul RBC 4.40 (4.0-5.4) 10^6/ul Hgb 9.7 L (14.0-18.0) g/dl Hct 32 L (42-52) % MCV 72 L (80-94) fL MCH 22 L (27-31) pg MCHC 31 (31-36) g/dl RDW 18 H (10.5-15) % Plt Count 618 H (150-450) 10^3/ul MPV 7 L (7.4-10.4) um3 Neut % (Auto) 64.4 (38-83) % Lymph % (Auto) 25.5 (25-47) % Wells % (Auto) 8.0 (1-9) % Eos % (Auto) 1.2 (0-6) % Baso % (Auto) 0.9 (0-2) % Absolute Neuts (auto) 10.9 H (1.5-7.7) 10^3/ul Absolute Lymphs (auto) 4.3 (1.0-4.8) 10^3/ul Absolute Monos (auto) 1.3 H (0-0.8) 10^3/ul Absolute Eos (auto) 0.2 (0-0.6) 10^3/ul Absolute Basos (auto) 0.1 (0-0.2) 10^3/ul Absolute Nucleated RBC 0.01 10^3/ul Nucleated RBC % 0.1 INR (Anticoag Therapy) 1.02 (0.77-1.02) APTT 27.3 (26.0-36.3) seconds D-Dimer, Quantitative 866 H (Less Than 230) ng/mL Sodium 133 (133-145) mmol/L Potassium 4.1 (3.5-5.0) mmol/L Chloride 100 L (101-111) mmol/L Carbon Dioxide 22 (22-32) mmol/L Anion Gap 11 (2-11) mmol/L BUN 17 (6-24) mg/dL Creatinine 0.89 (0.67-1.17) mg/dL Est GFR ( Amer) 109.0 (>60) Est GFR (Non-Af Amer) 84.8 (>60) BUN/Creatinine Ratio 19.1 (8-20) Glucose 152 H (70-100) mg/dL Lactic Acid (0.5-2.0) mmol/L Calcium 9.2 (8.6-10.3) mg/dL Magnesium 1.1 L (1.9-2.7) mg/dL Total Bilirubin 0.40 (0.2-1.0) mg/dL AST 15 (13-39) U/L ALT 7 (7-52) U/L Alkaline Phosphatase 152 H (34-104) U/L Total Creatine Kinase 16 (10-223) U/L CK-MB (CK-2) 1.5 (0.6-6.3) ng/mL Troponin I 0.02 (<0.04) ng/mL C-Reactive Protein 80.07 H (< 5.00) mg/L B-Natriuretic Peptide ( - 100) pg/mL Total Protein 6.9 (6.4-8.9) g/dL Albumin 3.0 L (3.2-5.2) g/dL Globulin 3.9 (2-4) g/dL Albumin/Globulin Ratio 0.8 L (1-3) Lipase 18 (11.0-82.0) U/L TSH 2.62 (0.34-5.60) mcIU/mL 07/25/17 07/25/17 Range/Units 17:08 17:08 WBC (3.5-10.8) 10^3/ul RBC (4.0-5.4) 10^6/ul Hgb (14.0-18.0) g/dl Hct (42-52) % MCV (80-94) fL MCH (27-31) pg MCHC (31-36) g/dl RDW (10.5-15) % Plt Count (150-450) 10^3/ul MPV (7.4-10.4) um3 Neut % (Auto) (38-83) % Lymph % (Auto) (25-47) % Wells % (Auto) (1-9) % Eos % (Auto) (0-6) % Baso % (Auto) (0-2) % Absolute Neuts (auto) (1.5-7.7) 10^3/ul Absolute Lymphs (auto) (1.0-4.8) 10^3/ul Absolute Monos (auto) (0-0.8) 10^3/ul Absolute Eos (auto) (0-0.6) 10^3/ul Absolute Basos (auto) (0-0.2) 10^3/ul Absolute Nucleated RBC 10^3/ul Nucleated RBC % INR (Anticoag Therapy) (0.77-1.02) APTT (26.0-36.3) seconds D-Dimer, Quantitative (Less Than 230) ng/mL Sodium (133-145) mmol/L Potassium (3.5-5.0) mmol/L Chloride (101-111) mmol/L Carbon Dioxide (22-32) mmol/L Anion Gap (2-11) mmol/L BUN (6-24) mg/dL Creatinine (0.67-1.17) mg/dL Est GFR ( Amer) (>60) Est GFR (Non-Af Amer) (>60) BUN/Creatinine Ratio (8-20) Glucose (70-100) mg/dL Lactic Acid 4.2 H* (0.5-2.0) mmol/L Calcium (8.6-10.3) mg/dL Magnesium (1.9-2.7) mg/dL Total Bilirubin (0.2-1.0) mg/dL AST (13-39) U/L ALT (7-52) U/L Alkaline Phosphatase (34-104) U/L Total Creatine Kinase (10-223) U/L CK-MB (CK-2) (0.6-6.3) ng/mL Troponin I (<0.04) ng/mL C-Reactive Protein (< 5.00) mg/L B-Natriuretic Peptide 121 H ( - 100) pg/mL Total Protein (6.4-8.9) g/dL Albumin (3.2-5.2) g/dL Globulin (2-4) g/dL Albumin/Globulin Ratio (1-3) Lipase (11.0-82.0) U/L TSH (0.34-5.60) mcIU/mL Result Diagrams: 07/25/17 17:08 12/07/17 20:05 Lab Statement: Any lab studies that have been ordered have been reviewed, and results considered in the medical decision making process. - Radiology CXR Radiology Interpretation Completed By: Radiologist - Increasing left pleural effusion. ED physician has reviewed this radiology report and agrees - EKG 17:08 Cardiac Rate: Tachycardia EKG Rhythm: Atrial Fibrillation - at 160 BPM Course/Dx - Course Course Of Treatment: DILTIAZEM DRIP STARTED IN ED. INITIALLY 2L NS GIVEN WITH AN ADDITIONAL 1 LITER (TOTAL 3L) IN THE ED. ABX STARTED IN ED. ADMIT HOSPITALIST. - Diagnoses Provider Diagnoses: Atrial fibrillation, rapid, Pneumonia, Sepsis - Physician Notifications Discussed Care Of Patient With: Jean-Paul Fischer Time Discussed With Above Provider: 18:03 Instructed by Provider To: Other - We discussed patient care with Dr. Webber, oncology and they recommended to contact the hospitalist for admittance. 19:21 Discussed patient care with Dr. Copeland who agreed to admitt the patient. - Critical Care Time Critical Care Time: 75-104 min Discharge - Discharge Plan Condition: Guarded Disposition: ADMITTED TO [facility] The documentation as recorded by the Stephane garcia Gabriel accurately reflects the service I personally performed and the decisions made by me, Nacho Dee MD.
[2017-07-25] MEDS: Atorvastatin* 40 MG TAB PO SCH (21:40)
[2017-07-25] MEDS: Metoprolol Tartrate TAB* 25 MG PO SCH (21:40)
[2017-07-25] MEDS: Aspirin EC Low Dose* 81 MG TAB.EC PO SCH (21:40)
[2017-07-25] MEDS: Hydrocortisone INJ* 100 MG VIAL IV SCH (21:40)
[2017-07-25] MEDS ORDERED: Heparin VIAL(*) 5000 UNITS/ML VIAL (FIVE THOUSAND) SUBCUT SCH (22:00)
[2017-07-25] MEDS: NS 0.9% 1000 ML* 1,000 ML IV SCH (22:01)
--- NOTE | 2017-07-25 23:56 | HP ---
CC: Dr. Valera * HISTORY AND PHYSICAL: DATE OF ADMISSION: 07/25/17 PRIMARY CARE PROVIDER: Dr. Valera. ATTENDING PHYSICIANS WHILE IN HOSPITAL: Dr. Landers and Dr. Villafana * ( dictated by Rasheed Del Cid NP) CHIEF COMPLAINT: 1. Cough. 2. Weakness. 3. Not feeling well. HISTORY OF PRESENT ILLNESS: Ms. Rangel is a complex 67-year-old male patient. He has a history of hypertension, hyperlipidemia, history of rheumatoid arthritis, PE, DVT who has had reactions to blood thinners in the past and had hemorrhagic shock, rheumatoid arthritis, history of chronic wounds, HSV, esophagitis, anemia, diabetes, cauda equina with paraplegia, neurogenic bladder , CAD, AFib, history of NSTEMI, GI bleed, history of recent bone mass that is being worked up outpatient, hiatal hernia, and squamous cell cancer. He comes in to our ER today stating that for the last 11 days, he has been congested, he has not been feeling well, he has been coughing, bringing up mostly a clear sputum. He states today he was just not feeling today. He started developing shortness of breath. At one point, he does not remember when, but think he had a fever of 101. He was feeling short of breath today. They checked his pulse and it was noted he was really tachycardic and fast and he was having shallow breath. The family was concerned and they brought him to the ER to be evaluated. He denies any nausea, vomiting. No dysuria. No chest pain. It was noted when he came in here, he had a lactic acid of 4.2. His white count was almost 17,000. His chest x-ray showed a pretty significant fluid collection , possible pneumonia on that left lung. So, because of these findings, we were asked to evaluate for admission. He was also noted to be in AFib with RVR. PAST MEDICAL HISTORY: Significant for: 1. Hypertension. 2. Hyperlipidemia. 3. Rheumatoid arthritis. 4. Anemia. 5. History of PE. 6. History of DVT. 7. History of hemorrhagic shock thought secondary to being on blood thinner. 8. Status post IVC filter. 9. Chronic lower extremity wounds. 10. HSV esophagitis. 11. Diabetes. 12. Cauda equina. 13. Paraplegia. 14. Neurogenic bladder. 15. History of GI bleed. 16. CAD, status post CABG. 17. AFib. 18. AL. 19. History of a bone masses, which is being worked up with Dr. Olguin. 20. Hiatal hernia. 21. Dilan lesions. 22. Squamous cell cancer. PAST SURGICAL HISTORY: 1. He has had CABG. 2. Pacemaker. 3. IVC filter placement. 4. Skin excision to the scalp. 5. Spinal surgery. 6. He has had a lumbar fusion. 7. He has had cervical spine surgery. 8. He has had inguinal hernia repair. HOME MEDICATIONS: Include: 1. Calcium carbonate 600 mg daily. 2. Lipitor 40 mg daily. 3. Aspirin 81 mg. He is taking that every other day. 4. Plaquenil 200 mg p.o. b.i.d. 5. Valium 5 mg p.o. t.i.d. as needed. 6. B12 1000 mcg daily. 7. Collagenase 1 application topically daily to wounds. 8. Vitamin D3 50,000 units p.o. weekly. 9. Multivitamin 1 tablet daily. 10. Metoprolol 25 mg p.o. b.i.d. 11. Iron 1 capsule p.o. daily. 12. Prednisone 10 mg p.o. at bedtime. 13. Percocet 1 to 2 tabs every 6 hours as needed. 14. Glucophage 1000 mg in the morning, 1500 mg at bedtime. 15. Omeprazole 40 mg daily. ALLERGIES TO MEDICATIONS: Include FENTANYL and he does state that he is intolerant to BLOOD THINNERS. FAMILY HISTORY: Father had a history of rheumatoid arthritis. Mother had a history of breast cancer. SOCIAL HISTORY: The patient is a former smoker. He does not drink alcohol. Surrogate decision maker is his . He does have children. REVIEW OF SYSTEMS: There is a documented fever. He denied any significant weight change. There was no double vision. No ear discharge. No rhinorrhea. There was no sore throat. There has been cough. There has been shortness of breath, none today. There has been no chest pain. No orthopnea. No nocturnal dyspnea. No swelling of the lower extremities. No abdominal pain. No nausea. No vomiting. No dysuria. No frequency. There was no seizure. No loss of consciousness. No pruritus and no skin ulcerations with the exception he has chronic bilateral lower extremity wounds, which remained fairly stable. PHYSICAL EXAMINATION GENERAL: At this time, Mr. Rangel is a 67-year-old male patient. He is chronically ill-appearing. He is sitting in the ER stretcher. He does not appear to be in any acute respiratory distress. VITAL SIGNS: Blood pressure 106/66, pulse 148, respirations 22, O2 sat 96%, temperature 97.6. HEENT: Head: Atraumatic. Eyes: EOMs are intact. Sclerae anicteric and not pale. Throat: Oral mucosa appears to be dry. No oropharyngeal erythema. NECK: Supple. LUNGS: Diminished on the left side. He had no wheezes, rales, or rhonchi. HEART: Sounds S1, S2. Irregularly irregular rate. He is tachycardic. ABDOMEN: Soft. It was flat. It was nontender. Bowel sounds are present. EXTREMITIES: Pulses were 2+ throughout. He is not moving the lower extremities. He again is paraplegic. He moves the upper extremities with 5/5 strength. NEUROLOGIC: The patient is awake. He is alert. He is oriented x3. Television Newscast Director were equal. Tongue is midline. No gross focal deficits. SKIN: Intact with the exception he has chronic lower wounds, one to the left lower extremity to the posterior mid calf region, which appears to be well healed at this point. Also has another one to the right lower extremity, which again does have some eschar tissue noted, but no surrounding erythema to both of these wounds. LABORATORY DATA/DIAGNOSTIC STUDIES: His labs today, WBC is 16.9, RBC of 4.40, hemoglobin 9.7, hematocrit 32, platelet count of 618. INR 1.02, PTT of 27.3. D - dimer 866. His sodium is 133, potassium 4.1, chloride 100, bicarb 22, BUN 17 , creatinine 0.89, glucose 152. Lactate 4.2. Calcium 9.2. Mag 1.1. Total bili 0.4, AST 15, ALT 7, alk phos 152. CK 16. CK-MB 1.5. Troponin 0.02. CRP of 80. BNP of 121. His albumin was 3.0. Lipase 18. TSH was 2.62. He had a chest x-ray obtained today. To my review, it does appear that he has a significant left-sided pleural effusion. EKG obtained today, shows atrial fibrillation, rate of [address] depression, it is probably rate related. I reviewed to his previous EKG. He did have ST depression. He was in AFib, but the rate was controlled at 81 and he appeared to have LVH. Old medical records were reviewed. He does have an echo that showed EF of 55% to 60% that was done in December of this year. ASSESSMENT AND PLAN: Ms. Rangel is a 67-year-old male patient with multiple medical problems coming in to our ED today with complaints of cough for the last 11 days, now found to be in atrial fibrillation with RVR and he came in because he was having shortness of breath. He will be admitted under inpatient status for: 1. Severe sepsis as evidenced by he has got a lactic acid of 4.2. In addition of this, he appears to have some end organ dysfunction. Again, he appears to be in atrial fibrillation and he does have some respiratory failure going on. He has a significant left-sided pleural effusion and possibly underlying pneumonia. He does have white count of 16,000 and there is a reported fever at home. He has got 2 L of fluid bolus here in the ED. We will check him for flu. We will get the Legionella antigen, Strep pneumo antigen. We will try to get the sputum cultures. I will give him stress dose steroids as he has been on chronic steroids for the rheumatic arthritis. I will go ahead and again get flu swab as well. I touched base with our emission specialist. He is not tachypneic, but he is taking shallow breaths. I think that giving him a little bit more flow , will help us keep ahead with the infectious process and him working to breathe to the acid low, so I am going to go ahead and put him on Vapotherm and see if this helps him and we will continue to follow him closely in our unit. I did put him on Rocephin and azithromycin to start. 2. Hypertension. At this point, I am going to continue his beta-morales given the heart rate being 110 but I think it has mostly been driven by the infectious process, but I would like to continue it if possible. We will hold his other medications. 3. Hyperlipidemia. Continue statins. 4. Rheumatoid arthritis. Again, he was on Plaquenil. I am holding this, holding his steroid. I am going to put him on stress dosed steroids and continue to follow. 5. Anemia. We will follow with H and H closely. 6. History of deep vein thrombosis and pulmonary embolism. He has an IVC filter because of the history of hemorrhagic shock. I am going hold off on subcu heparin and just put him on SCDs. 7. Chronic wounds. I did put a wound care consult in. 8. Herpes simplex virus esophagitis. We will continue his PPI. 9. Diabetes. Lispro sliding scale. 10. History of cauda equina with paraplegia, neurogenic bladder. We will get urine cultures. We will continue with supportive care. 11. History of GI bleed. Follow the H and H. Not an active issue currently. 12. Coronary artery disease. Again, I would like to continue the aspirin, statin, and if possible the beta-morales. If he can tolerate the beta-morales, we will hold it in the setting of illness. 13. History of myocardial infarction. Again, continue aspirin, statin, beta- morales. 14. History of bone mass. Follow with Dr. Olguin. 15. Hiatal hernia. Continue PPI. 16. Squamous cell cancer. Continue meds as prescribed. 17. DVT prophylaxis. He is high risk but because of the history of hemorrhagic shock in the setting of blood thinners, I am weary of putting him on subcu heparin. So at this point, I am going to hold off and just go ahead and keep him on SCDs. 18. Code status. He wishes to be DNR. I am going to try to track down his MOLST if he has one. If not, we will need to fill out a new one. 19. Fluid, electrolytes, and nutrition. He can have a clear liquid diet. TIME SPENT: Time spent on the admission, critical care time 70 minutes, greater than half the time was spent [id number] with the patient obtaining my history and physical, other half time was spent going over the plan of care with the patient and implementing plan of care. I did discuss the plan of care with my attending, Dr. Villafana, who is here tonight I did discuss with Dr. Landers. RASHEED DEL CID, SCOOTER [id number]/[facility] #: [id number] [facility]
[2017-07-26] MEDS: oxyCODONE/Acetamin 5/325 MG* TAB PO PRN ×2 (03:59→14:46)
[2017-07-26] MEDS: Hydrocortisone INJ* 100 MG VIAL IV SCH ×2 (03:59→16:20)
[2017-07-26 04:22] LABS: Hematocrit 29 % (42-52); Mean Corpuscular HGB Conc 31 g/dl (31-36); Mean Corpuscular Hemoglobin 22 pg (27-31); Mean Platelet Volume 7 um3 (7.4-10.4); Red Blood Count 4.01 10^6/ul (4.0-5.4); Red Cell Distribution Width 18 % (10.5-15); White Blood Count 11.1 10^3/ul (3.5-10.8)
[2017-07-26 04:27] LABS: Comments Flag Yes; Mean Corpuscular Volume 72 fL (80-94)
[2017-07-26 04:35] LABS: BUN/Creatinine Ratio 21.6 (8-20); Calcium 9.1 mg/dL (8.6-10.3); EGFR African American 134.9 (>60); EGFR Non-African American 104.9 (>60); Potassium 4.5 mmol/L (3.5-5.0)
[2017-07-26] MEDS: Diltiazem DRIP* 100 MG/100 ML ADDV.BAG IVPB SCH (04:50)
[2017-07-26] MEDS ORDERED: Diltiazem TAB* 30 MG PO ONE (06:00)
[2017-07-26] MEDS: NS 0.9% 1000 ML* 1,000 ML IV SCH (06:14)
[2017-07-26] MEDS: Insulin LISPRO* 1 UNITS UNIT SUBCUT SCH ×3 (08:50→16:03)
[2017-07-26] MEDS: Omeprazole CAP* 20 MG PO SCH (09:48)
[2017-07-26] MEDS: Metoprolol Tartrate TAB* 25 MG PO SCH ×2 (09:48→21:05)
[2017-07-26] MEDS ORDERED: Lidocaine 1% INJ* 10 MG/ML 30 ML SDV ONE (13:48)
[2017-07-26] MEDS ORDERED: oxyCODONE/Acetamin 10/325(NF) TAB PO PRN (14:48)
--- NOTE | 2017-07-26 14:57 | PN ---
Progress Note - Progress Note Date of Service: 07/26/17 Note: CRITICAL CARE MEDICINE Date: 07/26/17 Time: 1200 SUBJECTIVE: Patient seen and examined. remembers me. ok night. PHYSICAL EXAM: Vital Signs: Reviewed. Neurologic: communicates well. baseline HEENT: pupils equal. Sclera anicteric. Trachea midline. multiple head scars post sq cell Cardiovascular: S1 S2 Respiratory: markedly dec on left Abdomen: Soft, nt. Extremities: Warm. dep edema Access: piv LABS: Reviewed. IMAGING: Reviewed. CT reviewed with pt MEDICATIONS: Reviewed. ASSESSMENT: 67 M Acute hypoxic resp failure Severe sepsis sec to CAP Lactic acidosis on admission - resolved Afib rvr bl effusion: L>>R PLAN: Neurologic: well Cardiovascular: perfusing. vol stable and up interstitial. off fluid today. off cardizem gtt. po bb rx Respiratory: tolerating on NC. declined and didn't end up needing HFO2 just O2. Large effusion on left and ask surgery to place ct as will need off slowly given size and also diagnostics from it. Gastrointestinal: po diet advanced post ct Renal/Metabolic: stable. Infectious Disease: CAP tx Hematology: stable. Endocrine: received pulse steroids and can dc back to outpt meds. Musculoskeletal: baseline; f/u to avoid deconditioning Psych/Social: pt in good spirits Supportive and preventative care as ordered. SUP: po VTE prophylaxis: ivcf Disposition: ICU today; potential floor later or tomorrow. Code Status: DNR Critical Care Time: 35min Halley Landers DO
[2017-07-26] MEDS ORDERED: oxyCODONE/Acetamin 5/325 MG* TAB PO PRN (16:00)
[2017-07-26 16:02] LABS: Body Fluid WBC 114 /mcL
[2017-07-26 16:04] LABS: Body Fluid Appearance Clear
[2017-07-26] MEDS ORDERED: D5W 50 ML BAG* 50 ML ONE (16:54)
[2017-07-26] MEDS: oxyCODONE TAB* 5 MG TAB PO PRN ×2 (16:57→23:55)
[2017-07-26] MEDS: cefTRIAXone(*) 1 GM in D5W 50 ML BAG* 50 ML IVPB SCH (16:59)
[2017-07-26 17:25] LABS: Body Fluid Total Cells Counted 100
[2017-07-26 18:06] LABS: Urine Bacteria 1+ (Absent); Urine Bilirubin Negative (Negative); Urine Glucose Negative (Negative); Urine Nitrite Positive (Negative)
--- NOTE | 2017-07-26 19:01 | RAD ---
Indication: Evaluate left pleural effusion. Single frontal view of the chest performed at 1814 hours was reviewed. Comparison is made with previous exam dated July 25, 2017. Interstitial edema with bilateral pleural effusions are noted. Left pleural effusion is decreased. Left chest tube is placed. IMPRESSION: Left chest tube placed. Decreasing left pleural effusion.
[2017-07-26] MEDS: Morphine INJ* 4 MG/ML 1 ML CARPUJECT IV PRN (19:32)
[2017-07-26] MEDS ORDERED: Azithromycin IV(*) 250 MG in NS 0.9% 250 ML* 250 ML IVPB SCH (21:00)
[2017-07-26] MEDS: Atorvastatin* 40 MG TAB PO SCH (21:05)
[2017-07-26] MEDS: Hydroxychloroquine TAB* 200 MG PO SCH (21:05)
[2017-07-26] MEDS: predniSONE TAB* 10 MG PO SCH (21:05)
--- NOTE | 2017-07-27 02:52 | OP ---
CC: Dr. Glass; [facility]; Dr. Tunde Ortiz OPERATIVE REPORT: DATE OF OPERATION: 07/26/17 DATE OF : 46 SURGEON: Bob Glass MD BARREL TURNER: None. ANESTHESIOLOGIST: None. PRE-OP DIAGNOSIS: Left pleural effusion. POST-OP DIAGNOSIS: Left pleural effusion. OPERATIVE PROCEDURE: Left thoracostomy tube. INDICATIONS: The patient is a 67-year-old male with metastatic squamous cell carcinoma, now found to have a large left pleural effusion with almost complete collapse of the left lower lobe. I reviewed his films and discussed the case with him and with his family and with Dr. Landers and we ultimately decided that a small caliber chest tube hooked to a Pleur-evac was the best option for this. Theref ore, the patient is understanding and agreeable to this approach. DESCRIPTION OF PROCEDURE: The area of the left chest was prepped with antiseptic, draped in a steril e fashion. Local infiltrative anesthesia and 1% plain lidocaine was administered and approximately t he 8th interspace was entered laterally. The skinny medical insurance collector needle identified as clear fluid and the n approximately 1 cm incision was created and a 20-Kazakh trocar cath is passed through the interspac e into the pleural space and clear yellow fluid is forthcoming. Specimen was taken for the laborator y for culture and additional studies and this catheter was sutured to the skin using 0 silk followed by a bulky gauze dressing is hooked to a Pleur- evac drainage. He tolerated this well and follow up chest x-ray will be obtained. He did start to have some chest pain after a liter and half was drained , so the tube was clamped for an hour and I discussed this with the nurses and we will do a gradual r elease of the fluid in the chest space. [id number]/[facility] #: [id number]
[2017-07-27] MEDS: oxyCODONE/Acetamin 5/325 MG* TAB PO PRN ×4 (03:28→21:22)
[2017-07-27 06:12] LABS: Hematocrit 26 % (42-52); Hemoglobin 8.1 g/dl (14.0-18.0); Mean Corpuscular HGB Conc 32 g/dl (31-36); Mean Corpuscular Hemoglobin 23 pg (27-31); Mean Platelet Volume 7 um3 (7.4-10.4); Red Blood Count 3.58 10^6/ul (4.0-5.4); Red Cell Distribution Width 18 % (10.5-15); White Blood Count 9.6 10^3/ul (3.5-10.8)
[2017-07-27 06:15] LABS: Comments Flag Yes; Mean Corpuscular Volume 72 fL (80-94)
[2017-07-27 06:29] LABS: BUN/Creatinine Ratio 18.8 (8-20); Calcium 8.4 mg/dL (8.6-10.3); EGFR African American 159.5 (>60); Magnesium 1.5 mg/dL (1.9-2.7); Phosphorus 2.9 mg/dL (2.5-5.0); Potassium 3.5 mmol/L (3.5-5.0)
--- NOTE | 2017-07-27 08:11 | PN ---
Progress Note - Progress Note Date of Service: 07/27/17 Note: Day 2 s/p left chest tube for large pleural effusion Couldn't tolerate draining chest all at once. With a staged approach, about 3 liters drained. Now comfortable breathing easy, feels much better than last night, aerates well. New pleurevac has 600ml, no air leak. OK to go to floor with pleurevac Await testing on fluid. Repeat CXR per hospitalist. Tube out when drainage <250ml/24hr.
[2017-07-27] MEDS: Hydroxychloroquine TAB* 200 MG PO SCH ×2 (08:35→21:22)
[2017-07-27] MEDS: Metoprolol Tartrate TAB* 25 MG PO SCH ×2 (08:35→21:24)
[2017-07-27] MEDS: Omeprazole CAP* 20 MG PO SCH (08:35)
[2017-07-27] MEDS ORDERED: Magnesium Sulfate 2 GM IV* 2 GM/50 ML BAG IVPB ONE (09:33)
[2017-07-27] MEDS ORDERED: Potassium Chlor TAB* 20 MEQ TAB.ER PO ONE (09:33)
[2017-07-27] MEDS: Insulin LISPRO* 1 UNITS UNIT SUBCUT SCH ×3 (10:23→18:52)
--- NOTE | 2017-07-27 10:50 | PN ---
Progress Note - Progress Note Date of Service: 07/27/17 Note: CRITICAL CARE MEDICINE Date: 07/27/17 Time: 900 SUBJECTIVE: Patient seen and examined. feels better. some discomfort at left chest post tube. PHYSICAL EXAM: Vital Signs: Reviewed. 2L Neurologic: communicates well. baseline HEENT: pupils equal. Sclera anicteric. Trachea midline. Cardiovascular: S1 S2 Respiratory: much better aeration. mild rhconchi Abdomen: Soft, nt. Extremities: Warm. dep edema Access: piv LABS: Reviewed. IMAGING: Reviewed. MEDICATIONS: Reviewed. ASSESSMENT: 67 M Acute hypoxic resp failure - recovering. Severe sepsis sec to uti tx for CAP intially, but cap r/o Lactic acidosis on admission - resolved Afib rvr bl effusion: L>>R : left transudative effusion s/p ct >3L removed PLAN: Neurologic: well Cardiovascular: perfusing. vol stable ok. allow him to mobilize. home bb. afib sec to sepsis resolved. Respiratory: tolerating on NC and can wean off. IS. has ct and allow drainage for another day. should likely be ok to dc tomorrow but maximize drainage while here. Repeat cxr not necessary at this time. Gastrointestinal: po diet Renal/Metabolic: stable. Infectious Disease: C3 for gram neg uti - f/u cx and sens for po regimen. Hematology: stable. Endocrine: oupt steroid dosing. Musculoskeletal: baseline; pt prn Psych/Social: pt in good spirits Supportive and preventative care as ordered. SUP: po VTE prophylaxis: ivcf Disposition: floor Code Status: DNR Critical Care Time: 25min Halley Landers DO
[2017-07-27] MEDS: oxyCODONE TAB* 5 MG TAB PO PRN (11:58)
[2017-07-27 17:58] LABS: Total Protein, BF 3.9 g/dL
[2017-07-27] MEDS: cefTRIAXone(*) 1 GM in D5W 50 ML BAG* 50 ML IVPB SCH (18:47)
[2017-07-27] MEDS: predniSONE TAB* 10 MG PO SCH (21:22)
[2017-07-27] MEDS: Aspirin EC Low Dose* 81 MG TAB.EC PO SCH (21:22)
[2017-07-27] MEDS: Atorvastatin* 40 MG TAB PO SCH (21:22)
[2017-07-28] MEDS: oxyCODONE/Acetamin 5/325 MG* TAB PO PRN ×4 (04:54→21:48)
[2017-07-28 05:21] LABS: Hematocrit 28 % (42-52); Hemoglobin 8.5 g/dl (14.0-18.0); Mean Corpuscular HGB Conc 31 g/dl (31-36); Mean Corpuscular Hemoglobin 22 pg (27-31); Mean Platelet Volume 7 um3 (7.4-10.4); Red Blood Count 3.84 10^6/ul (4.0-5.4); Red Cell Distribution Width 18 % (10.5-15); White Blood Count 9.4 10^3/ul (3.5-10.8)
[2017-07-28 05:23] LABS: Comments Flag Yes; Mean Corpuscular Volume 72 fL (80-94)
[2017-07-28 05:24] LABS: BUN/Creatinine Ratio 21.7 (8-20); EGFR African American 171.8 (>60); EGFR Non-African American 133.6 (>60); Potassium 4.4 mmol/L (3.5-5.0)
[2017-07-28] MEDS: Insulin LISPRO* 1 UNITS UNIT SUBCUT SCH ×3 (08:51→17:19)
[2017-07-28] MEDS: Metoprolol Tartrate TAB* 25 MG PO SCH ×2 (08:52→20:57)
[2017-07-28] MEDS: Omeprazole CAP* 20 MG PO SCH (08:53)
[2017-07-28] MEDS: Hydroxychloroquine TAB* 200 MG PO SCH ×2 (08:55→20:57)
--- NOTE | 2017-07-28 10:58 | PN ---
Subjective Date of Service: 07/28/17 Interval History: This is a 67 yo male with an extensive medical history including paraplegia secondary to cauda equina who presented with cough and weakness admitted with sepsis and acute respiratory failure with a large pleural effusion and UTI. Patient was initially admitted to ICU and transferred yesterday to the floor. Patient has a chest tube in place for drainage of pleural effusion. Today, patient reports no SOB or chest pain. No frequent cough. No abd pain, n /v. Objective Active Medications: Acetaminophen (Tylenol Tab*) 650 mg PO Q4H PRN PRN Reason: FEVER/PAIN Aspirin (Aspirin Ec Low Dose*) 81 mg PO Q48H [facility] Last Admin: 07/27/17 21:22 Dose: 81 mg Atorvastatin Calcium (Lipitor*) 40 mg PO 2100 [facility] Last Admin: 07/27/17 21:22 Dose: 40 mg Dextrose (D50w Syringe 50 Ml*) 12.5 gm IV PUSH .FOR FS < 60 - SS PRN PRN Reason: FS < 60 Diazepam (Valium Tab(*)) 5 mg PO TID PRN PRN Reason: ANXIETY Last Admin: 07/27/17 01:06 Dose: 5 mg Hydroxychloroquine Sulfate (Plaquenil Tab*) 200 mg PO BID [facility] Last Admin: 07/28/17 08:55 Dose: 200 mg Ceftriaxone Sodium 1 gm/ (Dextrose) 50 mls @ 200 mls/hr IVPB Q24H [facility] Last Admin: 07/27/17 18:47 Dose: 200 mls/hr Insulin Human Lispro (Humalog*) 0 units SUBCUT AC [facility] PRN Reason: Protocol Last Admin: 07/28/17 08:51 Dose: 1 unit Metoprolol Tartrate (Lopressor Tab*) 25 mg PO BID [facility] Last Admin: 07/28/17 08:52 Dose: 25 mg Morphine Sulfate (Morphine Inj (Syringe)*) 4 mg IV Q4H PRN PRN Reason: PAIN Last Admin: 07/26/17 19:32 Dose: 4 mg Omeprazole (Prilosec Cap*) 40 mg PO DAILY [facility] Last Admin: 07/28/17 08:53 Dose: 40 mg Ondansetron HCl (Zofran Inj*) 4 mg IV Q6H PRN PRN Reason: NAUSEA Oxycodone HCl (Roxycodone Tab*) 5 mg PO Q6H PRN PRN Reason: PAIN Last Admin: 07/27/17 11:58 Dose: 5 mg Oxycodone/Acetaminophen (Percocet 5/325 Tab*) 2 tab PO Q4H PRN PRN Reason: PAIN Last Admin: 07/28/17 09:01 Dose: 2 tab Oxycodone/Acetaminophen (Percocet 5/325 Tab*) 1 tab PO Q6H PRN PRN Reason: PAIN Last Admin: 07/26/17 17:49 Dose: 1 tab Prednisone (Deltasone Tab*) 10 mg PO BEDTIME [facility] Last Admin: 07/27/17 21:22 Dose: 10 mg Vital Signs: Temp Pulse Resp BP Pulse Ox 97.3 F 71 16 148/77 94 07/28/17 07:52 07/28/17 07:52 07/28/17 09:05 07/28/17 07:52 07/28/17 07:52 Oxygen Devices in Use Now: None Appearance: Chronically ill, but relatively well and bright appearing 67 yo male in NAD Respiratory: Symmetrical Chest Expansion and Respiratory Effort, Clear to Auscultation, - - chest tube in place in L hemithorax Cardiovascular: NL Sounds; No Murmurs; No JVD, RRR Abdominal: NL Sounds; No Tenderness; No Distention Extremities: No Edema Skin: No Rash or Ulcers Neurological: Alert and Oriented x 3 Result Diagrams: 07/28/17 04:52 07/28/17 04:52 Additional Lab and Data: . Microbiology and Other Data: Microbiology 07/25/17 21:32 Urine Culture - Final Urine Klebsiella Pneumoniae Enterococcus Faecalis Pseudomonas Aeruginosa Legionella Urinary Antigen - Final Negative Legionella Streptococcus pneumoniae Ag Screen - Final Negative S. pneumo Antigen 07/25/17 20:05 Aerobic Blood Culture - Preliminary Blood Venous No Growth Day 2 Anaerobic Blood Culture - Preliminary No Growth Day 2 07/25/17 20:10 Aerobic Blood Culture - Preliminary Blood Venous No Growth Day 2 Anaerobic Blood Culture - Preliminary No Growth Day 2 07/26/17 14:10 Sterile Body Fluid Culture - Preliminary Pleural Fluid No Growth Day 1 Sterile Body Fluid Culture - Preliminary No Growth Day 1 07/26/17 14:10 Gram Stain - Final Body Fluid - Pleura 07/25/17 22:25 Gram Stain - Final Sputum Expectorated 07/25/17 21:25 Nasal Screen MRSA (PCR)([facility]) - Final Nasal Mrsa Negative 07/25/17 20:25 Influenza Types A,B Antigen ([facility]) - Final Nasopharyngeal Specimen received for Influenza A/B Molecular testing Assess/Plan/Problems-Billing Assessment: This is a 67 yo male with paraplegia secondary to cauda equina, RA with steroid dependency, HTN, HLD, h/o DVT and PE as well as afib but with prior severe reactions to anticoagulation, DM and CAD who was admitted with acute respiratory failure with large pleural effusion now s/p chest tube placement and sepsis secondary to UTI. - Patient Problems (1) Acute respiratory failure Comment: Now resolved Secondary to large pleural effusion (2) Pleural effusion Comment: Now s/p CT placement with >3L drained Appears likely transudative, no evidence of infection of pleural fluid CT drainage has slowed significantly, may be ready for removal, but management will be deferred to surgical team (3) Sepsis Comment: Severe sepsis at admission Secondary to UTI (4) Urinary tract infection Comment: Polymicrobial - Klebsiella, Enterococcus and Pseudomonas grew on culture Improving with Ceftriaxone Neurogenic bladder Beckman catheter in place (5) Afib Comment: Initial rapid rate secondary to acute infection, now resolved Not anticoagulated d/t h/o severe GI bleeding (6) Diabetes Comment: Good glycemic control at this time Treat hyperglycemia with SS Humalog (7) CAD (coronary artery disease) Comment: Asx Cont med management (8) HLD (hyperlipidemia) Comment: Cont statin (9) HTN (hypertension) Comment: Currently normotensive Cont metoprolol (10) Rheumatoid arthritis Comment: Steroid dependent Stress dosed at admission Cont usual daily dose of steroid therapy Plaquenil held (11) Pacemaker (12) Neurogenic bladder Comment: Secondary to cauda equina syndrome With chronic indwelling Beckman catheter (13) Paraplegia Comment: Secondary to h/o cauda equina (14) DNR (do not resuscitate) (15) DVT prophylaxis Comment: SCDs Severe adverse reactions to anticoagulation products Status and Disposition: Inpatient. Anticipate likely dc tomorrow or the following day. Possible dc of CT tube today depending on surgery recommendations
--- NOTE | 2017-07-28 13:49 | PN ---
Progress Note - Progress Note Date of Service: 07/28/17 SOAP: Subjective: Pt seen adn examined. c/o chest pain. s/p chest tube placement for effusion, no growth, no cytology Pt known to me with B/l LE ulcers-- pt's is more concerned about the R calf ulcer Objective: Temp Pulse Resp BP Pulse Ox 98.2 F 66 16 152/82 95 07/28/17 11:22 07/28/17 11:22 07/28/17 11:22 07/28/17 11:22 07/28/17 11:22 Chest tube: straw colored output. no airleak, output decreasing RLE: 5cmx3 cm ulcer deep into muscle with loosely adhered necrotic tissue. positive purulent drainage, no fluctuence Assessment: s/p L tube thoracostomy for large pleural effusion chronic non-healing ulcers Plan: Continue Chest tube for 1 more day wound care with excisional debridement done today. I sharply debrided necrotic fascia and muscle, bleeding minimal, ulcer redressed. cytology from chest tube
[2017-07-28] MEDS: cefTRIAXone(*) 1 GM in D5W 50 ML BAG* 50 ML IVPB SCH (17:30)
[2017-07-28] MEDS: Morphine INJ* 4 MG/ML 1 ML CARPUJECT IV PRN ×2 (18:39→23:48)
[2017-07-28] MEDS: Atorvastatin* 40 MG TAB PO SCH (20:57)
[2017-07-28] MEDS: predniSONE TAB* 10 MG PO SCH (20:57)
[2017-07-28] MEDS: oxyCODONE TAB* 5 MG TAB PO PRN (20:57)
[2017-07-29] MEDS: oxyCODONE/Acetamin 5/325 MG* TAB PO PRN ×3 (02:08→13:46)
[2017-07-29] MEDS: oxyCODONE TAB* 5 MG TAB PO PRN (04:07)
[2017-07-29] MEDS: Insulin LISPRO* 1 UNITS UNIT SUBCUT SCH ×2 (08:08→12:21)
[2017-07-29] MEDS: Metoprolol Tartrate TAB* 25 MG PO SCH (09:27)
[2017-07-29] MEDS: Hydroxychloroquine TAB* 200 MG PO SCH (09:27)
[2017-07-29] MEDS: Omeprazole CAP* 20 MG PO SCH (09:27)
--- NOTE | 2017-07-29 09:29 | RAD ---
Single frontal view of the chest performed at 0825 hours was reviewed. Comparison is made with previous exam dated July 26 left chest tube in place. Interstitial edema with vascular congestion is noted. Patient is status post tracer thoracotomy.. No mediastinal shift is noted. Bilateral pleural effusions are present.. IMPRESSION: OVERALL NO CHANGES NOTED SINCE PREVIOUS EXAM OF JULY 26, 2017.
--- NOTE | 2017-07-29 12:11 | PN ---
Progress Note - Progress Note Date of Service: 07/29/17 SOAP: Subjective: Mr. Rangel is a pleasant 67 yo male with a history of HTN, hyperlipidemia, RA, PE and DVT, DM, cauda equina and paraplegia, GI bleed, CAD, Afib, IN, and SCC with possible mets to the bone. Patient presented to the ED on 07/25 complaining of congestion, a productive cough and fatigue for the past 11 days. Patient was found to have a large left pleural effusion which resulted in thoracostomy tube placement performed by Dr. Glass on 07/26 as well as a UTI which is being treated with Rocephin. Today patient is in good spirits and states he feels well. Patient denies CP, chest pressure or tightness, SOB, coughing, wheezing, abdominal pain, N/V. Objective: Vital Signs Temp Pulse Resp BP Pulse Ox 97.6 F 67 16 133/68 92 07/29/17 07:25 07/29/17 07:25 07/29/17 10:00 07/29/17 07:25 07/29/17 07:25 Laboratory Last Values WBC 9.4 10^3/ul (3.5-10.8) 07/28/17 04:52 RBC 3.84 10^6/ul (4.0-5.4) L 07/28/17 04:52 Hgb 8.5 g/dl (14.0-18.0) L 07/28/17 04:52 Hct 28 % (42-52) L 07/28/17 04:52 MCV 72 fL (80-94) L 07/28/17 04:52 MCH 22 pg (27-31) L 07/28/17 04:52 MCHC 31 g/dl (31-36) 07/28/17 04:52 RDW 18 % (10.5-15) H 07/28/17 04:52 Plt Count 429 10^3/ul (150-450) 07/28/17 04:52 MPV 7 um3 (7.4-10.4) L 07/28/17 04:52 Neut % (Auto) 86.9 % (38-83) H 07/28/17 04:52 Lymph % (Auto) 8.8 % (25-47) L 07/28/17 04:52 [place] % (Auto) 3.6 % (1-9) 07/28/17 04:52 Eos % (Auto) 0.5 % (0-6) 07/28/17 04:52 Baso % (Auto) 0.2 % (0-2) 07/28/17 04:52 Absolute Neuts (auto) 8.1 10^3/ul (1.5-7.7) H 07/28/17 04:52 Absolute Lymphs (auto) 0.8 10^3/ul (1.0-4.8) L 07/28/17 04:52 Absolute Monos (auto) 0.3 10^3/ul (0-0.8) 07/28/17 04:52 Absolute Eos (auto) 0 10^3/ul (0-0.6) 07/28/17 04:52 Absolute Basos (auto) 0 10^3/ul (0-0.2) 07/28/17 04:52 Absolute Nucleated RBC 0 10^3/ul 07/28/17 04:52 Nucleated RBC % 0 07/28/17 04:52 INR (Anticoag Therapy) 1.03 (0.77-1.02) H 07/26/17 04:10 APTT 27.3 seconds (26.0-36.3) 07/25/17 17:08 D-Dimer, Quantitative 866 ng/mL (Less Than 230) H 07/25/17 17:08 Sodium 136 mmol/L (133-145) 07/28/17 04:52 Potassium 4.4 mmol/L (3.5-5.0) 07/28/17 04:52 Chloride 108 mmol/L (101-111) 07/28/17 04:52 Carbon Dioxide 25 mmol/L (22-32) 07/28/17 04:52 Anion Gap 3 mmol/L (2-11) 07/28/17 04:52 BUN 13 mg/dL (6-24) 07/28/17 04:52 Creatinine 0.60 mg/dL (0.67-1.17) L 07/28/17 04:52 Est GFR ( Amer) 171.8 (>60) 07/28/17 04:52 Est GFR (Non-Af Amer) 133.6 (>60) 07/28/17 04:52 BUN/Creatinine Ratio 21.7 (8-20) H 07/28/17 04:52 Glucose 146 mg/dL (70-100) H 07/28/17 04:52 POC Glucose (mg/dL) 132 mg/dL (70-100) H 07/29/17 11:27 Lactic Acid 1.3 mmol/L (0.5-2.0) 07/26/17 04:10 Calcium 9.0 mg/dL (8.6-10.3) 07/28/17 04:52 Phosphorus 2.9 mg/dL (2.5-5.0) 07/27/17 06:00 Magnesium 1.5 mg/dL (1.9-2.7) L 07/27/17 06:00 Total Bilirubin 0.40 mg/dL (0.2-1.0) 07/25/17 17:08 AST 15 U/L (13-39) 07/25/17 17:08 ALT 7 U/L (7-52) 07/25/17 17:08 Alkaline Phosphatase 152 U/L (34-104) H 07/25/17 17:08 Lactate Dehydrogenase 109 U/L (140-271) L 07/27/17 06:00 Total Creatine Kinase 16 U/L (10-223) 07/25/17 17:08 CK-MB (CK-2) 1.5 ng/mL (0.6-6.3) 07/25/17 17:08 Troponin I 0.02 ng/mL (<0.04) 07/25/17 17:08 C-Reactive Protein 80.07 mg/L (< 5.00) H 07/25/17 17:08 B-Natriuretic Peptide 121 pg/mL (-100) H 07/25/17 17:08 Total Protein 6.9 g/dL (6.4-8.9) 07/25/17 17:08 Albumin 3.0 g/dL (3.2-5.2) L 07/25/17 17:08 Globulin 3.9 g/dL (2-4) 07/25/17 17:08 Albumin/Globulin Ratio 0.8 (1-3) L 07/25/17 17:08 Lipase 18 U/L (11.0-82.0) 07/25/17 17:08 TSH 2.62 mcIU/mL (0.34-5.60) 07/25/17 17:08 Urine Color Yellow 07/25/17 21:32 Urine Appearance Cloudy 07/25/17 21:32 Urine pH 5.0 (5-9) 07/25/17 21:32 Ur Specific Holly 1.036 (1.010-1.030) H 07/25/17 21:32 Urine Protein Negative (Negative) 07/25/17 21:32 Urine Ketones Negative (Negative) 07/25/17 21:32 Urine Blood 1+ (Negative) H 07/25/17 21:32 Urine Nitrate Positive (Negative) H 07/25/17 21:32 Urine Bilirubin Negative (Negative) 07/25/17 21:32 Urine Urobilinogen Negative (Negative) 07/25/17 21:32 Ur Leukocyte Esterase 3+ (Negative) H 07/25/17 21:32 Urine WBC (Auto) 3+(>20/hpf) (Absent) H 07/25/17 21:32 Urine RBC (Auto) 3+(>10/hpf) (Absent) H 07/25/17 21:32 Ur Squamous Epith Cells Present (Absent) H 07/25/17 21:32 Urine Bacteria 1+ (Absent) H 07/25/17 21:32 Hyaline Casts Present (Absent) H 07/25/17 21:32 Urine Glucose Negative (Negative) 07/25/17 21:32 Fluid Source Pleural fluid 07/26/17 14:10 Fluid Volume 120 mL 07/26/17 14:10 Fluid Color Alyson 07/26/17 14:10 Fluid Appearance Clear 07/26/17 14:10 Fluid WBC 114 /mcL (0-721044) 07/26/17 14:10 Fluid RBC 787 /mcL 07/26/17 14:10 Fluid Tot Cell Count 100 07/26/17 14:10 Fluid Neutrophils 11 % 07/26/17 14:10 Fluid Lymphocytes 71 % 07/26/17 14:10 Fluid Monocytes 18 % 07/26/17 14:10 Fluid Other Cells 27 07/26/17 14:10 Fluid Cell Count Rvw By 07/26/17 14:10 Fluid Total Protein 3.9 g/dL 07/26/17 14:10 Fluid LDH 83 U/L 07/26/17 14:10 Influenza A (Rapid) Negative (Negative) 07/25/17 20:34 Influenza B (Rapid) Negative (Negative) 07/25/17 20:34 Active Medications Acetaminophen (Tylenol Tab*) 650 mg PO Q4H PRN PRN Reason: FEVER/PAIN Aspirin (Aspirin Ec Low Dose*) 81 mg PO Q48H [facility] Last Admin: 07/27/17 21:22 Dose: 81 mg Atorvastatin Calcium (Lipitor*) 40 mg PO 2100 [facility] Last Admin: 07/28/17 20:57 Dose: 40 mg Dextrose (D50w Syringe 50 Ml*) 12.5 gm IV PUSH .FOR FS < 60 - SS PRN PRN Reason: FS < 60 Diazepam (Valium Tab(*)) 5 mg PO TID PRN PRN Reason: ANXIETY Last Admin: 07/27/17 01:06 Dose: 5 mg Hydroxychloroquine Sulfate (Plaquenil Tab*) 200 mg PO BID [facility] Last Admin: 07/29/17 09:27 Dose: 200 mg Ceftriaxone Sodium 1 gm/ (Dextrose) 50 mls @ 200 mls/hr IVPB Q24H [facility] Last Admin: 07/28/17 17:30 Dose: 200 mls/hr Insulin Human Lispro (Humalog*) 0 units SUBCUT AC [facility] PRN Reason: Protocol Last Admin: 07/29/17 08:08 Dose: Not Given Metoprolol Tartrate (Lopressor Tab*) 25 mg PO BID [facility] Last Admin: 07/29/17 09:27 Dose: 25 mg Morphine Sulfate (Morphine Inj (Syringe)*) 4 mg IV Q4H PRN PRN Reason: PAIN Last Admin: 07/28/17 23:48 Dose: 4 mg Omeprazole (Prilosec Cap*) 40 mg PO DAILY [facility] Last Admin: 07/29/17 09:27 Dose: 40 mg Ondansetron HCl (Zofran Inj*) 4 mg IV Q6H PRN PRN Reason: NAUSEA Oxycodone HCl (Roxycodone Tab*) 5 mg PO Q6H PRN PRN Reason: PAIN Last Admin: 07/29/17 04:07 Dose: 5 mg Oxycodone/Acetaminophen (Percocet 5/325 Tab*) 2 tab PO Q4H PRN PRN Reason: PAIN Last Admin: 07/29/17 07:48 Dose: 2 tab Oxycodone/Acetaminophen (Percocet 5/325 Tab*) 1 tab PO Q6H PRN PRN Reason: PAIN Last Admin: 07/26/17 17:49 Dose: 1 tab Prednisone (Deltasone Tab*) 10 mg PO BEDTIME [facility] Last Admin: 07/28/17 20:57 Dose: 10 mg General: WDWN male in NAD. CV: RRR w/o MRG Respiratory: CTA, although mild pleuritic rub appreciated on left lobe. GI: Abdomen is soft, non-distended and non-tender to palpation. Extremities: W/o edema Assessment: This is a 67 yo male with a history of several chronic medical illnesses, as noted above. Patient was found to have a large left pleural effusion and a UTI. Plan: 1. Left pleural effusion: SP thoracostomy tube placement with a significant amount of initial drainage. Drainage has decreased dramatically, with minimal drainage at this point. CXR on 07/26 after the procedure showed improvement and a decrease in size of the effusion. Removal of tube is per surgery group. 2. UTI: Sepsis has resolved, on Rocephin therapy. 3. Afib: Previously had RVR, but has since resolved. Not anticoagulated at this time d/t hx of GI bleed. 4. Hyperlipidemia: Continue statin therapy 5. HTN: Continue metoprolol 6. RA: Continue steroids with stress dose at time of admission. Plaquenil held. 7. DVT prophylaxis: SCDs in place.
[2017-07-29 12:21] VITALS: BP 156/86
[2017-07-29] MEDS: Morphine INJ* 4 MG/ML 1 ML CARPUJECT IV PRN (13:53)
--- NOTE | 2017-07-29 14:16 | PN ---
Progress Note - Progress Note Date of Service: 07/29/17 Note: Surgery Progress: S: seen this a.m. by Dr. Glass. Denies SOB. Current Medications Acetaminophen (Tylenol Tab*) 650 mg PO Q4H PRN PRN Reason: FEVER/PAIN Aspirin (Aspirin Ec Low Dose*) 81 mg PO Q48H [facility] Last Admin: 07/27/17 21:22 Dose: 81 mg Atorvastatin Calcium (Lipitor*) 40 mg PO 2100 [facility] Last Admin: 07/28/17 20:57 Dose: 40 mg Dextrose (D50w Syringe 50 Ml*) 12.5 gm IV PUSH .FOR FS < 60 - SS PRN PRN Reason: FS < 60 Diazepam (Valium Tab(*)) 5 mg PO TID PRN PRN Reason: ANXIETY Last Admin: 07/27/17 01:06 Dose: 5 mg Hydroxychloroquine Sulfate (Plaquenil Tab*) 200 mg PO BID [facility] Last Admin: 07/29/17 09:27 Dose: 200 mg Ceftriaxone Sodium 1 gm/ (Dextrose) 50 mls @ 200 mls/hr IVPB Q24H [facility] Last Admin: 07/28/17 17:30 Dose: 200 mls/hr Insulin Human Lispro (Humalog*) 0 units SUBCUT AC [facility] PRN Reason: Protocol Last Admin: 07/29/17 12:21 Dose: Not Given Metoprolol Tartrate (Lopressor Tab*) 25 mg PO BID [facility] Last Admin: 07/29/17 09:27 Dose: 25 mg Morphine Sulfate (Morphine Inj (Syringe)*) 4 mg IV Q4H PRN PRN Reason: PAIN Last Admin: 07/29/17 13:53 Dose: 4 mg Omeprazole (Prilosec Cap*) 40 mg PO DAILY [facility] Last Admin: 07/29/17 09:27 Dose: 40 mg Ondansetron HCl (Zofran Inj*) 4 mg IV Q6H PRN PRN Reason: NAUSEA Oxycodone HCl (Roxycodone Tab*) 5 mg PO Q6H PRN PRN Reason: PAIN Last Admin: 07/29/17 04:07 Dose: 5 mg Oxycodone/Acetaminophen (Percocet 5/325 Tab*) 2 tab PO Q4H PRN PRN Reason: PAIN Last Admin: 07/29/17 13:46 Dose: 2 tab Oxycodone/Acetaminophen (Percocet 5/325 Tab*) 1 tab PO Q6H PRN PRN Reason: PAIN Last Admin: 07/26/17 17:49 Dose: 1 tab Prednisone (Deltasone Tab*) 10 mg PO BEDTIME [facility] Last Admin: 07/28/17 20:57 Dose: 10 mg O: Vital Signs - 8 hr 07/29/17 07/29/17 07/29/17 07:25 07:48 08:00 Temperature 97.6 F Pulse Rate 67 Respiratory 16 16 16 Rate Blood Pressure 133/68 (mmHg) O2 Sat by Pulse 92 Oximetry 07/29/17 07/29/17 07/29/17 10:00 11:16 13:46 Temperature 98.9 F Pulse Rate 66 Respiratory 16 16 16 Rate Blood Pressure 156/86 (mmHg) O2 Sat by Pulse 97 Oximetry 07/29/17 13:53 Temperature Pulse Rate Respiratory 16 Rate Blood Pressure (mmHg) O2 Sat by Pulse Oximetry Intake and Output Last 24 Hours 07/27/17 07/28/17 07/29/17 07/30/17 06:59 06:59 06:59 06:59 Intake Total 2769 2095 1840 360 Output Total 4670 3662 2515 900 Balance -1901 -1567 -675 -540 Weight 154 lb 5.177 oz Intake: IV Fluids 1229 ABX - CEFTRIAXONE 50 NS (0.9%) 1179 IVPB 125 60 ABX - CEFTRIAXONE 125 60 Oral 1540 1970 1780 360 Output: Chest Tube #1 2720 1387 215 50 Urine 650 Beckman 1950 2275 1650 850 Other: # Bowel Movements 0 Heart: reg Lungs: clear; per Pleurevac container, output is ~ 200 ml/ past 24 hr; no airleak; clear light serous fluid cytology: no malignant cells; C&S no growth A: s/p Left chest tube for pleural effusion, improved P: chest tube removed w/o complication; occlusive dsg placed; instructions reviewed verbally and will be written in his d/c instructions; surgical f/u prn
--- NOTE | 2017-07-30 04:41 | DS ---
CC: Hany Valera DO * DISCHARGE SUMMARY: DATE OF ADMISSION: 07/25/17 DATE OF DISCHARGE: 07/29/17 PRIMARY CARE PROVIDER: Hany Valera DO CONSULTING SURGEON: Dr. Glass. DISCHARGING PROVIDER: KRISTI Donis SUPERVISING PHYSICIAN: Kath Charles MD * (DICTATED BY KRISTI DONIS) PRIMARY DISCHARGE DIAGNOSES: 1. Severe sepsis secondary to urinary tract infection and Klebsiella pneumoniae. 2. Acute respiratory failure secondary to large left pleural effusion. 3. Atrial fibrillation with rapid ventricular rate. SECONDARY DISCHARGE DIAGNOSES: 1. Diabetes - good control. 2. Coronary artery disease without acute coronary syndrome. 3. Rheumatoid arthritis - steroid dependent. 4. Hypertension. 5. Hyperlipidemia. 6. Pacemaker in place. 7. Neurogenic bladder secondary to cauda equina syndrome with Beckman catheter in place. 8. Paraplegia secondary to cauda equina. DISCHARGE MEDICATIONS: 1. Aspirin 81 mg p.o. daily. 2. Atorvastatin 40 mg p.o. daily. 3. Calcium supplement 600 mg p.o. daily. 4. Vitamin D3 50,000 units p.o. weekly. 5. Vitamin B12 1000 mcg p.o. daily. 6. Valium 5 mg p.o. 3 times daily as needed for anxiety. 7. Plaquenil 200 mg p.o. twice daily. 8. Iron polysaccharide complex 1 tablet p.o. daily. 9. Levaquin 750 mg p.o. daily x7 days. 10. Metformin 1500 mg p.o. at bedtime and 1000 mg each morning. 11. Metoprolol tartrate 25 mg p.o. twice daily. 12. Multivitamin 1 tablet p.o. daily. 13. Omeprazole 40 mg p.o. daily. 14. Oxycodone/acetaminophen 10/325 one to two tablets p.o. q.6 hours as needed for pain. 15. Prednisone 10 mg p.o. at bedtime. Medication changes: 1. Levaquin x7 days. HOSPITAL IMAGIN. Chest x-ray, 07/25/17, shows large left pleural effusion. 2. CTA of the chest shows a moderate mediastinal adenopathy with a large left pleural effusion and complete atelectasis of the left lower lobe with a moderate sized right pleural effusion as well. 3. Chest x-ray, 07/26/17, shows a left-sided chest tube in place with decreasing left pleural effusion. 4. Chest x-ray, 07/29/17, shows bilateral small pleural effusions present, no significant change from 07/26/17. 5. Cytology of pleural fluid is negative for malignancy. HOSPITAL COURSE: This is a 67-year-old gentleman with an extensive medical history including paraplegia secondary to cauda equina syndrome with an associated neurogenic bladder with a chronic indwelling Beckman catheter as well as history of PE and DVT as well as atrial fibrillation, but with a history of severe GI bleed and as a result is not chronically anticoagulated, also with coronary artery disease, hypertension, hyperlipidemia, and rheumatoid arthritis for which he is steroid dependent who presented to the emergency department with complaints of cough and weakness. The patient has been symptomatic for several days prior to admission. He was noted to be hypotensive with systolic pressures in the 80s when he reached the emergency department and tachycardic with rate as nearly 170 beats per minute and atrial fibrillation. His initial chest x-ray showed new full whiteout of the left lung field and small right- sided pleural effusion present as well. He had reported being febrile at home. Initial labs showed leukocytosis with a white blood cell count of 16,000. D- dimer was elevated at 866. Chemistries were remarkable only for a lactic acid of 4.2. CRP was moderately elevated to 80. Urinalysis was suggestive of urinary tract infection, which is positive for nitrites, blood, leuk esterase, white blood cells and 1+ bacteria. The patient was subsequently admitted to ICU. CTA of the chest was performed to evaluate for PE, which was not present, but confirmed the presence of large pleural effusion. Pleural effusion was drained via chest tube by Dr. Glass with significant symptomatic relief. The patient was initially treated for community-acquired pneumonia. Pleural fluid did not appear to be infected, however. Gram stain was negative and cultures were negative and cell counts were not suggestive of acute infection. Fluid appeared to be transudative by Light's criteria for protein, but LDH was high. His urine eventually grew Klebsiella, Enterococcus, and Pseudomonas. His sputum also grew Klebsiella, but his blood cultures remained negative. Following drainage of his pleural effusion, the patient's oxygen requirements quickly improved. The patient is rate controlled regarding his atrial fibrillation, improved with treatment of his infection. Chest tube was removed on the day of discharge on 07/29/17. The patient had been afebrile, comfortable, and without complaints of significant cough or shortness of breath for at least 2 days. Repeat chest x-ray showed some remaining atelectasis and small to moderate sized pleural effusions. DISPOSITION AND FOLLOWUP PLAN: The patient is being discharged to home where he lives with his . He has a motorized wheelchair with which he gets around the house easily. He requires an additional 7 days of oral antibiotics as described above. Recommend close followup with primary care provider. No specific surgical followup. The patient received wound care instructions on how to appropriately dress his chest tube site. KRISTI DONIS [id number]/[facility] #: [id number] LEA
== END 2017-07-29 16:10 | disposition home or self-care (01) | DRG 853 ==
LOC: ED 16:21 → ICU 19:13 → SSU 07-27 13:56
PROVIDERS: ADMIT Hospitalist; ATTEND Internal Medicine
PROC: 0W9B30Z Drainage of Left Pleural Cavity with Drainage Device, Percutaneous Approach (ICD-10-PCS; 2017-07-26)
PROC: 0KBS0ZZ Excision of Right Lower Leg Muscle, Open Approach (ICD-10-PCS; principal; 2017-07-28)
DX: A41.9 Sepsis, unspecified organism (principal); J96.01 Acute respiratory failure with hypoxia; J90 Pleural effusion, not elsewhere classified; I48.91 Unspecified atrial fibrillation; G82.20 Paraplegia, unspecified; E11.622 Type 2 diabetes mellitus with other skin ulcer; G83.4 Cauda equina syndrome; N39.0 Urinary tract infection, site not specified; L97.913 Non-pressure chronic ulcer of unspecified part of right lower leg with necrosis of muscle; I11.9 Hypertensive heart disease without heart failure; E78.5 Hyperlipidemia, unspecified; R65.20 Severe sepsis without septic shock; B96.1 Klebsiella pneumoniae [K. pneumoniae] as the cause of diseases classified elsewhere; I25.10 Atherosclerotic heart disease of native coronary artery without angina pectoris; M06.9 Rheumatoid arthritis, unspecified; K44.9 Diaphragmatic hernia without obstruction or gangrene; K20.8 Other esophagitis; Z66 Do not resuscitate; M89.9 Disorder of bone, unspecified; Z86.711 Personal history of pulmonary embolism; Z86.718 Personal history of other venous thrombosis and embolism; Z95.1 Presence of aortocoronary bypass graft; Z95.0 Presence of cardiac pacemaker; Z79.84 Long term (current) use of oral hypoglycemic drugs; Z79.82 Long term (current) use of aspirin; Z79.52 Long term (current) use of systemic steroids; Z79.899 Other long term (current) drug therapy; Z88.8 Allergy status to other drugs, medicaments and biological substances; Z87.891 Personal history of nicotine dependence; I25.2 Old myocardial infarction
CPT/HCPCS: 36415; 71010; 71275; 80048; 80053; 81003; 81015; 82550; 82553; 82565; 83605; 83615; 83690; 83735; 83880; 83986; 84100; 84157; 84443; 84484; 84520; 85025; 85379; 85610; 85730; 86140; 87040; 87070; 87077; 87086; 87186; 87205; 87502; 87641; 87899; 88112; 88305; 89051; 93005; 94760; A9270-GY; J0456; J0696; J1160; J1720; J2270; J3475; J7512; Q9967

== ENCOUNTER 2017-08-05 13:36 | Inpatient (IN) | payer MEDICARE, BC ==
[2017-08-05 15:23] LABS: ABS Basophils 0 10^3/ul (0-0.2); ABS Eosinophils 0.1 10^3/ul (0-0.6); ABS Lymphocytes 0.7 10^3/ul (1.0-4.8); ABS Monocytes 0.6 10^3/ul (0-0.8); ABS Neutrophils 12.1 10^3/ul (1.5-7.7); ABS Nucleated RBC 0 10^3/ul; Eosinophil % 0.7 % (0-6); Hematocrit 32 % (42-52); Hemoglobin 9.6 g/dl (14.0-18.0); Lymphocyte % 5.1 % (25-47); Mean Corpuscular HGB Conc 30 g/dl (31-36); Mean Corpuscular Hemoglobin 22 pg (27-31); Mean Platelet Volume 7 um3 (7.4-10.4); Nucleated Red Blood Cells % 0; Platelet Count 483 10^3/ul (150-450); Red Blood Count 4.43 10^6/ul (4.0-5.4); Red Cell Distribution Width 18 % (10.5-15); White Blood Count 13.5 10^3/ul (3.5-10.8)
[2017-08-05 15:25] LABS: Mean Corpuscular Volume 72 fL (80-94)
[2017-08-05 15:29] LABS: INR 1.12 (0.77-1.02)
[2017-08-05 15:41] LABS: EGFR Non-African American 80.6 (>60)
--- NOTE | 2017-08-05 16:00 | RAD ---
INDICATION: Shortness of breath. COMPARISON: Comparison is made with prior chest x-ray study from July 29, 2017. TECHNIQUE: A portable view of the chest was obtained. FINDINGS: The patient appears to be status post coronary artery bypass surgery. Note is made of multiple sternal sutures and mediastinal clips. The heart is mildly enlarged and unchanged. There is a multilead transvenous pacemaker present. There appears to been interval removal of a chest tube present on the left side. There is increased lucency at the left lung apex possibly representing a small pneumothorax. There is diffuse prominence of the interstitial markings and small bilateral pleural effusions most consistent with congestive heart failure. IMPRESSION: 1. FINDINGS MOST CONSISTENT WITH CONGESTIVE HEART FAILURE. 2. POSSIBLE SMALL LEFT APICAL PNEUMOTHORAX.
--- NOTE | 2017-08-05 18:48 | HP ---
H&P (Free Text) History and Physical: History and Physical - Critical Care Limitations in history/physical: none Date of admission: 08/05/2017 HPI: 67y M pmhx of DM, anemia, CAD s/p CABG 2013, PE/DVT, HLD, HTN, Sick Sinus s /p PPM/AICD, PVD, Afib, h/o GI bleed/GERD, neurogenic bladder s/p chronic connelly , wheelchair bound, spinal stenosis/cauda equina, b/l heel ulcers, ex-smoker; recent admission 05/2017 to [facility] for pneumonia, respiratory failure, severe sepsis, Afib, large left effusion s/p chest tube. At that time UTI vs pneumonia as source of sepsis with klebsiella in sputum and klebsiella/enterococcus/ pseudomonas in urine cultures. Suspected to be klebsiella UTI/Pneumonia. Effusion improved with chest tube. Noted that cxr 07/29 with effusion improved and left side infiltrates+ but small left apical ptx present. Discharged home. Patient comes to ER now for complaints of weakness for days, dec appetite, no diarrhea/sob/cp/n/v/abdpain/fever/chills. Chronic connelly in place. Cough is chronic with clear sputum. In ER, BP was 90s, when examining patient now, BP 120s systolic, HR 80s. sat 94 % on RA, rr 19. No resp distress noted. at bedside. ROS: negative except for pertinent positives mentioned above. PMHx: DM, anemia, CAD s/p CABG 2013, PE/DVT, HLD, HTN, Sick Sinus s/p PPM/AICD, PVD, Afib, h/o GI bleed/GERD, neurogenic bladder s/p chronic connelly, wheelchair bound, spinal stenosis/cauda equina, b/l heel ulcers, ex-smoker PSHx: CABG 2013, Inguinal hernia repair, Cervical spine fusion, Lumbar spine fusion, PPM implantation. Family History: cardiac disease Social History: Alcohol-none, Smoking- ex-smoker, 1ppd x10 years, Drug use-none Allergies: Allergies Allergy/AdvReac Type Severity Reaction Status Date / Time Fentanyl AdvReac Intermediate Blisters Verified 08/05/17 13:43 elequis Allergy See Comment Uncoded 08/05/17 13:44 Home Medications: Hydroxychloroquine TAB* [Plaquenil TAB*] 200 mg PO BID 02/19/14 [History Confirmed 08/05/17] oxyCODONE/Acetamin 10/325(NF) [Percocet 10/325 (NF)] 1 - 2 tab PO Q6H PRN [History Confirmed 08/05/17] predniSONE TAB* [Deltasone TAB*] 10 mg PO BEDTIME 02/19/14 [History Confirmed ] Omeprazole CAP* [Prilosec CAP* 20 MG] 40 mg PO DAILY 09/26/16 [History Confirmed 08/05/17] Diazepam TAB(*) [Valium TAB(*)] 5 mg PO TID PRN 01/06/17 [History Confirmed ] Iron Polysaccharide Complex- [Poly-Iron 150 Forte 150-25-1 mg-Mcg-mg] 1 tab PO DAILY 01/06/17 [History Confirmed 08/05/17] Atorvastatin* [Lipitor 40 MG*] 40 mg PO 2100 #30 tab 01/10/17 [Rx Confirmed ] Metoprolol Tartrate TAB* [Lopressor TAB*] 25 mg PO BID #60 tab 01/10/17 [Rx Confirmed 08/05/17] Cyanocobalamin TAB* [Vitamin B12 TAB*] 1,000 mcg PO DAILY 03/07/17 [History Confirmed 08/05/17] Multiple Vitamins W/ Minerals [Centrum Silver 50+Men] 1 tab PO DAILY 03/07/17 [ History Confirmed 08/05/17] metFORMIN* [Glucophage 1000 MG TAB *] 1,000 mg PO QAM 03/07/17 [History Confirmed 08/05/17] metFORMIN* [Glucophage 1000 MG TAB *] 1,500 mg PO BEDTIME 03/07/17 [History Confirmed 08/05/17] Collagenase 250 MG/GM OINT* [Santyl 250 mg/gm Oint*] 1 applic TOPICAL DAILY #1 tube 04/19/17 [Rx Confirmed 08/05/17] Aspirin EC Low Dose* [Ecotrin EC Low Dose 81 MG*] 81 mg PO EVERY OTHER DAY 08/05 [History Confirmed 08/05/17] Calcium Carbonate TAB* 600 mg PO DAILY 08/05/17 [History Confirmed 08/05/17] Cholecalciferol TAB* [Vitamin D TAB*] 50,000 unit PO WEEKLY 08/05/17 [History Confirmed 08/05/17] Tele: NSR Vitals: Vital Signs Temp 97.5 F 08/05/17 13:38 Pulse 74 08/05/17 13:38 Resp 26 08/05/17 13:38 BP 109/69 08/05/17 14:53 Pulse Ox 92 08/05/17 15:13 Intake & Output 08/04/17 08/05/17 08/05/17 18:59 06:59 18:59 Weight 160 lb O2/Vent: RA, sat 94%, rr19 Infusions: none Physical Exam: General: awake, alert, no distress, no diaphoresis Head: normocephalic, atraumatic HEENT: no pallor, no icterus, dry mucous membranes Neck: soft, supple, no jvd, no stridor CVS: normal rate, normal rhythm, no murmur Resp: bilateral air entry, scattered rhales on left only, no wheeze, no rhonchi , no acc muscle use Abdomen: soft, nontender, nondistended, bowel sounds present Ext: lower ext heel ulcers wrapped in bandage Skin: bilateral lower ext heel ulcers Neuro: awake, alert, orientedx3, moving all extremities, no gross focal deficit Labs: Laboratory Results - last 24 hr 08/05/17 08/05/17 08/05/17 15:10 15:10 15:10 WBC 13.5 H RBC 4.43 Hgb 9.6 L Hct 32 L MCV 72 L MCH 22 L MCHC 30 L RDW 18 H Plt Count 483 H D MPV 7 L Neut % (Auto) 89.7 H Lymph % (Auto) 5.1 L [place] % (Auto) 4.2 Eos % (Auto) 0.7 Baso % (Auto) 0.3 Absolute Neuts (auto) 12.1 H Absolute Lymphs (auto) 0.7 L Absolute Monos (auto) 0.6 Absolute Eos (auto) 0.1 Absolute Basos (auto) 0 Absolute Nucleated RBC 0 Nucleated RBC % 0 INR (Anticoag Therapy) 1.12 H Sodium 133 Potassium 4.3 Chloride 101 Carbon Dioxide 24 Anion Gap 8 BUN 21 Creatinine 0.93 Est GFR ( Amer) 103.6 Est GFR (Non-Af Amer) 80.6 BUN/Creatinine Ratio 22.6 H Glucose 107 H Lactic Acid Calcium 10.4 H Total Bilirubin 0.30 AST 14 ALT 7 Alkaline Phosphatase 131 H Troponin I 0.08 H* B-Natriuretic Peptide Total Protein 6.5 Albumin 2.8 L Globulin 3.7 Albumin/Globulin Ratio 0.8 L 08/05/17 08/05/17 15:10 15:10 WBC RBC Hgb Hct MCV MCH MCHC RDW Plt Count MPV Neut % (Auto) Lymph % (Auto) [place] % (Auto) Eos % (Auto) Baso % (Auto) Absolute Neuts (auto) Absolute Lymphs (auto) Absolute Monos (auto) Absolute Eos (auto) Absolute Basos (auto) Absolute Nucleated RBC Nucleated RBC % INR (Anticoag Therapy) Sodium Potassium Chloride Carbon Dioxide Anion Gap BUN Creatinine Est GFR ( Amer) Est GFR (Non-Af Amer) BUN/Creatinine Ratio Glucose Lactic Acid 3.6 H* Calcium Total Bilirubin AST ALT Alkaline Phosphatase Troponin I B-Natriuretic Peptide 171 H Total Protein Albumin Globulin Albumin/Globulin Ratio Imaging: cxr 08/05 - left sided infiltrates as prior 07/29 cxr, not much change; mild congestive changes noted +/-; left small apical ptx noted as prior 07/29 and films. minimal effusion Assessment: 67y M pmhx of DM, anemia, CAD s/p CABG 2013, PE/DVT, HLD, HTN, Sick Sinus s/p PPM/AICD, PVD, Afib, h/o GI bleed/GERD, neurogenic bladder s/p chronic connelly, wheelchair bound, spinal stenosis/cauda equina, b/l heel ulcers, ex-smoker; recent admission to [facility] for pneumonia/UTI, severe sepsis, left effusion s/p chest tube; comes to ER for weakness and fatigue for days. -Leukocytosis, r/o sepsis -Left sided infiltrates, possible resolving pneumonia -mild pulmonary congestion -left apical small pneumothorax, stable -weakness Plan: Neuro- neurologically stable. chronically in wheelchair. fall prec. asp prec. neurogenic bladder with chronic connelly. not lethargic at this time, alert, answers all questions. no focal findings noted. CVS- not tachycardic, no fevers. BP improving on its own. no IVF given. clinically doesnt appear overloaded. will give small trial of IVF for a few hours given LA was elevated. may have some low grade sepsis but he has colonization in urine. Empiric Abx. blood cultures. repeat LA. Resp- no resp distress. cxr with stable infitlrates. some congestion maybe? left apical ptx stable after reviewing prior films. repeat cxr in AM. discussed with patient about possible small apical pneumothorax chest tube vs heimlich valve placement. re-eval in AM. WIll have pulmonary followup in AM for ptx eval. NC as needed. Bronchodilators as needed. ID- afebrile. wbc 13. on steroids chronically also. BP stable now. LA elevated. may have source of sepsis somewhere. Empiric zosyn for 48 hours. Culture sputum and blood. Chronic connelly cath in place with colonization. GI- cardiac/diabetic diet. Renal- Cr normal. K okay. LA elevated. Repeat LA. doesnt appear overloaded. will give small trial of IVF and reassess. Chronic connelly in place. Heme- anemia, hg stable. plt stable. cont asa. Endo- fingersticks. cont metformin. Musculsk- into chair with assisstance, oob to chair. fall prec. asp prec. Wounds- wound care to bilateral heel ulcers. Nutrition- cardiac/diabetic diet. DVT prophylaxis: - GI prophylaxis: - Connelly Cathetor: chronic connelly Disposition: stable for medical floor Expected length of stay>2 midnights. Code Status: full code Randy Leung MD Director Of Radio Services (Electronically Signed)
[2017-08-05] MEDS ORDERED: NS 0.9% 1000 ML* 1,000 ML IV SCH (19:00)
[2017-08-05] MEDS ORDERED: oxyCODONE/Acetamin 5/325 MG* TAB ONE (20:22)
[2017-08-05] MEDS ORDERED: NS 0.9% 1000 ML* 500 ML IV ONE (22:00)
[2017-08-05] MEDS: NS 0.9% 1000 ML* 1,000 ML IV SCH (22:18)
[2017-08-05] MEDS: Piperacillin/Tazobac ADVAN(*) 3.375 GM in NS 0.9% 100 ML* 100 ML IVPB SCH (23:22)
[2017-08-05] MEDS: Atorvastatin* 40 MG TAB PO SCH (23:24)
[2017-08-05] MEDS: Hydroxychloroquine TAB* 200 MG PO SCH (23:24)
[2017-08-05] MEDS: metFORMIN* 1,000 MG TAB PO SCH (23:25)
[2017-08-05] MEDS: predniSONE TAB* 10 MG PO SCH (23:25)
[2017-08-05] MEDS: Heparin VIAL(*) 5000 UNITS/ML VIAL (FIVE THOUSAND) SUBCUT SCH (23:26)
[2017-08-06] MEDS: oxyCODONE TAB* 5 MG TAB PO PRN ×4 (00:19→20:49)
[2017-08-06] MEDS: oxyCODONE/Acetamin 5/325 MG* TAB PO PRN ×4 (00:49→20:49)
[2017-08-06] MEDS: NS 0.9% 1000 ML* 1,000 ML IV SCH (03:43)
[2017-08-06] MEDS ORDERED: NS 0.9% 1000 ML* 1,000 ML IV SCH (04:00)
[2017-08-06 05:22] LABS: ABS Basophils 0 10^3/ul (0-0.2); ABS Eosinophils 0 10^3/ul (0-0.6); ABS Lymphocytes 0.5 10^3/ul (1.0-4.8); ABS Monocytes 0.3 10^3/ul (0-0.8); ABS Neutrophils 9.9 10^3/ul (1.5-7.7); ABS Nucleated RBC 0 10^3/ul; Eosinophil % 0.1 % (0-6); Hematocrit 27 % (42-52); Hemoglobin 8.5 g/dl (14.0-18.0); Lymphocyte % 4.8 % (25-47); Mean Corpuscular HGB Conc 31 g/dl (31-36); Mean Corpuscular Hemoglobin 22 pg (27-31); Mean Platelet Volume 7 um3 (7.4-10.4); Nucleated Red Blood Cells % 0; Platelet Count 419 10^3/ul (150-450); Red Blood Count 3.88 10^6/ul (4.0-5.4); Red Cell Distribution Width 18 % (10.5-15); White Blood Count 10.8 10^3/ul (3.5-10.8)
[2017-08-06 05:23] LABS: Mean Corpuscular Volume 70 fL (80-94)
[2017-08-06 05:42] LABS: EGFR Non-African American 95.8 (>60)
[2017-08-06] MEDS: Piperacillin/Tazobac ADVAN(*) 3.375 GM in NS 0.9% 100 ML* 100 ML IVPB SCH ×3 (06:06→21:15)
--- NOTE | 2017-08-06 08:07 | RAD ---
INDICATION: Left-sided pneumothorax COMPARISON: Most recent chest x-ray is dated August 05, 2017 TECHNIQUE: PA and lateral views of the chest were obtained. FINDINGS: Evaluation is limited due to sitting position and apparent poor inspiratory effort. Stable postoperative findings include a 2-lead cardiac pacemaker, sternotomy wires and spinal hardware. The heart and mediastinum are normal in size and contour. Questionable appearance of a left-sided pneumothorax is similar to the prior chest x-ray. There is density obscuring the bilateral lung bases more severe on the left than the right. There is left costophrenic angle blunting readily apparent on the lateral view chest x-ray. The pulmonary vascular is engorged and indistinct. Visualized bones are normal for the patient's age. There is no radiographic evidence of free air beneath the diaphragm IMPRESSION: 1. QUESTIONABLE SMALL LEFT-SIDED PNEUMOTHORAX SIMILAR IN APPEARANCE TO THE PRIOR CHEST X-RAY. SUPERIOR EVALUATION CAN BE MADE WITH INSPIRATORY AND EXPIRATORY CHEST X-RAY, PREFERABLY WITH THE HEAD RAISED AND IN THE STANDING POSITION. 2. CHEST X-RAY FINDINGS COULD BE SEEN IN THE SETTING OF CONGESTIVE HEART FAILURE WITH LIKELY PLEURAL EFFUSION AT THE LEFT LUNG BASE.
[2017-08-06] MEDS: Omeprazole CAP* 20 MG PO SCH (08:17)
[2017-08-06] MEDS: metFORMIN* 1,000 MG TAB PO SCH ×2 (08:17→21:10)
[2017-08-06] MEDS: Cyanocobalamin TAB* 500 MCG PO SCH (08:18)
[2017-08-06] MEDS: Calcium Carbonate TAB* 1250 MG (CALCIUM 500 MG) PO SCH (08:18)
[2017-08-06] MEDS ORDERED: CHOLECALCIFEROL 50000 UNIT PO SCH (09:00)
[2017-08-06] MEDS: Hydroxychloroquine TAB* 200 MG PO SCH ×2 (09:11→21:09)
--- NOTE | 2017-08-06 13:37 | ED ---
Mathew Kruse Angela, scribed for Damian Amezcua MD on 08/05/17 at 1438 . Shortness of Breath - HPI Summary HPI Summary: This pt is a 67 y/o male presenting to [facility] c/o SOB and left sided pain. He notes his pain is on the side where his chest tube site used to be, which has been removed on 07/29/17. Pt reports he was in the ED 1 week ago for pneumonia and pleural effusion. Pt was admitted to [facility] on 07/25/17 and was discharged on 07/29/17. Per , he has had a decreased amount of bowel movements in the last 4 days. also notes the pt has had decreased appetite. - History of Current Complaint Chief Complaint: EDShortnessOfBreath Time Seen by Provider: 08/05/17 14:35 Hx Obtained From: Patient Onset/Duration: Lasting Days, Still Present Timing: Constant Current Severity: Moderate Dyspnea At: Rest - Allergy/Home Medications Allergies/Adverse Reactions: Allergies Allergy/AdvReac Type Severity Reaction Status Date / Time Fentanyl AdvReac Intermediate Blisters Verified 08/05/17 13:43 elequis Allergy See Comment Uncoded 08/05/17 13:44 Home Medications: Home Medications Aspirin EC Low Dose* [Ecotrin EC Low Dose 81 MG*] 81 mg PO EVERY OTHER DAY 08/05 [History Confirmed 08/05/17] Calcium Carbonate TAB* 600 mg PO DAILY 08/05/17 [History Confirmed 08/05/17] Cholecalciferol TAB* [Vitamin D TAB*] 50,000 unit PO WEEKLY 08/05/17 [History Confirmed 08/05/17] PMH/Surg Hx/FS Hx/Imm Hx Endocrine/Hematology History: Reports: Hx Blood Transfusions, Hx Diabetes, Hx Anemia, Hx Unexplained Bleeding Denies: Hx Anticoagulant Therapy, Hx Bone Marrow Disease, Hx Systemic Lupus Erythematosus, Hx Sickle Cell Disease, Hx Thyroid Disease, Other Endocrine/ Hematological Disorders Cardiovascular History: Reports: Hx Coronary Artery Disease, Hx Deep Vein Thrombosis, Hx Hypercholesterolemia, Hx Hypertension, Hx Pacemaker/ICD, Hx Peripheral Vascular Disease, Hx Valvular Heart Disease, Other Cardiovascular Problems/Disorders - Sick sinus syndrome Denies: Hx Angina, Hx Congestive Heart Failure, Hx Myocardial Infarction Respiratory History: Reports: Hx Pneumonia, Hx Pulmonary Embolism, Other Respiratory Problems/Disorders - RESP FAILURE Denies: Hx Asthma, Hx Chronic Obstructive Pulmonary Disease (COPD) GI History: Reports: Hx Gastroesophageal Reflux Disease, Hx Gastrointestinal Bleed, Hx Hiatal Hernia, Other GI Disorders - DIARRHEA- SINCE HAS BEEN ON [employer] IF IN SOUND SLEEP History: Reports: Other Problems/Disorders - chronic connelly, neurogenic bladder Denies: Hx Acute Renal Failure, Hx Benign Prostatic Hyperplasia, Hx Chronic Renal Failure, Hx Dialysis, Hx Kidney Infection, Hx Kidney Stones, Hx Renal Disease Musculoskeletal History: Reports: Hx Arthritis, Hx Back Problems, Other Musculoskeletal History - WHEELCHAIR Sensory History: Reports: Hx Contacts or Glasses - reading glasses Denies: Hx Hearing Aid Opthamlomology History: Reports: Hx Contacts or Glasses - reading glasses Neurological History: Reports: Hx Spinal Cord Injury - spinal stenosis, Other Neuro Impairments/Disorders - Cauda equina syndrome Psychiatric History: Denies: Hx Anxiety - Cancer History Cancer Type, Location and Year: Bone cancer (clavical and shoulder)- 2017. Skin cancer left healed. Also left forehead, ear and ruiz Hx Chemotherapy: No Hx Radiation Therapy: No - Surgical History Surgery Procedure, Year, and Place: Inguinal hernia repair. Cervical spine fusion. Lumbar spine fusion. CABG, 11/2013. Pacemaker implantation Hx Anesthesia Reactions: No Infectious Disease History: Unable to Obtain/Confirm Infectious Disease History: Reports: Hx Shingles - Mid 2013 Denies: Hx Clostridium Difficile, Hx Hepatitis, Hx Human Immunodeficiency Virus (HIV), Hx of Known/Suspected MRSA, Hx Tuberculosis, Traveled Outside the [place] in Last 30 Days - Family History Known Family History: Positive: Cardiac Disease - Social History Alcohol Use: None Hx Substance Use: No Substance Use Type: Reports: None Hx Tobacco Use: Yes Smoking Status (MU): Former Smoker Type: Cigarettes Amount Used/How Often: 1 PPD X 10 YEARS Length of Time of Smoking/Using Tobacco: 10 years Have You Smoked in the Last Year: No Review of Systems Constitutional: Other - decreased appetite Negative: Fever, Chills Eyes: Negative ENT: Negative Positive: Shortness Of Breath Gastrointestinal: Other - decreased amount of bowel movements Musculoskeletal: Other - pain on the left side All Other Systems Reviewed And Are Negative: Yes Physical Exam - Summary Physical Exam Summary: Appearance: The patient is well-nourished in no acute distress. Skin: The skin is warm and dry and skin color reflects adequate perfusion. HEENT: The head is normocephalic and atraumatic. The pupils are equal and reactive. The conjunctivae are clear and without drainage. Nares are patent and without drainage. Mouth reveals moist mucous membranes and the throat is without erythema and exudate. The external ears are intact. The ear canals are patent and without drainage. The tympanic membranes are intact. Neck: the neck is supple with full range of motion and non-tender. There are no carotid bruits. There is no neck vein distension. Respiratory: Chest is non-tender. There is a lot of "gurgling" sounds on the left. Cardiovascular: Heart is regular rate and rhythm. There is no murmur or rub auscultated. There is no peripheral edema and pulses are symmetrical and equal. Abdomen: The abdomen is soft and non-tender. There are normal bowel sounds heard in all four quadrants and there is no organomegaly palpated. Musculoskeletal: There is no back tenderness noted. Extremities are non-tender with full range of motion. There is good capillary refill. There is no peripheral edema or calf tenderness elicited. Neurological: Patient is alert and oriented to person, place and time. The patient has symmetrical motor strength in all four extremities. Cranial nerves are grossly intact. Deep tendon reflexes are symmetrical and equal in all four extremities. Psychiatric: The patient has an appropriate affect and does not exhibit any anxiety or depression. Triage Information Reviewed: Yes Vital Signs On Initial Exam: Initial Vitals Temp Pulse Resp BP Pulse Ox 97.5 F 74 26 91/59 93 08/05/17 13:38 08/05/17 13:38 08/05/17 13:38 08/05/17 13:38 08/05/17 13:38 Vital Signs Reviewed: Yes Diagnostics - Vital Signs Vital Signs Temp Pulse Resp BP Pulse Ox 08/05/17 13:38 97.5 F 74 26 91/59 93 - Laboratory Lab Results: Lab Results 08/05/17 08/05/17 08/05/17 Range/Units 15:10 15:10 15:10 WBC 13.5 H (3.5-10.8) 10^3/ul RBC 4.43 (4.0-5.4) 10^6/ul Hgb 9.6 L (14.0-18.0) g/dl Hct 32 L (42-52) % MCV 72 L (80-94) fL MCH 22 L (27-31) pg MCHC 30 L (31-36) g/dl RDW 18 H (10.5-15) % Plt Count 483 H D (150-450) 10^3/ul MPV 7 L (7.4-10.4) um3 Neut % (Auto) 89.7 H (38-83) % Lymph % (Auto) 5.1 L (25-47) % Larue % (Auto) 4.2 (1-9) % Eos % (Auto) 0.7 (0-6) % Baso % (Auto) 0.3 (0-2) % Absolute Neuts (auto) 12.1 H (1.5-7.7) 10^3/ul Absolute Lymphs (auto) 0.7 L (1.0-4.8) 10^3/ul Absolute Monos (auto) 0.6 (0-0.8) 10^3/ul Absolute Eos (auto) 0.1 (0-0.6) 10^3/ul Absolute Basos (auto) 0 (0-0.2) 10^3/ul Absolute Nucleated RBC 0 10^3/ul Nucleated RBC % 0 INR (Anticoag Therapy) 1.12 H (0.77-1.02) Sodium 133 (133-145) mmol/L Potassium 4.3 (3.5-5.0) mmol/L Chloride 101 (101-111) mmol/L Carbon Dioxide 24 (22-32) mmol/L Anion Gap 8 (2-11) mmol/L BUN 21 (6-24) mg/dL Creatinine 0.93 (0.67-1.17) mg/dL Est GFR ( Amer) 103.6 (>60) Est GFR (Non-Af Amer) 80.6 (>60) BUN/Creatinine Ratio 22.6 H (8-20) Glucose 107 H (70-100) mg/dL Lactic Acid (0.5-2.0) mmol/L Calcium 10.4 H (8.6-10.3) mg/dL Total Bilirubin 0.30 (0.2-1.0) mg/dL AST 14 (13-39) U/L ALT 7 (7-52) U/L Alkaline Phosphatase 131 H (34-104) U/L Troponin I 0.08 H* (<0.04) ng/mL B-Natriuretic Peptide ( - 100) pg/mL Total Protein 6.5 (6.4-8.9) g/dL Albumin 2.8 L (3.2-5.2) g/dL Globulin 3.7 (2-4) g/dL Albumin/Globulin Ratio 0.8 L (1-3) 08/05/17 08/05/17 08/05/17 Range/Units 15:10 15:10 20:20 WBC (3.5-10.8) 10^3/ul RBC (4.0-5.4) 10^6/ul Hgb (14.0-18.0) g/dl Hct (42-52) % MCV (80-94) fL MCH (27-31) pg MCHC (31-36) g/dl RDW (10.5-15) % Plt Count (150-450) 10^3/ul MPV (7.4-10.4) um3 Neut % (Auto) (38-83) % Lymph % (Auto) (25-47) % Larue % (Auto) (1-9) % Eos % (Auto) (0-6) % Baso % (Auto) (0-2) % Absolute Neuts (auto) (1.5-7.7) 10^3/ul Absolute Lymphs (auto) (1.0-4.8) 10^3/ul Absolute Monos (auto) (0-0.8) 10^3/ul Absolute Eos (auto) (0-0.6) 10^3/ul Absolute Basos (auto) (0-0.2) 10^3/ul Absolute Nucleated RBC 10^3/ul Nucleated RBC % INR (Anticoag Therapy) (0.77-1.02) Sodium (133-145) mmol/L Potassium (3.5-5.0) mmol/L Chloride (101-111) mmol/L Carbon Dioxide (22-32) mmol/L Anion Gap (2-11) mmol/L BUN (6-24) mg/dL Creatinine (0.67-1.17) mg/dL Est GFR ( Amer) (>60) Est GFR (Non-Af Amer) (>60) BUN/Creatinine Ratio (8-20) Glucose (70-100) mg/dL Lactic Acid 3.6 H* 2.5 H* (0.5-2.0) mmol/L Calcium (8.6-10.3) mg/dL Total Bilirubin (0.2-1.0) mg/dL AST (13-39) U/L ALT (7-52) U/L Alkaline Phosphatase (34-104) U/L Troponin I (<0.04) ng/mL B-Natriuretic Peptide 171 H ( - 100) pg/mL Total Protein (6.4-8.9) g/dL Albumin (3.2-5.2) g/dL Globulin (2-4) g/dL Albumin/Globulin Ratio (1-3) 12/18/17 Range/Units 20:20 WBC (3.5-10.8) 10^3/ul RBC (4.0-5.4) 10^6/ul Hgb (14.0-18.0) g/dl Hct (42-52) % MCV (80-94) fL MCH (27-31) pg MCHC (31-36) g/dl RDW (10.5-15) % Plt Count (150-450) 10^3/ul MPV (7.4-10.4) um3 Neut % (Auto) (38-83) % Lymph % (Auto) (25-47) % Larue % (Auto) (1-9) % Eos % (Auto) (0-6) % Baso % (Auto) (0-2) % Absolute Neuts (auto) (1.5-7.7) 10^3/ul Absolute Lymphs (auto) (1.0-4.8) 10^3/ul Absolute Monos (auto) (0-0.8) 10^3/ul Absolute Eos (auto) (0-0.6) 10^3/ul Absolute Basos (auto) (0-0.2) 10^3/ul Absolute Nucleated RBC 10^3/ul Nucleated RBC % INR (Anticoag Therapy) (0.77-1.02) Sodium (133-145) mmol/L Potassium (3.5-5.0) mmol/L Chloride (101-111) mmol/L Carbon Dioxide (22-32) mmol/L Anion Gap (2-11) mmol/L BUN (6-24) mg/dL Creatinine (0.67-1.17) mg/dL Est GFR ( Amer) (>60) Est GFR (Non-Af Amer) (>60) BUN/Creatinine Ratio (8-20) Glucose (70-100) mg/dL Lactic Acid (0.5-2.0) mmol/L Calcium (8.6-10.3) mg/dL Total Bilirubin (0.2-1.0) mg/dL AST (13-39) U/L ALT (7-52) U/L Alkaline Phosphatase (34-104) U/L Troponin I 0.07 H* (<0.04) ng/mL B-Natriuretic Peptide ( - 100) pg/mL Total Protein (6.4-8.9) g/dL Albumin (3.2-5.2) g/dL Globulin (2-4) g/dL Albumin/Globulin Ratio (1-3) Result Diagrams: 08/06/17 04:59 08/06/17 04:59 Lab Statement: Any lab studies that have been ordered have been reviewed, and results considered in the medical decision making process. - Radiology Chest XR Xray Interpretation: Positive (See Comments) - IMPRESSION: 1. Findings most consistent with congestive heart failure. 2. Possible small left apical pneumothorax. Dr. Amezcua has reviewed this radiology report. Radiology Interpretation Completed By: Radiologist - EKG 15:34 Cardiac Rate: NL EKG Rhythm: Sinus Rhythm - at 68 bpm EKG Interpretation: T-wave inversion in anterolateral leads, suggestive of ischemia. Course/Dx - Course Course Of Treatment: Mr. Rangel has not been doing well since D/C with a gradual decline. His W/U here was equivocal with a suggestion both of pneumonia and possible CHF. Clinically he looks more like pneumonia and is being admitted to the hospitalist service. - Diagnoses Provider Diagnoses: Weakness, Pneumonia Discharge - Discharge Plan Condition: Stable Disposition: ADMITTED TO [facility] The documentation as recorded by the Mathew garcia Angela accurately reflects the service I personally performed and the decisions made by , Damian Amezcua MD.
--- NOTE | 2017-08-06 14:16 | CONS ---
PULMONARY CONSULTATION REPORT: DATE OF CONSULTATION: 08/06/17. CONSULTATION REQUESTED BY: Dr. Randy Leung. REASON FOR CONSULTATION: Evaluation of left pneumothorax. HISTORY OF PRESENT ILLNESS: The patient is a 67-year-old male with a history of multiple medical problems including diabetes, anemia, coronary artery disease , status post CABG in 2013, PE, DVT, hypertension, sick sinus syndrome, status post pacemaker and AICD placement, PVD, AFib, GI bleed, GERD, neurogenic bladder , status post chronic Beckman, spinal stenosis and cauda equina, bedbound and wheelchair bound, bilateral heel ulcers, ex-smoker, who was admitted to the hospital on 08/04/17 for evaluation of pneumonia, respiratory failure, sepsis, was found to have large left effusion and moderate right effusion, status post chest tube placement. He was also found to have a UTI secondary to klebsiella, enterococcus, pseudomonas and also was found to have Klebsiella pneumoniae with positive cultures. Given the size of the effusion, he underwent chest tube placement. Fluid was found to be exudative with protein criteria. Cytology was negative for malignant cells. Chest tube was removed on 07/29/17 and the patient was discharged home. The patient returns for evaluation of worsening fatigue and generalized weakness. The patient denies fevers, chills. The patient reports decreased appetite. The patient denies abdominal pain, diarrhea. He denies shortness of breath, chest pain, palpitations. He has chronic cough with mild clear sputum production, which is unchanged. The patient was found to have elevated white count and was admitted for possible sepsis. The patient's chest x-ray was personally reviewed by me. The patient noted to have mild vascular congestion and left-sided air space opacity and small apical pneumothorax, apical pneumothorax was also seen on his prior x- rays from 07/26 and 07/29. The patient had chest tube pulled on 07/29, did not have follow up chest x-rays around that time. PAST MEDICAL HISTORY: As described above with diabetes, anemia, coronary artery disease, status post CABG in 2013, AFib, sick sinus, status post pacemaker/AICD, hypertension, dyslipidemia, neurogenic bladder, status post chronic Beckman, spinal stenosis and cauda equina with paraplegia and is wheelchair and bedbound, bilateral nonhealing heel ulcers. PAST SURGICAL HISTORY: CABG in 2013, inguinal hernia repair, cervical spinal fusion, lumbar spinal fusion, PPM implantation. MEDICATIONS AT HOME: 1. Hydroxychloroquine. 2. Oxycodone. 3. Prednisone 10 mg. 4. Omeprazole. 5. Diazepam. 6. Iron. 7. Atorvastatin. 8. Metoprolol. 9. Cyanocobalamin. 10. Multivitamins. 11. Metformin. 12. Collagenase. 13. Aspirin. 14. Calcium carbonate. 15. Cholecalciferol. ALLERGIES: FENTANYL, ELIQUIS. FAMILY HISTORY: Cardiac disease in the family. SOCIAL HISTORY: Ex-smoker, one pack per day for 10 years, no drug or alcohol abuse. REVIEW OF SYSTEMS: All 14-systems reviewed and as per HPI. PHYSICAL EXAM: The patient in bed, in no apparent distress, alert, awake and oriented x3. Vital Signs: Temperature 98.2, pulse 80 beats per minute, respiratory rate 20 per minute, O2 sat 93% to 96% on room air, blood pressure 132/66. HEENT: Pupils equal, reactive to light, mucous membranes moist. Lungs : Good air entry bilaterally. No crackles on auscultation. Cardiovascular: S1 , S2 present, regular. Abdomen: Soft, bowel sounds present, nontender, nondistended. Musculoskeletal: Bilateral heels in dressing, chronic ulcers. Neurological: Alert, awake, and oriented, able to move upper extremities with good strength, decreased strength in lower extremities. Skin: Ulcers in bilateral heels. DIAGNOSTIC STUDIES/LAB DATA: WBC 10.8, decreased from 13.5 yesterday; hemoglobin 8.5, hematocrit 27, platelet count 419. Sodium 125, potassium 4.3, chloride 97, bicarb 24, BUN 24, creatinine 0.8, lactic acid 2.5, troponin 0.07. Chest x-ray as described above in HPI. IMPRESSION AND RECOMMENDATIONS: 67-year-old male with multiple medical problems recently admitted for bilateral pleural effusions, status post chest tube placement with urinary tract infection, pneumonia. The patient with small left apical pneumothorax, which was actually seen on prior x-rays, prior CT did not reveal any pneumothorax. The patient is asymptomatic with the pneumothorax. He will have follow up chest x-ray this morning. If chest x-ray shows stable left apical pneumothorax, no other intervention is necessary. Does not appear like the patient has recurrence of pleural effusion. He did have mild pulmonary vascular congestion. The patient with signs of sepsis, lactate elevated. He is on Zosyn for empiric coverage. Troponins mildly elevated likely secondary to sepsis, will need to follow up. Rest of management as per primary team. [id number]/[facility] #: [id number] LEA
[2017-08-06] MEDS: Heparin VIAL(*) 5000 UNITS/ML VIAL (FIVE THOUSAND) SUBCUT SCH ×2 (14:46→21:21)
--- NOTE | 2017-08-06 16:21 | PN ---
Subjective Date of Service: 08/06/17 Interval History: Seen and examined Feels better this AM Denies SOB/CP, N/V Was unwilling to let nursing manage his LE wounds but reports he will be willing if they return Objective Active Medications: Aspirin (Aspirin Ec Low Dose*) 81 mg PO EVERY OTHER DAY [facility] Atorvastatin Calcium (Lipitor*) 40 mg PO 2100 [facility] Last Admin: 08/05/17 23:24 Dose: 40 mg Calcium Carbonate (Calcium Carbonate Tab*) 1,250 mg PO DAILY [facility] Last Admin: 08/06/17 08:18 Dose: 1,250 mg Cyanocobalamin (Vitamin B12 Tab*) 1,000 mcg PO DAILY [facility] Last Admin: 08/06/17 08:18 Dose: 1,000 mcg Heparin Sodium (Porcine) (Heparin Vial(*)) 5,000 units SUBCUT Q12HR [facility] Last Admin: 08/06/17 14:46 Dose: Not Given Hydroxychloroquine Sulfate (Plaquenil Tab*) 200 mg PO BID [facility] Last Admin: 08/06/17 09:11 Dose: 200 mg Piperacillin Sod/Tazobactam (Sod 3.375 gm/ Sodium Chloride) 100 mls @ 25 mls/ hr IVPB Q8H [facility] Last Admin: 08/06/17 14:47 Dose: 25 mls/hr Metformin HCl (Glucophage*) 1,000 mg PO QAM [facility] Last Admin: 08/06/17 08:17 Dose: 1,000 mg Metformin HCl (Glucophage*) 1,500 mg PO BEDTIME [facility] Last Admin: 08/05/17 23:25 Dose: 1,500 mg Non Formulary Med 1 Dose Dose ( Cholecaliciferol 50, 000 Units) 50,000 dose PO WEEKLY [facility] Omeprazole (Prilosec Cap*) 40 mg PO DAILY [facility] Last Admin: 08/06/17 08:17 Dose: 40 mg Oxycodone HCl (Roxycodone Tab*) 5 mg PO Q6H PRN PRN Reason: PAIN Last Admin: 08/06/17 14:45 Dose: 5 mg Oxycodone/Acetaminophen (Percocet 5/325 Tab*) 1 tab PO Q6H PRN PRN Reason: PAIN Last Admin: 08/06/17 14:44 Dose: 1 tab Prednisone (Deltasone Tab*) 10 mg PO BEDTIME [facility] Last Admin: 08/05/17 23:25 Dose: 10 mg Vital Signs - 8 hr 08/06/17 08/06/17 08/06/17 08:34 11:50 14:44 Temperature 98.5 F Pulse Rate 91 Respiratory 20 20 16 Rate Blood Pressure 132/62 (mmHg) O2 Sat by Pulse 94 Oximetry 08/06/17 14:45 Temperature Pulse Rate Respiratory 16 Rate Blood Pressure (mmHg) O2 Sat by Pulse Oximetry Oxygen Devices in Use Now: None Appearance: older than stated age, NAD Eyes: No Scleral Icterus, PERRLA Ears/Nose/Mouth/Throat: Clear Oropharnyx Neck: NL Appearance and Movements; NL JVP, Trachea Midline Respiratory: Symmetrical Chest Expansion and Respiratory Effort, - - rales left base up 1/2 Cardiovascular: RRR Abdominal: NL Sounds; No Tenderness; No Distention, No Hepatosplenomegaly Lymphatic: No Cervical Adenopathy Extremities: No Edema Skin: - - bitemporal chronic ulcers, b/l LE ulcers wrapped Neurological: Alert and Oriented x 3 Result Diagrams: 08/06/17 04:59 08/06/17 04:59 Additional Lab and Data: Lab Results 08/05/17 08/05/17 08/05/17 Range/Units 15:10 15:10 15:10 WBC 13.5 H (3.5-10.8) 10^3/ul RBC 4.43 (4.0-5.4) 10^6/ul Hgb 9.6 L (14.0-18.0) g/dl Hct 32 L (42-52) % MCV 72 L (80-94) fL MCH 22 L (27-31) pg MCHC 30 L (31-36) g/dl RDW 18 H (10.5-15) % Plt Count 483 H D (150-450) 10^3/ul MPV 7 L (7.4-10.4) um3 Neut % (Auto) 89.7 H (38-83) % Lymph % (Auto) 5.1 L (25-47) % [place] % (Auto) 4.2 (1-9) % Eos % (Auto) 0.7 (0-6) % Baso % (Auto) 0.3 (0-2) % Absolute Neuts (auto) 12.1 H (1.5-7.7) 10^3/ul Absolute Lymphs (auto) 0.7 L (1.0-4.8) 10^3/ul Absolute Monos (auto) 0.6 (0-0.8) 10^3/ul Absolute Eos (auto) 0.1 (0-0.6) 10^3/ul Absolute Basos (auto) 0 (0-0.2) 10^3/ul Absolute Nucleated RBC 0 10^3/ul Nucleated RBC % 0 INR (Anticoag Therapy) 1.12 H (0.77-1.02) Sodium 133 (133-145) mmol/L Potassium 4.3 (3.5-5.0) mmol/L Chloride 101 (101-111) mmol/L Carbon Dioxide 24 (22-32) mmol/L Anion Gap 8 (2-11) mmol/L BUN 21 (6-24) mg/dL Creatinine 0.93 (0.67-1.17) mg/dL Est GFR ( Amer) 103.6 (>60) Est GFR (Non-Af Amer) 80.6 (>60) BUN/Creatinine Ratio 22.6 H (8-20) Glucose 107 H (70-100) mg/dL Lactic Acid (0.5-2.0) mmol/L Calcium 10.4 H (8.6-10.3) mg/dL Total Bilirubin 0.30 (0.2-1.0) mg/dL AST 14 (13-39) U/L ALT 7 (7-52) U/L Alkaline Phosphatase 131 H (34-104) U/L Troponin I 0.08 H* (<0.04) ng/mL B-Natriuretic Peptide ( - 100) pg/mL Total Protein 6.5 (6.4-8.9) g/dL Albumin 2.8 L (3.2-5.2) g/dL Globulin 3.7 (2-4) g/dL Albumin/Globulin Ratio 0.8 L (1-3) 08/05/17 08/05/17 08/05/17 Range/Units 15:10 15:10 20:20 WBC (3.5-10.8) 10^3/ul RBC (4.0-5.4) 10^6/ul Hgb (14.0-18.0) g/dl Hct (42-52) % MCV (80-94) fL MCH (27-31) pg MCHC (31-36) g/dl RDW (10.5-15) % Plt Count (150-450) 10^3/ul MPV (7.4-10.4) um3 Neut % (Auto) (38-83) % Lymph % (Auto) (25-47) % [place] % (Auto) (1-9) % Eos % (Auto) (0-6) % Baso % (Auto) (0-2) % Absolute Neuts (auto) (1.5-7.7) 10^3/ul Absolute Lymphs (auto) (1.0-4.8) 10^3/ul Absolute Monos (auto) (0-0.8) 10^3/ul Absolute Eos (auto) (0-0.6) 10^3/ul Absolute Basos (auto) (0-0.2) 10^3/ul Absolute Nucleated RBC 10^3/ul Nucleated RBC % INR (Anticoag Therapy) (0.77-1.02) Sodium (133-145) mmol/L Potassium (3.5-5.0) mmol/L Chloride (101-111) mmol/L Carbon Dioxide (22-32) mmol/L Anion Gap (2-11) mmol/L BUN (6-24) mg/dL Creatinine (0.67-1.17) mg/dL Est GFR ( Amer) (>60) Est GFR (Non-Af Amer) (>60) BUN/Creatinine Ratio (8-20) Glucose (70-100) mg/dL Lactic Acid 3.6 H* 2.5 H* (0.5-2.0) mmol/L Calcium (8.6-10.3) mg/dL Total Bilirubin (0.2-1.0) mg/dL AST (13-39) U/L ALT (7-52) U/L Alkaline Phosphatase (34-104) U/L Troponin I (<0.04) ng/mL B-Natriuretic Peptide 171 H ( - 100) pg/mL Total Protein (6.4-8.9) g/dL Albumin (3.2-5.2) g/dL Globulin (2-4) g/dL Albumin/Globulin Ratio (1-3) 12/18/17 Range/Units 20:20 WBC (3.5-10.8) 10^3/ul RBC (4.0-5.4) 10^6/ul Hgb (14.0-18.0) g/dl Hct (42-52) % MCV (80-94) fL MCH (27-31) pg MCHC (31-36) g/dl RDW (10.5-15) % Plt Count (150-450) 10^3/ul MPV (7.4-10.4) um3 Neut % (Auto) (38-83) % Lymph % (Auto) (25-47) % [place] % (Auto) (1-9) % Eos % (Auto) (0-6) % Baso % (Auto) (0-2) % Absolute Neuts (auto) (1.5-7.7) 10^3/ul Absolute Lymphs (auto) (1.0-4.8) 10^3/ul Absolute Monos (auto) (0-0.8) 10^3/ul Absolute Eos (auto) (0-0.6) 10^3/ul Absolute Basos (auto) (0-0.2) 10^3/ul Absolute Nucleated RBC 10^3/ul Nucleated RBC % INR (Anticoag Therapy) (0.77-1.02) Sodium (133-145) mmol/L Potassium (3.5-5.0) mmol/L Chloride (101-111) mmol/L Carbon Dioxide (22-32) mmol/L Anion Gap (2-11) mmol/L BUN (6-24) mg/dL Creatinine (0.67-1.17) mg/dL Est GFR ( Amer) (>60) Est GFR (Non-Af Amer) (>60) BUN/Creatinine Ratio (8-20) Glucose (70-100) mg/dL Lactic Acid (0.5-2.0) mmol/L Calcium (8.6-10.3) mg/dL Total Bilirubin (0.2-1.0) mg/dL AST (13-39) U/L ALT (7-52) U/L Alkaline Phosphatase (34-104) U/L Troponin I 0.07 H* (<0.04) ng/mL B-Natriuretic Peptide ( - 100) pg/mL Total Protein (6.4-8.9) g/dL Albumin (3.2-5.2) g/dL Globulin (2-4) g/dL Albumin/Globulin Ratio (1-3) Assess/Plan/Problems-Billing Assessment: 67 yo M h/o CAD/CAGB, PE/DVT, PP</AICM, afib, neurogenic bladder with chronic indwelling catheter, chronic heel ulcers, with recent admit 2/2 sepsis and respiratory failure secondary to PNA/or UTI with stay notable for effusion returning with increased weakness - Patient Problems (1) Sepsis Comment: sepsis present on admission empiric zosyn cxr indicates potentially resolving PNA Bcx negative for staph but bacteria "resembling staph" suspect contaminant (2) Pneumothorax Comment: monitor appreciate pulm consult repeat CXR tomorrow (3) Diabetes Comment: metformin (4) Neurogenic bladder Comment: Secondary to cauda equina syndrome With chronic indwelling Beckman catheter (5) DVT prophylaxis Comment: HSQ
[2017-08-06] MEDS: Diazepam TAB(*) 5 MG PO PRN (20:49)
[2017-08-06] MEDS: Atorvastatin* 40 MG TAB PO SCH (21:09)
[2017-08-06] MEDS: predniSONE TAB* 10 MG PO SCH (21:09)
[2017-08-07] MEDS: oxyCODONE/Acetamin 5/325 MG* TAB PO PRN ×3 (02:51→20:40)
[2017-08-07] MEDS: oxyCODONE TAB* 5 MG TAB PO PRN ×3 (02:52→20:41)
[2017-08-07 05:15] LABS: ABS Basophils 0.1 10^3/ul (0-0.2); ABS Eosinophils 0 10^3/ul (0-0.6); ABS Lymphocytes 0.7 10^3/ul (1.0-4.8); ABS Monocytes 0.4 10^3/ul (0-0.8); ABS Neutrophils 12.8 10^3/ul (1.5-7.7); ABS Nucleated RBC 0 10^3/ul; Eosinophil % 0.2 % (0-6); Hematocrit 28 % (42-52); Hemoglobin 8.5 g/dl (14.0-18.0); Lymphocyte % 5.4 % (25-47); Mean Corpuscular HGB Conc 30 g/dl (31-36); Mean Corpuscular Hemoglobin 21 pg (27-31); Mean Platelet Volume 7 um3 (7.4-10.4); Nucleated Red Blood Cells % 0; Platelet Count 413 10^3/ul (150-450); Red Cell Distribution Width 18 % (10.5-15)
[2017-08-07 05:18] LABS: Mean Corpuscular Volume 70 fL (80-94)
[2017-08-07 05:47] LABS: EGFR Non-African American 111.8 (>60)
[2017-08-07] MEDS: Piperacillin/Tazobac ADVAN(*) 3.375 GM in NS 0.9% 100 ML* 100 ML IVPB SCH ×2 (05:58→14:22)
[2017-08-07] MEDS: Cyanocobalamin TAB* 500 MCG PO SCH (08:04)
[2017-08-07] MEDS: Hydroxychloroquine TAB* 200 MG PO SCH ×2 (08:05→20:41)
[2017-08-07] MEDS: Calcium Carbonate TAB* 1250 MG (CALCIUM 500 MG) PO SCH (08:05)
[2017-08-07] MEDS: Omeprazole CAP* 20 MG PO SCH (08:05)
[2017-08-07] MEDS: Aspirin EC Low Dose* 81 MG TAB.EC PO SCH (08:05)
[2017-08-07] MEDS: metFORMIN* 1,000 MG TAB PO SCH ×2 (08:05→20:42)
[2017-08-07] MEDS: Heparin VIAL(*) 5000 UNITS/ML VIAL (FIVE THOUSAND) SUBCUT SCH ×2 (08:05→21:41)
--- NOTE | 2017-08-07 09:50 | RAD ---
INDICATION: Pneumothorax. COMPARISON: Comparison is made with prior chest x-ray study from August 06, 2017. TECHNIQUE: A portable view of the chest was obtained. FINDINGS: The heart is mildly enlarged. The patient is status poststernotomy. There is a dual-chamber transvenous pacemaker present. There appears to be a small left apical pneumothorax which appears unchanged. There is diffuse prominence of the interstitial markings and small bilateral pleural effusions which appear unchanged most consistent with congestive heart failure. IMPRESSION: 1. SMALL LEFT APICAL PNEUMOTHORAX, UNCHANGED. 2. CONGESTIVE HEART FAILURE, UNCHANGED.
[2017-08-07] MEDS ORDERED: Furosemide IV* 10 MG/ML 2 ML VIAL (20 MG) IV SLOW PU ONE (11:46)
[2017-08-07] MEDS ORDERED: Nitroglycerin 0.3 MG/HR PATCH* (7.5 MG) TRANSDERM SCH (12:00)
--- NOTE | 2017-08-07 17:13 | PN ---
Subjective Date of Service: 08/07/17 Interval History: Seen and examined with at bedside Feels more SOB since yesterday which agrees with no other complaints Objective Active Medications: Aspirin (Aspirin Ec Low Dose*) 81 mg PO EVERY OTHER DAY [facility] Last Admin: 08/07/17 08:05 Dose: 81 mg Atorvastatin Calcium (Lipitor*) 40 mg PO 2100 [facility] Last Admin: 08/06/17 21:09 Dose: 40 mg Calcium Carbonate (Calcium Carbonate Tab*) 1,250 mg PO DAILY [facility] Last Admin: 08/07/17 08:05 Dose: 1,250 mg Cyanocobalamin (Vitamin B12 Tab*) 1,000 mcg PO DAILY [facility] Last Admin: 08/07/17 08:04 Dose: 1,000 mcg Diazepam (Valium Tab(*)) 5 mg PO Q8H PRN PRN Reason: ANXIETY Last Admin: 08/06/17 20:49 Dose: 5 mg Heparin Sodium (Porcine) (Heparin Vial(*)) 5,000 units SUBCUT Q12HR [facility] Last Admin: 08/07/17 08:05 Dose: Not Given Hydroxychloroquine Sulfate (Plaquenil Tab*) 200 mg PO BID [facility] Last Admin: 08/07/17 08:05 Dose: 200 mg Piperacillin Sod/Tazobactam (Sod 3.375 gm/ Sodium Chloride) 100 mls @ 25 mls/ hr IVPB Q8H [facility] Last Admin: 08/07/17 14:22 Dose: 25 mls/hr Metformin HCl (Glucophage*) 1,000 mg PO QAM [facility] Last Admin: 08/07/17 08:05 Dose: 1,000 mg Metformin HCl (Glucophage*) 1,500 mg PO BEDTIME [facility] Last Admin: 08/06/17 21:10 Dose: 1,500 mg Non Formulary Med 1 Dose Dose ( Cholecaliciferol 50, 000 Units) 50,000 dose PO WEEKLY [facility] Omeprazole (Prilosec Cap*) 40 mg PO DAILY [facility] Last Admin: 08/07/17 08:05 Dose: 40 mg Oxycodone HCl (Roxycodone Tab*) 5 mg PO Q6H PRN PRN Reason: PAIN Last Admin: 08/07/17 14:22 Dose: 5 mg Oxycodone/Acetaminophen (Percocet 5/325 Tab*) 1 tab PO Q6H PRN PRN Reason: PAIN Last Admin: 08/07/17 14:23 Dose: 1 tab Prednisone (Deltasone Tab*) 10 mg PO BEDTIME [facility] Last Admin: 08/06/17 21:09 Dose: 10 mg Vital Signs - 8 hr 08/07/17 08/07/17 08/07/17 11:32 14:22 14:23 Temperature 98.9 F Pulse Rate 119 Respiratory 18 16 16 Rate Blood Pressure 147/90 (mmHg) O2 Sat by Pulse 97 Oximetry 08/07/17 15:16 Temperature 97.3 F Pulse Rate 95 Respiratory 20 Rate Blood Pressure 128/83 (mmHg) O2 Sat by Pulse 98 Oximetry Oxygen Devices in Use Now: Nasal Cannula Appearance: older than stated age, NAD Eyes: No Scleral Icterus, PERRLA Ears/Nose/Mouth/Throat: Mucous Membranes Moist Neck: NL Appearance and Movements; NL JVP, Trachea Midline Respiratory: - - rales in bases Abdominal: NL Sounds; No Tenderness; No Distention, No Hepatosplenomegaly Lymphatic: No Cervical Adenopathy Extremities: - - heels wrapped, no edema Neurological: Alert and Oriented x 3 Result Diagrams: 08/07/17 05:06 08/07/17 05:06 Additional Lab and Data: Lab Results 08/05/17 08/05/17 08/05/17 Range/Units 15:10 15:10 15:10 WBC 13.5 H (3.5-10.8) 10^3/ul RBC 4.43 (4.0-5.4) 10^6/ul Hgb 9.6 L (14.0-18.0) g/dl Hct 32 L (42-52) % MCV 72 L (80-94) fL MCH 22 L (27-31) pg MCHC 30 L (31-36) g/dl RDW 18 H (10.5-15) % Plt Count 483 H D (150-450) 10^3/ul MPV 7 L (7.4-10.4) um3 Neut % (Auto) 89.7 H (38-83) % Lymph % (Auto) 5.1 L (25-47) % [place] % (Auto) 4.2 (1-9) % Eos % (Auto) 0.7 (0-6) % Baso % (Auto) 0.3 (0-2) % Absolute Neuts (auto) 12.1 H (1.5-7.7) 10^3/ul Absolute Lymphs (auto) 0.7 L (1.0-4.8) 10^3/ul Absolute Monos (auto) 0.6 (0-0.8) 10^3/ul Absolute Eos (auto) 0.1 (0-0.6) 10^3/ul Absolute Basos (auto) 0 (0-0.2) 10^3/ul Absolute Nucleated RBC 0 10^3/ul Nucleated RBC % 0 INR (Anticoag Therapy) 1.12 H (0.77-1.02) Sodium 133 (133-145) mmol/L Potassium 4.3 (3.5-5.0) mmol/L Chloride 101 (101-111) mmol/L Carbon Dioxide 24 (22-32) mmol/L Anion Gap 8 (2-11) mmol/L BUN 21 (6-24) mg/dL Creatinine 0.93 (0.67-1.17) mg/dL Est GFR ( Amer) 103.6 (>60) Est GFR (Non-Af Amer) 80.6 (>60) BUN/Creatinine Ratio 22.6 H (8-20) Glucose 107 H (70-100) mg/dL Lactic Acid (0.5-2.0) mmol/L Calcium 10.4 H (8.6-10.3) mg/dL Total Bilirubin 0.30 (0.2-1.0) mg/dL AST 14 (13-39) U/L ALT 7 (7-52) U/L Alkaline Phosphatase 131 H (34-104) U/L Troponin I 0.08 H* (<0.04) ng/mL B-Natriuretic Peptide ( - 100) pg/mL Total Protein 6.5 (6.4-8.9) g/dL Albumin 2.8 L (3.2-5.2) g/dL Globulin 3.7 (2-4) g/dL Albumin/Globulin Ratio 0.8 L (1-3) 08/05/17 08/05/17 08/05/17 Range/Units 15:10 15:10 20:20 WBC (3.5-10.8) 10^3/ul RBC (4.0-5.4) 10^6/ul Hgb (14.0-18.0) g/dl Hct (42-52) % MCV (80-94) fL MCH (27-31) pg MCHC (31-36) g/dl RDW (10.5-15) % Plt Count (150-450) 10^3/ul MPV (7.4-10.4) um3 Neut % (Auto) (38-83) % Lymph % (Auto) (25-47) % [place] % (Auto) (1-9) % Eos % (Auto) (0-6) % Baso % (Auto) (0-2) % Absolute Neuts (auto) (1.5-7.7) 10^3/ul Absolute Lymphs (auto) (1.0-4.8) 10^3/ul Absolute Monos (auto) (0-0.8) 10^3/ul Absolute Eos (auto) (0-0.6) 10^3/ul Absolute Basos (auto) (0-0.2) 10^3/ul Absolute Nucleated RBC 10^3/ul Nucleated RBC % INR (Anticoag Therapy) (0.77-1.02) Sodium (133-145) mmol/L Potassium (3.5-5.0) mmol/L Chloride (101-111) mmol/L Carbon Dioxide (22-32) mmol/L Anion Gap (2-11) mmol/L BUN (6-24) mg/dL Creatinine (0.67-1.17) mg/dL Est GFR ( Amer) (>60) Est GFR (Non-Af Amer) (>60) BUN/Creatinine Ratio (8-20) Glucose (70-100) mg/dL Lactic Acid 3.6 H* 2.5 H* (0.5-2.0) mmol/L Calcium (8.6-10.3) mg/dL Total Bilirubin (0.2-1.0) mg/dL AST (13-39) U/L ALT (7-52) U/L Alkaline Phosphatase (34-104) U/L Troponin I (<0.04) ng/mL B-Natriuretic Peptide 171 H ( - 100) pg/mL Total Protein (6.4-8.9) g/dL Albumin (3.2-5.2) g/dL Globulin (2-4) g/dL Albumin/Globulin Ratio (1-3) /18/17 Range/Units 20:20 WBC (3.5-10.8) 10^3/ul RBC (4.0-5.4) 10^6/ul Hgb (14.0-18.0) g/dl Hct (42-52) % MCV (80-94) fL MCH (27-31) pg MCHC (31-36) g/dl RDW (10.5-15) % Plt Count (150-450) 10^3/ul MPV (7.4-10.4) um3 Neut % (Auto) (38-83) % Lymph % (Auto) (25-47) % [place] % (Auto) (1-9) % Eos % (Auto) (0-6) % Baso % (Auto) (0-2) % Absolute Neuts (auto) (1.5-7.7) 10^3/ul Absolute Lymphs (auto) (1.0-4.8) 10^3/ul Absolute Monos (auto) (0-0.8) 10^3/ul Absolute Eos (auto) (0-0.6) 10^3/ul Absolute Basos (auto) (0-0.2) 10^3/ul Absolute Nucleated RBC 10^3/ul Nucleated RBC % INR (Anticoag Therapy) (0.77-1.02) Sodium (133-145) mmol/L Potassium (3.5-5.0) mmol/L Chloride (101-111) mmol/L Carbon Dioxide (22-32) mmol/L Anion Gap (2-11) mmol/L BUN (6-24) mg/dL Creatinine (0.67-1.17) mg/dL Est GFR ( Amer) (>60) Est GFR (Non-Af Amer) (>60) BUN/Creatinine Ratio (8-20) Glucose (70-100) mg/dL Lactic Acid (0.5-2.0) mmol/L Calcium (8.6-10.3) mg/dL Total Bilirubin (0.2-1.0) mg/dL AST (13-39) U/L ALT (7-52) U/L Alkaline Phosphatase (34-104) U/L Troponin I 0.07 H* (<0.04) ng/mL B-Natriuretic Peptide ( - 100) pg/mL Total Protein (6.4-8.9) g/dL Albumin (3.2-5.2) g/dL Globulin (2-4) g/dL Albumin/Globulin Ratio (1-3) Assess/Plan/Problems-Billing Assessment: 67 yo M h/o CAD/CAGB, PE/DVT, PP</AICM, afib, neurogenic bladder with chronic indwelling catheter, chronic heel ulcers, with recent admit 2/2 sepsis and respiratory failure secondary to PNA/or UTI with stay notable for effusion returning with increased weakness - Patient Problems (1) Sepsis Comment: sepsis present on admission empiric zosyn cxr indicates potentially resolving PNA d/c abx 08/07 (2) Pneumothorax Comment: monitor appreciate pulm consult stable (3) Diabetes Comment: metformin (4) Neurogenic bladder Comment: Secondary to cauda equina syndrome With chronic indwelling Beckman catheter (5) Acute diastolic heart failure Comment: etiology of SOB lasix 20mg IV (6) DVT prophylaxis Comment: HSQ
[2017-08-07] MEDS: Diazepam TAB(*) 5 MG PO PRN (17:16)
[2017-08-07] MEDS: Atorvastatin* 40 MG TAB PO SCH (20:41)
[2017-08-07] MEDS: predniSONE TAB* 10 MG PO SCH (20:42)
[2017-08-08] MEDS: oxyCODONE/Acetamin 5/325 MG* TAB PO PRN ×4 (02:52→22:04)
[2017-08-08] MEDS: oxyCODONE TAB* 5 MG TAB PO PRN ×4 (02:52→22:04)
[2017-08-08] MEDS ORDERED: Nitro Patch/OINT Remove PATCH OFF SCH (06:00)
[2017-08-08] MEDS: Omeprazole CAP* 20 MG PO SCH (08:02)
[2017-08-08] MEDS: Cyanocobalamin TAB* 500 MCG PO SCH (08:02)
[2017-08-08] MEDS: metFORMIN* 1,000 MG TAB PO SCH ×2 (08:02→22:03)
[2017-08-08] MEDS: Calcium Carbonate TAB* 1250 MG (CALCIUM 500 MG) PO SCH (08:02)
[2017-08-08] MEDS: Hydroxychloroquine TAB* 200 MG PO SCH ×2 (08:02→22:02)
[2017-08-08 09:47] LABS: EGFR Non-African American 144.7 (>60)
[2017-08-08 10:36] LABS: ABS Basophils 0 10^3/ul (0-0.2); ABS Eosinophils 0 10^3/ul (0-0.6); ABS Lymphocytes 0.9 10^3/ul (1.0-4.8); ABS Monocytes 0.6 10^3/ul (0-0.8); ABS Neutrophils 12.4 10^3/ul (1.5-7.7); ABS Nucleated RBC 0 10^3/ul; Eosinophil % 0.3 % (0-6); Hematocrit 29 % (42-52); Hemoglobin 8.8 g/dl (14.0-18.0); Lymphocyte % 6.8 % (25-47); Mean Corpuscular HGB Conc 31 g/dl (31-36); Mean Corpuscular Hemoglobin 22 pg (27-31); Mean Corpuscular Volume 71 fL (80-94); Mean Platelet Volume 7 um3 (7.4-10.4); Nucleated Red Blood Cells % 0; Platelet Count 461 10^3/ul (150-450); Red Blood Count 4.07 10^6/ul (4.0-5.4); Red Cell Distribution Width 18 % (10.5-15)
[2017-08-08] MEDS: Heparin VIAL(*) 5000 UNITS/ML VIAL (FIVE THOUSAND) SUBCUT SCH ×2 (11:55→22:04)
[2017-08-08] MEDS ORDERED: Furosemide IV* 10 MG/ML 2 ML VIAL (20 MG) IV SLOW PU ONE (13:41)
--- NOTE | 2017-08-08 14:01 | RAD ---
INDICATION: Short of breath COMPARISON: August 07, 2017 TECHNIQUE: An AP portable view obtained at 1313 hours is submitted. FINDINGS: Bones/Soft Tissues: There are no acute bony findings. There is sternotomy. There is left-sided cardiac pacemaker Cardiomediastinal: The cardiomediastinal silhouette is normal. Lungs: There is diffuse interstitial change some of which is interstitial edema but there are likely chronic underlying interstitial changes. The appearance is unchanged. There is a suspected small left apical pneumothorax. On the current study the clavicle may be obscuring the visceral pleural line. There is relative rarefaction in the left lung apex. Pleura: Small bilateral effusions. Other: None IMPRESSION: MODERATE VASCULAR CONGESTION. THE MAY BE UNDERLYING CHRONIC INTERSTITIAL CHANGES. SUSPECT SMALL LEFT APICAL PNEUMOTHORAX. NO INTERVAL CHANGE.
--- NOTE | 2017-08-08 16:26 | PN ---
Subjective Date of Service: 08/08/17 Interval History: Loose BMs Feels and looks SOB No other complaints Objective Active Medications: Aspirin (Aspirin Ec Low Dose*) 81 mg PO EVERY OTHER DAY [facility] Last Admin: 08/07/17 08:05 Dose: 81 mg Atorvastatin Calcium (Lipitor*) 40 mg PO 2100 [facility] Last Admin: 08/07/17 20:41 Dose: 40 mg Calcium Carbonate (Calcium Carbonate Tab*) 1,250 mg PO DAILY [facility] Last Admin: 08/08/17 08:02 Dose: 1,250 mg Cyanocobalamin (Vitamin B12 Tab*) 1,000 mcg PO DAILY [facility] Last Admin: 08/08/17 08:02 Dose: 1,000 mcg Diazepam (Valium Tab(*)) 5 mg PO Q8H PRN PRN Reason: ANXIETY Last Admin: 08/07/17 17:16 Dose: 5 mg Heparin Sodium (Porcine) (Heparin Vial(*)) 5,000 units SUBCUT Q12HR [facility] Last Admin: 08/08/17 11:55 Dose: Not Given Hydroxychloroquine Sulfate (Plaquenil Tab*) 200 mg PO BID [facility] Last Admin: 08/08/17 08:02 Dose: 200 mg Metformin HCl (Glucophage*) 1,000 mg PO QAM [facility] Last Admin: 08/08/17 08:02 Dose: 1,000 mg Metformin HCl (Glucophage*) 1,500 mg PO BEDTIME [facility] Last Admin: 08/07/17 20:42 Dose: 1,500 mg Metoprolol Tartrate (Lopressor Tab*) 25 mg PO BID [facility] Metoprolol Tartrate (Lopressor Iv*) 5 mg IV ONCE ONE Stop: 08/08/17 16:19 Non Formulary Med 1 Dose Dose ( Cholecaliciferol 50, 000 Units) 50,000 dose PO WEEKLY [facility] Omeprazole (Prilosec Cap*) 40 mg PO DAILY [facility] Last Admin: 08/08/17 08:02 Dose: 40 mg Oxycodone HCl (Roxycodone Tab*) 5 mg PO Q6H PRN PRN Reason: PAIN Last Admin: 08/08/17 15:17 Dose: 5 mg Oxycodone/Acetaminophen (Percocet 5/325 Tab*) 1 tab PO Q6H PRN PRN Reason: PAIN Last Admin: 08/08/17 15:16 Dose: 1 tab Prednisone (Deltasone Tab*) 10 mg PO BEDTIME [facility] Last Admin: 08/07/17 20:42 Dose: 10 mg Vital Signs - 8 hr 08/08/17 08/08/17 08/08/17 09:14 14:34 15:16 Respiratory 18 18 18 Rate 08/08/17 15:17 Respiratory 18 Rate Oxygen Devices in Use Now: Nasal Cannula Result Diagrams: 08/08/17 10:15 08/08/17 09:09 Additional Lab and Data: Lab Results 08/05/17 08/05/17 08/05/17 Range/Units 15:10 15:10 15:10 WBC 13.5 H (3.5-10.8) 10^3/ul RBC 4.43 (4.0-5.4) 10^6/ul Hgb 9.6 L (14.0-18.0) g/dl Hct 32 L (42-52) % MCV 72 L (80-94) fL MCH 22 L (27-31) pg MCHC 30 L (31-36) g/dl RDW 18 H (10.5-15) % Plt Count 483 H D (150-450) 10^3/ul MPV 7 L (7.4-10.4) um3 Neut % (Auto) 89.7 H (38-83) % Lymph % (Auto) 5.1 L (25-47) % [place] % (Auto) 4.2 (1-9) % Eos % (Auto) 0.7 (0-6) % Baso % (Auto) 0.3 (0-2) % Absolute Neuts (auto) 12.1 H (1.5-7.7) 10^3/ul Absolute Lymphs (auto) 0.7 L (1.0-4.8) 10^3/ul Absolute Monos (auto) 0.6 (0-0.8) 10^3/ul Absolute Eos (auto) 0.1 (0-0.6) 10^3/ul Absolute Basos (auto) 0 (0-0.2) 10^3/ul Absolute Nucleated RBC 0 10^3/ul Nucleated RBC % 0 INR (Anticoag Therapy) 1.12 H (0.77-1.02) Sodium 133 (133-145) mmol/L Potassium 4.3 (3.5-5.0) mmol/L Chloride 101 (101-111) mmol/L Carbon Dioxide 24 (22-32) mmol/L Anion Gap 8 (2-11) mmol/L BUN 21 (6-24) mg/dL Creatinine 0.93 (0.67-1.17) mg/dL Est GFR ( Amer) 103.6 (>60) Est GFR (Non-Af Amer) 80.6 (>60) BUN/Creatinine Ratio 22.6 H (8-20) Glucose 107 H (70-100) mg/dL Lactic Acid (0.5-2.0) mmol/L Calcium 10.4 H (8.6-10.3) mg/dL Total Bilirubin 0.30 (0.2-1.0) mg/dL AST 14 (13-39) U/L ALT 7 (7-52) U/L Alkaline Phosphatase 131 H (34-104) U/L Troponin I 0.08 H* (<0.04) ng/mL B-Natriuretic Peptide ( - 100) pg/mL Total Protein 6.5 (6.4-8.9) g/dL Albumin 2.8 L (3.2-5.2) g/dL Globulin 3.7 (2-4) g/dL Albumin/Globulin Ratio 0.8 L (1-3) 08/05/17 08/05/17 08/05/17 Range/Units 15:10 15:10 20:20 WBC (3.5-10.8) 10^3/ul RBC (4.0-5.4) 10^6/ul Hgb (14.0-18.0) g/dl Hct (42-52) % MCV (80-94) fL MCH (27-31) pg MCHC (31-36) g/dl RDW (10.5-15) % Plt Count (150-450) 10^3/ul MPV (7.4-10.4) um3 Neut % (Auto) (38-83) % Lymph % (Auto) (25-47) % [place] % (Auto) (1-9) % Eos % (Auto) (0-6) % Baso % (Auto) (0-2) % Absolute Neuts (auto) (1.5-7.7) 10^3/ul Absolute Lymphs (auto) (1.0-4.8) 10^3/ul Absolute Monos (auto) (0-0.8) 10^3/ul Absolute Eos (auto) (0-0.6) 10^3/ul Absolute Basos (auto) (0-0.2) 10^3/ul Absolute Nucleated RBC 10^3/ul Nucleated RBC % INR (Anticoag Therapy) (0.77-1.02) Sodium (133-145) mmol/L Potassium (3.5-5.0) mmol/L Chloride (101-111) mmol/L Carbon Dioxide (22-32) mmol/L Anion Gap (2-11) mmol/L BUN (6-24) mg/dL Creatinine (0.67-1.17) mg/dL Est GFR ( Amer) (>60) Est GFR (Non-Af Amer) (>60) BUN/Creatinine Ratio (8-20) Glucose (70-100) mg/dL Lactic Acid 3.6 H* 2.5 H* (0.5-2.0) mmol/L Calcium (8.6-10.3) mg/dL Total Bilirubin (0.2-1.0) mg/dL AST (13-39) U/L ALT (7-52) U/L Alkaline Phosphatase (34-104) U/L Troponin I (<0.04) ng/mL B-Natriuretic Peptide 171 H ( - 100) pg/mL Total Protein (6.4-8.9) g/dL Albumin (3.2-5.2) g/dL Globulin (2-4) g/dL Albumin/Globulin Ratio (1-3) 08/05/ Range/Units 20:20 WBC (3.5-10.8) 10^3/ul RBC (4.0-5.4) 10^6/ul Hgb (14.0-18.0) g/dl Hct (42-52) % MCV (80-94) fL MCH (27-31) pg MCHC (31-36) g/dl RDW (10.5-15) % Plt Count (150-450) 10^3/ul MPV (7.4-10.4) um3 Neut % (Auto) (38-83) % Lymph % (Auto) (25-47) % [place] % (Auto) (1-9) % Eos % (Auto) (0-6) % Baso % (Auto) (0-2) % Absolute Neuts (auto) (1.5-7.7) 10^3/ul Absolute Lymphs (auto) (1.0-4.8) 10^3/ul Absolute Monos (auto) (0-0.8) 10^3/ul Absolute Eos (auto) (0-0.6) 10^3/ul Absolute Basos (auto) (0-0.2) 10^3/ul Absolute Nucleated RBC 10^3/ul Nucleated RBC % INR (Anticoag Therapy) (0.77-1.02) Sodium (133-145) mmol/L Potassium (3.5-5.0) mmol/L Chloride (101-111) mmol/L Carbon Dioxide (22-32) mmol/L Anion Gap (2-11) mmol/L BUN (6-24) mg/dL Creatinine (0.67-1.17) mg/dL Est GFR ( Amer) (>60) Est GFR (Non-Af Amer) (>60) BUN/Creatinine Ratio (8-20) Glucose (70-100) mg/dL Lactic Acid (0.5-2.0) mmol/L Calcium (8.6-10.3) mg/dL Total Bilirubin (0.2-1.0) mg/dL AST (13-39) U/L ALT (7-52) U/L Alkaline Phosphatase (34-104) U/L Troponin I 0.07 H* (<0.04) ng/mL B-Natriuretic Peptide ( - 100) pg/mL Total Protein (6.4-8.9) g/dL Albumin (3.2-5.2) g/dL Globulin (2-4) g/dL Albumin/Globulin Ratio (1-3) Assess/Plan/Problems-Billing Assessment: 67 yo M h/o recently diagnosed metastatic SCC, CAD/CAGB, PE/DVT, PPM/AICM, afib , neurogenic bladder with chronic indwelling catheter, chronic heel ulcers, with recent admit 2/2 sepsis and respiratory failure secondary to PNA/or UTI with stay notable for effusion returning with increased weakness being treated for CHF exacerbation - Patient Problems (1) Acute diastolic heart failure Comment: etiology of SOB CXR c/w volume overload lasix 20mg IV again 08/08 eval for additional doses 08/09 (2) Afib Comment: complicated by RVR 08/08 restart metoprolol PO Metoprolol IV now to achieve rate control Not anticoagulated d/t h/o severe GI bleeding (3) Sepsis Comment: sepsis present on admission empiric zosyn stopped 08/07 If no respiratory improvement can consider restarting abx (4) Pneumothorax Comment: monitor appreciate pulm consult stable (5) Diabetes Comment: metformin (6) Neurogenic bladder Comment: Secondary to cauda equina syndrome With chronic indwelling Beckman catheter (7) DVT prophylaxis Comment: HSQ
[2017-08-08] MEDS ORDERED: Metoprolol Tartrate IV* 1 MG/ML 5 ML VIAL ONE (16:31)
[2017-08-08] MEDS: Metoprolol Tartrate IV* 1 MG/ML 5 ML VIAL IV ONE ×4 (16:37→18:01)
[2017-08-08] MEDS ORDERED: Metoprolol Tartrate IV* 1 MG/ML 5 ML VIAL IV ONE (16:51)
[2017-08-08] MEDS: Atorvastatin* 40 MG TAB PO SCH (22:02)
[2017-08-08] MEDS: predniSONE TAB* 10 MG PO SCH (22:03)
[2017-08-08] MEDS: Metoprolol Tartrate TAB* 25 MG PO SCH (22:03)
[2017-08-08] MEDS: guaiFENesin ER TAB 600 MG PO SCH (22:03)
[2017-08-08] MEDS ORDERED: Loperamide CAP* 2 MG PO ONE (22:13)
[2017-08-09] MEDS: Diazepam TAB(*) 5 MG PO PRN (01:56)
[2017-08-09] MEDS: traMADol TAB* 50 MG PO PRN ×2 (02:11→15:11)
[2017-08-09] MEDS: oxyCODONE TAB* 5 MG TAB PO PRN ×3 (03:56→18:55)
[2017-08-09] MEDS: oxyCODONE/Acetamin 5/325 MG* TAB PO PRN ×3 (03:57→18:54)
[2017-08-09 06:26] LABS: ABS Basophils 0.1 10^3/ul (0-0.2); ABS Eosinophils 0 10^3/ul (0-0.6); ABS Lymphocytes 1.2 10^3/ul (1.0-4.8); ABS Monocytes 0.4 10^3/ul (0-0.8); ABS Neutrophils 14.2 10^3/ul (1.5-7.7); ABS Nucleated RBC 0 10^3/ul; Eosinophil % 0.1 % (0-6); Hematocrit 33 % (42-52); Hemoglobin 10.2 g/dl (14.0-18.0); Lymphocyte % 7.6 % (25-47); Mean Corpuscular HGB Conc 31 g/dl (31-36); Mean Corpuscular Hemoglobin 22 pg (27-31); Mean Platelet Volume 7 um3 (7.4-10.4); Nucleated Red Blood Cells % 0; Platelet Count 500 10^3/ul (150-450); Red Blood Count 4.71 10^6/ul (4.0-5.4); Red Cell Distribution Width 18 % (10.5-15); White Blood Count 15.8 10^3/ul (3.5-10.8)
[2017-08-09 06:30] LABS: Mean Corpuscular Volume 71 fL (80-94)
[2017-08-09 06:54] LABS: EGFR Non-African American 131.1 (>60)
--- NOTE | 2017-08-09 09:31 | PN ---
Subjective Date of Service: 08/09/17 Interval History: Slept OK. Not very SOB. not present. Objective Active Medications: Aspirin (Aspirin Ec Low Dose*) 81 mg PO EVERY OTHER DAY [facility] Last Admin: 08/07/17 08:05 Dose: 81 mg Atorvastatin Calcium (Lipitor*) 40 mg PO 2100 [facility] Last Admin: 08/08/17 22:02 Dose: 40 mg Calcium Carbonate (Calcium Carbonate Tab*) 1,250 mg PO DAILY [facility] Last Admin: 08/08/17 08:02 Dose: 1,250 mg Cyanocobalamin (Vitamin B12 Tab*) 1,000 mcg PO DAILY [facility] Last Admin: 08/08/17 08:02 Dose: 1,000 mcg Diazepam (Valium Tab(*)) 5 mg PO Q8H PRN PRN Reason: ANXIETY Last Admin: 08/09/17 01:56 Dose: 5 mg Furosemide (Lasix Tab*) 20 mg PO DAILY [facility] Guaifenesin (Mucinex*) 1,200 mg PO BID [facility] Last Admin: 08/08/17 22:03 Dose: 1,200 mg Heparin Sodium (Porcine) (Heparin Vial(*)) 5,000 units SUBCUT Q12HR [facility] Last Admin: 08/08/17 22:04 Dose: Not Given Hydroxychloroquine Sulfate (Plaquenil Tab*) 200 mg PO BID [facility] Last Admin: 08/08/17 22:02 Dose: 200 mg Metformin HCl (Glucophage*) 1,000 mg PO QAM [facility] Last Admin: 08/08/17 08:02 Dose: 1,000 mg Metformin HCl (Glucophage*) 1,500 mg PO BEDTIME [facility] Last Admin: 08/08/17 22:03 Dose: 1,500 mg Metoprolol Tartrate (Lopressor Tab*) 25 mg PO BID [facility] Last Admin: 08/08/17 22:03 Dose: 25 mg Non Formulary Med 1 Dose Dose ( Cholecaliciferol 50, 000 Units) 50,000 dose PO WEEKLY [facility] Omeprazole (Prilosec Cap*) 40 mg PO DAILY [facility] Last Admin: 08/08/17 08:02 Dose: 40 mg Oxycodone HCl (Roxycodone Tab*) 5 mg PO Q6H PRN PRN Reason: PAIN Last Admin: 08/09/17 03:56 Dose: 5 mg Oxycodone/Acetaminophen (Percocet 5/325 Tab*) 1 tab PO Q6H PRN PRN Reason: PAIN Last Admin: 08/09/17 03:57 Dose: 1 tab Prednisone (Deltasone Tab*) 10 mg PO BEDTIME [facility] Last Admin: 08/08/17 22:03 Dose: 10 mg Tramadol HCl (Ultram*) 50 mg PO Q6H PRN PRN Reason: PAIN Last Admin: 08/09/17 02:11 Dose: 50 mg Vital Signs - 8 hr 08/09/17 08/09/17 08/09/17 01:56 02:11 03:46 Temperature Pulse Rate Respiratory 20 20 18 Rate Blood Pressure (mmHg) O2 Sat by Pulse Oximetry 08/09/17 08/09/17 08/09/17 03:56 03:57 03:58 Temperature Pulse Rate Respiratory 24 24 24 Rate Blood Pressure (mmHg) O2 Sat by Pulse Oximetry 08/09/17 08/09/17 04:20 05:50 Temperature 97.6 F Pulse Rate 116 Respiratory 16 18 Rate Blood Pressure 112/79 (mmHg) O2 Sat by Pulse 98 Oximetry Oxygen Devices in Use Now: Nasal Cannula Appearance: Alert, partly up in bed. In fair spirits. Looks comfortable. Eyes: No Scleral Icterus Neck: NL Appearance and Movements; NL JVP, No Thyroid Enlargement, Masses Respiratory: Symmetrical Chest Expansion and Respiratory Effort, Clear to Auscultation, Clear to Percussion Cardiovascular: NL Sounds; No Murmurs; No JVD, No Edema, - - irreg Extremities: No Edema, No Clubbing, Cyanosis, - - Rheumatoid deformities of both hands Skin: - - mult scars and lesions on scalp. Both lower legs wrapped. Neurological: Alert and Oriented x 3, NL Sensation - paraplegia, hypesthesia both legs. Result Diagrams: 08/09/17 06:09 08/09/17 06:09 Additional Lab and Data: Lab Results 08/05/17 08/05/17 08/05/17 Range/Units 15:10 15:10 15:10 WBC 13.5 H (3.5-10.8) 10^3/ul RBC 4.43 (4.0-5.4) 10^6/ul Hgb 9.6 L (14.0-18.0) g/dl Hct 32 L (42-52) % MCV 72 L (80-94) fL MCH 22 L (27-31) pg MCHC 30 L (31-36) g/dl RDW 18 H (10.5-15) % Plt Count 483 H D (150-450) 10^3/ul MPV 7 L (7.4-10.4) um3 Neut % (Auto) 89.7 H (38-83) % Lymph % (Auto) 5.1 L (25-47) % Grant % (Auto) 4.2 (1-9) % Eos % (Auto) 0.7 (0-6) % Baso % (Auto) 0.3 (0-2) % Absolute Neuts (auto) 12.1 H (1.5-7.7) 10^3/ul Absolute Lymphs (auto) 0.7 L (1.0-4.8) 10^3/ul Absolute Monos (auto) 0.6 (0-0.8) 10^3/ul Absolute Eos (auto) 0.1 (0-0.6) 10^3/ul Absolute Basos (auto) 0 (0-0.2) 10^3/ul Absolute Nucleated RBC 0 10^3/ul Nucleated RBC % 0 INR (Anticoag Therapy) 1.12 H (0.77-1.02) Sodium 133 (133-145) mmol/L Potassium 4.3 (3.5-5.0) mmol/L Chloride 101 (101-111) mmol/L Carbon Dioxide 24 (22-32) mmol/L Anion Gap 8 (2-11) mmol/L BUN 21 (6-24) mg/dL Creatinine 0.93 (0.67-1.17) mg/dL Est GFR ( Amer) 103.6 (>60) Est GFR (Non-Af Amer) 80.6 (>60) BUN/Creatinine Ratio 22.6 H (8-20) Glucose 107 H (70-100) mg/dL Lactic Acid (0.5-2.0) mmol/L Calcium 10.4 H (8.6-10.3) mg/dL Total Bilirubin 0.30 (0.2-1.0) mg/dL AST 14 (13-39) U/L ALT 7 (7-52) U/L Alkaline Phosphatase 131 H (34-104) U/L Troponin I 0.08 H* (<0.04) ng/mL B-Natriuretic Peptide ( - 100) pg/mL Total Protein 6.5 (6.4-8.9) g/dL Albumin 2.8 L (3.2-5.2) g/dL Globulin 3.7 (2-4) g/dL Albumin/Globulin Ratio 0.8 L (1-3) 08/05/17 08/05/17 08/05/17 Range/Units 15:10 15:10 20:20 WBC (3.5-10.8) 10^3/ul RBC (4.0-5.4) 10^6/ul Hgb (14.0-18.0) g/dl Hct (42-52) % MCV (80-94) fL MCH (27-31) pg MCHC (31-36) g/dl RDW (10.5-15) % Plt Count (150-450) 10^3/ul MPV (7.4-10.4) um3 Neut % (Auto) (38-83) % Lymph % (Auto) (25-47) % Grant % (Auto) (1-9) % Eos % (Auto) (0-6) % Baso % (Auto) (0-2) % Absolute Neuts (auto) (1.5-7.7) 10^3/ul Absolute Lymphs (auto) (1.0-4.8) 10^3/ul Absolute Monos (auto) (0-0.8) 10^3/ul Absolute Eos (auto) (0-0.6) 10^3/ul Absolute Basos (auto) (0-0.2) 10^3/ul Absolute Nucleated RBC 10^3/ul Nucleated RBC % INR (Anticoag Therapy) (0.77-1.02) Sodium (133-145) mmol/L Potassium (3.5-5.0) mmol/L Chloride (101-111) mmol/L Carbon Dioxide (22-32) mmol/L Anion Gap (2-11) mmol/L BUN (6-24) mg/dL Creatinine (0.67-1.17) mg/dL Est GFR ( Amer) (>60) Est GFR (Non-Af Amer) (>60) BUN/Creatinine Ratio (8-20) Glucose (70-100) mg/dL Lactic Acid 3.6 H* 2.5 H* (0.5-2.0) mmol/L Calcium (8.6-10.3) mg/dL Total Bilirubin (0.2-1.0) mg/dL AST (13-39) U/L ALT (7-52) U/L Alkaline Phosphatase (34-104) U/L Troponin I (<0.04) ng/mL B-Natriuretic Peptide 171 H ( - 100) pg/mL Total Protein (6.4-8.9) g/dL Albumin (3.2-5.2) g/dL Globulin (2-4) g/dL Albumin/Globulin Ratio (1-3) 12/18/17 Range/Units 20:20 WBC (3.5-10.8) 10^3/ul RBC (4.0-5.4) 10^6/ul Hgb (14.0-18.0) g/dl Hct (42-52) % MCV (80-94) fL MCH (27-31) pg MCHC (31-36) g/dl RDW (10.5-15) % Plt Count (150-450) 10^3/ul MPV (7.4-10.4) um3 Neut % (Auto) (38-83) % Lymph % (Auto) (25-47) % Grant % (Auto) (1-9) % Eos % (Auto) (0-6) % Baso % (Auto) (0-2) % Absolute Neuts (auto) (1.5-7.7) 10^3/ul Absolute Lymphs (auto) (1.0-4.8) 10^3/ul Absolute Monos (auto) (0-0.8) 10^3/ul Absolute Eos (auto) (0-0.6) 10^3/ul Absolute Basos (auto) (0-0.2) 10^3/ul Absolute Nucleated RBC 10^3/ul Nucleated RBC % INR (Anticoag Therapy) (0.77-1.02) Sodium (133-145) mmol/L Potassium (3.5-5.0) mmol/L Chloride (101-111) mmol/L Carbon Dioxide (22-32) mmol/L Anion Gap (2-11) mmol/L BUN (6-24) mg/dL Creatinine (0.67-1.17) mg/dL Est GFR ( Amer) (>60) Est GFR (Non-Af Amer) (>60) BUN/Creatinine Ratio (8-20) Glucose (70-100) mg/dL Lactic Acid (0.5-2.0) mmol/L Calcium (8.6-10.3) mg/dL Total Bilirubin (0.2-1.0) mg/dL AST (13-39) U/L ALT (7-52) U/L Alkaline Phosphatase (34-104) U/L Troponin I 0.07 H* (<0.04) ng/mL B-Natriuretic Peptide ( - 100) pg/mL Total Protein (6.4-8.9) g/dL Albumin (3.2-5.2) g/dL Globulin (2-4) g/dL Albumin/Globulin Ratio (1-3) Assess/Plan/Problems-Billing Assessment: 67 yo M h/o recently diagnosed metastatic SCC, CAD/CAGB, PE/DVT, PPM/AICM, afib , neurogenic bladder with chronic indwelling catheter, chronic heel ulcers, with recent admit 2/2 sepsis and respiratory failure secondary to PNA/or UTI with stay notable for effusion returning with increased weakness being treated for CHF exacerbation - Patient Problems (1) Acute diastolic heart failure Current Visit: Yes Status: Acute Code(s): I50.31 - ACUTE DIASTOLIC ( CONGESTIVE) HEART FAILURE SNOMED Code(s): 293753558 Comment: Start furosemide 20 mg po daily 08/09. Echo ordered, last echo done here suboptimal technically. (2) Diabetes Current Visit: Yes Status: Chronic Code(s): E11.9 - TYPE 2 DIABETES MELLITUS WITHOUT COMPLICATIONS SNOMED Code(s): 82190704 Comment: Reduce metformin dose to 1000 mg bid start 08/09. Add on A1C requested. FS bid with parameters. (3) Afib Current Visit: Yes Status: Chronic Code(s): I48.91 - UNSPECIFIED ATRIAL FIBRILLATION SNOMED Code(s): 05324189 Comment: complicated by RVR 08/08 Increase metoprolol to 50 mg bid start 08/09 AM. Not anticoagulated d/t h/o severe GI bleeding (4) Pneumothorax Current Visit: Yes Status: Acute Code(s): J93.9 - PNEUMOTHORAX, UNSPECIFIED SNOMED Code(s): 59824228 Comment: appreciate pulm consult stable (5) Neurogenic bladder Current Visit: Yes Status: Acute Code(s): N31.9 - NEUROMUSCULAR DYSFUNCTION OF BLADDER, UNSPECIFIED SNOMED Code(s): 685697600 Comment: Secondary to cauda equina syndrome With chronic indwelling Beckman catheter (6) Rheumatoid arthritis Current Visit: No Status: Chronic Code(s): M06.9 - RHEUMATOID ARTHRITIS, UNSPECIFIED SNOMED Code(s): 45643832 Comment: Steroid dependent Stress dosed at admission Cont usual daily dose of steroid therapy Plaquenil held Hasn't had outpt rheumatologic fup for some time.
[2017-08-09] MEDS ORDERED: Metoprolol Tartrate TAB* 25 MG PO SCH (09:33)
[2017-08-09] MEDS: guaiFENesin ER TAB 600 MG PO SCH ×2 (11:17→21:41)
[2017-08-09] MEDS: Hydroxychloroquine TAB* 200 MG PO SCH ×2 (11:17→21:42)
[2017-08-09] MEDS: Cyanocobalamin TAB* 500 MCG PO SCH (11:17)
[2017-08-09] MEDS: Omeprazole CAP* 20 MG PO SCH (11:18)
[2017-08-09] MEDS: Furosemide TAB* 20 MG PO SCH (11:18)
[2017-08-09] MEDS: Aspirin EC Low Dose* 81 MG TAB.EC PO SCH (11:19)
[2017-08-09] MEDS: Heparin VIAL(*) 5000 UNITS/ML VIAL (FIVE THOUSAND) SUBCUT SCH ×2 (11:20→21:41)
[2017-08-09] MEDS: Calcium Carbonate TAB* 1250 MG (CALCIUM 500 MG) PO SCH (11:20)
[2017-08-09] MEDS: Metoprolol Tartrate TAB* 25 MG PO SCH (11:29)
[2017-08-09] MEDS: metFORMIN* 1,000 MG TAB PO SCH (11:29)
--- NOTE | 2017-08-09 15:34 | ECHO ---
Patient: SUZANNE SERRA [facility] Rec#: [id number] : 1950 Date: 08/09/2017 Age: 67y Height: 180.34 cm / 71.0 in Weight: 68.95 kg / 152.0 lbs Sex: M BSA: 1.88 Room#: 439 Admit Date#: 08/05/2017 Type: Inpatient Referring: Cuong Mckeon MD Reading: Casey Valdivia MD Charge Authorizer: Fina Allen RDCS,RDMS CC: Hany Valera DO Transthoracic Echocardiogram Indication: CHF BP: 112/79 HR: 125 Rhythm: Tachycardia Findings Technical Comments: The study quality is fair. The study is technically limited due to poor acoustic windows. Left Ventricle: The left ventricular chamber size is decreased. Mild to moderate concentric left ventricular hypertrophy is observed. There is global hypokinesis of the left ventricle with minor regional variation.The mid to distal inferior and lateral blackmon are best preserved. The anterior and anteroseptal segments and relativley more hypokinetic. The estimated ejection fraction is 40-45%. The assessment of diastolic function is non-diagnostic. Left Atrium: The left atrium is mildly dilated. Right Ventricle: The right ventricle wall thickness is mildly increased. The right ventricular cavity size is normal. The right ventricular global systolic function is mildly reduced. Right Atrium: The right atrial cavity size is normal. Aortic Valve: The aortic valve is trileaflet. There is no evidence of aortic valve thickening. Systolic excursion of the aortic valve is normal. There is a trace of aortic regurgitation. There is no evidence of aortic stenosis. Mitral Valve: The mitral valve leaflets appear normal. There is anterior mitral annular calcification. There is a trace of mitral regurgitation. There is no evidence of mitral stenosis. Tricuspid Valve: The tricuspid valve leaflets are normal. There is mild to moderate tricuspid regurgitation. No pulmonary hypertension is noted. Pulmonic Valve: There is no evidence of pulmonic valve thickening. There is a trace pulmonic regurgitation. Pericardium: There is no significant pericardial effusion. Aorta: The ascending aorta is not well visualized. There is mild dilatation of the aortic arch. The aortic root is normal in size. Pulmonary Artery: The main pulmonary artery appears normal. Venous: The inferior vena cava appears normal in size. There is an approximate 50% respiratory change in the inferior vena cava dimension. Conclusions Atrial fibrillation with a rapid ventricular response during the study. Mild to moderate concentric left ventricular hypertrophy is observed. There is global hypokinesis of the left ventricle with minor regional variation.The mid to distal inferior and lateral blackmon are best preserved. The anterior and anteroseptal segments and relativley more hypokinetic. The estimated ejection fraction is 40-45%. The left atrium is mildly dilated. The right ventricular global systolic function is mildly reduced. There is mild to moderate tricuspid regurgitation. There is mild dilatation of the aortic arch. Similar to except for decrease in EF from 55-60% last time to 40-45% this time and The TR has increased from trace/mild to mild/moderate now. Measurements Name Value Normal Range RVIDd (AP) 2D 2.3 cm (0.9 - 2.6) RVDdMajor (2D) 3.1 cm (2.2 - 4.4) RAd ISD 4CH 4.1 cm (3.4 - 4.9) RA (A4C)W 4.6 cm (2.9 - 4.6) IVSd (2D) 1.2 cm (0.6 - 1) LVPWd (2D) 1.4 cm (0.6 - 1) LVIDd (2D) 2.2 cm (3.6 - 5.4) LVIDs (2D) 3 cm - Aortic Annulus 2.3 cm (1.4 - 2.6) Ao root diameter (2D) 3.5 cm (2.1 - 3.5) Aortic arch 3.6 cm (1.8 - 3.4) LA dimension (AP) 2D 2.4 cm (2.3 - 3.8) LAd ISD 4CH 4.9 cm (2.9 - 5.3) LA ISD 4CH W 3.4 cm (2.5 - 4.5) Name Value Normal Range MV E-wave Vmax 0.6 m/sec - Name Value Normal Range AV Vmax 1.1 m/sec - AV peak gradient 5 mmHg - LVOT Vmax 0.6 m/sec - LVOT peak gradient 1.4 mmHg - SURY Vmax 0.3 m/sec - Name Value Normal Range TR Vmax 2.6 m/sec - TR peak gradient 27 mmHg - RAP 3 mmHg - RVSP 30 mmHg - IVC diameter 1.8 cm - Name Value Normal Range PV Vmax 0.7 m/sec - PV peak gradient 2 mmHg -
[2017-08-09] MEDS ORDERED: metFORMIN* 1,000 MG TAB PO SCH (21:00)
[2017-08-09] MEDS: Atorvastatin* 40 MG TAB PO SCH (21:40)
[2017-08-09] MEDS: metFORMIN* 500 MG TAB PO SCH (21:41)
[2017-08-09] MEDS: predniSONE TAB* 10 MG PO SCH (21:41)
[2017-08-10] MEDS ORDERED: Furosemide IV* 10 MG/ML 2 ML VIAL (20 MG) IV ONE (01:00)
[2017-08-10] MEDS: oxyCODONE/Acetamin 5/325 MG* TAB PO PRN ×4 (01:18→21:38)
[2017-08-10] MEDS: oxyCODONE TAB* 5 MG TAB PO PRN ×4 (01:18→21:39)
[2017-08-10 05:53] LABS: ABS Basophils 0 10^3/ul (0-0.2); ABS Eosinophils 0 10^3/ul (0-0.6); ABS Lymphocytes 0.8 10^3/ul (1.0-4.8); ABS Monocytes 0.5 10^3/ul (0-0.8); ABS Neutrophils 10.7 10^3/ul (1.5-7.7); ABS Nucleated RBC 0 10^3/ul; Eosinophil % 0.2 % (0-6); Hematocrit 33 % (42-52); Hemoglobin 10.5 g/dl (14.0-18.0); Mean Corpuscular HGB Conc 32 g/dl (31-36); Mean Corpuscular Hemoglobin 23 pg (27-31); Mean Platelet Volume 7 um3 (7.4-10.4); Nucleated Red Blood Cells % 0; Platelet Count 502 10^3/ul (150-450); Red Blood Count 4.65 10^6/ul (4.0-5.4); Red Cell Distribution Width 19 % (10.5-15); White Blood Count 12.1 10^3/ul (3.5-10.8)
[2017-08-10 05:54] LABS: Mean Corpuscular Volume 70 fL (80-94)
[2017-08-10] MEDS: guaiFENesin ER TAB 600 MG PO SCH ×2 (08:32→21:35)
[2017-08-10] MEDS: Furosemide TAB* 20 MG PO SCH (08:32)
[2017-08-10] MEDS: Cyanocobalamin TAB* 500 MCG PO SCH (08:32)
[2017-08-10] MEDS: Omeprazole CAP* 20 MG PO SCH (08:32)
[2017-08-10] MEDS: Metoprolol Tartrate TAB* 50 mg PO SCH ×2 (08:32→21:41)
[2017-08-10] MEDS: Calcium Carbonate TAB* 1250 MG (CALCIUM 500 MG) PO SCH (08:33)
[2017-08-10] MEDS: Lisinopril TAB* 5 MG PO SCH (08:33)
[2017-08-10] MEDS: metFORMIN* 500 MG TAB PO SCH ×2 (09:08→21:38)
[2017-08-10] MEDS: Hydroxychloroquine TAB* 200 MG PO SCH ×2 (09:17→21:37)
[2017-08-10] MEDS: Heparin VIAL(*) 5000 UNITS/ML VIAL (FIVE THOUSAND) SUBCUT SCH ×2 (09:51→21:41)
[2017-08-10] MEDS ORDERED: Digoxin IV* 0.5 MG/2 ML AMP (0.25 MG/ML) IV SLOW PU ONE (11:45)
--- NOTE | 2017-08-10 11:54 | PN ---
Subjective Date of Service: 08/10/17 Objective Active Medications: Aspirin (Aspirin Ec Low Dose*) 81 mg PO EVERY OTHER DAY [facility] Last Admin: 08/09/17 11:19 Dose: 81 mg Atorvastatin Calcium (Lipitor*) 40 mg PO 2100 [facility] Last Admin: 08/09/17 21:40 Dose: 40 mg Calcium Carbonate (Calcium Carbonate Tab*) 1,250 mg PO DAILY [facility] Last Admin: 08/10/17 08:33 Dose: 1,250 mg Cyanocobalamin (Vitamin B12 Tab*) 1,000 mcg PO DAILY [facility] Last Admin: 08/10/17 08:32 Dose: 1,000 mcg Diazepam (Valium Tab(*)) 5 mg PO Q8H PRN PRN Reason: ANXIETY Last Admin: 08/09/17 01:56 Dose: 5 mg Digoxin (Digoxin Iv*) 0.25 mg IV SLOW PU ONCE ONE Stop: 08/10/17 11:46 Digoxin (Lanoxin Tab*) 0.125 mg PO 1700 [facility] Furosemide (Lasix Tab*) 20 mg PO DAILY [facility] Last Admin: 08/10/17 08:32 Dose: 20 mg Guaifenesin (Mucinex*) 1,200 mg PO BID [facility] Last Admin: 08/10/17 08:32 Dose: 1,200 mg Heparin Sodium (Porcine) (Heparin Vial(*)) 5,000 units SUBCUT Q12HR [facility] Last Admin: 08/10/17 09:51 Dose: Not Given Hydroxychloroquine Sulfate (Plaquenil Tab*) 200 mg PO BID [facility] Last Admin: 08/10/17 09:17 Dose: 200 mg Lisinopril (Prinivil Tab*) 1.25 mg PO DAILY [facility] Last Admin: 08/10/17 08:33 Dose: 1.25 mg Metformin HCl (Glucophage*) 500 mg PO BID [facility] Last Admin: 08/10/17 09:08 Dose: 500 mg Metoprolol Tartrate (Lopressor Tab*) 75 mg PO BID [facility] Last Admin: 08/10/17 08:32 Dose: 75 mg Non Formulary Med 1 Dose Dose ( Cholecaliciferol 50, 000 Units) 50,000 dose PO WEEKLY [facility] Omeprazole (Prilosec Cap*) 40 mg PO DAILY [facility] Last Admin: 08/10/17 08:32 Dose: 40 mg Oxycodone HCl (Roxycodone Tab*) 5 mg PO Q6H PRN PRN Reason: PAIN Last Admin: 08/10/17 09:08 Dose: 5 mg Oxycodone/Acetaminophen (Percocet 5/325 Tab*) 1 tab PO Q6H PRN PRN Reason: PAIN Last Admin: 08/10/17 09:08 Dose: 1 tab Prednisone (Deltasone Tab*) 10 mg PO BEDTIME [facility] Last Admin: 08/09/17 21:41 Dose: 10 mg Tramadol HCl (Ultram*) 50 mg PO Q6H PRN PRN Reason: PAIN Last Admin: 08/09/17 15:11 Dose: 50 mg Vital Signs - 8 hr 08/10/17 08/10/17 08/10/17 07:37 09:08 10:23 Temperature 97.1 F Pulse Rate 125 Respiratory 18 24 24 Rate Blood Pressure 114/88 (mmHg) O2 Sat by Pulse 94 Oximetry Oxygen Devices in Use Now: Nasal Cannula Result Diagrams: 08/10/17 05:30 08/10/17 05:30 Additional Lab and Data: Lab Results 08/05/17 08/05/17 08/05/17 Range/Units 15:10 15:10 15:10 WBC 13.5 H (3.5-10.8) 10^3/ul RBC 4.43 (4.0-5.4) 10^6/ul Hgb 9.6 L (14.0-18.0) g/dl Hct 32 L (42-52) % MCV 72 L (80-94) fL MCH 22 L (27-31) pg MCHC 30 L (31-36) g/dl RDW 18 H (10.5-15) % Plt Count 483 H D (150-450) 10^3/ul MPV 7 L (7.4-10.4) um3 Neut % (Auto) 89.7 H (38-83) % Lymph % (Auto) 5.1 L (25-47) % Whitman % (Auto) 4.2 (1-9) % Eos % (Auto) 0.7 (0-6) % Baso % (Auto) 0.3 (0-2) % Absolute Neuts (auto) 12.1 H (1.5-7.7) 10^3/ul Absolute Lymphs (auto) 0.7 L (1.0-4.8) 10^3/ul Absolute Monos (auto) 0.6 (0-0.8) 10^3/ul Absolute Eos (auto) 0.1 (0-0.6) 10^3/ul Absolute Basos (auto) 0 (0-0.2) 10^3/ul Absolute Nucleated RBC 0 10^3/ul Nucleated RBC % 0 INR (Anticoag Therapy) 1.12 H (0.77-1.02) Sodium 133 (133-145) mmol/L Potassium 4.3 (3.5-5.0) mmol/L Chloride 101 (101-111) mmol/L Carbon Dioxide 24 (22-32) mmol/L Anion Gap 8 (2-11) mmol/L BUN 21 (6-24) mg/dL Creatinine 0.93 (0.67-1.17) mg/dL Est GFR ( Amer) 103.6 (>60) Est GFR (Non-Af Amer) 80.6 (>60) BUN/Creatinine Ratio 22.6 H (8-20) Glucose 107 H (70-100) mg/dL Lactic Acid (0.5-2.0) mmol/L Calcium 10.4 H (8.6-10.3) mg/dL Total Bilirubin 0.30 (0.2-1.0) mg/dL AST 14 (13-39) U/L ALT 7 (7-52) U/L Alkaline Phosphatase 131 H (34-104) U/L Troponin I 0.08 H* (<0.04) ng/mL B-Natriuretic Peptide ( - 100) pg/mL Total Protein 6.5 (6.4-8.9) g/dL Albumin 2.8 L (3.2-5.2) g/dL Globulin 3.7 (2-4) g/dL Albumin/Globulin Ratio 0.8 L (1-3) 08/05/17 08/05/17 08/05/17 Range/Units 15:10 15:10 20:20 WBC (3.5-10.8) 10^3/ul RBC (4.0-5.4) 10^6/ul Hgb (14.0-18.0) g/dl Hct (42-52) % MCV (80-94) fL MCH (27-31) pg MCHC (31-36) g/dl RDW (10.5-15) % Plt Count (150-450) 10^3/ul MPV (7.4-10.4) um3 Neut % (Auto) (38-83) % Lymph % (Auto) (25-47) % Whitman % (Auto) (1-9) % Eos % (Auto) (0-6) % Baso % (Auto) (0-2) % Absolute Neuts (auto) (1.5-7.7) 10^3/ul Absolute Lymphs (auto) (1.0-4.8) 10^3/ul Absolute Monos (auto) (0-0.8) 10^3/ul Absolute Eos (auto) (0-0.6) 10^3/ul Absolute Basos (auto) (0-0.2) 10^3/ul Absolute Nucleated RBC 10^3/ul Nucleated RBC % INR (Anticoag Therapy) (0.77-1.02) Sodium (133-145) mmol/L Potassium (3.5-5.0) mmol/L Chloride (101-111) mmol/L Carbon Dioxide (22-32) mmol/L Anion Gap (2-11) mmol/L BUN (6-24) mg/dL Creatinine (0.67-1.17) mg/dL Est GFR ( Amer) (>60) Est GFR (Non-Af Amer) (>60) BUN/Creatinine Ratio (8-20) Glucose (70-100) mg/dL Lactic Acid 3.6 H* 2.5 H* (0.5-2.0) mmol/L Calcium (8.6-10.3) mg/dL Total Bilirubin (0.2-1.0) mg/dL AST (13-39) U/L ALT (7-52) U/L Alkaline Phosphatase (34-104) U/L Troponin I (<0.04) ng/mL B-Natriuretic Peptide 171 H ( - 100) pg/mL Total Protein (6.4-8.9) g/dL Albumin (3.2-5.2) g/dL Globulin (2-4) g/dL Albumin/Globulin Ratio (1-3) 12/18/17 Range/Units 20:20 WBC (3.5-10.8) 10^3/ul RBC (4.0-5.4) 10^6/ul Hgb (14.0-18.0) g/dl Hct (42-52) % MCV (80-94) fL MCH (27-31) pg MCHC (31-36) g/dl RDW (10.5-15) % Plt Count (150-450) 10^3/ul MPV (7.4-10.4) um3 Neut % (Auto) (38-83) % Lymph % (Auto) (25-47) % Whitman % (Auto) (1-9) % Eos % (Auto) (0-6) % Baso % (Auto) (0-2) % Absolute Neuts (auto) (1.5-7.7) 10^3/ul Absolute Lymphs (auto) (1.0-4.8) 10^3/ul Absolute Monos (auto) (0-0.8) 10^3/ul Absolute Eos (auto) (0-0.6) 10^3/ul Absolute Basos (auto) (0-0.2) 10^3/ul Absolute Nucleated RBC 10^3/ul Nucleated RBC % INR (Anticoag Therapy) (0.77-1.02) Sodium (133-145) mmol/L Potassium (3.5-5.0) mmol/L Chloride (101-111) mmol/L Carbon Dioxide (22-32) mmol/L Anion Gap (2-11) mmol/L BUN (6-24) mg/dL Creatinine (0.67-1.17) mg/dL Est GFR ( Amer) (>60) Est GFR (Non-Af Amer) (>60) BUN/Creatinine Ratio (8-20) Glucose (70-100) mg/dL Lactic Acid (0.5-2.0) mmol/L Calcium (8.6-10.3) mg/dL Total Bilirubin (0.2-1.0) mg/dL AST (13-39) U/L ALT (7-52) U/L Alkaline Phosphatase (34-104) U/L Troponin I 0.07 H* (<0.04) ng/mL B-Natriuretic Peptide ( - 100) pg/mL Total Protein (6.4-8.9) g/dL Albumin (3.2-5.2) g/dL Globulin (2-4) g/dL Albumin/Globulin Ratio (1-3) Assess/Plan/Problems-Billing Assessment: 67 yo M h/o recently diagnosed metastatic SCC, CAD/CAGB, PE/DVT, PPM/AICM, afib , neurogenic bladder with chronic indwelling catheter, chronic heel ulcers, with recent admit 2/2 sepsis and respiratory failure secondary to PNA/or UTI with stay notable for effusion returning with increased weakness being treated for CHF exacerbation - Patient Problems (1) Acute diastolic heart failure Current Visit: Yes Status: Acute Code(s): I50.31 - ACUTE DIASTOLIC ( CONGESTIVE) HEART FAILURE SNOMED Code(s): 668075577 Comment: Start furosemide 20 mg po daily 08/09. Echo ordered, last echo done here suboptimal technically. (2) Diabetes Current Visit: Yes Status: Chronic Code(s): E11.9 - TYPE 2 DIABETES MELLITUS WITHOUT COMPLICATIONS SNOMED Code(s): 05693763 Comment: Reduce metformin dose to 1000 mg bid start 08/09. Add on A1C requested. FS bid with parameters. (3) Afib Current Visit: Yes Status: Chronic Code(s): I48.91 - UNSPECIFIED ATRIAL FIBRILLATION SNOMED Code(s): 40148340 Comment: complicated by RVR 08/08 Increase metoprolol to 50 mg bid start 08/09 AM. Not anticoagulated d/t h/o severe GI bleeding (4) Pneumothorax Current Visit: Yes Status: Acute Code(s): J93.9 - PNEUMOTHORAX, UNSPECIFIED SNOMED Code(s): 19170996 Comment: appreciate pulm consult stable (5) Neurogenic bladder Current Visit: Yes Status: Acute Code(s): N31.9 - NEUROMUSCULAR DYSFUNCTION OF BLADDER, UNSPECIFIED SNOMED Code(s): 481232566 Comment: Secondary to cauda equina syndrome With chronic indwelling Beckman catheter (6) Rheumatoid arthritis Current Visit: No Status: Chronic Code(s): M06.9 - RHEUMATOID ARTHRITIS, UNSPECIFIED SNOMED Code(s): 20783854 Comment: Steroid dependent Stress dosed at admission Cont usual daily dose of steroid therapy Plaquenil held Hasn't had outpt rheumatologic fup for some time.
--- NOTE | 2017-08-10 12:25 | RAD ---
Indication: Dyspnea. Single frontal portable view of the chest done at 1210 hours demonstrates cardiomegaly. Interstitial edema consistent with vascular congestion is noted. Bilateral pleural effusions are noted. IMPRESSION: Cardiomegaly with interstitial edema. Pacemaker leads are in place.
--- NOTE | 2017-08-10 12:35 | PN ---
Subjective Date of Service: 08/10/17 Interval History: Still SOB. Little or no cough. Objective Active Medications: Aspirin (Aspirin Ec Low Dose*) 81 mg PO EVERY OTHER DAY [facility] Last Admin: 08/09/17 11:19 Dose: 81 mg Atorvastatin Calcium (Lipitor*) 40 mg PO 2100 [facility] Last Admin: 08/09/17 21:40 Dose: 40 mg Calcium Carbonate (Calcium Carbonate Tab*) 1,250 mg PO DAILY [facility] Last Admin: 08/10/17 08:33 Dose: 1,250 mg Cyanocobalamin (Vitamin B12 Tab*) 1,000 mcg PO DAILY [facility] Last Admin: 08/10/17 08:32 Dose: 1,000 mcg Diazepam (Valium Tab(*)) 5 mg PO Q8H PRN PRN Reason: ANXIETY Last Admin: 08/09/17 01:56 Dose: 5 mg Digoxin (Lanoxin Tab*) 0.125 mg PO 1700 [facility] Furosemide (Lasix Tab*) 20 mg PO DAILY [facility] Last Admin: 08/10/17 08:32 Dose: 20 mg Guaifenesin (Mucinex*) 1,200 mg PO BID [facility] Last Admin: 08/10/17 08:32 Dose: 1,200 mg Heparin Sodium (Porcine) (Heparin Vial(*)) 5,000 units SUBCUT Q12HR [facility] Last Admin: 08/10/17 09:51 Dose: Not Given Hydroxychloroquine Sulfate (Plaquenil Tab*) 200 mg PO BID [facility] Last Admin: 08/10/17 09:17 Dose: 200 mg Lisinopril (Prinivil Tab*) 1.25 mg PO DAILY [facility] Last Admin: 08/10/17 08:33 Dose: 1.25 mg Metformin HCl (Glucophage*) 500 mg PO BID [facility] Last Admin: 08/10/17 09:08 Dose: 500 mg Metoprolol Tartrate (Lopressor Tab*) 75 mg PO BID [facility] Last Admin: 08/10/17 08:32 Dose: 75 mg Non Formulary Med 1 Dose Dose ( Cholecaliciferol 50, 000 Units) 50,000 dose PO WEEKLY [facility] Omeprazole (Prilosec Cap*) 40 mg PO DAILY [facility] Last Admin: 08/10/17 08:32 Dose: 40 mg Oxycodone HCl (Roxycodone Tab*) 5 mg PO Q6H PRN PRN Reason: PAIN Last Admin: 08/10/17 09:08 Dose: 5 mg Oxycodone/Acetaminophen (Percocet 5/325 Tab*) 1 tab PO Q6H PRN PRN Reason: PAIN Last Admin: 08/10/17 09:08 Dose: 1 tab Prednisone (Deltasone Tab*) 10 mg PO BEDTIME [facility] Last Admin: 08/09/17 21:41 Dose: 10 mg Tramadol HCl (Ultram*) 50 mg PO Q6H PRN PRN Reason: PAIN Last Admin: 08/09/17 15:11 Dose: 50 mg Vital Signs - 8 hr 08/10/17 08/10/17 08/10/17 07:37 09:08 10:23 Temperature 97.1 F Pulse Rate 125 Respiratory 18 24 24 Rate Blood Pressure 114/88 (mmHg) O2 Sat by Pulse 94 Oximetry Oxygen Devices in Use Now: Nasal Cannula Appearance: Alert, supine in bed. In fair spirits. Looks comfortable at rest. Eyes: No Scleral Icterus Neck: NL Appearance and Movements; NL JVP, No Thyroid Enlargement, Masses Respiratory: Symmetrical Chest Expansion and Respiratory Effort, Clear to Auscultation, Clear to Percussion Cardiovascular: NL Sounds; No Murmurs; No JVD, No Edema, - - irreg Extremities: No Edema, No Clubbing, Cyanosis, - Skin: No Rash or Ulcers, No Nodules or Sclerosis, - Neurological: Alert and Oriented x 3, NL Sensation - Poor bed mobility Result Diagrams: 08/10/17 05:30 08/10/17 05:30 Additional Lab and Data: Lab Results 08/05/17 08/05/17 08/05/17 Range/Units 15:10 15:10 15:10 WBC 13.5 H (3.5-10.8) 10^3/ul RBC 4.43 (4.0-5.4) 10^6/ul Hgb 9.6 L (14.0-18.0) g/dl Hct 32 L (42-52) % MCV 72 L (80-94) fL MCH 22 L (27-31) pg MCHC 30 L (31-36) g/dl RDW 18 H (10.5-15) % Plt Count 483 H D (150-450) 10^3/ul MPV 7 L (7.4-10.4) um3 Neut % (Auto) 89.7 H (38-83) % Lymph % (Auto) 5.1 L (25-47) % Moore % (Auto) 4.2 (1-9) % Eos % (Auto) 0.7 (0-6) % Baso % (Auto) 0.3 (0-2) % Absolute Neuts (auto) 12.1 H (1.5-7.7) 10^3/ul Absolute Lymphs (auto) 0.7 L (1.0-4.8) 10^3/ul Absolute Monos (auto) 0.6 (0-0.8) 10^3/ul Absolute Eos (auto) 0.1 (0-0.6) 10^3/ul Absolute Basos (auto) 0 (0-0.2) 10^3/ul Absolute Nucleated RBC 0 10^3/ul Nucleated RBC % 0 INR (Anticoag Therapy) 1.12 H (0.77-1.02) Sodium 133 (133-145) mmol/L Potassium 4.3 (3.5-5.0) mmol/L Chloride 101 (101-111) mmol/L Carbon Dioxide 24 (22-32) mmol/L Anion Gap 8 (2-11) mmol/L BUN 21 (6-24) mg/dL Creatinine 0.93 (0.67-1.17) mg/dL Est GFR ( Amer) 103.6 (>60) Est GFR (Non-Af Amer) 80.6 (>60) BUN/Creatinine Ratio 22.6 H (8-20) Glucose 107 H (70-100) mg/dL Lactic Acid (0.5-2.0) mmol/L Calcium 10.4 H (8.6-10.3) mg/dL Total Bilirubin 0.30 (0.2-1.0) mg/dL AST 14 (13-39) U/L ALT 7 (7-52) U/L Alkaline Phosphatase 131 H (34-104) U/L Troponin I 0.08 H* (<0.04) ng/mL B-Natriuretic Peptide ( - 100) pg/mL Total Protein 6.5 (6.4-8.9) g/dL Albumin 2.8 L (3.2-5.2) g/dL Globulin 3.7 (2-4) g/dL Albumin/Globulin Ratio 0.8 L (1-3) 08/05/17 08/05/17 08/05/17 Range/Units 15:10 15:10 20:20 WBC (3.5-10.8) 10^3/ul RBC (4.0-5.4) 10^6/ul Hgb (14.0-18.0) g/dl Hct (42-52) % MCV (80-94) fL MCH (27-31) pg MCHC (31-36) g/dl RDW (10.5-15) % Plt Count (150-450) 10^3/ul MPV (7.4-10.4) um3 Neut % (Auto) (38-83) % Lymph % (Auto) (25-47) % Moore % (Auto) (1-9) % Eos % (Auto) (0-6) % Baso % (Auto) (0-2) % Absolute Neuts (auto) (1.5-7.7) 10^3/ul Absolute Lymphs (auto) (1.0-4.8) 10^3/ul Absolute Monos (auto) (0-0.8) 10^3/ul Absolute Eos (auto) (0-0.6) 10^3/ul Absolute Basos (auto) (0-0.2) 10^3/ul Absolute Nucleated RBC 10^3/ul Nucleated RBC % INR (Anticoag Therapy) (0.77-1.02) Sodium (133-145) mmol/L Potassium (3.5-5.0) mmol/L Chloride (101-111) mmol/L Carbon Dioxide (22-32) mmol/L Anion Gap (2-11) mmol/L BUN (6-24) mg/dL Creatinine (0.67-1.17) mg/dL Est GFR ( Amer) (>60) Est GFR (Non-Af Amer) (>60) BUN/Creatinine Ratio (8-20) Glucose (70-100) mg/dL Lactic Acid 3.6 H* 2.5 H* (0.5-2.0) mmol/L Calcium (8.6-10.3) mg/dL Total Bilirubin (0.2-1.0) mg/dL AST (13-39) U/L ALT (7-52) U/L Alkaline Phosphatase (34-104) U/L Troponin I (<0.04) ng/mL B-Natriuretic Peptide 171 H ( - 100) pg/mL Total Protein (6.4-8.9) g/dL Albumin (3.2-5.2) g/dL Globulin (2-4) g/dL Albumin/Globulin Ratio (1-3) 12/18/17 Range/Units 20:20 WBC (3.5-10.8) 10^3/ul RBC (4.0-5.4) 10^6/ul Hgb (14.0-18.0) g/dl Hct (42-52) % MCV (80-94) fL MCH (27-31) pg MCHC (31-36) g/dl RDW (10.5-15) % Plt Count (150-450) 10^3/ul MPV (7.4-10.4) um3 Neut % (Auto) (38-83) % Lymph % (Auto) (25-47) % Moore % (Auto) (1-9) % Eos % (Auto) (0-6) % Baso % (Auto) (0-2) % Absolute Neuts (auto) (1.5-7.7) 10^3/ul Absolute Lymphs (auto) (1.0-4.8) 10^3/ul Absolute Monos (auto) (0-0.8) 10^3/ul Absolute Eos (auto) (0-0.6) 10^3/ul Absolute Basos (auto) (0-0.2) 10^3/ul Absolute Nucleated RBC 10^3/ul Nucleated RBC % INR (Anticoag Therapy) (0.77-1.02) Sodium (133-145) mmol/L Potassium (3.5-5.0) mmol/L Chloride (101-111) mmol/L Carbon Dioxide (22-32) mmol/L Anion Gap (2-11) mmol/L BUN (6-24) mg/dL Creatinine (0.67-1.17) mg/dL Est GFR ( Amer) (>60) Est GFR (Non-Af Amer) (>60) BUN/Creatinine Ratio (8-20) Glucose (70-100) mg/dL Lactic Acid (0.5-2.0) mmol/L Calcium (8.6-10.3) mg/dL Total Bilirubin (0.2-1.0) mg/dL AST (13-39) U/L ALT (7-52) U/L Alkaline Phosphatase (34-104) U/L Troponin I 0.07 H* (<0.04) ng/mL B-Natriuretic Peptide ( - 100) pg/mL Total Protein (6.4-8.9) g/dL Albumin (3.2-5.2) g/dL Globulin (2-4) g/dL Albumin/Globulin Ratio (1-3) Assess/Plan/Problems-Billing Assessment: 67 yo M h/o recently diagnosed metastatic SCC, CAD/CAGB, PE/DVT, PPM/AICM, afib , neurogenic bladder with chronic indwelling catheter, chronic heel ulcers, with recent admit 2/2 sepsis and respiratory failure secondary to PNA/or UTI with stay notable for effusion returning with increased weakness being treated for CHF exacerbation - Patient Problems (1) Acute diastolic heart failure Current Visit: Yes Status: Acute Code(s): I50.31 - ACUTE DIASTOLIC ( CONGESTIVE) HEART FAILURE SNOMED Code(s): 472555507 Comment: Change to torsemide 40 mg po daily 08/09. Echo 08/09 showed CM, LVEF 40-45%. CXR 08/10 showed interstitial edema. O2 sat on RA 81% on 08/10. (2) Diabetes Current Visit: Yes Status: Chronic Code(s): E11.9 - TYPE 2 DIABETES MELLITUS WITHOUT COMPLICATIONS SNOMED Code(s): 89892887 Comment: Reduced metformin dose to 1000 mg bid on 08/09. Add on A1C 5.8% . FS bid with parameters. (3) Afib Current Visit: Yes Status: Chronic Code(s): I48.91 - UNSPECIFIED ATRIAL FIBRILLATION SNOMED Code(s): 35556758 Comment: complicated by RVR 08/08 Increased metoprolol to 75 mg bid start 08/09 AM. Digoxin o.25 mg IV 08/09 plus start 0.235 mg po daily 08/09. Not anticoagulated d/t h/o severe GI bleeding (4) Pneumothorax Current Visit: Yes Status: Acute Code(s): J93.9 - PNEUMOTHORAX, UNSPECIFIED SNOMED Code(s): 07295668 Comment: appreciate pulm consult stable (5) Neurogenic bladder Current Visit: Yes Status: Acute Code(s): N31.9 - NEUROMUSCULAR DYSFUNCTION OF BLADDER, UNSPECIFIED SNOMED Code(s): 592460042 Comment: Secondary to cauda equina syndrome With chronic indwelling Beckman catheter (6) Rheumatoid arthritis Current Visit: No Status: Chronic Code(s): M06.9 - RHEUMATOID ARTHRITIS, UNSPECIFIED SNOMED Code(s): 87424008 Comment: Steroid dependent Stress dosed at admission Cont usual daily dose of steroid therapy Plaquenil held Hasn't had outpt rheumatologic fup for some time.
[2017-08-10] MEDS: Torsemide TAB* 20 MG PO SCH (13:11)
[2017-08-10] MEDS: Digoxin TAB* 0.125 MG PO SCH (17:15)
[2017-08-10] MEDS ORDERED: NS 0.9% 1000 ML* 250 ML IV ONE (20:45)
--- NOTE | 2017-08-10 20:56 | PN ---
Progress Note - Progress Note Date of Service: 08/10/17 Note: Nursing called reporting hypotension, hypoxia, tachycardia, & increased oxygen requirement to 10L [place]. Mr Rangel is comfortable on 10L [place] and in no obvious distress. He is alert and complies with requests, but is generally deconditioned. Lungs are perfectly clear B, no accessory muscle use; CV: TR, RR , rate in the 110-120s; abdomen: SNTND; extremities: cool & dry w/o edema Of note, Mr Rangel received 40mg PO torsemide ~1315. I&Os have not been being recorded, but he presumably would have shifted intravascular volume into his urinary system w/o sufficient peripheral 3rd spacing to replace resulting in tachycardia, hypotension, & increased oxygen demand. As he is currently stable and comfortable, will give him a 250cc IV NS bolus & continue to monitor on 4 S telemetry. Add strict I&Os. Nursing and RT are aware of and comfortable with this plan.
[2017-08-10] MEDS: Atorvastatin* 40 MG TAB PO SCH (21:36)
[2017-08-10] MEDS: predniSONE TAB* 10 MG PO SCH (21:40)
[2017-08-11] MEDS: oxyCODONE/Acetamin 5/325 MG* TAB PO PRN ×3 (05:01→17:54)
[2017-08-11] MEDS: oxyCODONE TAB* 5 MG TAB PO PRN ×3 (05:03→17:54)
[2017-08-11] MEDS ORDERED: Digoxin IV* 0.5 MG/2 ML AMP (0.25 MG/ML) IV SLOW PU ONE ×2 (08:21→13:35)
[2017-08-11] MEDS ORDERED: Iodixanol* (CONTRAST) 320 MG/ML 100 ML SDV IV ONE (08:59)
--- NOTE | 2017-08-11 09:03 | PN ---
Subjective Date of Service: 08/11/17 Interval History: Feels much better today. He states his voice is much stronger. Less SOB, overall better. No new c/o. Objective Active Medications: Aspirin (Aspirin Ec Low Dose*) 81 mg PO EVERY OTHER DAY [facility] Last Admin: 08/09/17 11:19 Dose: 81 mg Atorvastatin Calcium (Lipitor*) 40 mg PO 2100 [facility] Last Admin: 08/10/17 21:36 Dose: 40 mg Calcium Carbonate (Calcium Carbonate Tab*) 1,250 mg PO DAILY [facility] Last Admin: 08/10/17 08:33 Dose: 1,250 mg Cyanocobalamin (Vitamin B12 Tab*) 1,000 mcg PO DAILY [facility] Last Admin: 08/10/17 08:32 Dose: 1,000 mcg Diazepam (Valium Tab(*)) 5 mg PO Q8H PRN PRN Reason: ANXIETY Last Admin: 08/09/17 01:56 Dose: 5 mg Digoxin (Lanoxin Tab*) 0.125 mg PO 1700 [facility] Last Admin: 08/10/17 17:15 Dose: 0.125 mg Guaifenesin (Mucinex*) 1,200 mg PO BID [facility] Last Admin: 08/10/17 21:35 Dose: 1,200 mg Hydroxychloroquine Sulfate (Plaquenil Tab*) 200 mg PO BID [facility] Last Admin: 08/10/17 21:37 Dose: 200 mg Lisinopril (Prinivil Tab*) 1.25 mg PO DAILY [facility] Last Admin: 08/10/17 08:33 Dose: 1.25 mg Metformin HCl (Glucophage*) 500 mg PO BID [facility] Last Admin: 08/10/17 21:38 Dose: 500 mg Metoprolol Tartrate (Lopressor Tab*) 50 mg PO BID [facility] Non Formulary Med 1 Dose Dose ( Cholecaliciferol 50, 000 Units) 50,000 dose PO WEEKLY [facility] Omeprazole (Prilosec Cap*) 40 mg PO DAILY [facility] Last Admin: 08/10/17 08:32 Dose: 40 mg Oxycodone HCl (Roxycodone Tab*) 5 mg PO Q6H PRN PRN Reason: PAIN Last Admin: 08/11/17 05:03 Dose: 5 mg Oxycodone/Acetaminophen (Percocet 5/325 Tab*) 1 tab PO Q6H PRN PRN Reason: PAIN Last Admin: 08/11/17 05:01 Dose: 1 tab Prednisone (Deltasone Tab*) 10 mg PO BEDTIME [facility] Last Admin: 08/10/17 21:40 Dose: 10 mg Torsemide (Demadex*) 40 mg PO DAILY [facility] Last Admin: 08/10/17 13:11 Dose: 40 mg Tramadol HCl (Ultram*) 50 mg PO Q6H PRN PRN Reason: PAIN Last Admin: 08/09/17 15:11 Dose: 50 mg Vital Signs - 8 hr 08/11/17 08/11/17 08/11/17 01:25 04:00 04:39 Temperature 98.5 F 97.6 F Pulse Rate 126 127 Respiratory 16 22 16 Rate Blood Pressure 91/67 94/69 (mmHg) O2 Sat by Pulse 96 97 Oximetry 08/11/17 08/11/17 08/11/17 05:01 05:03 08:15 Temperature 97.6 F Pulse Rate 130 Respiratory 16 16 24 Rate Blood Pressure 110/75 (mmHg) O2 Sat by Pulse 100 Oximetry 08/11/17 08:52 Temperature Pulse Rate Respiratory 20 Rate Blood Pressure (mmHg) O2 Sat by Pulse Oximetry Oxygen Devices in Use Now: Nasal Cannula Appearance: Alert, partly up in bed. In good spirits. Looks comfortable. Eyes: No Scleral Icterus Neck: NL Appearance and Movements; NL JVP, No Thyroid Enlargement, Masses Respiratory: Symmetrical Chest Expansion and Respiratory Effort, Clear to Auscultation, Clear to Percussion Cardiovascular: No Edema, - - irreg Extremities: No Edema, No Clubbing, Cyanosis, - Skin: - - Multiple scars and lesions on face and scalp Neurological: Alert and Oriented x 3, NL Sensation Result Diagrams: 08/10/17 05:30 08/10/17 05:30 Assess/Plan/Problems-Billing Assessment: - Patient Problems (1) Acute diastolic heart failure Current Visit: Yes Status: Acute Code(s): I50.31 - ACUTE DIASTOLIC ( CONGESTIVE) HEART FAILURE SNOMED Code(s): 920689287 Comment: Continue torsemide 40 mg po daily, fluid balance . Echo 08/09 showed CM, LVEF 40-45%. CXR 08/[address] 08/11 showed BL pleural effusions. O2 sat on RA 81% on 08/10. BMP 08/12. (2) Diabetes Current Visit: Yes Status: Chronic Code(s): E11.9 - TYPE 2 DIABETES MELLITUS WITHOUT COMPLICATIONS SNOMED Code(s): 74888968 Comment: Reduced metformin dose to 500 mg bid on 08/10. Add on A1C 5.8% . While metformin on hold, Lispro by SS ordered. (3) Afib Current Visit: Yes Status: Chronic Code(s): I48.91 - UNSPECIFIED ATRIAL FIBRILLATION SNOMED Code(s): 84953155 Comment: complicated by RVR 08/08 Increased metoprolol to 75 mg bid start 08/09 AM. Digoxin 0.25 mg IV 08/09 plus start 0.125 mg po daily on 08/09. Two more doses digoxin 0.25 mg IV each on 08/11. Dig level 08/12. Not anticoagulated d/t h/o severe GI bleeding (4) Pneumothorax Current Visit: Yes Status: Acute Code(s): J93.9 - PNEUMOTHORAX, UNSPECIFIED SNOMED Code(s): 03272584 Comment: appreciate pulm consult Had hypoxia night of 08/10-08/11. CTA chest 08/11 showed no pneumo. (5) Neurogenic bladder Current Visit: Yes Status: Acute Code(s): N31.9 - NEUROMUSCULAR DYSFUNCTION OF BLADDER, UNSPECIFIED SNOMED Code(s): 049118406 Comment: Secondary to cauda equina syndrome With chronic indwelling Beckman catheter, changed 08/11. (6) Rheumatoid arthritis Current Visit: No Status: Chronic Code(s): M06.9 - RHEUMATOID ARTHRITIS, UNSPECIFIED SNOMED Code(s): 56523905 Comment: Steroid dependent Stress dosed at admission Cont usual daily dose of steroid therapy Plaquenil held Hasn't had outpt rheumatologic fup for some time.
[2017-08-11] MEDS: guaiFENesin ER TAB 600 MG PO SCH ×2 (09:33→20:46)
[2017-08-11] MEDS: Aspirin EC Low Dose* 81 MG TAB.EC PO SCH (09:33)
[2017-08-11] MEDS: Calcium Carbonate TAB* 1250 MG (CALCIUM 500 MG) PO SCH (09:33)
[2017-08-11] MEDS: Hydroxychloroquine TAB* 200 MG PO SCH ×2 (09:33→20:46)
[2017-08-11] MEDS: Omeprazole CAP* 20 MG PO SCH (09:34)
[2017-08-11] MEDS: Metoprolol Tartrate TAB* 50 mg PO SCH ×2 (09:34→20:46)
[2017-08-11] MEDS: Lisinopril TAB* 5 MG PO SCH (09:34)
[2017-08-11] MEDS: Torsemide TAB* 20 MG PO SCH (09:34)
[2017-08-11] MEDS: metFORMIN* 500 MG TAB PO SCH (09:34)
--- NOTE | 2017-08-11 09:44 | RAD ---
Indication: Pulmonary embolus. Contrast: Administered 67.1 ml of VISAPAQUE 320 mg/ml CTA of the chest was performed after IV contrast administration. Coronal and sagittal reconstructed images were obtained. The pulmonary arterial tree is well opacified. No definite evidence of filling defects are present to suggest pulmonary embolus. Aorta demonstrates no evidence of aortic dissection or aneurysmal dilatation. The heart demonstrates no pericardial effusion. There are bilateral pleural effusions greater on the right than left with bibasilar atelectasis. The lung squires demonstrate crowding of the vascular markings due to pleural effusion and compressive atelectasis. No focal nodules are identified. Emphysematous changes are noted. The heart demonstrates no pericardial effusion. There is an intrathoracic stomach noted. Visualized abdominal organs are unremarkable. IMPRESSION: No definite evidence of pulmonary embolus is noted. Bilateral pleural effusions larger on the right than on the left with compressive atelectasis and crowding of the vascular markings. Intrathoracic stomach is noted. Emphysematous changes of the lung squires are noted. No evidence of thoracic aortic dissection is present.
[2017-08-11] MEDS: Cyanocobalamin TAB* 500 MCG PO SCH (09:55)
[2017-08-11] MEDS ORDERED: Iodixanol* (CONTRAST) 320 MG/ML 100 ML SDV IV SCH (11:00)
[2017-08-11] MEDS ORDERED: Dextrose 50% Syringe 50 ML* 25 GM/50 ML SYRINGE IV PUSH PRN (11:28)
[2017-08-11] MEDS: Insulin LISPRO* 1 UNITS UNIT SUBCUT SCH ×2 (12:58→17:19)
[2017-08-11] MEDS: Digoxin TAB* 0.125 MG PO SCH (17:54)
[2017-08-11] MEDS: predniSONE TAB* 10 MG PO SCH (20:46)
[2017-08-11] MEDS: Atorvastatin* 40 MG TAB PO SCH (20:46)
[2017-08-12] MEDS: oxyCODONE TAB* 5 MG TAB PO PRN ×3 (00:21→19:53)
[2017-08-12] MEDS: oxyCODONE/Acetamin 5/325 MG* TAB PO PRN (00:21)
[2017-08-12 05:47] LABS: EGFR Non-African American 106.5 (>60)
[2017-08-12] MEDS ORDERED: Digoxin IV* 0.5 MG/2 ML AMP (0.25 MG/ML) IV SLOW PU ONE ×2 (07:32→14:34)
[2017-08-12] MEDS ORDERED: Digoxin TAB* 0.125 MG PO SCH ×2 (07:33→07:47)
[2017-08-12] MEDS ORDERED: Torsemide TAB* 20 MG PO SCH (07:43)
--- NOTE | 2017-08-12 07:47 | PN ---
Subjective Date of Service: 08/12/17 Interval History: Little cough. Not SOB with O2 in place. Chronic back pain he attributes to prior back surgery, relieved by oxy/APAP. No new c/o. Objective Active Medications: Aspirin (Aspirin Ec Low Dose*) 81 mg PO EVERY OTHER DAY [facility] Last Admin: 08/11/17 09:33 Dose: 81 mg Atorvastatin Calcium (Lipitor*) 40 mg PO 2100 [facility] Last Admin: 08/11/17 20:46 Dose: 40 mg Calcium Carbonate (Calcium Carbonate Tab*) 1,250 mg PO DAILY [facility] Last Admin: 08/11/17 09:33 Dose: 1,250 mg Cyanocobalamin (Vitamin B12 Tab*) 1,000 mcg PO DAILY [facility] Last Admin: 08/11/17 09:55 Dose: Not Given Dextrose (D50w Syringe 50 Ml*) 12.5 gm IV PUSH .FOR FS < 60 - SS PRN PRN Reason: FS < 60 Diazepam (Valium Tab(*)) 5 mg PO Q8H PRN PRN Reason: ANXIETY Last Admin: 08/09/17 01:56 Dose: 5 mg Digoxin (Digoxin Iv*) 0.25 mg IV SLOW PU ONCE ONE Stop: 08/12/17 07:33 Digoxin (Lanoxin Tab*) 0.25 mg PO 1700 [facility] Guaifenesin (Mucinex*) 600 mg PO BID [facility] Hydroxychloroquine Sulfate (Plaquenil Tab*) 200 mg PO BID [facility] Last Admin: 08/11/17 20:46 Dose: 200 mg Insulin Human Lispro (Humalog*) 0 units SUBCUT AC [facility] PRN Reason: Protocol Last Admin: 08/11/17 17:19 Dose: Not Given Iodixanol (Visipaque* 320 (Contrast)) 67 ml IV ONCE [facility] Stop: 08/13/17 08:58 Lisinopril (Prinivil Tab*) 1.25 mg PO DAILY [facility] Last Admin: 08/11/17 09:34 Dose: 1.25 mg Metoprolol Tartrate (Lopressor Tab*) 50 mg PO BID [facility] Last Admin: 08/11/17 20:46 Dose: 50 mg Non Formulary Med 1 Dose Dose ( Cholecaliciferol 50, 000 Units) 50,000 dose PO WEEKLY [facility] Omeprazole (Prilosec Cap*) 40 mg PO DAILY [facility] Last Admin: 08/11/17 09:34 Dose: 40 mg Oxycodone HCl (Roxycodone Tab*) 5 mg PO Q6H PRN PRN Reason: PAIN Last Admin: 08/12/17 00:21 Dose: 5 mg Oxycodone/Acetaminophen (Percocet 5/325 Tab*) 1 tab PO Q6H PRN PRN Reason: PAIN Last Admin: 08/12/17 00:21 Dose: 1 tab Prednisone (Deltasone Tab*) 10 mg PO BEDTIME [facility] Last Admin: 08/11/17 20:46 Dose: 10 mg Torsemide (Demadex*) 40 mg PO DAILY [facility] Last Admin: 08/11/17 09:34 Dose: 40 mg Tramadol HCl (Ultram*) 50 mg PO Q6H PRN PRN Reason: PAIN Last Admin: 08/09/17 15:11 Dose: 50 mg Vital Signs - 8 hr 08/12/17 08/12/17 08/12/17 00:21 02:28 03:14 Temperature 97.2 F Pulse Rate 123 Respiratory 17 18 16 Rate Blood Pressure 133/94 (mmHg) O2 Sat by Pulse 95 Oximetry Oxygen Devices in Use Now: Nasal Cannula Appearance: Alert, supine in bed. In fair spirits. Looks comfortable. Eyes: No Scleral Icterus Ears/Nose/Mouth/Throat: Clear Oropharnyx, Mucous Membranes Moist Neck: NL Appearance and Movements; NL JVP, No Thyroid Enlargement, Masses Respiratory: Symmetrical Chest Expansion and Respiratory Effort, Clear to Auscultation, Clear to Percussion Cardiovascular: NL Sounds; No Murmurs; No JVD, No Edema, - - irreg, rapid Extremities: No Edema, No Clubbing, Cyanosis, - - rheumatoid deformities both hands Skin: No Rash or Ulcers, No Nodules or Sclerosis, - Neurological: Alert and Oriented x 3, NL Sensation Result Diagrams: 08/10/17 05:30 08/12/17 05:19 Assess/Plan/Problems-Billing Assessment: - Patient Problems (1) Acute diastolic heart failure Current Visit: Yes Status: Acute Code(s): I50.31 - ACUTE DIASTOLIC ( CONGESTIVE) HEART FAILURE SNOMED Code(s): 965679556 Comment: Reduce torsemide to 30 mg po daily 08/12, fluid balances all negative. Echo 08/09 showed CM, LVEF 40-45%. CXR 08/[address] 08/11 showed BL pleural effusions. O2 sat on RA 81% on 08/10. BMP . (2) Diabetes Current Visit: Yes Status: Chronic Code(s): E11.9 - TYPE 2 DIABETES MELLITUS WITHOUT COMPLICATIONS SNOMED Code(s): 84880708 Comment: Reduced metformin dose to 500 mg bid on 08/10. Add on A1C 5.8% . While metformin on hold, Lispro by SS ordered. Not clear what dose of metformin he will need on discharge. (3) Afib Current Visit: Yes Status: Chronic Code(s): I48.91 - UNSPECIFIED ATRIAL FIBRILLATION SNOMED Code(s): 04711912 Comment: complicated by RVR 08/08 Increased metoprolol to 75 mg bid start 08/09 AM. Digoxin 0.25 mg IV 08/09 plus start 0.125 mg po daily on 08/09. Two more doses digoxin 0.25 mg IV each on 08/11. Dig level 08/12 was 1.7. Start diltiazem 30 mg q 6 hr, consider stopping dig if rate control achieved. Not anticoagulated d/t h/o severe GI bleeding (4) Pneumothorax Current Visit: Yes Status: Acute Code(s): J93.9 - PNEUMOTHORAX, UNSPECIFIED SNOMED Code(s): 88009384 Comment: appreciate pulm consult Had hypoxia night of 08/10-08/11. CTA chest 08/11 showed no pneumo. (5) Neurogenic bladder Current Visit: Yes Status: Acute Code(s): N31.9 - NEUROMUSCULAR DYSFUNCTION OF BLADDER, UNSPECIFIED SNOMED Code(s): 562185238 Comment: Secondary to cauda equina syndrome With chronic indwelling Beckman catheter, changed 08/11. (6) Rheumatoid arthritis Current Visit: No Status: Chronic Code(s): M06.9 - RHEUMATOID ARTHRITIS, UNSPECIFIED SNOMED Code(s): 20605539 Comment: Cont usual daily dose of steroid therapy Continue hydroxychloroquine. Hasn't had outpt rheumatologic fup for some time.
--- NOTE | 2017-08-12 07:53 | PN ---
Subjective Date of Service: 08/12/17 Interval History: Additon to today's note. Objective Active Medications: Aspirin (Aspirin Ec Low Dose*) 81 mg PO EVERY OTHER DAY [facility] Last Admin: 08/11/17 09:33 Dose: 81 mg Atorvastatin Calcium (Lipitor*) 40 mg PO 2100 [facility] Last Admin: 08/11/17 20:46 Dose: 40 mg Calcium Carbonate (Calcium Carbonate Tab*) 1,250 mg PO DAILY [facility] Last Admin: 08/11/17 09:33 Dose: 1,250 mg Cyanocobalamin (Vitamin B12 Tab*) 1,000 mcg PO DAILY [facility] Last Admin: 08/11/17 09:55 Dose: Not Given Dextrose (D50w Syringe 50 Ml*) 12.5 gm IV PUSH .FOR FS < 60 - SS PRN PRN Reason: FS < 60 Diazepam (Valium Tab(*)) 5 mg PO Q8H PRN PRN Reason: ANXIETY Last Admin: 08/09/17 01:56 Dose: 5 mg Digoxin (Lanoxin Tab*) 0.125 mg PO 1700 [facility] Diltiazem HCl (Cardizem Tab*) 30 mg PO Q6HR [facility] Guaifenesin (Mucinex*) 600 mg PO BID [facility] Hydroxychloroquine Sulfate (Plaquenil Tab*) 200 mg PO BID [facility] Last Admin: 08/11/17 20:46 Dose: 200 mg Insulin Human Lispro (Humalog*) 0 units SUBCUT AC [facility] PRN Reason: Protocol Last Admin: 08/11/17 17:19 Dose: Not Given Iodixanol (Visipaque* 320 (Contrast)) 67 ml IV ONCE [facility] Stop: 08/13/17 08:58 Lisinopril (Prinivil Tab*) 1.25 mg PO DAILY [facility] Last Admin: 08/11/17 09:34 Dose: 1.25 mg Metoprolol Tartrate (Lopressor Tab*) 50 mg PO BID [facility] Last Admin: 08/11/17 20:46 Dose: 50 mg Non Formulary Med 1 Dose Dose ( Cholecaliciferol 50, 000 Units) 50,000 dose PO WEEKLY [facility] Omeprazole (Prilosec Cap*) 40 mg PO DAILY [facility] Last Admin: 08/11/17 09:34 Dose: 40 mg Oxycodone HCl (Roxycodone Tab*) 5 mg PO Q6H PRN PRN Reason: PAIN Last Admin: 08/12/17 00:21 Dose: 5 mg Prednisone (Deltasone Tab*) 10 mg PO BEDTIME [facility] Last Admin: 08/11/17 20:46 Dose: 10 mg Torsemide (Demadex*) 30 mg PO DAILY [facility] Tramadol HCl (Ultram*) 50 mg PO Q6H PRN PRN Reason: PAIN Last Admin: 08/09/17 15:11 Dose: 50 mg Vital Signs - 8 hr 08/12/17 08/12/17 08/12/17 00:21 02:28 03:14 Temperature 97.2 F Pulse Rate 123 Respiratory 17 18 16 Rate Blood Pressure 133/94 (mmHg) O2 Sat by Pulse 95 Oximetry Oxygen Devices in Use Now: Nasal Cannula Result Diagrams: 08/10/17 05:30 08/12/17 05:19 Assess/Plan/Problems-Billing Assessment: - Patient Problems (1) Acute diastolic heart failure Current Visit: Yes Status: Acute Code(s): I50.31 - ACUTE DIASTOLIC ( CONGESTIVE) HEART FAILURE SNOMED Code(s): 482697770 Comment: Reduce torsemide to 30 mg po daily 08/12, fluid balances all negative. Echo 08/09 showed CM, LVEF 40-45%. CXR 08/[address] 08/11 showed BL pleural effusions. O2 sat on RA 81% on 08/10. BMP . (2) Diabetes Current Visit: Yes Status: Chronic Code(s): E11.9 - TYPE 2 DIABETES MELLITUS WITHOUT COMPLICATIONS SNOMED Code(s): 25509404 Comment: Reduced metformin dose to 500 mg bid on 08/10. Add on A1C 5.8% . While metformin on hold, Lispro by SS ordered. Not clear what dose of metformin he will need on discharge. (3) Afib Current Visit: Yes Status: Chronic Code(s): I48.91 - UNSPECIFIED ATRIAL FIBRILLATION SNOMED Code(s): 46395518 Comment: complicated by RVR 08/08 Increased metoprolol to 75 mg bid start 08/09 AM. Digoxin 0.25 mg IV 08/09 plus start 0.125 mg po daily on 08/09. Two more doses digoxin 0.25 mg IV each on 08/11. Dig level 08/12 was 1.7. Start diltiazem 30 mg q 6 hr, consider stopping dig if rate control achieved. Not anticoagulated d/t h/o severe GI bleeding (4) Pneumothorax Current Visit: Yes Status: Acute Code(s): J93.9 - PNEUMOTHORAX, UNSPECIFIED SNOMED Code(s): 74082281 Comment: appreciate pulm consult Had hypoxia night of 08/10-08/11. CTA chest 08/11 showed no pneumo. (5) Neurogenic bladder Current Visit: Yes Status: Acute Code(s): N31.9 - NEUROMUSCULAR DYSFUNCTION OF BLADDER, UNSPECIFIED SNOMED Code(s): 890474521 Comment: Secondary to cauda equina syndrome With chronic indwelling Beckman catheter, changed 08/11. (6) Rheumatoid arthritis Current Visit: No Status: Chronic Code(s): M06.9 - RHEUMATOID ARTHRITIS, UNSPECIFIED SNOMED Code(s): 05977528 Comment: Cont usual daily dose of steroid therapy Continue hydroxychloroquine. Hasn't had outpt rheumatologic fup for some time. (7) Hyponatremia Current Visit: Yes Status: Acute Code(s): E87.1 - HYPO-OSMOLALITY AND HYPONATREMIA SNOMED Code(s): 60987444 Comment: Patient advised to only drink as much as he needs. Oral intake recorded have been low. BMP 08/13/17.
[2017-08-12] MEDS: Insulin LISPRO* 1 UNITS UNIT SUBCUT SCH ×3 (07:58→17:18)
[2017-08-12] MEDS: Calcium Carbonate TAB* 1250 MG (CALCIUM 500 MG) PO SCH (10:43)
[2017-08-12] MEDS: Cyanocobalamin TAB* 500 MCG PO SCH (10:43)
[2017-08-12] MEDS: Hydroxychloroquine TAB* 200 MG PO SCH ×2 (10:43→21:49)
[2017-08-12] MEDS: guaiFENesin ER TAB 600 MG PO SCH ×2 (10:43→21:48)
[2017-08-12] MEDS: Lisinopril TAB* 5 MG PO SCH (10:43)
[2017-08-12] MEDS: Omeprazole CAP* 20 MG PO SCH (10:44)
[2017-08-12] MEDS: Metoprolol Tartrate TAB* 50 mg PO SCH (10:44)
[2017-08-12] MEDS ORDERED: Diltiazem TAB* 30 MG PO SCH (12:00)
[2017-08-12] MEDS: Diltiazem TAB* 30 MG PO SCH ×3 (15:27→20:57)
[2017-08-12] MEDS ORDERED: Metoprolol Tartrate TAB* 50 mg PO SCH (20:46)
--- NOTE | 2017-08-12 21:37 | PN ---
Progress Note - Progress Note Date of Service: 08/12/17 Note: Cross cover note: Called by nursing for SBP 80. Also noted to be 82% SpO2 earlier today now 91% on 100% Vapotherm Pt reports his breathing feels better than it did yesterday. Recent imaging reviewed. Increasing interstitial edema on left since admission with moderate to large right sided pleural effusion with compressive atelectasis. Absent BS on right with rales on left. Bedside US performed by thsi author and c/w CT with substantial right sided pleural effusion. Suspect intravascular depletion with continued diuersis in addition to incresaed doses AV chai blockade for uncontrolled rate contributing to hypotension and hypoxia Hold parameters added to Diltiazem and metoprolol 500cc NS bolus now then reassess Trial BiPAP for lung recruitment Consider thoracentesis tonight after NIPPV if remains hypoxic otherwise suggest entertain idea of thora tomorrow (patient and in agreement) Pt would not want repeat chest tube (recent LEFT chest tube)
[2017-08-12] MEDS: Atorvastatin* 40 MG TAB PO SCH (21:48)
[2017-08-12] MEDS: predniSONE TAB* 10 MG PO SCH (21:48)
[2017-08-13] MEDS: Diltiazem TAB* 30 MG PO SCH ×2 (01:51→03:31)
[2017-08-13] MEDS: oxyCODONE TAB* 5 MG TAB PO PRN ×2 (01:51→09:49)
[2017-08-13 04:54] LABS: EGFR Non-African American 67.8 (>60)
[2017-08-13] MEDS ORDERED: Metoprolol Tartrate TAB* 50 mg PO SCH (07:11)
--- NOTE | 2017-08-13 09:19 | ECHO ---
Patient: SUZANNE SERRA Rec#: [id number] : 1950 Date: 08/13/2017 Age: 67y Height: 180.34 cm / 71.0 in Weight: 63.5 kg / 140.0 lbs Sex: M BSA: 1.81 Room#: ICU-3 Admit Date#: 08/05/2017 Type: Inpatient Referring: Casey Valdivia MD Reading: Casey Valdivia MD Security System Administrator: Fina Mancia RDCS CC: BILL PROCTOR CC: Hany Valera DO Transthoracic Echocardiogram Indication: Respiratory Abnormality BP: 84/59 HR: 115 Rhythm: Paced Findings History: DM,CAD,CABG,HLD,HTN,SSS s/p pacer,spinal stenosis cauda equina,exsmoker,pleural effusions. Technical Comments: The study is technically limited due to the patient's smoking history. Completed at 0828. The study was technically limited due to the patient's inability to lay in the left lateral decubitus position. Left Ventricle: The left ventricular chamber size is decreased. The estimated ejection fraction is 55-60%. There is a left ventricular septal wall motion abnormality observed, possibly due to the presence of a right bundle branch block. The assessment of diastolic function is non-diagnostic. Left Atrium: The left atrial chamber size is normal.to mildly decreased. Right Ventricle: The right ventricle is not well visualized. The right ventricular global systolic function is normal. A pacemaker wire is visualized in the right ventricle. Right Atrium: The right atrium is not well visualized. A pacemaker wire is visualized in the right atrium. Aortic Valve: The aortic valve is trileaflet. There is no evidence of aortic valve thickening. There is no evidence of aortic regurgitation. There is no evidence of aortic stenosis. Mitral Valve: The mitral valve leaflets appear normal. There is no evidence of mitral regurgitation. There is no evidence of mitral stenosis. Tricuspid Valve: The tricuspid valve leaflets are normal. There is mild to moderate tricuspid regurgitation. The tricuspid regurgitant jet is wall impinging. There is evidence of mild pulmonary hypertension. There is no tricuspid stenosis. Pulmonic Valve: The pulmonic valve appears normal. There is a trace pulmonic regurgitation. There is no pulmonic stenosis. Pericardium: The pericardium appears normal. Aorta: There is no dilatation of the ascending aorta. The aortic arch is not well visualized. There is mild dilatation of the aortic root. Pulmonary Artery: The main pulmonary artery appears normal. Venous: The venous system is not well visualized. Conclusions The study was technically limited due to the patient's inability to lay in the left lateral decubitus position. The estimated ejection fraction is 55-60%. There is a left ventricular septal wall motion abnormality observed, possibly due to the presence of a right bundle branch block. The left atrial chamber size is normal to mildly decreased. The right ventricular global systolic function is normal. There is mild to moderate tricuspid regurgitation. There is evidence of mild pulmonary hypertension. Similar to 06/2016 except that the afib is new and the hr is faster. Interval improvement in EF c/t 12.22.17 when if was 40-45%. and the PASP is higher now at 44 mmhg c/t 30 mmhg12.22.17 Measurements Name Value Normal Range RVIDd (AP) 2D 2 cm (0.9 - 2.6) IVSd (2D) 1 cm (0.6 - 1) LVPWd (2D) 1 cm (0.6 - 1) LVIDd (2D) 3.3 cm (3.6 - 5.4) LVIDs (2D) 2.1 cm - LV FS (2D) 33 % (25 - 45) Aortic Annulus 1.9 cm (1.4 - 2.6) Ao root diameter (2D) 3.8 cm (2.1 - 3.5) Ascending Ao 3.3 cm (2.1 - 3.4) LA dimension (AP) 2D 2.2 cm (2.3 - 3.8) Name Value Normal Range MV E-wave Vmax 0.6 m/sec - MV deceleration time 100 msec - LV septal e' Vmax 0.09 m/sec - LV lateral e' Vmax 0.09 m/sec - LV E:e' septal ratio 6.67 ratio - LV E:e' lateral ratio 6.67 ratio - Name Value Normal Range AV Vmax 1 m/sec - AV VTI 22.3 cm - AV peak gradient 4.2 mmHg - AV mean gradient 2.11 mmHg - LVOT Vmax 0.9 m/sec - LVOT VTI 15.67 cm - LVOT peak gradient 3.2 mmHg - LVOT mean gradient 1.56 mmHg - Name Value Normal Range TR Vmax 3 m/sec - TR peak gradient 36 mmHg - RAP 8 mmHg - RVSP 44 mmHg - Name Value Normal Range PV Vmax 0.7 m/sec - PV peak gradient 1.74 mmHg -
[2017-08-13] MEDS: Insulin LISPRO* 1 UNITS UNIT SUBCUT SCH ×2 (09:25→14:16)
[2017-08-13] MEDS: Aspirin EC Low Dose* 81 MG TAB.EC PO SCH (09:26)
[2017-08-13] MEDS: Calcium Carbonate TAB* 1250 MG (CALCIUM 500 MG) PO SCH (09:26)
[2017-08-13] MEDS: Lisinopril TAB* 5 MG PO SCH (09:26)
[2017-08-13] MEDS: guaiFENesin ER TAB 600 MG PO SCH (09:26)
[2017-08-13] MEDS: Cyanocobalamin TAB* 500 MCG PO SCH (09:26)
[2017-08-13] MEDS: Hydroxychloroquine TAB* 200 MG PO SCH (09:26)
[2017-08-13] MEDS: Omeprazole CAP* 20 MG PO SCH (09:27)
[2017-08-13] MEDS ORDERED: NS 0.9% 500 ML* 500 ML IV SCH (10:00)
[2017-08-13] MEDS ORDERED: Morphine ORAL CONCENTRATE* 5 MG/0.25 ML ORAL.SYRIN SL PRN (11:14)
--- NOTE | 2017-08-13 12:20 | CONSULT ---
Palliative / Hospice Consult Ordering Provider: Cuong Mckeon - Subjective Code Status: DNR Advance Directives Location: In Chart MOLST Part A Completed: Yes - DNR MOLST Part E Completed:: Yes - DNI HCP Completed: Yes - History or Present Illness History or Present Illness: This 67 year old man with multiple medical problems including DM, PVD, CAD s/p CABG 2013, PE/DVT, HLD, HTN, SSS [employer] pacemaker (NO AICD, despite info in HPI), AF, GI blled, GERD, squamous cell cancer metastatic to the bone, and cauda equina syndrome/spinal stenosis with paraplegia x 3 years, is admitted for the second time this month with probable sepsis associated with a large left pleural effusion that initially required chest tube placement earlier this month. The patient has required high flow O2 here in the ICU and has not been able to tolerate it. He has now told his attending physician he really wants to go home and be on comfort measures only. 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 He is currently on 6 L O2 and venti mask with O2 saturation of 92%. He has home equipment including a hospital bed already. Lab Values: Abnormal Lab Results 08/12/17 08/12/17 08/13/17 12:37 16:40 04:30 Sodium 127 L Potassium 3.7 Chloride 93 L Carbon Dioxide 25 Anion Gap 9 BUN 34 H Creatinine 1.08 Est GFR ( Amer) 87.2 Est GFR (Non-Af Amer) 67.8 BUN/Creatinine Ratio 31.5 H Glucose 86 POC Glucose (mg/dL) 84 108 H Calcium 9.1 B-Natriuretic Peptide Digoxin 3.2 H* 08/13/17 08/13/17 04:30 09:16 Sodium Potassium Chloride Carbon Dioxide Anion Gap BUN Creatinine Est GFR ( Amer) Est GFR (Non-Af Amer) BUN/Creatinine Ratio Glucose POC Glucose (mg/dL) 90 Calcium B-Natriuretic Peptide 335 H Digoxin Laboratory Last Values WBC 12.1 10^3/ul (3.5-10.8) H 08/10/17 05:30 RBC 4.65 10^6/ul (4.0-5.4) 08/10/17 05:30 Hgb 10.5 g/dl (14.0-18.0) L 08/10/17 05:30 Hct 33 % (42-52) L 08/10/17 05:30 MCV 70 fL (80-94) L 08/10/17 05:30 MCH 23 pg (27-31) L 08/10/17 05:30 MCHC 32 g/dl (31-36) 08/10/17 05:30 RDW 19 % (10.5-15) H 08/10/17 05:30 Plt Count 502 10^3/ul (150-450) H 08/10/17 05:30 MPV 7 um3 (7.4-10.4) L 08/10/17 05:30 Neut % (Auto) 88.8 % (38-83) H 08/10/17 05:30 Lymph % (Auto) 7.0 % (25-47) L 08/10/17 05:30 Cowley % (Auto) 3.8 % (1-9) 08/10/17 05:30 Eos % (Auto) 0.2 % (0-6) 08/10/17 05:30 Baso % (Auto) 0.2 % (0-2) 08/10/17 05:30 Absolute Neuts (auto) 10.7 10^3/ul (1.5-7.7) H 08/10/17 05:30 Absolute Lymphs (auto) 0.8 10^3/ul (1.0-4.8) L 08/10/17 05:30 Absolute Monos (auto) 0.5 10^3/ul (0-0.8) 08/10/17 05:30 Absolute Eos (auto) 0 10^3/ul (0-0.6) 08/10/17 05:30 Absolute Basos (auto) 0 10^3/ul (0-0.2) 08/10/17 05:30 Absolute Nucleated RBC 0 10^3/ul 08/10/17 05:30 Nucleated RBC % 0 08/10/17 05:30 INR (Anticoag Therapy) 1.12 (0.77-1.02) H 08/05/17 15:10 Sodium 127 mmol/L (133-145) L 08/13/17 04:30 Potassium 3.7 mmol/L (3.5-5.0) 08/13/17 04:30 Chloride 93 mmol/L (101-111) L 08/13/17 04:30 Carbon Dioxide 25 mmol/L (22-32) 08/13/17 04:30 Anion Gap 9 mmol/L (2-11) 08/13/17 04:30 BUN 34 mg/dL (6-24) H 08/13/17 04:30 Creatinine 1.08 mg/dL (0.67-1.17) 08/13/17 04:30 Est GFR ( Amer) 87.2 (>60) 08/13/17 04:30 Est GFR (Non-Af Amer) 67.8 (>60) 08/13/17 04:30 BUN/Creatinine Ratio 31.5 (8-20) H 08/13/17 04:30 Glucose 86 mg/dL (70-100) 08/13/17 04:30 POC Glucose (mg/dL) 90 mg/dL (70-100) 08/13/17 09:16 Hemoglobin A1c 5.8 % (4.0-5.6) H 08/09/17 06:09 Lactic Acid 2.5 mmol/L (0.5-2.0) H* 08/05/17 20:20 Calcium 9.1 mg/dL (8.6-10.3) 08/13/17 04:30 Total Bilirubin 0.30 mg/dL (0.2-1.0) 08/05/17 15:10 AST 14 U/L (13-39) 08/05/17 15:10 ALT 7 U/L (7-52) 08/05/17 15:10 Alkaline Phosphatase 131 U/L (34-104) H 08/05/17 15:10 Troponin I 0.07 ng/mL (<0.04) H* 08/05/17 20:20 B-Natriuretic Peptide 335 pg/mL (-100) H 08/13/17 04:30 Total Protein 6.5 g/dL (6.4-8.9) 08/05/17 15:10 Albumin 2.8 g/dL (3.2-5.2) L 08/05/17 15:10 Globulin 3.7 g/dL (2-4) 08/05/17 15:10 Albumin/Globulin Ratio 0.8 (1-3) L 08/05/17 15:10 Digoxin 3.2 ng/ml (0.8-2.0) H* 08/13/17 04:30 - Objective Active Medications: Aspirin (Aspirin Ec Low Dose*) 81 mg PO EVERY OTHER DAY [facility] Last Admin: 08/13/17 09:26 Dose: Not Given Atorvastatin Calcium (Lipitor*) 40 mg PO 2100 [facility] Last Admin: 08/12/17 21:48 Dose: 40 mg Calcium Carbonate (Calcium Carbonate Tab*) 1,250 mg PO DAILY [facility] Last Admin: 08/13/17 09:26 Dose: Not Given Cyanocobalamin (Vitamin B12 Tab*) 1,000 mcg PO DAILY [facility] Last Admin: 08/13/17 09:26 Dose: Not Given Dextrose (D50w Syringe 50 Ml*) 12.5 gm IV PUSH .FOR FS < 60 - SS PRN PRN Reason: FS < 60 Diazepam (Valium Tab(*)) 5 mg PO Q8H PRN PRN Reason: ANXIETY Last Admin: 08/09/17 01:56 Dose: 5 mg Guaifenesin (Mucinex*) 600 mg PO BID [facility] Last Admin: 08/13/17 09:26 Dose: Not Given Hydroxychloroquine Sulfate (Plaquenil Tab*) 200 mg PO BID [facility] Last Admin: 08/13/17 09:26 Dose: Not Given Sodium Chloride (Ns 0.9% 500 Ml*) 500 mls @ 175 mls/hr IV PER RATE [facility] Insulin Human Lispro (Humalog*) 0 units SUBCUT AC [facility] PRN Reason: Protocol Last Admin: 08/13/17 09:25 Dose: Not Given Lisinopril (Prinivil Tab*) 1.25 mg PO DAILY [facility] Last Admin: 08/13/17 09:26 Dose: Not Given Morphine Sulfate (Morphine Oral Concentrate*) 5 mg SL Q30M PRN PRN Reason: PAIN Non Formulary Med 1 Dose Dose ( Cholecaliciferol 50, 000 Units) 50,000 dose PO WEEKLY [facility] Omeprazole (Prilosec Cap*) 40 mg PO DAILY [facility] Last Admin: 08/13/17 09:27 Dose: Not Given Oxycodone HCl (Roxycodone Tab*) 10 mg PO Q6H PRN PRN Reason: PAIN Last Admin: 08/13/17 09:49 Dose: 10 mg Prednisone (Deltasone Tab*) 10 mg PO BEDTIME [facility] Last Admin: 08/12/17 21:48 Dose: 10 mg Tramadol HCl (Ultram*) 50 mg PO Q6H PRN PRN Reason: PAIN Last Admin: 08/09/17 15:11 Dose: 50 mg Vital Signs: Vital Signs: Temp Pulse Resp BP Pulse Ox 98 F 125 25 91/65 92 08/13/17 07:30 08/13/17 12:00 08/13/17 12:00 08/13/17 12:00 08/13/17 12:00 Patient Weight: Weight 145 lb 4.554 oz Intake and Output: Intake & Output 08/11/17 08/12/17 08/13/17 08/14/17 06:59 06:59 06:59 06:59 Intake Total 650 1020 775 Output Total 1275 1225 675 Balance -625 -205 100 Weight 140 lb 4.8 oz 140 lb 145 lb 4.554 oz Intake: Oral 650 1020 775 Output: Urine 400 Beckman 1275 825 675 Other: # Bowel Movements 0 0 0 Estimated Stool Amount Small Medium ADLs: Meal Record Start: 08/05/17 21: 29 Freq: DAILY@0900,1400,1800 Status: Complete Protocol: Created 08/05/17 21:29 System (Rec: 08/05/17 21:29 System TELE-C06) Document 08/06/17 09:00 [id number] (Rec: 08/06/17 09:15 [id number] TELE-M06) Document 08/06/17 14:00 [id number] (Rec: 08/06/17 14:11 [id number] TELE-C03) Document 08/06/17 17:58 [id number] (Rec: 08/06/17 17:59 [id number] TELE-C08) Document 08/07/17 09:00 (Rec: 08/07/17 09:14 TELE-C01) Document 08/07/17 13:32 (Rec: 08/07/17 13:32 TELE-C01) Document 08/07/17 19:49 [id number] (Rec: 08/07/17 19:49 [id number] TELE-C01) Document 08/08/17 14:00 (Rec: 08/08/17 14:55 TELE-C08) Document 08/08/17 18:00 [id number] (Rec: 08/08/17 18:54 [id number] TELE-C01) Document 08/09/17 09:00 [id number] (Rec: 08/09/17 14:33 [id number] TELE-C05) Document 08/09/17 14:00 [id number] (Rec: 08/09/17 14:46 [id number] TELE-C05) Document 08/09/17 18:00 [id number] (Rec: 08/09/17 19:14 [id number] TELE-C01) Document 08/10/17 17:27 WGQ1914 (Rec: 08/10/17 17:27 [id number] TELE-C05) Document 08/11/17 14:00 ELT6377 (Rec: 08/11/17 14:46 DMX6709 TELE-C08) Document 08/11/17 18:00 [id number] (Rec: 08/11/17 22:47 [id number] TELE-C05) Document 08/12/17 14:00 FGO0902 (Rec: 08/12/17 15:14 [id number] TELE-C11) Document 08/12/17 18:00 [id number] (Rec: 08/12/17 19:01 [id number] ICU-C15) ADLs: Meal Record Start: 08/12/17 19: 01 Freq: 09,13,18 Status: Active Protocol: Created 08/12/17 19:01 [id number] (Rec: 08/12/17 19:01 [id number] ICU-C15) Document 08/13/17 09:00 JCU1325 (Rec: 08/13/17 10:00 [id number] ICU-C15) Intake and Output Start: 08/05/17 21: 29 Freq: DAILY@0600,1400,2200 Status: Complete Protocol: Created 08/05/17 21:29 System (Rec: 08/05/17 21:29 System TELE-C06) Document 08/05/17 22:00 [id number] (Rec: 08/05/17 23:30 VLV3718 TELE-C01) Document 08/06/17 06:00 [id number] (Rec: 08/06/17 06:41 RBK6705 TELE-C10) Document 08/06/17 14:00 QGB4088 (Rec: 08/06/17 14:11 PEI6749 TELE-C03) Document 08/06/17 22:00 EMD2854 (Rec: 08/06/17 23:29 UUR3258 TELE-C06) Document 08/07/17 06:00 AOB0543 (Rec: 08/07/17 06:56 CZL2217 TELE-C03) Document 08/07/17 14:00 JXZ7659 (Rec: 08/07/17 14:27 ARC9361 TELE-C01) Document 08/07/17 22:00 [id number] (Rec: 08/07/17 23:01 IKA0187 TELE-C06) Document 08/08/17 06:00 EHZ5577 (Rec: 08/08/17 06:53 IUR2802 TELE-C11) Document 08/08/17 14:00 [id number] (Rec: 08/08/17 14:56 [id number] TELE-C08) Document 08/08/17 22:00 FLU3692 (Rec: 08/08/17 22:25 VRB7068 TELE-C01) Document 08/09/17 06:00 SFW5818 (Rec: 08/09/17 07:32 UWQ7329 TELE-C11) Document 08/09/17 14:00 YOD9071 (Rec: 08/09/17 14:46 GCW8285 TELE-C05) Document 08/09/17 22:00 QOG3139 (Rec: 08/10/17 02:58 QWX2895 TELE-C33) Document 08/10/17 06:00 EAK4589 (Rec: 08/10/17 06:44 ZZW5529 TELE-C03) Document 08/10/17 14:00 EJZ3139 (Rec: 08/10/17 15:31 HZG1756 TELE-C10) Document 08/11/17 06:00 LUD9967 (Rec: 08/11/17 08:55 MXU9212 TELE-C10) Document 08/11/17 14:00 AMI0966 (Rec: 08/11/17 14:23 RDP2417 TELE-C11) Document 08/11/17 22:00 CCA9119 (Rec: 08/11/17 22:46 HXI5291 TELE-C05) Document 08/12/17 06:00 JXP2976 (Rec: 08/12/17 07:55 ITG1652 TELE-C03) Document 08/12/17 14:00 GUF8206 (Rec: 08/12/17 15:14 FSJ2544 TELE-C11) Intake and Output Start: 08/12/17 19: 01 Freq: 06,14,22 Status: Active Protocol: Created 08/12/17 19:01 (Rec: 08/12/17 19:01 ICU-C15) Document 08/12/17 22:00 [id number] (Rec: 08/12/17 23:10 [id number] ICU-M15) Document 08/13/17 06:20 [id number] (Rec: 08/13/17 06:21 [id number] ICU-C15) General Impression: Pleasant, somnolent man with visible dyspnea, cachectic and with proximal muscle wasting as well as loss of intrinsic muscles of the hand and temporal muscles. Head: Large scab on scalp at site of surgical resection squamous cell ca Eyes: No Scleral Icterus Ears/Nose/Mouth/Throat: Clear Oropharnyx, Mucous Membranes Moist Neck: NL Appearance and Movements; NL JVP, - - palpable firm left submandibular adenopathy Cardiovascular: NL Sounds; No Murmurs; No JVD, No Edema, - - irreg, rapid Respiratory: Symmetrical Chest Expansion and Respiratory Effort Abdominal: NL Sounds; No Tenderness; No Distention, No Hepatosplenomegaly Extremities: No Edema, No Clubbing, Cyanosis, - - rheumatoid deformities both hands Neurological: - - somnolent, fatigued, able to respond verbally - Assessment Assessment: Pleasant 87 year old man with multiple medical problems, currently with respiratory failure after Klebsiella pneumonia with large left and moderate right pleural effusions. He also has metastatic squamous cell carcinoma with bone involvement. He is appropriate for hospice services with a primary diagnosis of hypoxic respiratory failure and a secondary of metastatic squamous cell cancer. He lives in [facility] so will be referred to [facility] with request to have him signed on the same or next day, as he is being discharged from the ICU directly to home at his family's request. - Plan Consult Plan (MU): Hospice - Time On Unit Date of Evaluation: 08/13/17 Hospice Consult Time in: 11:15 Hospice Consult Time Out: 12:30 Hospice Consult Time Total: 75
[2017-08-13] MEDS ORDERED: LORazepam TAB(*) 0.5 MG SL PRN (14:00)
[2017-08-13] MEDS ORDERED: Atropine 1% (ORAL/SL)* 15 ML BTL SL PRN (14:00)
--- NOTE | 2017-08-13 14:11 | PN ---
"Progress Note - Progress Note Date of Service: 08/13/17 Note: This report was requested by: Cuong Mckeon | Reference #: [id number] Others' Prescriptions Patient Name: Darryn Rangel Date: 1950 Address: [address] [place] [address] Sex: Male Rx Written Rx Dispensed Drug Quantity Days Supply Prescriber Name 07/29/2017 07/31/2017 oxycodone-acetaminophen 10-325 mg tab 240 30 [place], Hany Blankenship (DO) 07/29/2017 07/31/2017 diazepam 5 mg tablet 90 30 Soto, Hany Blankenship (DO) 07/01/2017 07/01/2017 diazepam 5 mg tablet 90 30 [place], Hany Blankenship (DO) 07/01/2017 07/01/2017 oxycodone-acetaminophen 10-325 mg tab 240 30 Soto, Hany Blankenship (DO) 05/27/2017 06/01/2017 diazepam 5 mg tablet 90 30 [place], Hany Blankenship (DO) 05/27/2017 06/01/2017 oxycodone-acetaminophen 10-325 mg tab 240 30 [place], Hany Blankenship (DO) 04/30/2017 05/03/2017 diazepam 5 mg tablet 90 30 Soto, Hany Blankenship (DO) 04/30/2017 05/03/2017 oxycodone-acetaminophen 10-325 mg tab 200 25 Soto, Hany Blankenship (DO) 04/08/2017 04/08/2017 oxycodone-acetaminophen 10-325 mg tab 200 25 Soto, Hany Blankenship (DO) 04/03/2017 04/04/2017 diazepam 5 mg tablet 90 30 Soto, Hany Blankenship (DO) 03/11/2017 03/11/2017 oxycodone-acetaminophen 10-325 mg tab 200 25 [place], Hany Blankenship (DO) 03/04/2017 03/05/2017 diazepam 5 mg tablet 90 30 Soto, Hany Blankenship (DO) 02/12/2017 02/13/2017 oxycodone-acetaminophen 10-325 mg tab 200 25 [place], Hany Blankenship (DO) 01/30/2017 02/04/2017 diazepam 5 mg tablet 90 30 Waylon, Alexandra 01/18/2017 01/18/2017 oxycodone-acetaminophen 10-325 mg tab 200 25 [place], Hany Blankenship (DO) 01/03/2017 01/04/2017 diazepam 5 mg tablet 90 30 Soto, Hany Blankenship (DO) 12/24/2016 12/26/2016 oxycodone-acetaminophen 10-325 mg tab 200 25 Alexandra Connors 12/04/2016 12/07/2016 diazepam 5 mg tablet 90 30 SotoHany (DO) 11/26/2016 11/29/2016 oxycodone-acetaminophen 10-325 mg tab 200 25 [place] (DO) 11/06/2016 11/08/2016 diazepam 5 mg tablet 90 30 [place]oto[place] (DO) 11/02/2016 11/05/2016 oxycodone-acetaminophen 10-325 mg tab 200 25 [place] (DO) 10/05/2016 10/06/2016 oxycodone-acetaminophen 10-325 mg tab 200 25 [place]any (DO) 10/05/2016 10/06/2016 diazepam 5 mg tablet 90 30 [place] (DO) 09/05/2016 09/08/2016 oxycodone-acetaminophen 10-325 mg tab 200 25 [place]any (DO) 09/05/2016 09/08/2016 diazepam 5 mg tablet 90 30 [place] (DO)"
[2017-08-13] MEDS: Morphine ORAL CONCENTRATE* 5 MG/0.25 ML ORAL.SYRIN SL PRN ×2 (14:21→16:14)
--- NOTE | 2017-08-13 14:47 | PN ---
Progress Note - Progress Note Date of Service: 08/13/17 Note: Time spent on discharge 50 minutes.
[2017-08-13 15:32] VITALS: BP 81/59
--- NOTE | 2017-08-14 03:37 | DS ---
CC: Dr. Hany Valera * DISCHARGE SUMMARY: DATE OF ADMISSION: 08/05/17 DATE OF DISCHARGE: 08/13/17 HISTORY OF PRESENT ILLNESS: This 67-year-old male was admitted on 08/05/17 directly to the intensive care unit. He had been in the hospital 2 months before for pneumonia, respiratory failure, and sepsis. He had a large left pleural effusion; it was restrained by a chest tube. The chest tube was removed. He had a small apical pneumothorax, which did not require any treatment. He came back complaining of weakness, decreased appetite. He had a chronic Beckman catheter. The patient has a neurogenic bladder. He has cauda equina syndrome and some spinal stenosis. Has been wheelchair bound for several years. Has a history of coronary artery disease, atrial fibrillation, pulmonary embolism, and IVC filter. The patient was admitted actually to the medical floor. It seems he may have been in diastolic congestive heart failure, a second echocardiogram did show mild decrease in ejection fraction, but the third echocardiogram showed normal ejection fraction. Again, he was diuresed with oral torsemide for at least 5 or 6 days in a row, he had negative fluid balance. However, his tachycardia was difficult to control and the metoprolol dose was increased, he got hypotensive. He continued to have heart rates in the 120s. He was short of breath. His AA gradient actually increased and on the last 24 hours, he required Vapotherm to maintain his oxygen levels. CTA of the chest was done. There was no evidence of pulmonary embolism. There was right pleural effusion present. The patient did not want any further medical interventions. He did not want to have a thoracentesis. He refused to have his IV replaced when it came out. He certainly did not want to be intubated. He did not want Vapotherm either and just wanted a simple face mask. He agreed to hospice care. His family was quite understanding and wanted him to come home so he would be able to at home in comfort. I prescribed morphine, atropine, and lorazepam for him to use at home. Dr. Poe saw him and will arrange for hospice in [place] county to see [place]. FINAL DIAGNOSES: 1. Right pleural effusion. 2. History of metastatic squamous cell carcinoma. 3. Atrial fibrillation. 4. Coronary artery disease. 5. Cauda equina syndrome. 6. Rheumatoid arthritis. DISCHARGE MEDICATIONS: 1. Atropine 1% 2 drops sublingual every 2 hours p.r.n. 2. Lorazepam 0.5 mg sublingual every 3 hours p.r.n. 3. Morphine concentrate 5 mg sublingual every 30 minutes p.r.n. 4. Prednisone 10 mg h.s. 5. Oxycodone/acetaminophen 10/325 one to two every 6 hours p.r.n. 6. Hydroxychloroquine 200 mg b.i.d. 7. Omeprazole 40 mg daily. 8. Diazepam 5 mg t.i.d. p.r.n. 9. Collagenase to affected area daily. [id number]/[facility] #: [id number] MTDD
== END 2017-08-13 16:53 | disposition hospice, home (50) | DRG 853 ==
LOC: ED 13:36 → MEDTELE 21:01 → ICU 08-12 18:28
PROVIDERS: ADMIT Internal Medicine Critical Care Medicine; ATTEND Internal Medicine
PROC: 0JBQ0ZZ Excision of Right Foot Subcutaneous Tissue and Fascia, Open Approach (ICD-10-PCS; principal; 2017-08-07)
DX: A41.9 Sepsis, unspecified organism (principal); I50.31 Acute diastolic (congestive) heart failure; J96.91 Respiratory failure, unspecified with hypoxia; C79.51 Secondary malignant neoplasm of bone; E11.51 Type 2 diabetes mellitus with diabetic peripheral angiopathy without gangrene; I48.91 Unspecified atrial fibrillation; G82.20 Paraplegia, unspecified; D64.9 Anemia, unspecified; C44.92 Squamous cell carcinoma of skin, unspecified; E87.1 Hypo-osmolality and hyponatremia; G83.4 Cauda equina syndrome; J93.9 Pneumothorax, unspecified; L97.419 Non-pressure chronic ulcer of right heel and midfoot with unspecified severity; L97.429 Non-pressure chronic ulcer of left heel and midfoot with unspecified severity; K21.9 Gastro-esophageal reflux disease without esophagitis; I10 Essential (primary) hypertension; M19.90 Unspecified osteoarthritis, unspecified site; E78.5 Hyperlipidemia, unspecified; M06.9 Rheumatoid arthritis, unspecified; Z66 Do not resuscitate; M48.00 Spinal stenosis, site unspecified; I25.10 Atherosclerotic heart disease of native coronary artery without angina pectoris; Z88.8 Allergy status to other drugs, medicaments and biological substances; Z95.0 Presence of cardiac pacemaker; Z82.49 Family history of ischemic heart disease and other diseases of the circulatory system; Z95.1 Presence of aortocoronary bypass graft; Z98.1 Arthrodesis status; Z86.718 Personal history of other venous thrombosis and embolism; Z86.711 Personal history of pulmonary embolism; Z99.3 Dependence on wheelchair; Z87.891 Personal history of nicotine dependence; Z74.01 Bed confinement status; Z79.52 Long term (current) use of systemic steroids
CPT/HCPCS: 36415; 71010; 71020; 71275; 80048; 80053; 80162; 83036; 83605; 83880; 84484; 85025; 85610; 87040; 87077; 87150; 87205; 93005; 93306; 94760; 99284; A9270-GY; J1160; J1644; J1940; J2543; J3490; J7512; Q9967